=== PATIENT | male | born 1960 | race Caucasian/White ===

== ENCOUNTER → 2023-10-05 07:37 | Outpatient (BNVA) | payer OTHER, SELFPAY | PROVIDERS: Visit Provider Physician Assistant Surgical ==

== ENCOUNTER 2023-12-03 08:12 | Outpatient (AMB) | payer OTHER, SELFPAY ==
--- OUTSIDE RECORDS SUMMARY | 2023-12-03 08:14 | XMS_ITS | Continuity of Care Document ---
Author Organization [facility] em Address Unknown Care Team Providers Care Mental Health Specialist Name Role Phone Adamaris MARIO, Keyannakwadwo Masterson Primary Care Physici an [place] [facility] [place] - 09/28/[address] [address] Attending Physician: Joycelyn Hennessy Admitting Physician: AdmtrJoycelyn Referring Physician: Admtr Ar8 Allergies, Adverse Reactions, Alerts Substance Reaction Severity Status Peanuts TURNS RED,JENSEN,VOMITING Active Zetia PAIN AND WEAKNESS IN JOINTS Active fentaNYL 1 Active statins CPK LEVELS RISE Active 1FLUSHED Immunizations Given and Recorded Vaccine Date Status Refusal Reason pneumococcal 23-valent vaccine 09/06/17 Given influenza virus vaccine, inactivated 09/06/17 Give n Medications Albuterol 2 puffs, By Mouth, Every 6 hours, PRN as needed for wheezing, 0 Refills, 10/07/04 13:18:37 EDT Start Date: 10/07/04 Status: Ordered Albuterol (Eqv-ProAir HFA) 90 mcg/inh inhalation aerosol 2 puffs, Inhalation, Every 6 hours, PRN Wheezing/Shortness of Breath, # 6.7 Gm, 11 Refills, Maintenance, 06/13/22 14:10:00 uControl, [facility] #[id number], Partial fill upon patient request if the prescription is for a schedule II opioid drug., 2 puf... Start Date: 06/13/22 Status: Ordered albuterol 0.083% inhalation solution 3 mL = 2.5 mg, Inhalation, Every 6 hours, PRN for wheezing/shortness of breath, # 360 mL, 11 Refills, Maintenance, 06/13/22 14:09:00 EST, Solution, [facility] #[id number], Partial fill upon patient request if the prescription is for a schedule II... Start Date: 06/13/22 Status: Ordered amLODIPine 5 mg oral tablet 1 tablet = 5 mg, By Mouth, Daily, # 90 tablet, 3 Refills, Maintenance, 09/07/23 8:50:00 EDT, Tablet, [facility]/pharmacy #[id number], Partial fill upon patient request if the prescription is for a schedule II opioid drug., 180.34, cm, 09/07/23 8:40:00 EDT, Height,... Start Date: 09/07/23 Stop Date: 09/01/24 Status: Ordered aspirin 81 mg oral tablet 1 tablet = 81 mg, By Mouth, Daily, # 90 tablet, 11 Refills, Maintenance, 12/06/18 13:47:08 EDT, Tablet Start Date: 12/06/18 Stop Date: 11/20/21 Status: Ordered Augmentin 500 mg-125 mg oral tablet By Mouth, Every 8 hours, 0 Refills, Maintenance, 07/12/23 15:54:00 EST, Partial fill upon patient request if the prescription is for a schedule II opioid drug. Start Date: 07/12/23 Status: Ordered Fax to [facility] Fax to [facility], See Instructions, # 1 each, Refills 11, Tot. Refills 11, Maintenance, CPAP CPAP 8 cm H2O with heated humidification, mask, heated tubing, filters, headgear, chin strap, andwater chamber. Vincenzo provider access to wireless... Start Date: 09/28/20 Status: Ordered fenofibrate 160 mg oral tablet 0.5 tablet = 80 mg, By Mouth, Daily, # 15 tablet, 0 Refills, Maintenance, 12/16/21 9:13:00 EDT, Tablet, [facility] #[id number], Partial fill upon patient request if the prescription is for a schedule II opioid drug., 180, cm, 12/16/21 8:55:00 EDT... Start Date: 12/16/21 Status: Ordered Fish Oil 1000 mg oral capsule 1 capsule = 1,000 mg, By Mouth, 2 times a day, # 90 capsule, 0 Refills, Maintenance, 06/11/15 13:42:25, Capsule Start Date: 06/11/15 Status: Ordered fluoxetine 20 mg oral tablet 1 tablet = 20 mg, By Mouth, Daily, 0 Refills, Maintenance Start Date: 06/08/11 Status: Ordered fluticasone 50 mcg/inh nasal spray 1 sprays, Nares, Both, 2 times a day, # 1 each, 5 Refills, Maintenance, 04/05/23 11:45:00 EDT, [facility]/pharmacy #[id number], Partial fill upon patient request if the prescription is for a schedule II opioid drug., 1 sprays Nares, Both 2 times a day, 180.34, cm,... Start Date: 04/05/23 Status: Ordered Golytely - oral powder for reconstitution 240 mL, By Mouth, Every 15 minutes, Start prep at 5 pm the night before the procedure. Take 1/2 of the prep Take the othe 1/2 6 hours before the procedure, # 1 each, 0 Refills, Maintenance, 11/08/22 16:40:00 EDT, REC Powder, [facility]/pharmacy #[id number], Ok to... Start Date: 11/08/22 Status: Ordered Lasix 20 mg oral tablet 20 mg, 1, tablet, By Mouth, Daily, # 30 tablet, Refills 11, Tot. Refills 11, Maintenance, 02/24/22 16:00:00 EDT, [id number], Partial fill upon patient request if the prescription is for a schedule II... Start Date: 02/24/22 Status: Ordered Levothyroxine = 300 mcg, By Mouth, Daily, 0 Refills, Maintenance Start Date: 06/29/11 Status: Ordered loratadine 10 mg oral tablet 10 mg, 1, tablet, By Mouth, Daily, # 30 tablet, Refills 11, Tot. Refills 11, Maintenance, 05/10/23 10:46:00 EST, Route to Pharmacy Electronically, [facility]/pharmacy #[id number], Partial fill upon patient request if the prescription is for a schedule II opioid dr... Start Date: 05/10/23 Status: Ordered metoprolol 50 mg oral tablet, extended release 50 mg, 1, tablet, By Mouth, Daily, # 90 tablet, Refills 3, Tot. Refills 3, Maintenance, 10/31/22 9:28:00 EDT, Route to Pharmacy Electronically, [facility]/pharmacy #[id number], 178, cm, 10/18/22 9:47:00 EDT, Height, 121, kg, 01/23/22 7:29:00 EDT, Dry Weight Start Date: 10/31/22 Status: Ordered Nebulizer/Compressor See Instructions, # 1 each, Refills 11, Tot. Refills 11, Maintenance, E0570 Nebulizer A7003 Neb Disp Set [id number] Neb non-Disp Filter A7005 Neb Non-Disp set [id number] Aerosol Mask A7013 Neb Disp Filter length of need lifetime 99 months for home use, 06/04... Start Date: 06/13/22 Status: Ordered nitroglycerin 0.4 mg sublingual tablet 1 tablet = 0.4 mg, Sublingual, Every 5 minutes, PRN for chest pain, # 100 tablet, 1 Refills, Maintenance, 04/06/16 8:55:53, Tablet Start Date: 04/06/16 Status: Ordered prasugrel 10 mg oral tablet 1 tablet = 10 mg, By Mouth, Daily, # 90 tablet, 3 Refills, Maintenance, 02/06/23 8:36:00 EDT, Tablet, [facility]/pharmacy #[id number], 180.34, cm, 11/22/22 7:21:00 EDT, Height, 124.1, kg, 11/22/22 7:21:00 EDT, Dry Weight Start Date: 02/06/23 Status: Ordered PredniSONE By Mouth, Daily, 0 Refills, Maintenance, 07/12/23 15:54:00 EST, Partial fill upon patient request if the prescription is for a schedule II opioid drug. Start Date: 07/12/23 Status: Ordered ranolazine 500 mg oral tablet, extended release 1 tablet = 500 mg, By Mouth, 2 times a day, # 180 tablet, 3 Refills, Maintenance, 03/13/23 9:33:00 EDT, ER Tablet, [facility]/pharmacy #[id number], Partial fill upon patient request if the prescription is for a schedule II opioid drug., 180.34, cm, 11/22/22 7:21:0... Start Date: 03/13/23 Status: Ordered Repatha SureClick 140 mg/mL subcutaneous solution = 140 mg, Subcutaneous Infusion, Every 14 days, # 2 each, 11 Refills, Maintenance, 06/12/23 12:51:00 EST, [facility] #[id number], Partial fill upon patient request if the prescription is for a schedule II opioid drug., 180.34, cm, 11/22/22 7:21:00 EDT, He... Start Date: 06/12/23 Status: Ordered Trelegy Ellipta 200 mcg-62.5 mcg-25 mcg/inh inhalation powder 1 puffs, Inhalation, Daily, at the same time every day, # 1 each, 11 Refills, Maintenance, 06/19/2412:13:00 EST, Powder, [facility] #[id number], Partial fill upon patient request if the prescription is for a schedule II opioid drug., 1 puffs Inhalation D... Start Date: 06/19/23 Status: Ordered Vitamin B Complex oral tablet, extended release By Mouth, Daily, 0 Refills, Maintenance, 07/23/19 13:22:00 EST Start Date: 07/23/19 Status: Ordered Problem List Condition Confirmation Course Effective Dates Status Health St atus Informant Ascending aorta dilation Confirmed Active Benign essential hypertension Confirmed Active CAD (coronary artery disease) Confirmed Active Dyslipidemia Confirmed Active Severe obesity (BMI 35.0-39.9) with comorbidity Confirmed Active Social History Social History Type Response Smoking Status Former smoker; Other : quit 1990; entered on: 06/14/17 Sex Patient Care team information Care Team Personnel Name: Rhoda Ansari RN Position: CARYN MUNOZ RN Member Role: Primary Care Nurse Name: Keyanna Bailon NP Position: Reference Physician Member Role: PCP Address: Address: [address] [place] [address]- Name: Adam Gutiérrez RN Position: CARYN RESTREPO Supv Member Role: Primary Care Nurse Care Team Related Persons Name: SHERLY HOLTA Address: home [address] [place] [address]
--- OUTSIDE RECORDS SUMMARY | 2023-12-03 08:14 | XMS_ITS | Continuity of Care Document ---
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 Name Role Phone Sheyla BARRAGAN, Willie Rogers Primary Care Physician [place] [facility] [place] 02/25/20 [facility] [address] [place] [address]- [facility] Attending Physician: Payam Genao MD Admitting Physician: Payam Genao MD Allergies, Adverse Reactions, Alerts Substance Reaction Severity Status Peanuts TURNS RED,JENSEN,VOMITING Active Zetia PAIN AND WEAKNESS IN JOINTS Active statins CPK LEVELS RISE Active fentaNYL 1 Active 1FLUSHED Immunizations Given and Recorded Vaccine Date Status Refusal Reason pneumococcal 23-valent vaccine 09/06/17 Given influenza virus vaccine, inactivated 09/06/17 Give n Medications Albuterol 2 puffs, By Mouth, Every 6 hours, PRN as needed for wheezing, 0 Refills, 10/07/04 13:18:37 EDT Start Date: 10/07/04 Status: Ordered amLODIPine 2.5 mg oral tablet 1 tablet, By Mouth, Daily, # 30 tablet, 11 Refills, Maintenance, 02/11/20 10:45:00 EDT, [facility] #[id number], 180, cm, 01/27/20 7:17:00 EDT, Height, 122.3, kg, 12/05/18 4:00:00 EDT, Dry Weight Start Date: 02/11/20 Status: Ordered aspirin 81 mg oral tablet 1 tablet = 81 mg, By Mouth, Daily, # 90 tablet, 11 Refills, Maintenance, 12/06/18 13:47:08 EDT, Tablet Start Date: 12/06/18 Stop Date: 11/20/21 Status: Ordered fenofibrate 160 mg oral tablet 0.5 tablet = 80 mg, By Mouth, Daily, 0 Refills, Maintenance, 12/06/18 13:42:44 EDT, Tablet Start Date: 12/06/18 Status: Ordered Fish Oil 1000 mg oral capsule 1 capsule = 1,000 mg, By Mouth, 2 times a day, # 90 capsule, 0 Refills, Maintenance, 06/11/15 13:42:25, Capsule Start Date: 06/11/15 Status: Ordered fluoxetine 20 mg oral tablet 1 tablet = 20 mg, By Mouth, Daily, 0 Refills, Maintenance Start Date: 06/08/11 Status: Ordered Levothyroxine = 300 mcg, By Mouth, Daily, 0 Refills, Maintenance Start Date: 06/29/11 Status: Ordered nitroglycerin 0.4 mg sublingual tablet 1 tablet = 0.4 mg, Sublingual, Every 5 minutes, PRN for chest pain, # 100 tablet, 1 Refills, Maintenance, 04/06/16 8:55:53, Tablet Start Date: 04/06/16 Status: Ordered prasugrel 10 mg oral tablet 1 tablet = 10 mg, By Mouth, Daily, # 90 tablet, 3 Refills, Maintenance, 01/27/20 8:43:00 EDT, Tablet, [facility], 180, cm, 01/27/20 7:17:00 EDT, Height, 122.3, kg, 12/05/18 4:00:00 EDT,Dry Weight Start Date: 01/27/20 Status: Ordered Symbicort 160mcg/4.5mcg Inhaler 2, puffs, Inhalation, 2 times a day, Refills 0, Maintenance, 09/04/17 15:12:55 EDT Start Date: 09/04/17 Status: Ordered Problem List Condition Effective Dates Status Health Status Inform ant Benign essential hypertension(Confirmed) Active CAD (coronary artery disease)(Confirmed) Active Dyslipidemia(Confirmed) Active Social History Social History Type Response Smoking Status Former smoker; Other : quit 1990; entered on: 06/14/17 Sex
--- OUTSIDE RECORDS SUMMARY | 2023-12-03 08:14 | XMS_ITS | Continuity of Care Document ---
Author Organization [facility] em Address Unknown Care Team Providers Care Support Services Specialist Name Role Phone Willie Carrion MD Primary Care Physician [place] [facility] [place](s): 11/05/20 - 11/12/20 [facility] Attending Physician: Payam Genao MD Admitting Physician: Payam Genao MD Referring Physician: Willie Carrion MD Allergies, Adverse Reactions, Alerts Substance Reaction [...] EDT Start Date: 10/07/04 Status: Ordered amLODIPine 5 mg oral tablet 5 mg, 1, tablet, By Mouth, Daily, # 90 tablet, Refills 6, Tot. Refills 6, Maintenance, 03/26/20 11:01:00 EDT, Route to Pharmacy Electronically, [facility] #[id number], 180, cm, 03/26/20 10:34:00EDT, Height, 122.3, kg, 12/05/18 4:00:00 EDT, Dry W... Start Date: 03/26/20 Stop Date: 12/16/21 Status: Ordered aspirin 81 mg oral tablet 1 tablet = 81 mg, By Mouth, Daily, # 90 tablet, 11 Refills, Maintenance, 12/06/18 13:47:08 EDT, Tablet Start Date: 12/06/18 Stop Date: 11/20/21 Status: Ordered Fax to [facility] Fax to [facility], See Instructions, # 1 each, [...] Refills, Maintenance Start Date: 06/29/11 Status: Ordered metoprolol 50 mg oral tablet, extended release 50 mg, 1, tablet, By Mouth, Daily, # 90 tablet, Refills 3, Tot. Refills 3, Maintenance, 09/01/20 16:55:00 EDT, [id number], 180, cm, 08/31/20 14:02:00 EDT, Height, 122.3, kg, 12/05/18 4:00:00 EDT, Dry... Start Date: 09/01/20 Status: Ordered Nitric Oxide 0 Refills, Maintenance, 08/31/20 14:02:00 EDT, Partial fill upon patient request if the prescription is for a schedule II opioid drug. Start Date: 08/31/20 Status: Ordered nitroglycerin 0.4 mg sublingual tablet 1 tablet = 0.4 mg, Sublingual, Every 5 minutes, PRN for chest pain, # 100 tablet, 1 Refills, Maintenance, 04/06/16 8:55:53, Tablet Start Date: 04/06/16 Status: Ordered prasugrel 10 mg oral tablet 1 tablet = 10 mg, By Mouth, Daily, # 90 tablet, 3 Refills, Maintenance, 01/27/20 8:43:00 EDT, Tablet, [facility] 3, 180, cm, 01/27/20 7:17:00 EDT, Height, 122.3, kg, 12/05/18 4:00:00 EDT,Dry Weight Start Date: 01/27/20 Status: Ordered Spiriva Respimat 1.25 mcg/inh inhalation aerosol 2 puffs, Inhalation, Daily, # 4 Gm, 11 Refills, Maintenance, 03/08/20 14:55:00 EDT, Aerosol, [facility] #[id number], 180, cm, 03/08/20 14:38:00 EDT, Height, 122.3, kg, 12/05/18 4:00:00 EDT, Dry Weight Start Date: 03/08/20 Status: Ordered Symbicort 160mcg/4.5mcg Inhaler 2, puffs, Inhalation, 2 times a day, Refills 0, Maintenance, 09/04/17 15:12:55 EDT Start Date: 09/04/17 Status: Ordered Problem List Condition Effective Dates Status Health Status Inform ant Benign essential hypertension(Confirmed) Active CAD (coronary artery disease)(Confirmed) Active Dyslipidemia(Confirmed) Active Vital Signs Most recent to oldest [Reference Range]: 1 Height 180 cm (10/18/20 2:48 PM) Weight 119 kg (10/18/20 2:48 PM) Social History Social History Type Response Smoking Status Former smoker; Other : quit 1990; entered on: 06/14/17 Sex
--- OUTSIDE RECORDS SUMMARY | 2023-12-03 08:14 | XMS_ITS | Continuity of Care Document ---
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 [place] Date(s): 07/23/19 - 07/30/19 [place] [address]- [place] Attending Physician: Jaswant Elizabeth MD Admitting Physician: Jaswant Elizabeth MD Referring Physician: Willie Carrion MD Allergies, [...] Status: Ordered amLODIPine 2.5 mg oral tablet 2.5 mg, 1, tablet, By Mouth, Daily, # 30 tablet, Refills 11, Tot. Refills 11, Maintenance, 02/13/1916:14:19 EDT, Route to Pharmacy Electronically, [id number], [facility] #[id number] Start Date: 02/12/19 Status: Ordered aspirin 81 mg oral tablet [...] tablet, Refills 3, Tot. Refills 3, Maintenance, 08/13/18 11:06:52 EDT, Route to Pharmacy Electronically, [id number], [id number] Start Date: 08/13/18 Status: Ordered nitroglycerin 0.4 mg sublingual tablet 1 tablet = 0.4 mg, Sublingual, Every 5 minutes, PRN for chest pain, # 100 tablet, 1 Refills, Maintenance, 04/06/16 8:55:53, Tablet Start Date: 04/06/16 Status: Ordered Symbicort 160mcg/4.5mcg Inhaler 2, puffs, Inhalation, 2 times a day, Refills 0, Maintenance, 09/04/17 15:12:55 EDT Start Date: 09/04/17 Status: Ordered ticagrelor 90 mg oral tablet 1 tablet = 90 mg, By Mouth, 2 times a day, # 180 tablet, 4 Refills, Maintenance, 12/09/18 15:26:27 EDT, Tablet Start Date: 12/09/18 Stop Date: 03/03/20 Status: Ordered Vital Signs Most recent to oldest [Reference Range]: 1 Height 180 cm (07/23/19 1:20 PM) Weight 115 kg (07/23/19 1:20 PM) Oxygen Saturation [94-100 %] 97 % (07/23/19 1:20 PM) Pulse Rate [55-90 bpm] 69 bpm (07/23/19 1:20 PM) Body Mass Index [18.5-24.99] 35.49 *>HHI* (07/23/19 1:20 PM) Blood Pressure [90-138/55-84 mm Hg] 112/ 80mm Hg (07/23/19 1:20 PM) Mode of Delivery (Oxygen) Room air (07/23/19 1:20 PM) Blood pressure sites Arm, left (07/23/19 1:20 PM) Weight Obtained Via Standing scale (07/23/19 1:20 PM) Social History Social History Type Response Smoking Status Former smoker; Other : quit 1990; entered on: 06/14/17 Sex
--- OUTSIDE RECORDS SUMMARY | 2023-12-03 08:14 | XMS_ITS | Continuity of Care Document ---
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 Name Role Phone Adamaris MARIO, Keyanna Masterson Primary Care Physici an En[place] [facility] [place] Date(s): 07/13/22 - 08/25/22 [facility] [address] [place] [address]- [place] Encounter Diagnosis CAD in [place] artery(Discharge Diagnosis) - 07/26/22 Dyslipidemia(Discharge Diagnosis) - 07/26/22 Attending Physician: Jaswant Elizabeth MD Admitting Physician: Jaswant Elizabeth MD Referring Physician: Keyanna Bailon NP Allergies, Adverse Reactions, Alerts Substance Reaction Severity [...] 6.7 Gm, 11 Refills, Maintenance, 06/13/22 14:10:00 [facility] #[id number], Partial fill upon patient request if the prescription is for a schedule II opioid drug., 2 puf... Start Date: 06/13/22 Status: Ordered albuterol 0.083% inhalation solution 3 mL = 2.5 mg, Inhalation, Every 6 hours, PRN for wheezing/shortness of breath, # 360 mL, 11 Refills, Maintenance, 06/13/22 14:09:00 EST, Solution, [facility] #[id number], Partial fill upon patient request if the prescription is for a schedule II... Start Date: 06/13/22 Status: Ordered amLODIPine 2.5 mg oral tablet 1 tablet = 2.5 mg, By Mouth, Daily, # 90 tablet, 3 Refills, Maintenance, 03/20/22 9:25:00 EDT, Tablet, [facility] #[id number], Partial fill upon patient request if the prescription is for a schedule II opioid drug., 178, cm, 02/24/22 15:32:00 EDT... Start Date: 03/20/22 Stop Date: 03/15/23 Status: Ordered aspirin 81 mg oral tablet 1 tablet = 81 mg, By Mouth, Daily, # 90 tablet, 11 Refills, Maintenance, 12/06/18 13:47:08 EDT, Tablet Start Date: 12/06/18 Stop Date: 11/20/21 Status: Ordered Fax to [facility] Fax to [facility], See Instructions, # 1 each, Refills 11, Tot. Refills 11, Maintenance, CPAP CPAP 8 cm H2O with heated humidification, mask, heated tubing, filters, headgear, chin strap, andwater chamber. Vincenzo provider access to wireless... Start Date: 09/28/20 Status: Ordered fenofibrate 160 mg oral tablet 0.5 tablet = 80 mg, By Mouth, Daily, # 15 tablet, 0 Refills, Maintenance, 12/16/21 9:13:00 EDT, Tablet, [facility] #[id number], Partial fill upon patient request if the prescription is for a schedule II opioid drug., 180, cm, 12/16/21 8:55:00 EDT... Start Date: 12/16/21 Status: Ordered Fish Oil 1000 mg oral capsule 1 capsule = 1,000 mg, By Mouth, 2 times a day, # 90 capsule, 0 Refills, Maintenance, 06/11/15 13:42:25, Capsule Start Date: 06/11/15 Status: Ordered Flonase 50 mcg/inh nasal spray 1 sprays, Nares, Both, 2 times a day, # 16 Gm, 11 Refills, Maintenance, 06/13/22 14:09:00 EST, [place], [facility] #[id number], Partial fill upon patient request if the prescription is for a schedule II opioid drug., 1 sprays Nares, Both 2 times a... Start Date: 06/13/22 Status: Ordered fluoxetine 20 mg oral tablet 1 tablet = 20 mg, By Mouth, Daily, 0 Refills, Maintenance Start Date: 06/08/11 Status: Ordered Lasix 20 mg oral tablet 20 mg, 1, tablet, By Mouth, Daily, # 30 tablet, Refills 11, Tot. Refills 11, Maintenance, 02/24/22 16:00:00 EDT, Route to Pharmacy Electronically, [facility] #[id number], Partial fill upon patient request if the prescription is for a schedule II... Start Date: 02/24/22 Status: Ordered Levothyroxine = 300 mcg, By Mouth, Daily, 0 Refills, Maintenance Start Date: 06/29/11 Status: Ordered loratadine 10 mg oral tablet 10 mg, 1, tablet, By Mouth, Daily, # 30 tablet, Refills 11, Tot. Refills 11, Maintenance, 06/13/22 14:09:00 EST, Route to Pharmacy Electronically, [facility] #[id number], Partial fill upon patient request if the prescription is for a schedule II... Start Date: 06/13/22 Status: Ordered metoprolol 50 mg oral tablet, extended release 50 mg, 1, tablet, By Mouth, Daily, # 90 tablet, Refills 3, Tot. Refills 3, Maintenance, 12/16/21 14:24:00 EDT, Route to Pharmacy Electronically, [facility] #[id number], 180, cm, 12/16/21 8:55:00EDT, Height, 117.8, kg, 04/04/21 7:21:00 EDT, Dry W... Start Date: 12/16/21 Status: Ordered Nebulizer/Compressor See Instructions, # 1 [...] Daily, # 90 tablet, 3 Refills, Maintenance, 01/02/22 16:07:00 EDT, Tablet, [facility] #[id number], 180, cm, 12/16/21 8:55:00 EDT, Height, 117.8, kg, 04/04/21 7:21:00 EDT, Dry Weight Start Date: 01/02/22 Status: Ordered ranolazine 500 mg oral tablet, extended release 1 tablet = 500 mg, By Mouth, 2 times a day, # 180 tablet, 3 Refills, Maintenance, 08/14/22 9:08:00 EDT, ER Tablet, [facility] #[id number], Partial fill upon patient request if the prescription is for a schedule II opioid drug., 178, cm, 08/11/22... Start Date: 08/14/22 Status: Ordered Repatha SureClick 140 mg/mL subcutaneous solution = 140 mg, Subcutaneous Infusion, Every 14 days, # 2 each, 11 Refills, Maintenance, 05/03/22 11:32:00 EST, [facility] #[id number], Partial fill upon patient request if the prescription is for a schedule II opioid drug., 178, cm, 03/30/22 16:02:00... Start Date: 05/03/22 Status: Ordered Trelegy Ellipta 200 mcg-62.5 mcg-25 mcg/inh inhalation powder 1 puffs, Inhalation, Daily, at the same time every day, # 1 each, 11 Refills, Maintenance, 06/13/2313:09:00 EST, Powder, [facility] #[id number], Partial fill upon patient request if the prescription is for a schedule II opioid drug., 1 puffs Inh... Start Date: 06/13/22 Status: Ordered Vitamin B Complex oral tablet, extended release By Mouth, Daily, 0 Refills, Maintenance, 07/23/19 13:22:00 EST Start Date: 07/23/19 Status: Ordered Problem List Condition Confirmation Course Effective Dates Status Health St atus Informant Benign essential hypertension Confirmed Active CAD (coronary artery disease) Confirmed Active Dyslipidemia Confirmed Active Severe obesity Confirmed Active Diagnosis Diagnosis Type Effective Dates Health Status Clinical Service Informant CAD in [place] artery Discharge Diagnosis 07/26/22 Dyslipidemia Discharge Diagnosis 07/26/22 Social History Social History Type Response Smoking Status Former smoker; Other : quit 1990; entered on: 06/14/17 Sex Patient Care team information Care Team Personnel Name: Rhoda Ansari RN Position: Benja MUNOZ RN Member Role: Primary Care Nurse Name: Keyanna Bailon NP Position: Reference Physician Member Role: PCP Address: Address: [address] [place] [address] Name: Adam Gutiérrez RN Position: Benja RN Supv Member Role: Primary Care Nurse Care Team Related Persons Name: IBIS HOLT Address: home [address] [place] [address]
--- OUTSIDE RECORDS SUMMARY | 2023-12-03 08:14 | XMS_ITS | Continuity of Care Document ---
Author Organization [facility] Address [address] [place] [address]- Care Team Providers Care Insurance Processor Name Role Phone Adamaris MARIO, Keyanna Masterson Primary Care Physici an Encounter [facility] [place] Date(s): 06/13/22 - 07/13/22 [facility] [address] [place] [address]- Attending Physician: Joycelyn Hennessy Admitting Physician: AdmJoycelyn georges Referring Physician: AdmtrJoycelyn Allergies, Adverse Reactions, Alerts Substance Reaction Severity [...] 6.7 Gm, 11 Refills, Maintenance, 06/13/22 14:10:00 [facility][id number], Partial fill upon patient request if the prescription is for a schedule II opioid drug., 2 puf... Start Date: 06/13/22 Status: Ordered albuterol 0.083% inhalation solution 3 mL = 2.5 mg, Inhalation, Every 6 hours, PRN for wheezing/shortness of breath, # 360 mL, 11 Refills, Maintenance, 06/13/22 14:09:00 EST, Solution, [facility] #[id number], Partial fill upon patient request if the prescription is for a schedule II... Start Date: 06/13/22 Status: Ordered amLODIPine 2.5 mg oral tablet 1 tablet = 2.5 mg, By Mouth, Daily, # 90 tablet, 3 Refills, Maintenance, 03/20/22 9:25:00 EDT, Tablet, [facility] #[id number], Partial fill upon patient request if the prescription is for a schedule II opioid drug., 178, cm, 02/24/22 15:32:00 EDT... Start Date: 03/20/22 Stop Date: 03/15/23 Status: Ordered aspirin 81 mg oral tablet 1 tablet = 81 mg, By Mouth, Daily, # 90 tablet, 11 Refills, Maintenance, 12/06/18 13:47:08 EDT, Tablet Start Date: 12/06/18 Stop Date: 11/20/21 Status: Ordered Fax to [facility] Fax to [facility], See Instructions, # 1 each, Refills 11, Tot. Refills 11, Maintenance, CPAP CPAP 8 cm H2O with heated humidification, mask, heated tubing, filters, headgear, chin strap, andwater chamber. [facility]en[facility] provider access to wireless... Start Date: 09/28/20 Status: Ordered fenofibrate 160 mg oral tablet 0.5 tablet = 80 mg, By Mouth, Daily, # 15 tablet, 0 Refills, Maintenance, 12/16/21 9:13:00 EDT, Tablet, [facility] #[id number], Partial fill upon patient request if the [...] Gm, 11 Refills, Maintenance, 06/13/22 14:09:00 EST, House, [facility] #[id number], Partial fill upon patient request if the [...] 02/24/22 16:00:00 EDT, Route to Pharmacy Electronically, [facility] #[id number], Partial fill upon patient request if the prescription is for a schedule II... Start Date: 02/24/22 Status: Ordered Levothyroxine = 300 mcg, By Mouth, Daily, 0 Refills, Maintenance Start Date: 06/29/11 Status: Ordered loratadine 10 mg oral tablet 10 mg, 1, tablet, By Mouth, Daily, # 30 tablet, Refills 11, Tot. Refills 11, Maintenance, 06/13/22 14:09:00 EST, Route to Pharmacy Electronically, [facility] #[id number], Partial fill upon patient request if the prescription is for a schedule II... Start Date: 06/13/22 Status: Ordered metoprolol 50 mg oral tablet, extended release 50 mg, 1, tablet, By Mouth, Daily, # 90 tablet, Refills 3, Tot. Refills 3, Maintenance, 12/16/21 14:24:00 EDT, Route to Pharmacy Electronically, [facility] #[id number], 180, cm, 12/16/21 8:55:00EDT, Height, 117.8, kg, [...] 3 Refills, Maintenance, 01/02/22 16:07:00 EDT, Tablet, [facility] #[id number], 180, cm, 12/16/21 8:55:00 EDT, Height, 117.8, kg, 04/04/21 7:21:00 EDT, Dry Weight Start Date: 01/02/22 Status: Ordered ranolazine 500 mg oral tablet, extended release 1 tablet = 500 mg, By Mouth, 2 times a day, # 120 tablet, 3 Refills, Maintenance, 07/04/22 9:01:00 EST, ER Tablet, [facility] #[id number], Partial fill upon patient request if the prescription is for a schedule II opioid drug., 178, cm, 06/13/22... Start Date: 07/04/22 Status: Ordered Repatha SureClick 140 mg/mL subcutaneous solution = 140 mg, Subcutaneous Infusion, Every 14 days, # 2 each, 11 Refills, Maintenance, 05/03/22 11:32:00 EST, [facility] #[id number], Partial fill upon patient request if the prescription is for a schedule II opioid drug., 178, cm, 03/30/22 16:02:00... Start Date: 05/03/22 Status: Ordered Trelegy Ellipta 200 mcg-62.5 mcg-25 mcg/inh inhalation powder 1 puffs, Inhalation, Daily, at the same time every day, # 1 each, 11 Refills, Maintenance, 06/13/2313:09:00 EST, Powder, [facility] #[id number], Partial fill upon patient request if the [...] Team Personnel Name: Rhoda Ansari RN Position: [facility] SN RN Member Role: Primary Care Nurse Name: Keyanna Bailon NP Position: Reference Physician Member Role: PCP Address: Address: [address] [place] [address]- Name: Adam Gutiérrez RN Position: S RN Supv Member Role: Primary Care Nurse Care Team Related Persons Name: IBIS HOLT Address: home [address] [place] [address]
--- OUTSIDE RECORDS SUMMARY | 2023-12-03 08:14 | XMS_ITS | Continuity of Care Document ---
Author Organization [facility] Address [address] [place] [address]- Care Team Providers Care Water Commissioner Name Role Phone Willie Carrion MD Primary Care Physician Encounter [facility] [place] Date(s): 01/26/20 - 01/27/[address] [address]- [facility] Discharge Disposition: A-D/C Home Attending Physician: Steve Cedeno MD Admitting Physician: Steve Cedeno MD Referring Physician: Steve Cedeno MD Allergies, Adverse Reactions, Alerts Substance Reaction [...] Maintenance, 02/13/1916:14:19 EDT, Route to Pharmacy Electronically, [id number], [facility] #[id number] Start Date: 02/12/19 Status: Ordered aspirin 81 [...] 3 Refills, Maintenance, 01/27/20 8:43:00 EDT, Tablet, [facility] 3, 180, cm, 01/27/20 7:17:00 EDT, Height, 122.3, kg, 12/05/18 4:00:00 EDT,Dry Weight Start Date: 01/27/20 Status: Ordered Symbicort 160mcg/4.5mcg Inhaler 2, puffs, Inhalation, 2 times a day, Refills 0, Maintenance, 09/04/17 15:12:55 EDT Start Date: 09/04/17 Status: Ordered Problem List Condition Effective Dates Status Health Status Inform ant Benign essential hypertension(Confirmed) Active CAD (coronary artery disease)(Confirmed) Active Dyslipidemia(Confirmed) Active Procedures Procedure Date Related Diagnosis Body Site Status PCI - Percutaneous coronary intervention 01/26/20 Completed Vital Signs Most recent to oldest [Reference Range]: 1 2 3 Height 180 cm (01/27/20 7:17 AM) 180 cm (01/27/20 3:15 AM) 180 cm (01/26/20 11:21 PM) Weight 114.3 kg (01/26/20 1:10 PM) 114.2 kg (01/26/20 7:41 AM) 114.2 kg (01/26/20 7:30 AM) Oxygen Saturation [94-100 %] 100 % (01/27/20 7:17 AM) 96 % (01/27/20 3:15 AM) 97 % (01/26/20 11:21 PM) Pulse Rate [55-90 bpm] 56 bpm (01/27/20 9:00 AM) 102 bpm *H* (01/27/20 7:17 AM) 59 bpm (01/27/20 3:15 AM) Body Mass Index [18.5-24.99] 35.28 *>HHI* (01/26/20 1:10 PM) 35.25 *>HHI* (01/26/20 7:30 AM) Blood Pressure [90-138/55-84 mm Hg] 112/76mm Hg (01/27/20 9:27 AM) 112/76mm Hg (01/27/20 9:00 AM) 112/76mm Hg (01/27/20 7:17 AM) Respiratory Rate [16-30 br/min] 18 br/min (01/27/20 7:17 AM) 18 br/min (01/27/20 3:15 AM) 18 br/min (01/26/20 11: PM) Temperature [96.8-100.4 DegF] 97.9 DegF (01/27/20 7:17 AM) 97.8 DegF (01/27/20 3:15 AM) 97.6 DegF (01/26/20 11:21 PM) Mode of Delivery (Oxygen) Room air (01/27/20 7:17 AM) Room air (01/27/20 3:15 AM) Room air (01/26/20 11:21 PM) Blood pressure sites Arm, left (01/27/20 7:17 AM) Arm, left (01/27/20 3:15 AM) Arm, left (01/26/20 11:21 PM) Temperature Route Oral (01/27/20 7:17 AM) Oral (01/27/20 3:15 AM) Oral (01/26/20 11:21 PM) Weight Obtained Via Bed scale (01/26/20 1:10 PM) Standing scale (01/26/20 7:41 AM) Standing scale (01/26/20 7:30 AM) Social History Social History Type Response Smoking Status Former smoker; Other : quit 1990; entered on: 06/14/17 Sex
--- OUTSIDE RECORDS SUMMARY | 2023-12-03 08:14 | XMS_ITS | Continuity of Care Document ---
Author Organization [facility] Address [address] [place] [address]- Care Team Providers Care Integration Director Name Role Phone Willie Carrion MD Primary Care Physician [phone] Encounter [facility] [place] Date(s): 12/16/21 - 01/15/22 [facility] [address] [place] [address]- Attending Physician: Joycelyn Hennessy Admitting Physician: AdmtrJoycelyn [...] Daily, # 90 tablet, 3 Refills, Maintenance, 09/02/21 8:52:00 EDT, Tablet, [facility] #[id number], Partial fill upon patient request if the prescription is for a schedule II opioid drug., 180, cm, 09/02/21 8:46:00 EDT,... Start Date: 09/02/21 Stop Date: 08/28/22 Status: Ordered aspirin 81 mg oral tablet 1 tablet = 81 mg, By Mouth, Daily, # 90 tablet, 11 Refills, Maintenance, 12/06/18 13:47:08 EDT, Tablet Start Date: 12/06/18 Stop Date: 11/20/21 Status: Ordered Fax to [facility] Fax to [facility], See Instructions, # 1 each, Refills 11, Tot. Refills 11, Maintenance, CPAP CPAP 8 cm H2O with heated humidification, mask, heated tubing, filters, headgear, chin strap, andwater chamber. [facility]en[facility] provider access to wireless... Start Date: 09/28/20 Status: Ordered fenofibrate 160 mg oral tablet 0.5 tablet = 80 mg, By Mouth, Daily, # 15 tablet, 0 Refills, Maintenance, 12/16/21 9:13:00 EDT, Tablet, [facility] #[id number], Partial fill upon patient request if the [...] 12/16/21 14:24:00 EDT, Route to Pharmacy Electronically, [facility] #[id number], 180, cm, 12/16/21 8:55:00EDT, Height, 117.8, kg, 04/04/21 7:21:00 EDT, Dry W... Start Date: 12/16/21 Status: Ordered nitroglycerin 0.4 mg sublingual tablet 1 tablet = 0.4 mg, Sublingual, Every 5 minutes, PRN for chest pain, # 100 tablet, 1 Refills, Maintenance, 04/06/16 8:55:53, Tablet Start Date: 04/06/16 Status: Ordered prasugrel 10 mg oral tablet 1 tablet = 10 mg, By Mouth, Daily, # 90 tablet, 3 Refills, Maintenance, 01/02/22 16:07:00 EDT, Tablet, [facility] #[id number], 180, cm, 12/16/21 8:55:00 EDT, Height, 117.8, kg, 04/04/21 7:21:00 EDT, Dry Weight Start Date: 01/02/22 Status: Ordered ranolazine 500 mg oral tablet, extended release 1 tablet = 500 mg, By Mouth, 2 times a day, # 120 tablet, 3 Refills, Maintenance, 12/08/21 16:50:00EDT, ER Tablet, [facility] #[id number], Partial fill upon patient request if the prescription is for a schedule II opioid drug., 180, cm, 09/05/21... Start Date: 12/08/21 Status: Ordered Repatha SureClick 140 mg/mL subcutaneous solution = 140 mg, Subcutaneous Infusion, Every 14 days, # 2 each, 11 Refills, Maintenance, 06/16/21 16:33:00 EST, Active [facility] #[id number], Partial fill upon patient request if the prescription is for a schedule II opioid drug., 180, cm, 04/06/21 16:24:00... Start Date: 06/16/21 Status: Ordered Symbicort 160mcg/4.5mcg Inhaler 2, puffs, Inhalation, 2 times a day, No substitutions, # 1 each, Refills 5, Tot. Refills 5, Maintenance, 12/13/21 12:33:00 EDT, Inhaler, Route to Pharmacy Electronically, [id number], [facility] #[id number], 180, cm, 0... Start Date: 12/13/21 Status: Ordered Problem List Condition Effective Dates Status Health Status Inform ant Benign essential hypertension(Confirmed) Active CAD (coronary artery disease)(Confirmed) Active Dyslipidemia(Confirmed) Active Obese class II(Confirmed) Active Social History Social History Type Response Smoking Status Former smoker; Other : quit 1990; entered on: 06/14/17 Sex
--- OUTSIDE RECORDS SUMMARY | 2023-12-03 08:14 | XMS_ITS | Continuity of Care Document ---
Author Organization [facility] Address [address] [facility] [place] [address]- Care Team Providers Care Client Care Manager Name Role Phone Sheyla BARRAGAN, Willie Rogers Primary Care Physician En[place] [facility] [place] Date(s): 08/17/20 - 09/16/20 [facility] [address] [facility] [address] [place] [address]- Allergies, Adverse Reactions, Alerts Substance Reaction Severity [...] 03/26/20 11:01:00 EDT, Route to Pharmacy Electronically, [facility] #[id number], 180, cm, 03/26/20 10:34:00EDT, Height, 122.3, kg, [...] 09/01/20 16:55:00 EDT, Route to Pharmacy Electronically, [facility] #[id number], 180, cm, 08/31/20 14:02:00 EDT, Height, 122.3, [...] 3 Refills, Maintenance, 01/27/20 8:43:00 EDT, Tablet, [facility] 3, 180, cm, 01/27/20 7:17:00 EDT, Height, 122.3, kg, 12/05/18 4:00:00 EDT,Dry Weight Start Date: 01/27/20 Status: Ordered Spiriva Respimat 1.25 mcg/inh inhalation aerosol 2 puffs, Inhalation, Daily, # 4 Gm, 11 Refills, Maintenance, 03/08/20 14:55:00 EDT, [facility]erosol, [facility][id number], 180, cm, 03/08/20 14:38:00 EDT, Height, 122.3, [...]
--- OUTSIDE RECORDS SUMMARY | 2023-12-03 08:14 | XMS_ITS | Continuity of Care Document ---
Author Organization [facility] Address [address] [place] [address]- Care Team Providers Care Senior Game Advisor Name Role Phone Sheyla BARRAGAN, Willie Rogers Primary Care Physician Encounter [facility] [place] Date(s): 01/10/21 - 02/09/21 [facility] [address] [place] [address]- [place] Allergies, Adverse Reactions, Alerts Substance Reaction Severity [...] 03/26/20 11:01:00 EDT, Route to Pharmacy Electronically, [facility] #[id number], 180, cm, 03/26/20 10:34:00EDT, Height, 122.3, kg, 12/05/18 4:00:00 EDT, Dry W... Start Date: 03/26/20 Stop Date: 12/16/21 Status: Ordered aspirin 81 mg oral tablet 1 tablet = 81 mg, By Mouth, Daily, # 90 tablet, 11 Refills, Maintenance, 12/06/18 13:47:08 EDT, Tablet Start Date: 12/06/18 Stop Date: 11/20/21 Status: Ordered Fax to [facility] Fax to [facility], See Instructions, # 1 each, [...] 09/01/20 16:55:00 EDT, [id number], 180, cm, 08/31/20 14:02:00 EDT, Height, 122.3, [...] Daily, # 90 tablet, 3 Refills, Maintenance, 01/10/21 15:32:00 EDT, Tablet, [facility] #[id number], 180, cm, 12/02/20 8:05:00 EDT, Height Start Date: 01/10/21 Status: Ordered Spiriva Respimat 1.25 mcg/inh inhalation aerosol 2 puffs, Inhalation, Daily, # 4 Gm, 11 Refills, Maintenance, 03/08/20 14:55:00 EDT, Aerosol, [facility] #[id number], 180, cm, 03/08/20 14:38:00 EDT, Height, 122.3, [...]
--- OUTSIDE RECORDS SUMMARY | 2023-12-03 08:14 | XMS_ITS | Continuity of Care Document ---
Author Organization [facility] Address [address] [address]- Care Team Providers Care Excellence Specialist Name Role Phone Adamaris MARIO, Keyanna Aleja Primary Care Physici an Encounter [facility] [place] Date(s): 07/28/22 - 08/27/22 [facility] [address] [address]- [place] Allergies, Adverse Reactions, Alerts Substance Reaction [...] 6.7 Gm, 11 Refills, Maintenance, 06/13/22 14[facility]10:[id number], Partial fill upon patient request if the prescription is for a schedule II opioid drug., 2 puf... Start Date: 06/13/22 Status: Ordered albuterol 0.083% inhalation solution 3 mL = 2.5 mg, Inhalation, Every 6 hours, PRN for wheezing/shortness of breath, # 360 mL, 11 Refills, Maintenance, 06/13/22 14:09:00 EST, [facility] #[id number], Partial fill upon patient request if the prescription is for a schedule II... Start Date: 06/13/22 Status: Ordered amLODIPine 2.5 mg oral tablet 1 tablet = 2.5 mg, By Mouth, Daily, # 90 tablet, 3 Refills, Maintenance, 03/20/22 9:25:00 EDT, Tablet, [facility] #[id number], Partial fill upon patient [...] Stop Date: 11/20/21 Status: Ordered Fax to [facility] Fax to [facility], See Instructions, # 1 each, Refills 11, Tot. Refills 11, Maintenance, CPAP CPAP 8 cm H2O with heated humidification, mask, heated tubing, filters, headgear, chin strap, andwater chamber. Vincenzo provider access to wireless... Start Date: 09/28/20 Status: Ordered fenofibrate 160 mg oral tablet 0.5 tablet = 80 mg, By Mouth, Daily, # 15 tablet, 0 Refills, Maintenance, 12/16/21 9:13:00 EDT, Tablet, [facility] #[id number], Partial fill upon patient request if the [...] Gm, 11 Refills, Maintenance, 06/13/22 14:09:00 EST, [place], [facility] #[id number], Partial fill upon patient request if the [...] 02/24/22 16:00:00 EDT, Route to Pharmacy Electronically, [facility] #[id number], Partial fill upon patient request if the prescription is for a schedule II... Start Date: 02/24/22 Status: Ordered Levothyroxine = 300 mcg, By Mouth, Daily, 0 Refills, Maintenance Start Date: 06/29/11 Status: Ordered loratadine 10 mg oral tablet 10 mg, 1, tablet, By Mouth, Daily, # 30 tablet, Refills 11, Tot. Refills 11, Maintenance, 06/13/22 14:09:00 EST, Route to Pharmacy Electronically, [facility] #[id number], Partial fill upon patient request if the prescription is for a schedule II... Start Date: 06/13/22 Status: Ordered metoprolol 50 mg oral tablet, extended release 50 mg, 1, tablet, By Mouth, Daily, # 90 tablet, Refills 3, Tot. Refills 3, Maintenance, 12/16/21 14:24:00 EDT, Route to Pharmacy Electronically, [facility] #[id number], 180, cm, 12/16/21 8:55:00EDT, Height, 117.8, kg, [...] 3 Refills, Maintenance, 01/02/22 16:07:00 EDT, Tablet, [facility] #[id number], 180, cm, 12/16/21 8:55:00 EDT, Height, 117.8, kg, 04/04/21 7:21:00 EDT, Dry Weight Start Date: 01/02/22 Status: Ordered ranolazine 500 mg oral tablet, extended release 1 tablet = 500 mg, By Mouth, 2 times a day, # 180 tablet, 3 Refills, Maintenance, 08/14/22 9:08:00 EDT, ER Tablet, [facility] #[id number], Partial fill upon patient request if the prescription is for a schedule II opioid drug., 178, cm, 08/11/22... Start Date: 08/14/22 Status: Ordered Repatha SureClick 140 mg/mL subcutaneous solution = 140 mg, Subcutaneous Infusion, Every 14 days, # 2 each, 11 Refills, Maintenance, 05/03/22 11:32:00 EST, [facility] #[id number], Partial fill upon patient request if the prescription is for a schedule II opioid drug., 178, cm, 03/30/22 16:02:00... Start Date: 05/03/22 Status: Ordered Trelegy Ellipta 200 mcg-62.5 mcg-25 mcg/inh inhalation powder 1 puffs, Inhalation, Daily, at the same time every day, # 1 each, 11 Refills, Maintenance, 06/13/2313:09:00 EST, Powder, [facility] #[id number], Partial fill upon patient request if the [...] Dyslipidemia Confirmed Active Severe obesity Confirmed Active Social History Social History Type Response Smoking Status Former smoker; Other : quit 1990; entered on: 06/14/17 Sex Patient Care team information Care Team Personnel Name: Rhoda Ansari RN Position: [facility]UNO[facility] RN Member Role: Primary Care Nurse Name: Keyanna Bailon NP Position: Reference Physician Member Role: PCP Address: Address: [address] [place] [address] Name: Adam Gutiérrez RN Position: S RN Supv Member Role: Primary Care Nurse Care Team Related Persons Name: IBIS HOLT Address: [address] [place] [address]
--- OUTSIDE RECORDS SUMMARY | 2023-12-03 08:14 | XMS_ITS | Continuity of Care Document ---
Author Organization [facility] Address [address] [place] [address]- Care Team Providers Care Bonderizer Name Role Phone Adamaris MARIO, Keyanna Aleja Primary Care Physici an Encounter [facility] [place] Date(s): 03/15/23 - 04/14/23 [facility] [place] [address] [place] [address]- [place] Allergies, Adverse Reactions, Alerts Substance Reaction [...] 6.7 Gm, 11 Refills, Maintenance, 06/13/22 14:10:00 [facility] #[id number], Partial fill upon patient request if the prescription is for a schedule II opioid drug., 2 puf... Start Date: 06/13/22 Status: Ordered albuterol 0.083% inhalation solution 3 mL = 2.5 mg, Inhalation, Every 6 hours, PRN for wheezing/shortness of breath, # 360 mL, 11 Refills, Maintenance, 06/13/22 14:09:00 EST, [facility] #[id number], Partial fill upon patient request if the prescription is for a schedule II... Start Date: 06/13/22 Status: Ordered amLODIPine 2.5 mg oral tablet 1 tablet = 2.5 mg, By Mouth, Daily, # 90 tablet, 3 Refills, Maintenance, 03/20/22 9:25:00 EDT, Tablet, [facility] #[id number], Partial fill upon patient request if the prescription is for a schedule II opioid drug., 178, cm, 02/24/22 15:32:00 EDT... Start Date: 03/20/22 Stop Date: 03/15/23 Status: Ordered aspirin 81 mg oral tablet 1 tablet = 81 mg, By Mouth, Daily, # 90 tablet, 11 Refills, Maintenance, 12/06/18 13:47:08 EDT, Tablet Start Date: 12/06/18 Stop Date: 11/20/21 Status: Ordered Fax to [facility] Fax to [facility], See Instructions, # 1 each, Refills 11, Tot. Refills 11, Maintenance, CPAP CPAP 8 cm H2O with heated humidification, mask, heated tubing, filters, headgear, chin strap, andwater chamber. Vincenzo provider access to wireless... Start Date: 09/28/20 Status: Ordered fenofibrate 160 mg oral tablet 0.5 tablet = 80 mg, By Mouth, Daily, # 15 tablet, 0 Refills, Maintenance, 12/16/21 9:13:00 EDT, Tablet, [facility] #[id number], Partial fill upon patient request if the [...] each, 5 Refills, Maintenance, 04/05/23 11:45:00 EDT, [facility]/pharmacy #[id number], Partial fill upon patient request if [...] Refills, Maintenance, 11/08/22 16:40:00 EDT, REC Powder, [facility]/pharmacy #[id number], Ok to... Start Date: 11/08/22 Status: Ordered Lasix 20 mg oral tablet 20 mg, 1, tablet, By Mouth, Daily, # 30 tablet, Refills 11, Tot. Refills 11, Maintenance, 02/24/22 16:00:00 EDT, Route to Pharmacy Electronically, [facility] #[id number], Partial fill upon patient request if the prescription is for a schedule II... Start Date: 02/24/22 Status: Ordered Levothyroxine = 300 mcg, By Mouth, Daily, 0 Refills, Maintenance Start Date: 06/29/11 Status: Ordered loratadine 10 mg oral tablet 10 mg, 1, tablet, By Mouth, Daily, # 30 tablet, Refills 11, Tot. Refills 11, Maintenance, 06/13/22 14:09:00 EST, Route to Pharmacy Electronically, [facility] #[id number], Partial fill upon patient request if the prescription is for a schedule II... Start Date: 06/13/22 Status: Ordered metoprolol 50 mg oral tablet, extended release 50 mg, 1, tablet, By Mouth, Daily, # 90 tablet, Refills 3, Tot. Refills 3, Maintenance, 10/31/22 9:28:00 EDT, Route to Pharmacy Electronically, [facility]/pharmacy #[id number], 178, cm, 10/18/22 9:47:00 EDT, Height, [...] 3 Refills, Maintenance, 02/06/23 8:36:00 EDT, Tablet, [facility]/pharmacy #[id number], 180.34, cm, 11/22/22 7:21:00 EDT, Height, 124.1, kg, 11/22/22 7:21:00 EDT, Dry Weight Start Date: 02/06/23 Status: Ordered ranolazine 500 mg oral tablet, extended release 1 tablet = 500 mg, By Mouth, 2 times a day, # 180 tablet, 3 Refills, Maintenance, 03/13/23 9:33:00 EDT, ER Tablet, [facility]/pharmacy #[id number], Partial fill upon patient request if the prescription is for a schedule II opioid drug., 180.34, cm, 11/22/22 7:21:0... Start Date: 03/13/23 Status: Ordered Repatha SureClick 140 mg/mL subcutaneous solution = 140 mg, Subcutaneous Infusion, Every 14 days, # 2 each, 11 Refills, Maintenance, 05/03/22 11:32:00 EST, [facility] #[id number], Partial fill upon patient request if the prescription is for a schedule II opioid drug., 178, cm, 03/30/22 16:02:00... Start Date: 05/03/22 Status: Ordered Trelegy Ellipta 200 mcg-62.5 mcg-25 mcg/inh inhalation powder 1 puffs, Inhalation, Daily, at the same time every day, # 1 each, 11 Refills, Maintenance, 06/13/2313:09:00 EST, Powder, [facility] #[id number], Partial fill upon patient request if the [...] Reference Physician Member Role: PCP Address: Address: [address] [place] [address] Name: Adam Gutiérrez RN Position: Benja RESTREPO Supv Member Role: Primary Care Nurse Care Team Related Persons Name: IBIS HOLT Address: home [address] [place] [address]
--- OUTSIDE RECORDS SUMMARY | 2023-12-03 08:14 | XMS_ITS | Continuity of Care Document ---
Author Organization [facility] Address [address] [place] [address]- Care Team Providers Care Manager Internet Name Role Phone Adamaris MARIO, Keyanna Aleja Primary Care Physici an Encounter [facility] [place] Date(s): 02/19/23 - 03/24/[address] [address] Attending Physician: Maya Orozco Admitting Physician: Maya Orozco Referring Physician: Maya Orozco Allergies, Adverse Reactions, Alerts Substance Reaction Severity [...] 6.7 Gm, 11 Refills, Maintenance, 06/13/22 14:10:00 [id number], Partial fill upon patient request if the prescription is for a schedule II opioid drug., 2 puf... Start Date: 06/13/22 Status: Ordered albuterol 0.083% inhalation solution 3 mL = 2.5 mg, Inhalation, Every 6 hours, PRN for wheezing/shortness of breath, # 360 mL, 11 Refills, Maintenance, 06/13/22 14:09:00 EST, Solution, [facility] #[id number], Partial fill upon patient request if the prescription is for a schedule II... Start Date: 06/13/22 Status: Ordered amLODIPine 2.5 mg oral tablet 1 tablet = 2.5 mg, By Mouth, Daily, # 90 tablet, 3 Refills, Maintenance, 03/20/22 9:25:00 EDT, Tablet, [facility] #[id number], Partial fill upon patient request if the prescription is for a schedule II opioid drug., 178, cm, 02/24/22 15:32:00 EDT... Start Date: 03/20/22 Stop Date: 03/15/23 Status: Ordered aspirin 81 mg oral tablet 1 tablet = 81 mg, By Mouth, Daily, # 90 tablet, 11 Refills, Maintenance, 12/06/18 13:47:08 EDT, Tablet Start Date: 12/06/18 Stop Date: 11/20/21 Status: Ordered Fax to [facility] Fax to [facility], See Instructions, # 1 each, Refills 11, Tot. Refills 11, Maintenance, CPAP CPAP 8 cm H2O with heated humidification, mask, heated tubing, filters, headgear, chin strap, andwater chamber. Vincenzo provider access to wireless... Start Date: 09/28/20 Status: Ordered fenofibrate 160 mg oral tablet 0.5 tablet = 80 mg, By Mouth, Daily, # 15 tablet, 0 Refills, Maintenance, 12/16/21 9:13:00 EDT, Tablet, [facility] #[id number], Partial fill upon patient request if the [...] Gm, 11 Refills, Maintenance, 06/13/22 14:09:00 EST, [place], [facility] #[id number], Partial fill upon patient request if the prescription is for a schedule II opioid drug., 1 sprays Nares, Both 2 times a... Start Date: 06/13/22 Status: Ordered fluoxetine 20 mg oral tablet 1 tablet = 20 mg, By Mouth, Daily, 0 Refills, Maintenance Start Date: 06/08/11 Status: Ordered Golytely - oral powder for reconstitution 240 mL, By Mouth, Every 15 minutes, Start prep at 5 pm the night before the procedure. Take 1/2 of the prep Take the othe 1/2 6 hours before the procedure, # 1 each, 0 Refills, Maintenance, 11/08/22 16:40:00 EDT, REC Powder, [facility]/pharmacy #[id number], Ok to... Start Date: 11/08/22 Status: Ordered Lasix 20 mg oral tablet 20 mg, 1, tablet, By Mouth, Daily, # 30 tablet, Refills 11, Tot. Refills 11, Maintenance, 02/24/22 16:00:00 EDT, Route to Pharmacy Electronically, [facility] #[id number], Partial fill upon patient request if the prescription is for a schedule II... Start Date: 02/24/22 Status: Ordered Levothyroxine = 300 mcg, By Mouth, Daily, 0 Refills, Maintenance Start Date: 06/29/11 Status: Ordered loratadine 10 mg oral tablet 10 mg, 1, tablet, By Mouth, Daily, # 30 tablet, Refills 11, Tot. Refills 11, Maintenance, 06/13/22 14:09:00 EST, Route to Pharmacy Electronically, [facility] #[id number], Partial fill upon patient request if the prescription is for a schedule II... Start Date: 06/13/22 Status: Ordered metoprolol 50 mg oral tablet, extended release 50 mg, 1, tablet, By Mouth, Daily, # 90 tablet, Refills 3, Tot. Refills 3, Maintenance, 10/31/22 9:28:00 EDT, Route to Pharmacy Electronically, [facility]/pharmacy #[id number], 178, cm, 10/18/22 9:47:00 EDT, Height, 121, [...] 3 Refills, Maintenance, 02/06/23 8:36:00 EDT, Tablet, [facility]/pharmacy #1094, 180.34, cm, 11/22/22 7:21:00 EDT, Height, 124.1, kg, 11/22/22 7:21:00 EDT, Dry Weight Start Date: 02/06/23 Status: Ordered ranolazine 500 mg oral tablet, extended release 1 tablet = 500 mg, By Mouth, 2 times a day, # 180 tablet, 3 Refills, Maintenance, 03/13/23 9:33:00 EDT, ER Tablet, [facility]/pharmacy #[id number], Partial fill upon patient request if the prescription is for a schedule II opioid drug., 180.34, cm, 11/22/22 7:21:0... Start Date: 03/13/23 Status: Ordered Repatha SureClick 140 mg/mL subcutaneous solution = 140 mg, Subcutaneous Infusion, Every 14 days, # 2 each, 11 Refills, Maintenance, 05/03/22 11:32:00 [facility], [facility] #[id number], Partial fill upon patient request if the prescription is for a schedule II opioid drug., 178, cm, 03/30/22 16:02:00... Start Date: 05/03/22 Status: Ordered Trelegy Ellipta 200 mcg-62.5 mcg-25 mcg/inh inhalation powder 1 puffs, Inhalation, Daily, at the same time every day, # 1 each, 11 Refills, Maintenance, 06/13/2313:09:00 EST, Powder, [facility] #[id number], Partial fill upon patient request if the [...] Reference Physician Member Role: PCP Address: Address: [address] [place] [id number] Name: Adam Gutiérrez RN Position: CARYN RESTREPO Supv Member Role: Primary Care Nurse Care Team Related Persons Name: IBIS HOLT Address: home [address] [place] [address]
--- OUTSIDE RECORDS SUMMARY | 2023-12-03 08:14 | XMS_ITS | Continuity of Care Document ---
Author Organization [facility] em Address Unknown Care Team Providers Care Reroller Hand Name Role Phone Willie Carrion MD Primary Care Physician [phone] [place] [facility] [place] 04/06/21 - 04/13/21 [facility] Attending Physician: Payam Genao MD Admitting [...] mg oral tablet 1 tablet, By Mouth, 2 times a day, # 90 tablet, 3 Refills, Maintenance, 03/01/21 11:07:00 EDT, [facility] #[id number], 182, cm, 02/23/21 19:12:00 EDT, Height, 117, kg, 02/23/21 19:12:00 EDT, DryWeight Start Date: 03/01/21 Status: Ordered aspirin 81 mg oral tablet 1 tablet = 81 mg, By Mouth, Daily, # 90 tablet, 11 Refills, Maintenance, 12/06/18 13:47:08 EDT, Tablet Start Date: 12/06/18 Stop Date: 11/20/21 Status: Ordered Fax to [facility] Fax to [facility], See Instructions, # 1 each, [...] Refills, Maintenance Start Date: 06/08/11 Status: Ordered fluticasone/umeclidinium/vilanterol 100 mcg-62.5 mcg-25 mcg/inh inhalation powder 1 puffs, Inhalation, Daily, at the same time every day, # 60 each, 11 Refills, Maintenance, 04/06/21 17:28:00 EDT, Powder, [facility] #[id number], Partial fill upon patient request if the prescription is for a schedule II opioid drug., 180, cm, 1... Start Date: 04/06/21 Status: Ordered Levothyroxine = 300 mcg, By Mouth, Daily, 0 Refills, Maintenance Start Date: 06/29/11 Status: Ordered metoprolol 50 mg oral tablet, extended release 50 mg, 1, tablet, By Mouth, Daily, # 90 tablet, Refills 3, Tot. Refills 3, Maintenance, 09/01/20 16:55:00 EDT, Route to Pharmacy Electronically, [facility] #[id number], 180, cm, 08/31/20 14:02:00 EDT, Height, 122.3, [...] 3 Refills, Maintenance, 01/10/21 15:32:00 EDT, Tablet, [facility] #[id number], 180, cm, 12/02/20 8:05:00 EDT, Height Start Date: 01/10/21 Status: Ordered ranolazine 500 mg oral tablet, extended release 2 tablet = 1,000 mg, By Mouth, 2 times a day, # 120 tablet, 3 Refills, Maintenance, 04/04/21 10:46:00 EDT, ER Tablet, Partial fill upon patient request if the prescription is for a schedule II opioiddrug., 180, cm, 04/04/21 7:24:00 EDT, Height, 117.8... Start Date: 04/04/21 Status: Ordered Spiriva Respimat 1.25 mcg/inh inhalation aerosol 2 puffs, Inhalation, Daily, # 4 Gm, 11 Refills, Maintenance, 03/08/20 14:55:00 EDT, Aerosol, [facility] #[id number], 180, cm, 03/08/20 14:38:00 EDT, Height, 122.3, kg, 12/05/18 4:00:00 EDT, Dry Weight Start Date: 03/08/20 Status: Ordered Problem List Condition Effective Dates Status Health Status Inform ant Benign essential hypertension(Confirmed) Active CAD (coronary artery disease)(Confirmed) Active Dyslipidemia(Confirmed) Active Vital Signs Most recent to oldest [Reference Range]: 1 Height 180 cm (04/06/21 4:24 PM) Weight 117.6 kg (04/06/21 4:24 PM) Oxygen Saturation [94-100 %] 99 % (04/06/21 4:24 PM) Pulse Rate [55-90 bpm] 56 bpm (04/06/21 4:24 PM) Body Mass Index [18.5-24.99] 36.3 *>HHI* (04/06/21 4:24 PM) Blood Pressure [90-138/55-84 mm Hg] 123/ 77mm Hg (04/06/21 4:24 PM) Mode of Delivery (Oxygen) Room air (04/06/21 4:24 PM) Blood pressure sites Arm, left (04/06/21 4:24 PM) Weight Obtained Via Standing scale (04/06/21 4:24 PM) Social History Social History Type Response Smoking Status Former smoker; Other : quit 1990; entered on: 06/14/17 Sex
--- OUTSIDE RECORDS SUMMARY | 2023-12-03 08:14 | XMS_ITS | Continuity of Care Document ---
Author Organization [facility] Address [address] [place] [address]- Care Team Providers Care Fire Crew Specialist Name Role Phone Willie Carrion MD Primary Care Physician Encounter [facility] [place] Date(s): 09/02/21 - 09/09/21 [facility] [place] [address] [place] [address]- Attending Physician: Jaswant Elizabeth MD Admitting Physician: [...] 3 Refills, Maintenance, 09/02/21 8:52:00 EDT, Tablet, [facility] #[id number], Partial fill upon patient request if the prescription is for a schedule II opioid drug., 180, cm, 09/02/21 8:46:00 EDT,... Start Date: 09/02/21 Stop Date: 08/28/22 Status: Ordered aspirin 81 mg oral tablet 1 tablet = 81 mg, By Mouth, Daily, # 90 tablet, 11 Refills, Maintenance, 12/06/18 13:47:08 EDT, Tablet Start Date: 12/06/18 Stop Date: 11/20/21 Status: Ordered Augmentin 875 mg-125 mg oral tablet 1 tablet, By Mouth, Every 12 hours, for 7 days, # 14 tablet, 0 Refills, Acute 09/12/21 16:23:00 EDT, 09/05/21 16:23:00 EDT, Tablet, [facility] #[id number], Partial fill upon patient request if the prescription is for a schedule II opioid drug., 1... Start Date: 09/05/21 Stop Date: 09/12/21 Status: Ordered [facility]ax [facility] Fax to [facility], See Instructions, # 1 each, Refills [...] 09/01/20 16:55:00 EDT, Route to Pharmacy Electronically, [facility] #[id number], 180, cm, 08/31/20 14:02:00 EDT, Height, 122.3, [...] 3 Refills, Maintenance, 01/10/21 15:32:00 EDT, Tablet, [facility] #[id number], 180, cm, 12/02/20 8:05:00 EDT, Height Start Date: 01/10/21 Status: Ordered ranolazine 500 mg oral tablet, extended release 1 tablet = 500 mg, By Mouth, 2 times a day, # 120 tablet, 3 Refills, Maintenance, 04/04/21 10:46:00EDT, ER Tablet, Partial fill upon patient request if the prescription is for a schedule II opioid drug., 180, cm, 04/04/21 7:24:00 EDT, Height, 117.8,... Start Date: 04/04/21 Status: Ordered Repatha SureClick 140 mg/mL subcutaneous solution = 140 mg, Subcutaneous Infusion, Every 14 days, # 2 each, 11 Refills, Maintenance, 06/16/21 16:33:00 EST, [facility] #[id number], Partial fill upon patient request if the prescription is for a schedule II opioid drug., 180, cm, 04/06/21 16:24:00... Start Date: 06/16/21 Status: Ordered Symbicort 160mcg/4.5mcg Inhaler 2, puffs, Inhalation, 2 times a day, # 1 each, Refills 5, Tot. Refills 5, Maintenance, 06/27/21 11:23:00 EST, Inhaler, Route to Pharmacy Electronically, [id number], [facility] #[id number], 180, cm, 04/06/21 16:24:00 EDT,... Start Date: 06/27/21 Status: Ordered Problem List Condition Effective Dates Status Health Status Inform ant Benign essential hypertension(Confirmed) Active CAD (coronary artery disease)(Confirmed) Active Dyslipidemia(Confirmed) Active Obese class II(Confirmed) Active Vital Signs Most recent to oldest [Reference Range]: 1 Height 180 cm (09/02/21 8:46 AM) Weight 120.2 kg (09/02/21 8:46 AM) Oxygen Saturation [94-100 %] 95 % (09/02/21 8:46 AM) Pulse Rate [55-90 bpm] 60 bpm (09/02/21 8:46 AM) Body Mass Index [18.5-24.99] 37.1 *>HHI* (09/02/21 8:46 AM) Blood Pressure [90-138/55-84 mm Hg] 120/ 71mm Hg (09/02/21 8:46 AM) Mode of Delivery (Oxygen) Room air (09/02/21 8:46 AM) Blood pressure sites Arm, left (09/02/21 8:46 AM) Weight Obtained Via Standing scale (09/02/21 8:46 AM) Social History Social History Type Response Smoking Status Former smoker; Other : quit 1990; entered on: 06/14/17 Sex
--- OUTSIDE RECORDS SUMMARY | 2023-12-03 08:14 | XMS_ITS | Continuity of Care Document ---
Author Organization [facility] Address [address] [place] [address]- Care Team Providers Care Certified Registered Locksmith Name Role Phone Willie Carrion MD Primary Care Physician [phone] [place] [facility] [place](s): 03/26/20 - 04/02/20 [facility] [address] [place] [address]- [place] Attending Physician: Jaswant Elizabeth MD Admitting [...] 03/26/20 11:01:00 EDT, Route to Pharmacy Electronically, [facility] #[id number], 180, cm, 03/26/20 10:34:00EDT, Height, 122.3, kg, [...] 3 Refills, Maintenance, 01/27/20 8:43:00 EDT, Tablet, [facility] 3, 180, cm, 01/27/20 7:17:00 EDT, Height, 122.3, kg, 12/05/18 4:00:00 EDT,Dry Weight Start Date: 01/27/20 Status: Ordered Spiriva Respimat 1.25 mcg/inh inhalation aerosol 2 puffs, Inhalation, Daily, # 4 Gm, 11 Refills, Maintenance, 03/08/20 14:55:00 EDT, Aerosol, [facility] #[id number], 180, cm, 03/08/20 14:38:00 EDT, Height, 122.3, [...] oldest [Reference Range]: 1 Height 180 cm (03/26/20 10:34 AM) Weight 117.5 kg (03/26/20 10:34 AM) Oxygen Saturation [94-100 %] 97 % (03/26/20 10:34 AM) Pulse Rate [55-90 bpm] 63 bpm (03/26/20 10:34 AM) Body Mass Index [18.5-24.99] 36.27 *>HHI* (03/26/20 10:34 AM) Blood Pressure [90-138/55-84 mm Hg] 128/ 74mm Hg (03/26/20 10:34 AM) Blood pressure sites Arm, left (03/26/20 10:34 AM) Weight Obtained Via Standing scale (03/26/20 10:34 AM) Social History Social History Type Response Smoking Status Former smoker; Other : quit 1990; entered on: 06/14/17 Sex
--- OUTSIDE RECORDS SUMMARY | 2023-12-03 08:14 | XMS_ITS | Continuity of Care Document ---
Author Organization [facility] Address [address] [address]- Care Team Providers Care Accountant Cost Name Role Phone Willie Carrion MD Primary Care Physician [place] [facility] [id number] Date(s): 02/26/20 - 04/08/20 [facility] [address] [address]- Attending Physician: Jaswant Elizabeth MD Admitting Physician: [...] 03/26/20 11:01:00 EDT, Route to Pharmacy Electronically, [facility] #[id number], 180, cm, 03/26/20 10:34:00EDT, Height, 122.3, kg, [...] 3 Refills, Maintenance, 01/27/20 8:43:00 EDT, Tablet, [facility] 3, 180, cm, 01/27/20 7:17:00 EDT, Height, 122.3, kg, 12/05/18 4:00:00 EDT,Dry Weight Start Date: 01/27/20 Status: Ordered Spiriva Respimat 1.25 mcg/inh inhalation aerosol 2 puffs, Inhalation, Daily, # 4 Gm, 11 Refills, Maintenance, 03/08/20 14:55:00 EDT, Aerosol, [facility] #[id number], 180, cm, 03/08/20 14:38:00 EDT, Height, 122.3, [...]
--- OUTSIDE RECORDS SUMMARY | 2023-12-03 08:14 | XMS_ITS | Continuity of Care Document ---
Author Organization [facility] Address [address] [place] [address]- Care Team Providers Care Computer Engineering Technician Name Role Phone Sheyla BARRAGAN, Willie Rogers Primary Care Physician En[place] [facility] [place] Date(s): 05/21/19 - 08/10/19 [facility] [place] [address] [place] [address]- [place] Attending Physician: Jaswant Elizabeth MD Admitting Physician: Jaswant Elizabeth MD Referring Physician: Jaswant Elizabeth MD Allergies, Adverse Reactions, Alerts Substance Reaction [...] Maintenance, 02/13/1916:14:19 EDT, Route to Pharmacy Electronically, [id number], [facility] #[id number] Start Date: 02/12/19 Status: Ordered aspirin 81 [...] 08/13/18 11:06:52 EDT, Route to Pharmacy Electronically, [id number], [facility] [id number] Start Date: 08/13/18 Status: Ordered nitroglycerin 0.4 [...] Date: 12/09/18 Stop Date: 03/03/20 Status: Ordered Social History Social History Type Response Smoking Status Former smoker; Other : quit 1990; entered on: 06/14/17 Sex
--- OUTSIDE RECORDS SUMMARY | 2023-12-03 08:14 | XMS_ITS | Continuity of Care Document ---
Author Organization [facility] Address [address] [place] [address]- Care Team Providers Care Fuse Assembler Name Role Phone Willie Carrion MD Primary Care Physician [place] [facility] [place] 05/30/19 [facility] [address] [place] [address]- [facility] Attending Physician: Leena Warner Admitting Physician: Leena Warner Referring Physician: Leena Warner Allergies, Adverse Reactions, Alerts Substance Reaction Severity [...] Maintenance, 02/13/1916:14:19 EDT, Route to Pharmacy Electronically, [id number], [facility] #[id number] Start Date: 02/12/19 Status: Ordered aspirin 81 mg oral tablet 1 tablet = 81 mg, By Mouth, Daily, # 90 tablet, 11 Refills, Maintenance, 12/06/18 13:47:08 EDT, Tablet Start Date: 12/06/18 Stop Date: 11/20/21 Status: Ordered fenofibrate 160 mg oral tablet 1 tablet = 160 mg, By Mouth, Daily, # 30 tablet, 0 Refills, Maintenance, 12/06/18 13:42:44 EDT, Tablet [...] 08/13/18 11:06:52 EDT, Route to Pharmacy Electronically, [id number], [facility] Start Date: 08/13/18 Status: Ordered nitroglycerin 0.4 [...]
--- OUTSIDE RECORDS SUMMARY | 2023-12-03 08:14 | XMS_ITS | Continuity of Care Document ---
Author Organization [facility] Address [address] [address]- Care Team Providers Care Jd Edwards Developer Name Role Phone Adamaris MARIO, Keyanna Aleja Primary Care Physici an Encounter [facility] Date(s): 08/28/23 - 09/27/23 [place] [address] [address]- [place] Allergies, Adverse Reactions, Alerts Substance Reaction [...] 6.7 Gm, 11 Refills, Maintenance, 06/13/22 14:10:[id number] Partial fill upon patient request if the prescription is for a schedule II opioid drug., 2 puf... Start Date: 06/13/22 Status: Ordered albuterol 0.083% inhalation solution 3 mL = 2.5 mg, Inhalation, Every 6 hours, PRN for wheezing/shortness of breath, # 360 mL, 11 Refills, Maintenance, 06/13/22 14:09:00 EST, [facility][id number], Partial fill upon patient request if the prescription is for a schedule II... Start Date: 06/13/22 Status: Ordered amLODIPine 5 mg oral tablet 1 tablet = 5 mg, By Mouth, Daily, # 90 tablet, 3 Refills, Maintenance, 09/07/23 8:50:00 EDT, Tablet, [facility]/pharmacy #[id number], Partial fill upon patient request [...] Start Date: 07/12/23 Status: [facility] to [facility], See Instructions, # 1 each, Refills 11, Tot. Refills 11, Maintenance, CPAP CPAP 8 cm H2O with heated humidification, mask, heated tubing, filters, headgear, chin strap, andwater chamber. Vincenzo provider access to wireless... Start Date: 09/28/20 Status: Ordered fenofibrate 160 mg oral tablet 0.5 tablet = 80 mg, By Mouth, Daily, # 15 tablet, 0 Refills, Maintenance, 12/16/21 9:13:00 EDT, Tablet, [facility] #[id number], Partial fill upon patient request if the [...] each, 5 Refills, Maintenance, 04/05/23 11:45:00 EDT, [facility]/pharmacy #[id number], Partial fill upon patient request [...] Refills, Maintenance, 11/08/22 16:40:00 EDT, REC Powder, [facility]/pharmacy #[id number], Ok to... Start Date: 11/08/22 Status: Ordered Lasix 20 mg oral tablet 20 mg, 1, tablet, By Mouth, Daily, # 30 tablet, Refills 11, Tot. Refills 11, Maintenance, 02/24/22 16:00:00 EDT, Route to Pharmacy Electronically, [facility] #[id number], Partial fill upon patient request if the prescription is for a schedule II... Start Date: 02/24/22 Status: Ordered Levothyroxine = 300 mcg, By Mouth, Daily, 0 Refills, Maintenance Start Date: 06/29/11 Status: Ordered loratadine 10 mg oral tablet 10 mg, 1, tablet, By Mouth, Daily, # 30 tablet, Refills 11, Tot. Refills 11, Maintenance, 05/10/23 10:46:00 EST, Route to Pharmacy Electronically, [facility]/pharmacy #[id number], Partial fill upon patient request if the prescription is for a schedule II opioid dr... Start Date: 05/10/23 Status: Ordered metoprolol 50 mg oral tablet, extended release 50 mg, 1, tablet, By Mouth, Daily, # 90 tablet, Refills 3, Tot. Refills 3, Maintenance, 10/31/22 9:28:00 EDT, Route to Pharmacy Electronically, [facility]/pharmacy #[id number], 178, cm, 10/18/22 9:47:00 EDT, [...] 3 Refills, Maintenance, 02/06/23 8:36:00 EDT, Tablet, [facility]/pharmacy #[id number], 180.34, cm, 11/22/22 7:21:00 EDT, [...] Refills, Maintenance, 03/13/23 9:33:00 EDT, ER Tablet, [facility]/pharmacy #[id number], Partial fill upon patient request [...] Reference Physician Member Role: PCP Address: Address: [address] [place] [address] Name: Adam Gutiérrez RN Position: CARYN RESTREPO Supv Member Role: Primary Care Nurse Care Team Related Persons Name: SHERLY HOLTA Address: home [address] [place] [address]
--- OUTSIDE RECORDS SUMMARY | 2023-12-03 08:14 | XMS_ITS | Continuity of Care Document ---
Author Organization [facility] Address [address] [place] [address]- Care Team Providers Care Anatomy Professor Name Role Phone Willie Carrion MD Primary Care Physician Encounter [facility] [place] Date(s): 01/23/22 - 01/23/[address] [address]- Discharge Disposition: A-D/C Home Attending Physician: Steve Cedeno MD Admitting Physician: Steve Cedeno MD Referring Physician: Jaswant Elizabeth MD Allergies, [...] 3 Refills, Maintenance, 09/02/21 8:52:00 EDT, Tablet, [facility] #[id number], Partial fill upon patient request if the prescription is for a schedule II opioid drug., 180, cm, 09/02/21 8:46:00 EDT,... Start Date: 09/02/21 Stop Date: 08/28/22 Status: Ordered aspirin 81 mg oral tablet 1 tablet = 81 mg, By Mouth, Daily, # 90 tablet, 11 Refills, Maintenance, 12/06/18 13:47:08 EDT, Tablet Start Date: 12/06/18 Stop Date: 11/20/21 Status: Ordered Fax to [facility] Fax to [facility], See Instructions, # 1 each, Refills 11, Tot. Refills 11, Maintenance, CPAP CPAP 8 cm H2O with heated humidification, mask, heated tubing, filters, headgear, chin strap, andwater chamber. Vincenzo provider access to wireless... Start Date: 09/28/20 Status: Ordered fenofibrate 160 mg oral tablet 0.5 tablet = 80 mg, By Mouth, Daily, # 15 tablet, 0 Refills, Maintenance, 12/16/21 9:13:00 EDT, Tablet, [facility] #[id number], Partial fill upon patient request if the [...] 12/16/21 14:24:00 EDT, Route to Pharmacy Electronically, [facility] #[id number], 180, cm, 12/16/21 8:55:00EDT, Height, 117.8, kg, [...] 3 Refills, Maintenance, 01/02/22 16:07:00 EDT, Tablet, [facility] #[id number], 180, cm, 12/16/21 8:55:00 EDT, Height, 117.8, kg, 04/04/21 7:21:00 EDT, Dry Weight Start Date: 01/02/22 Status: Ordered ranolazine 500 mg oral tablet, extended release 1 tablet = 500 mg, By Mouth, 2 times a day, # 120 tablet, 3 Refills, Maintenance, 12/08/21 16:50:00EDT, ER Tablet, [facility] #[id number], Partial fill upon patient request if the prescription is for a schedule II opioid drug., 180, cm, 09/05/21... Start Date: 12/08/21 Status: Ordered Repatha SureClick 140 mg/mL subcutaneous solution = 140 mg, Subcutaneous Infusion, Every 14 days, # 2 each, 11 Refills, Maintenance, 06/16/21 16:33:00 EST, [facility] #[id number], Partial fill upon patient request if the prescription is for a schedule II opioid drug., 180, cm, 04/06/21 16:24:00... Start Date: 06/16/21 Status: Ordered Symbicort 160mcg/4.5mcg Inhaler 2, puffs, Inhalation, 2 times a day, No substitutions, # 1 each, Refills 5, Tot. Refills 5, Maintenance, 12/13/21 12:33:00 EDT, Inhaler, Route to Pharmacy Electronically, [id number], [facility] #[id number], 180, cm, 040... Start Date: 12/13/21 Status: Ordered Problem List Condition Effective Dates Status Health Status Inform ant Benign essential hypertension(Confirmed) Active CAD (coronary artery disease)(Confirmed) Active Dyslipidemia(Confirmed) Active Obese class II(Confirmed) Active Vital Signs Most recent to oldest [Reference Range]: 1 2 3 Height 178 cm (01/23/22 7:00 AM) 178 cm (01/23/22 7:00 AM) Weight 121 kg (01/23/22 7:00 AM) 121 kg (01/23/22 7:00 AM) Oxygen Saturation [94-100 %] 94 % (01/23/22 1:30 PM) 94 % (01/23/22 1:00 PM) 95 % (01/23/22 12:30 PM) Pulse Rate [55-90 bpm] 61 bpm (01/23/22 7:00 AM) Body Mass Index [18.5-24.99] 38.19 *>HHI* (01/23/22 7:00 AM) Blood Pressure [90-138/55-84 mm Hg] 118/77mm Hg (01/23/22 1:30 PM) 116/74mm Hg (01/23/22 1:00 PM) 123/71mm Hg (01/23/22 12:30 PM) Respiratory Rate [16-30 br/min] 21 br/min (01/23/22 1:30 PM) 22 br/min (01/23/22 1:00 PM) 20 br/min (01/23/22 12:30 PM) Temperature [96.8-100.4 DegF] 97.2 DegF (01/23/22 7:00 AM) Mode of Delivery (Oxygen) Room air (01/23/22 1:30 PM) Room air (01/23/22 1:00 PM) Room air (01/23/22 12:30 PM) Blood pressure sites Arm, left (01/23/22 1:30 PM) Arm, left (01/23/22 1:00 PM) Arm, left (01/23/22 12:30 PM) Temperature Route Temporal (01/23/22 7:00 AM) Dry Weight 121 kg (01/23/22 7:00 AM) Weight Obtained Via Standing scale (01/23/22 7:00 AM) Standing scale (01/23/22 7:00 AM) Dry Weight Obtained Via Standing scale (01/23/22 7:00 AM) Social History Social History Type Response Smoking Status Former smoker; Other : quit 1990; entered on: 06/14/17 Sex
--- OUTSIDE RECORDS SUMMARY | 2023-12-03 08:15 | XMS_ITS | Continuity of Care Document ---
Author Organization [facility] Address [address] [place] [address]- Care Team Providers Care Occupational Health Coordinator Name Role Phone Adamaris MARIO, Keyannakwadwo Masterson Primary Care Physici an Encounter [facility] [place](s): 07/28/22 - 08/27/22 [facility] [address] [place] [address]- Allergies, Adverse Reactions, Alerts Substance Reaction Severity [...] 6.7 Gm, 11 Refills, Maintenance, 06/13/22 14:10:00 [id number], Partial fill upon patient request if the prescription is for a schedule II opioid drug., 2 puf... Start Date: 06/13/22 Status: Ordered albuterol 0.083% inhalation solution 3 mL = 2.5 mg, Inhalation, Every 6 hours, PRN for wheezing/shortness of breath, # 360 mL, 11 Refills, Maintenance, 06/13/22 14:09:00 EST, [facility] #[id number], Partial fill upon patient request if the prescription is for a schedule II... Start Date: 06/13/22 Status: Ordered amLODIPine 2.5 mg oral tablet 1 tablet = 2.5 mg, By Mouth, Daily, # 90 tablet, 3 Refills, Maintenance, 03/20/22 9:25:00 EDT, Tablet, [facility] #[id number], Partial fill upon patient request if the prescription is for a schedule II opioid drug., 178, cm, 02/24/22 15:32:00 EDT... Start Date: 03/20/22 Stop Date: 03/15/23 Status: Ordered aspirin 81 mg oral tablet 1 tablet = 81 mg, By Mouth, Daily, # 90 tablet, 11 Refills, Maintenance, 12/06/18 13:47:08 EDT, Tablet Start Date: 12/06/18 Stop Date: 11/20/21 Status: Ordered Fax to [facility] Fax to [facility], See Instructions, # 1 each, Refills 11, Tot. Refills 11, Maintenance, CPAP CPAP 8 cm H2O with heated humidification, mask, heated tubing, filters, headgear, chin strap, andwater chamber. Vincenzo provider access to wireless... Start Date: 09/28/20 Status: Ordered fenofibrate 160 mg oral tablet 0.5 tablet = 80 mg, By Mouth, Daily, # 15 tablet, 0 Refills, Maintenance, 12/16/21 9:13:00 EDT, Tablet, [facility] #[id number], Partial fill upon patient request if the [...] Gm, 11 Refills, Maintenance, 06/13/22 14:09:00 EST, [place], [facility] #[id number], Partial fill upon patient request if the [...] 02/24/22 16:00:00 EDT, Route to Pharmacy Electronically, [facility] #[id number], Partial fill upon patient request if the prescription is for a schedule II... Start Date: 02/24/22 Status: Ordered Levothyroxine = 300 mcg, By Mouth, Daily, 0 Refills, Maintenance Start Date: 06/29/11 Status: Ordered loratadine 10 mg oral tablet 10 mg, 1, tablet, By Mouth, Daily, # 30 tablet, Refills 11, Tot. Refills 11, Maintenance, 06/13/22 14:09:00 EST, Route to Pharmacy Electronically, [facility] #[id number], Partial fill upon patient request if the prescription is for a schedule II... Start Date: 06/13/22 Status: Ordered metoprolol 50 mg oral tablet, extended release 50 mg, 1, tablet, By Mouth, Daily, # 90 tablet, Refills 3, Tot. Refills 3, Maintenance, 12/16/21 14:24:00 EDT, Route to Pharmacy Electronically, [facility] #[id number], 180, cm, 12/16/21 8:55:00EDT, Height, 117.8, kg, [...] 3 Refills, Maintenance, 01/02/22 16:07:00 EDT, Tablet, [facility] #[id number], 180, cm, 12/16/21 8:55:00 EDT, Height, 117.8, kg, 04/04/21 7:21:00 EDT, Dry Weight Start Date: 01/02/22 Status: Ordered ranolazine 500 mg oral tablet, extended release 1 tablet = 500 mg, By Mouth, 2 times a day, # 180 tablet, 3 Refills, Maintenance, 08/14/22 9:08:00 EDT, ER Tablet, [facility] #[id number], Partial fill upon patient request if the prescription is for a schedule II opioid drug., 178, cm, 08/11/22... Start Date: 08/14/22 Status: Ordered Repatha SureClick 140 mg/mL subcutaneous solution = 140 mg, Subcutaneous Infusion, Every 14 days, # 2 each, 11 Refills, Maintenance, 05/03/22 11:32:00 EST, [facility] #[id number], Partial fill upon patient request if the prescription is for a schedule II opioid drug., 178, cm, 03/30/22 16:02:00... Start Date: 05/03/22 Status: Ordered Trelegy Ellipta 200 mcg-62.5 mcg-25 mcg/inh inhalation powder 1 puffs, Inhalation, Daily, at the same time every day, # 1 each, 11 Refills, Maintenance, 06/13/2313:09:00 EST, Powder, [facility] #[id number], Partial fill upon patient request if the [...] Team Personnel Name: Rhoda Ansari RN Position: S SN RN Member Role: Primary Care Nurse Name: Keyanna Bailon NP Position: Reference Physician Member Role: PCP Address: Address: [address] [place] [address]- Name: Adam Gutiérrez RN Position: S RN Supv Member Role: Primary Care Nurse Care Team Related Persons Name: IBIS HOLT Address: home [address] [place] [address]
--- OUTSIDE RECORDS SUMMARY | 2023-12-03 08:15 | XMS_ITS | Continuity of Care Document ---
Author Organization [facility] Address [address] [place] [address]- Care Team Providers Care Automotive Parts Specialist Name Role Phone Adamaris MARIO, Keyannakwadwo Masterson Primary Care Physici an [place] [facility] [place] 09/01/22 - 10/01/22 [facility] [address] [place] [address]- Allergies, Adverse Reactions, Alerts Substance Reaction Severity [...] 6.7 Gm, 11 Refills, Maintenance, 06/13/22 14:10:[id number], Partial fill upon patient request if the prescription is for a schedule II opioid drug., 2 puf... Start Date: 06/13/22 Status: Ordered albuterol 0.083% inhalation solution 3 mL = 2.5 mg, Inhalation, Every 6 hours, PRN for wheezing/shortness of breath, # 360 mL, 11 Refills, Maintenance, 06/13/22 14:09:00 EST, [facility] #[id number], Partial fill upon patient request if the prescription is for a schedule II... Start Date: 06/13/22 Status: Ordered amLODIPine 2.5 mg oral tablet 1 tablet = 2.5 mg, By Mouth, Daily, # 90 tablet, 3 Refills, Maintenance, 03/20/22 9:25:00 EDT, Tablet, [facility] #[id number], Partial fill upon patient request if the prescription is for a schedule II opioid drug., 178, cm, 02/24/22 15:32:00 EDT... Start Date: 03/20/22 Stop Date: 03/15/23 Status: Ordered aspirin 81 mg oral tablet 1 tablet = 81 mg, By Mouth, Daily, # 90 tablet, 11 Refills, Maintenance, 12/06/18 13:47:08 EDT, Tablet Start Date: 12/06/18 Stop Date: 11/20/21 Status: Ordered Fax to [facility]ax to [facility], See Instructions, # 1 each, Refills 11, Tot. Refills 11, Maintenance, CPAP CPAP 8 cm H2O with heated humidification, mask, heated tubing, filters, headgear, chin strap, andwater chamber. Vincenzo provider access to wireless... Start Date: 09/28/20 Status: Ordered fenofibrate 160 mg oral tablet 0.5 tablet = 80 mg, By Mouth, Daily, # 15 tablet, 0 Refills, Maintenance, 12/16/21 9:13:00 EDT, Tablet, [facility] #[id number], Partial fill upon patient request if the [...] Gm, 11 Refills, Maintenance, 06/13/22 14:09:00 EST, [place], [facility] #[id number], Partial fill upon patient request if the [...] 02/24/22 16:00:00 EDT, Route to Pharmacy Electronically, [facility] #[id number], Partial fill upon patient request if the prescription is for a schedule II... Start Date: 02/24/22 Status: Ordered Levothyroxine = 300 mcg, By Mouth, Daily, 0 Refills, Maintenance Start Date: 06/29/11 Status: Ordered loratadine 10 mg oral tablet 10 mg, 1, tablet, By Mouth, Daily, # 30 tablet, Refills 11, Tot. Refills 11, Maintenance, 06/13/22 14:09:00 EST, Route to Pharmacy Electronically, [facility] #[id number], Partial fill upon patient request if the prescription is for a schedule II... Start Date: 06/13/22 Status: Ordered metoprolol 50 mg oral tablet, extended release 50 mg, 1, tablet, By Mouth, Daily, # 90 tablet, Refills 3, Tot. Refills 3, Maintenance, 12/16/21 14:24:00 EDT, Route to Pharmacy Electronically, [facility] #[id number], 180, cm, 12/16/21 8:55:00EDT, Height, 117.8, kg, [...] 3 Refills, Maintenance, 01/02/22 16:07:00 EDT, Tablet, [facility] #[id number], 180, cm, 12/16/21 8:55:00 EDT, Height, 117.8, kg, 04/04/21 7:21:00 EDT, Dry Weight Start Date: 01/02/22 Status: Ordered ranolazine 500 mg oral tablet, extended release 1 tablet = 500 mg, By Mouth, 2 times a day, # 180 tablet, 3 Refills, Maintenance, 08/14/22 9:08:00 EDT, ER Tablet, [facility] #[id number], Partial fill upon patient request if the prescription is for a schedule II opioid drug., 178, cm, 08/11/22... Start Date: 08/14/22 Status: Ordered Repatha SureClick 140 mg/mL subcutaneous solution = 140 mg, Subcutaneous Infusion, Every 14 days, # 2 each, 11 Refills, Maintenance, 05/03/22 11:32:00 EST, [facility] #[id number], Partial fill upon patient request if the prescription is for a schedule II opioid drug., 178, cm, 03/30/22 16:02:00... Start Date: 05/03/22 Status: Ordered Trelegy Ellipta 200 mcg-62.5 mcg-25 mcg/inh inhalation powder 1 puffs, Inhalation, Daily, at the same time every day, # 1 each, 11 Refills, Maintenance, 06/13/2313:09:00 EST, Powder, [facility] #[id number], Partial fill upon patient request if the [...] Reference Physician Member Role: PCP Address: Address: [address] [place] [address]- Name: Adam Gutiérrez RN Position: S RN Supv Member Role: Primary Care Nurse Care Team Related Persons Name: IBIS HOLT Address: home [address] [place] [address]
--- OUTSIDE RECORDS SUMMARY | 2023-12-03 08:15 | XMS_ITS | Continuity of Care Document ---
Author Organization [facility] Address [address] [place] [address]- Care Team Providers Care Hospital Unit Coordinator Name Role Phone Adamaris MARIO, Keyanna Masterson Primary Care Physici an Encounter [facility] Date(s): 01/25/22 - 02/24/22 [facility] [address] [place] [address]- [place] Allergies, Adverse Reactions, Alerts Substance Reaction [...] 3 Refills, Maintenance, 09/02/21 8:52:00 EDT, [id number], Partial fill upon patient request if the prescription is for a schedule II opioid drug., 180, cm, 09/02/21 8:46:00 EDT,... Start Date: 09/02/21 Stop Date: 08/28/22 Status: Ordered aspirin 81 mg oral tablet 1 tablet = 81 mg, By Mouth, Daily, # 90 tablet, 11 Refills, Maintenance, 12/06/18 13:47:08 EDT, Tablet Start Date: 12/06/18 Stop Date: 11/20/21 Status: Ordered [facility]ax to [facility] Fax to [facility], See Instructions, # 1 each, Refills 11, Tot. Refills 11, Maintenance, CPAP CPAP 8 cm H2O with heated humidification, mask, heated tubing, filters, headgear, chin strap, andwater chamber. Vincenzo provider access to wireless... Start Date: 09/28/20 Status: Ordered fenofibrate 160 mg oral tablet 0.5 tablet = 80 mg, By Mouth, Daily, # 15 tablet, 0 Refills, Maintenance, 12/16/21 9:13:00 EDT, Tablet, [facility] #[id number], Partial fill upon patient request if the [...] 02/24/22 16:00:00 EDT, Route to Pharmacy Electronically, [facility] #[id number], Partial fill upon patient request if the prescription is for a schedule II... Start Date: 02/24/22 Status: Ordered Levothyroxine = 300 mcg, By Mouth, Daily, 0 Refills, Maintenance Start Date: 06/29/11 Status: Ordered metoprolol 50 mg oral tablet, extended release 50 mg, 1, tablet, By Mouth, Daily, # 90 tablet, Refills 3, Tot. Refills 3, Maintenance, 12/16/21 14:24:00 EDT, Route to Pharmacy Electronically, [facility] #[id number], 180, cm, 12/16/21 8:55:00EDT, Height, 117.8, kg, [...] 3 Refills, Maintenance, 01/02/22 16:07:00 EDT, Tablet, [facility] #[id number], 180, cm, 12/16/21 8:55:00 EDT, Height, 117.8, kg, 04/04/21 7:21:00 EDT, Dry Weight Start Date: 01/02/22 Status: Ordered ranolazine 500 mg oral tablet, extended release 1 tablet = 500 mg, By Mouth, 2 times a day, # 120 tablet, 3 Refills, Maintenance, 12/08/21 16:50:00EDT, ER Tablet, [facility] #[id number], Partial fill upon patient request if the prescription is for a schedule II opioid drug., 180, cm, 09/05/21... Start Date: 12/08/21 Status: Ordered Repatha SureClick 140 mg/mL subcutaneous solution = 140 mg, Subcutaneous Infusion, Every 14 days, # 2 each, 11 Refills, Maintenance, 06/16/21 16:33:00 EST, [facility] #[id number], Partial fill upon patient request if the prescription is for a schedule II opioid drug., 180, cm, 04/06/21 16:24:00... Start Date: 06/16/21 Status: Ordered Symbicort 160mcg/4.5mcg Inhaler 2, puffs, Inhalation, 2 times a day, No substitutions, # 1 each, Refills 5, Tot. Refills 5, Maintenance, 12/13/21 12:33:00 EDT, Inhaler, Route to Pharmacy Electronically, [id number], [facility] #[id number], 180, cm, 04/... Start Date: 12/13/21 Status: Ordered Vitamin B Complex oral tablet, extended release By Mouth, Daily, 0 Refills, Maintenance, 07/23/19 13:22:00 EST Start Date: 07/23/19 Status: Ordered Problem List Condition Effective Dates Status Health Status Inform ant Benign essential hypertension(Confirmed) Active CAD (coronary artery disease)(Confirmed) Active Dyslipidemia(Confirmed) Active Obese class II(Confirmed) Active Social History Social History Type Response Smoking Status Former smoker; Other : quit 1990; entered on: 06/14/17 Sex Care Team Personnel Name: Keyanna Bailon NP Address: [address] [place] [address]
--- OUTSIDE RECORDS SUMMARY | 2023-12-03 08:15 | XMS_ITS | Continuity of Care Document ---
Author Organization [facility] Address [address] [address]- Care Team Providers Care Old Testament Professor Name Role Phone Adamaris MARIO, Keyanna Aleja Primary Care Physici an [place] [facility] [place]23 [place] 12/01/23 [facility] [address] [address]- [place] Allergies, Adverse Reactions, Alerts Substance Reaction [...] 6.7 Gm, 11 Refills, Maintenance, 06/13/22 14:10:[id number], Partial fill upon patient request if the prescription is for a schedule II opioid drug., 2 puf... Start Date: 06/13/22 Status: Ordered albuterol 0.083% inhalation solution 3 mL = 2.5 mg, Inhalation, Every 6 hours, PRN for wheezing/shortness of breath, # 360 mL, 11 Refills, Maintenance, 06/13/22 14:09:00 EST, [facility] #[id number], Partial fill upon patient request if the prescription is for a schedule II... Start Date: 06/13/22 Status: Ordered amLODIPine 2.5 mg oral tablet 2.5 mg, 1, tablet, By Mouth, Daily, # 90 tablet, Refills 3, Tot. Refills 3, Maintenance, 11/22/23 8:19:00 EDT, Route to Pharmacy Electronically, [facility]/pharmacy #[id number], Partial fill upon patient request if the prescription is for a schedule II opioid drug... Start Date: 11/22/23 Stop Date: 11/16/24 Status: Ordered aspirin 81 mg oral tablet [...] Start Date: 07/12/23 Status: Ordered [facility], See Instructions, # 1 each, Refills 11, Tot. Refills 11, Maintenance, CPAP CPAP 8 cm H2O with heated humidification, mask, heated tubing, filters, headgear, chin strap, andwater chamber. Vincenzo provider access to wireless... Start Date: 09/28/20 Status: Ordered fenofibrate 160 mg oral tablet 0.5 tablet = 80 mg, By Mouth, Daily, # 15 tablet, 0 Refills, Maintenance, 12/16/21 9:13:00 EDT, Tablet, [facility] #[id number], Partial fill upon patient request if the [...] each, 5 Refills, Maintenance, 04/05/23 11:45:00 EDT, [facility]/pharmacy #[id number], Partial fill upon patient request if [...] Refills, Maintenance, 11/08/22 16:40:00 EDT, REC Powder, [facility]/pharmacy #[id number], Ok to... Start Date: 11/08/22 Status: Ordered Lasix 20 mg oral tablet 20 mg, 1, tablet, By Mouth, Daily, # 30 tablet, Refills 11, Tot. Refills 11, Maintenance, 11/01/23 9:26:00 EDT, Route to Pharmacy Electronically, [facility]/pharmacy #[id number], Partial fill upon patient requestif the prescription is for a schedule II opioid ricardo... Start Date: 11/01/23 Status: Ordered Levothyroxine = 300 mcg, By Mouth, Daily, 0 Refills, Maintenance Start Date: 06/29/11 Status: Ordered loratadine 10 mg oral tablet 10 mg, 1, tablet, By Mouth, Daily, # 30 tablet, Refills 11, Tot. Refills 11, Maintenance, 05/10/23 10:46:00 EST, Route to Pharmacy Electronically, [id number], Partial fill upon patient request if the prescription is for a schedule II opioid dr... Start Date: 05/10/23 Status: Ordered metoprolol 50 mg oral tablet, extended release 50 mg, 1, tablet, By Mouth, Daily, # 90 tablet, Refills 3, Tot. Refills 3, Maintenance, 10/30/23 9:53:00 EDT, Route to Pharmacy Electronically, [id number], 180.34, cm, 09/07/23 8:40:00 EDT, Height, 124.1, kg, 11/22/22 7:21:00 EDT, Dry Weight Start Date: 10/30/23 Status: Ordered Nebulizer/Compressor See Instructions, # 1 [...] 3 Refills, Maintenance, 02/06/23 8:36:00 EDT, Tablet, [facility]/pharmacy #[id number], 180.34, cm, 11/22/22 7:21:00 EDT, Height, 124.1, kg, 11/22/22 7:21:00 EDT, Dry Weight Start Date: 02/06/23 Status: Ordered PredniSONE By Mouth, Daily, 0 Refills, Maintenance, 07/12/23 15:54:00 EST, Partial fill upon patient request if the prescription is for a schedule II opioid drug. Start Date: 07/12/23 Status: Ordered ranolazine 1000 mg oral tablet, extended release 1 tablet = 1,000 mg, By Mouth, 2 times a day, # 180 tablet, 3 Refills, Maintenance, 11/22/23 8:19:00 EDT, [facility]/pharmacy #[id number], Partial fill upon patient request if the prescription is for a schedule II opioid drug., 180.34, cm, 11/22/23 8:04:00 EDT, He... Start Date: 11/22/23 Stop Date: 11/16/24 Status: Ordered Repatha SureClick 140 mg/mL subcutaneous [...] Care Nurse Name: Keyanna Bailon NP Position: [facility] Outreach Member Role: PCP Address: Address: [address] [place] [address] Name: Adam Gutiérrez RN Position: [facility] Supv Member Role: Primary Care Nurse Care Team Related Persons Name: IBIS HOLT Address: home [address] [place] [address]
--- OUTSIDE RECORDS SUMMARY | 2023-12-03 08:15 | XMS_ITS | Continuity of Care Document ---
Author Organization [facility] Address 164 [facility] [address] [place] [address]- Care Team Providers Care Roof Technician Name Role Phone Adamaris MARIO, Keyanna Aleja Primary Care Physici an Encounter [facility] [place] Date(s): 08/23/23 - 09/22/23 [facility] [address] [place] [address]- Allergies, Adverse Reactions, Alerts Substance Reaction Severity [...] 6.7 Gm, 11 Refills, Maintenance, 06/13/22 14:10:00 [id number], Partial fill upon patient request if the prescription is for a schedule II opioid drug., 2 puf... Start Date: 06/13/22 Status: Ordered albuterol 0.083% inhalation solution 3 mL = 2.5 mg, Inhalation, Every 6 hours, PRN for wheezing/shortness of breath, # 360 mL, 11 Refills, Maintenance, 06/13/22 14:09:00 EST, Solution, [facility] #[id number], Partial fill upon patient request if the prescription is for a schedule II... Start Date: 06/13/22 Status: Ordered amLODIPine 5 mg oral tablet 1 tablet = 5 mg, By Mouth, Daily, # 90 tablet, 3 Refills, Maintenance, 09/07/23 8:50:00 EDT, Tablet, [facility]/pharmacy #[id number], Partial fill upon patient [...] Start Date: 07/12/23 Status: Ordered Fax to [facility] Fax to [facility], See Instructions, # 1 [...] 0 Refills, Maintenance, 12/16/21 9:13:00 EDT, Tablet, [facility] #[id number], Partial fill upon patient request if the [...] each, 5 Refills, Maintenance, 04/05/23 11:45:00 EDT, [facility]/pharmacy #[id number], Partial fill upon patient [...] Refills, Maintenance, 11/08/22 16:40:00 EDT, REC Powder, [facility]/pharmacy #[id number], Ok to... Start Date: 11/08/22 Status: Ordered Lasix 20 mg oral tablet 20 mg, 1, tablet, By Mouth, Daily, # 30 tablet, Refills 11, Tot. Refills 11, Maintenance, 02/24/22 16:00:00 EDT, [id number], Partial fill upon patient request if the prescription is for a schedule II... Start Date: 02/24/22 Status: Ordered Levothyroxine = 300 mcg, By Mouth, Daily, 0 Refills, Maintenance Start Date: 06/29/11 Status: Ordered loratadine 10 mg oral tablet 10 mg, 1, tablet, By Mouth, Daily, # 30 tablet, Refills 11, Tot. Refills 11, Maintenance, 05/10/23 10:46:00 EST, Route to Pharmacy Electronically, [facility]/pharmacy #[id number], Partial fill upon patient request if the prescription is for a schedule II opioid dr... Start Date: 05/10/23 Status: Ordered metoprolol 50 mg oral tablet, extended release 50 mg, 1, tablet, By Mouth, Daily, # 90 tablet, Refills 3, Tot. Refills 3, Maintenance, 10/31/22 9:28:00 EDT, Route to Pharmacy Electronically, [facility]/pharmacy #[id number], 178, cm, 10/18/22 9:47:00 [...] 3 Refills, Maintenance, 02/06/23 8:36:00 EDT, Tablet, [facility]/pharmacy #1094, 180.34, cm, 11/22/22 7:21:00 [...] Refills, Maintenance, 03/13/23 9:33:00 EDT, ER Tablet, [facility]/pharmacy #[id number], Partial fill upon patient [...] Reference Physician Member Role: PCP Address: Address: [address] [place] [address]- Name: Adam Gutiérrez RN Position: [facility] Supv Member Role: Primary Care Nurse Care Team Related Persons Name: SHERLY HOLTA Address: home [address] [place] [address]
--- OUTSIDE RECORDS SUMMARY | 2023-12-03 08:15 | XMS_ITS | Continuity of Care Document ---
Author Organization [facility] Address [address] [place] [address]- Care Team Providers Care Probation Worker Name Role Phone Willie Carrion MD Primary Care Physician [phone] Encounter [facility] [place] Date(s): 02/23/21 - 03/25/21 [facility] [place] [address] [place] [address]- [place] Allergies, Adverse Reactions, Alerts Substance Reaction [...] tablet, 3 Refills, Maintenance, 03/01/21 11:07:00 EDT, [facility] #[id number], 182, cm, 02/23/21 19:12:00 EDT, Height, 117, kg, 02/23/21 19:12:00 EDT, DryWeight Start Date: 03/01/21 Status: Ordered aspirin 81 mg oral tablet 1 tablet = 81 mg, By Mouth, Daily, # 90 tablet, 11 Refills, Maintenance, 12/06/18 13:47:08 EDT, Tablet Start Date: 12/06/18 Stop Date: 11/20/21 Status: Ordered [facility]ax to [facility] Fax to [facility], See Instructions, # 1 each, Refills 11, [...] 09/01/20 16:55:00 EDT, Route to Pharmacy Electronically, [facility] #[id number], 180, cm, 08/31/20 14:02:00 EDT, Height, 122.3, [...] 3 Refills, Maintenance, 01/10/21 15:32:00 EDT, Tablet, [facility] #[id number], 180, cm, 12/02/20 8:05:00 EDT, Height Start Date: 01/10/21 Status: Ordered Spiriva Respimat 1.25 mcg/inh inhalation aerosol 2 puffs, Inhalation, Daily, # 4 Gm, 11 Refills, Maintenance, 03/08/20 14:55:00 EDT, Aerosol, [facility] #[id number], 180, cm, 03/08/20 14:38:00 EDT, Height, 122.3, [...]
--- OUTSIDE RECORDS SUMMARY | 2023-12-03 08:15 | XMS_ITS | Continuity of Care Document ---
Author Organization [facility] Address 164 [facility] 2nd Floor [address] [place] [address]- Care Team Providers Care Roof Plumber Name Role Phone Adamaris MARIO, Keyanna Aleja Primary Care Physici an Encounter [facility] [place] Date(s): 08/29/23 - 09/28/23 [facility] [place] [address] [place] [address]- Allergies, Adverse Reactions, Alerts Substance Reaction Severity [...] 6.7 Gm, 11 Refills, Maintenance, 06/13/22 14:10:00 [id number], Partial fill upon patient request if the prescription is for a schedule II opioid drug., 2 puf... Start Date: 06/13/22 Status: Ordered albuterol 0.083% inhalation solution 3 mL = 2.5 mg, Inhalation, Every 6 hours, PRN for wheezing/shortness of breath, # 360 mL, 11 Refills, Maintenance, 06/13/22 14:09:00 EST, [facility] #[id number], Partial fill upon patient request if the prescription is for a schedule II... Start Date: 06/13/22 Status: Ordered amLODIPine 5 mg oral tablet 1 tablet = 5 mg, By Mouth, Daily, # 90 tablet, 3 Refills, Maintenance, 09/07/23 8:50:00 EDT, Tablet, [facility]/pharmacy #[id number], Partial fill upon patient request if [...] [facility], See Instructions, # 1 [...] 0 Refills, Maintenance, 12/16/21 9:13:00 EDT, Tablet, [facility] #[id number], Partial fill upon patient request if the [...] each, 5 Refills, Maintenance, 04/05/23 11:45:00 EDT, [facility]/pharmacy #[id number], Partial fill upon patient request if [...] Refills, Maintenance, 11/08/22 16:40:00 EDT, REC Powder, [facility]/pharmacy #1094, Ok to... Start Date: 11/08/22 Status: Ordered Lasix 20 mg oral tablet 20 mg, 1, tablet, By Mouth, Daily, # 30 tablet, Refills 11, Tot. Refills 11, Maintenance, 02/24/22 16:00:00 EDT, Route to Pharmacy Electronically, [facility] #[id number], Partial fill upon patient request if the prescription is for a schedule II... Start Date: 02/24/22 Status: Ordered Levothyroxine = 300 mcg, By Mouth, Daily, 0 Refills, Maintenance Start Date: 06/29/11 Status: Ordered loratadine 10 mg oral tablet 10 mg, 1, tablet, By Mouth, Daily, # 30 tablet, Refills 11, Tot. Refills 11, Maintenance, 05/10/23 10:46:00 EST, Route to Pharmacy Electronically, [facility]/pharmacy #[id number], Partial fill upon patient request if the prescription is for a schedule II opioid dr... Start Date: 05/10/23 Status: Ordered metoprolol 50 mg oral tablet, extended release 50 mg, 1, tablet, By Mouth, Daily, # 90 tablet, Refills 3, Tot. Refills 3, Maintenance, 10/31/22 9:28:00 EDT, Route to Pharmacy Electronically, [facility]/pharmacy #[id number], 178, cm, 10/18/22 9:47:00 EDT, Height, [...] 3 Refills, Maintenance, 02/06/23 8:36:00 EDT, Tablet, [facility]/pharmacy #[id number], 180.34, cm, 11/22/22 7:21:00 EDT, Height, [...] Refills, Maintenance, 03/13/23 9:33:00 EDT, ER Tablet, [facility]/pharmacy #1094, Partial fill upon patient request if [...] Reference Physician Member Role: PCP Address: Address: [address] [place] [address] Name: Adam Gutiérrez RN Position: [facility] Supv Member Role: Primary Care Nurse Care Team Related Persons Name: IBIS HOLT Address: home [address] [place] [address]
--- OUTSIDE RECORDS SUMMARY | 2023-12-03 08:15 | XMS_ITS | Continuity of Care Document ---
Author Organization [facility] Address Unknown Care Team Providers Care Manager Book Name Role Phone Willie Carrion MD Primary Care Physician Encounter [facility] [place] Date(s): 04/06/21 - 05/06/21 [facility] Allergies, Adverse Reactions, Alerts Substance Reaction Severity [...] tablet, 3 Refills, Maintenance, 03/01/21 11:07:00 EDT, [facility] #[id number], 182, cm, 02/23/21 19:12:00 EDT, Height, 117, kg, 02/23/21 19:12:00 EDT, DryWeight Start Date: 03/01/21 Status: Ordered aspirin 81 mg oral tablet 1 tablet = 81 mg, By Mouth, Daily, # 90 tablet, 11 Refills, Maintenance, 12/06/18 13:47:08 EDT, Tablet Start Date: 12/06/18 Stop Date: 11/20/21 Status: Ordered Fax to [facility] Fax to [facility], See Instructions, # 1 each, [...] 11 Refills, Maintenance, 04/06/21 17:28:00 EDT, Powder, [facility] #[id number], Partial fill upon patient request if the [...] 09/01/20 16:55:00 EDT, Route to Pharmacy Electronically, [facility] #[id number], 180, cm, 08/31/20 14:02:00 EDT, Height, 122.3, [...] 3 Refills, Maintenance, 01/10/21 15:32:00 EDT, Tablet, [facility] #[id number], 180, cm, 12/02/20 8:05:00 EDT, Height Start [...] 11 Refills, Maintenance, 03/08/20 14:55:00 EDT, Aerosol, [facility] #[id number], 180, cm, 03/08/20 14:38:00 EDT, Height, 122.3, [...]
--- OUTSIDE RECORDS SUMMARY | 2023-12-03 08:15 | XMS_ITS | Continuity of Care Document ---
Author Organization [facility] Address [address] [place] [address]- Care Team Providers Care Criminal Investigative Agent Name Role Phone Willie Carrion MD Primary Care Physician [phone] Encounter [facility] [place] Date(s): 09/02/21 - 10/02/21 [facility] [place] [address] [place] [address]- Attending Physician: Admtr, Joycelyn Admitting Physician: Admtr, Ar8 Referring Physician: Admtr, Ar8 Allergies, Adverse Reactions, Alerts Substance Reaction [...] 3 Refills, Maintenance, 09/02/21 8:52:00 EDT, Tablet, [facility] #[id number], Partial fill upon patient request if the prescription is for a schedule II opioid drug., 180, cm, 09/02/21 8:46:00 EDT,... Start Date: 09/02/21 Stop Date: 08/28/22 Status: Ordered aspirin 81 mg oral tablet 1 tablet = 81 mg, By Mouth, Daily, # 90 tablet, 11 Refills, Maintenance, 12/06/18 13:47:08 EDT, Tablet Start Date: 12/06/18 Stop Date: 11/20/21 Status: Ordered Fax to [facility] Fax to [facility], See Instructions, # [...] 09/01/20 16:55:00 EDT, [id number], 180, cm, 08/31/20 14:02:00 EDT, Height, 122.3, [...] 3 Refills, Maintenance, 01/10/21 15:32:00 EDT, Tablet, [facility] #[id number], 180, cm, 12/02/20 8:05:00 EDT, Height Start [...] each, 11 Refills, Maintenance, 06/16/21 16:33:00 EST, [facility] #[id number], Partial fill upon patient request if the prescription is for a schedule II opioid drug., 180, cm, 04/06/21 16:24:00... Start Date: 06/16/21 Status: Ordered Symbicort 160mcg/4.5mcg Inhaler 2, puffs, Inhalation, 2 times a day, # 1 each, Refills 5, Tot. Refills 5, Maintenance, 06/27/21 11:23:00 EST, Inhaler, Route to Pharmacy Electronically, [id number], [facility] #[id number], 180, cm, 04/06/21 16:24:00 EDT,... Start Date: 06/27/21 Status: Ordered Problem List Condition Effective Dates Status Health Status Inform ant Benign essential hypertension(Confirmed) Active CAD (coronary artery disease)(Confirmed) Active Dyslipidemia(Confirmed) Active Obese class II(Confirmed) Active Social History Social History Type Response Smoking Status Former smoker; Other : quit 1990; entered on: 06/14/17 Sex
--- OUTSIDE RECORDS SUMMARY | 2023-12-03 08:15 | XMS_ITS | Continuity of Care Document ---
Author Organization [facility] Address Unknown Care Team Providers Care Producer Arborist Manager Name Role Phone Willie Carrion MD Primary Care Physician [phone] Encounter [facility] [place] Date(s): 12/13/21 - 01/12/22 [facility] Allergies, Adverse Reactions, Alerts Substance [...] 3 Refills, Maintenance, 09/02/21 8:52:00 EDT, Tablet, [facility][id number], Partial fill upon patient request if the [...] Ordered Fax to [facility] Fax to [facility], See Instructions, # 1 each, Refills 11, Tot. Refills 11, Maintenance, CPAP CPAP 8 cm H2O with heated humidification, mask, heated tubing, filters, headgear, chin strap, andwater chamber. Vincenzo provider access to wireless... Start Date: 09/28/20 Status: Ordered fenofibrate 160 mg oral tablet 0.5 tablet = 80 mg, By Mouth, Daily, # 15 tablet, 0 Refills, Maintenance, 12/16/21 9:13:00 EDT, Tablet, [facility] #[id number], Partial fill upon patient request if the [...] 12/16/21 14:24:00 EDT, Route to Pharmacy Electronically, [facility] #[id number], 180, cm, 12/16/21 8:55:00EDT, Height, 117.8, kg, [...] 3 Refills, Maintenance, 01/02/22 16:07:00 EDT, Tablet, [facility] #[id number], 180, cm, 12/16/21 8:55:00 EDT, Height, 117.8, kg, 04/04/21 7:21:00 EDT, Dry Weight Start Date: 01/02/22 Status: Ordered ranolazine 500 mg oral tablet, extended release 1 tablet = 500 mg, By Mouth, 2 times a day, # 120 tablet, 3 Refills, Maintenance, 12/08/21 16:50:00EDT, ER Tablet, [facility] #[id number], Partial fill upon patient request if the prescription is for a schedule II opioid drug., 180, cm, 09/05/21... Start Date: 12/08/21 Status: Ordered Repatha SureClick 140 mg/mL subcutaneous solution = 140 mg, Subcutaneous Infusion, Every 14 days, # 2 each, 11 Refills, Maintenance, 06/16/21 16:33:00 EST, [facility] #[id number], Partial fill upon patient request if the prescription is for a schedule II opioid drug., 180, cm, 04/06/21 16:24:00... Start Date: 06/16/21 Status: Ordered Symbicort 160mcg/4.5mcg Inhaler 2, puffs, Inhalation, 2 times a day, No substitutions, # 1 each, Refills 5, Tot. Refills 5, Maintenance, 12/13/21 12:33:00 EDT, Inhaler, Route to Pharmacy Electronically, [id number], [facility] #[id number], 180, cm, 0... Start Date: 12/13/21 Status: Ordered Problem List Condition Effective Dates Status Health Status Inform ant Benign essential hypertension(Confirmed) Active CAD (coronary artery disease)(Confirmed) Active Dyslipidemia(Confirmed) Active Obese class II(Confirmed) Active Social History Social History Type Response Smoking Status Former smoker; Other : quit 1990; entered on: 06/14/17 Sex
--- OUTSIDE RECORDS SUMMARY | 2023-12-03 08:15 | XMS_ITS | Continuity of Care Document ---
Author Organization [facility] Address [address] [address]- Care Team Providers Care Microsoft Bi Consultant Name Role Phone Willie Carrion MD Primary Care Physician [id number] Date(s): 04/19/21 - 05/19/21 [facility] [address] [address]- Attending Physician: Admjosé manuel, Joycelyn Admitting Physician: Admtr, Ar8 Referring Physician: [...] tablet, 3 Refills, Maintenance, 03/01/21 11:07:00 EDT, [facility] #[id number], 182, cm, 02/23/21 19:12:00 EDT, Height, 117, kg, 02/23/21 19:12:00 EDT, DryWeight Start Date: 03/01/21 Status: Ordered aspirin 81 mg oral tablet 1 tablet = 81 mg, By Mouth, Daily, # 90 tablet, 11 Refills, Maintenance, 12/06/18 13:47:08 EDT, Tablet Start Date: 12/06/18 Stop Date: 11/20/21 Status: Ordered Fax to [facility] Fax to [facility], See Instructions, # 1 [...] 11 Refills, Maintenance, 04/06/21 17:28:00 EDT, Powder, [facility] #[id number], Partial fill upon patient request if the [...] 09/01/20 16:55:00 EDT, Route to Pharmacy Electronically, [facility] #[id number], 180, cm, 08/31/20 14:02:00 EDT, Height, 122.3, [...] 3 Refills, Maintenance, 01/10/21 15:32:00 EDT, Tablet, [facility] #[id number], 180, cm, 12/02/20 8:05:00 EDT, Height Start [...] 11 Refills, Maintenance, 03/08/20 14:55:00 EDT, Aerosol, [facility] #[id number], 180, cm, 03/08/20 14:38:00 EDT, Height, 122.3, [...]
--- OUTSIDE RECORDS SUMMARY | 2023-12-03 08:15 | XMS_ITS | Continuity of Care Document ---
Author Organization [facility] Address [address] [place] [address]- Care Team Providers Care Tax Adjuster Name Role Phone Sheyla BARRAGAN, Willie Rogers Primary Care Physician [place] [facility] [place] 07[place]21/19 [facility] [place] [address] [place] [address]- [place] Attending Physician: Joycelyn Hennessy Admitting Physician: Joycelyn Hennessy Referring Physician: AdmtrJoycelyn Allergies, Adverse Reactions, Alerts [...] Maintenance, 02/13/1916:14:19 EDT, Route to Pharmacy Electronically, [id number], [facility] #[id number] Start Date: 02/12/19 Status: Ordered aspirin 81 [...] 08/13/18 11:06:52 EDT, Route to Pharmacy Electronically, [id number], [facility] [address] Start Date: 08/13/18 Status: Ordered nitroglycerin 0.4 [...]
--- OUTSIDE RECORDS SUMMARY | 2023-12-03 08:15 | XMS_ITS | Continuity of Care Document ---
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 #[id number], Partial fill upon patient request if the prescription is for a schedule II opioid drug., 2 puf... Start Date: 06/13/22 Status: Ordered albuterol 0.083% inhalation solution 3 mL = 2.5 mg, Inhalation, Every 6 hours, PRN for wheezing/shortness of breath, # 360 mL, 11 Refills, Maintenance, 06/13/22 14:09:00 EST, Solution, [facility] #[id number], Partial fill upon patient request if the prescription is for a schedule II... Start Date: 06/13/22 Status: Ordered amLODIPine 2.5 mg oral tablet 2.5 mg, 1, tablet, By Mouth, Daily, # 90 tablet, Refills 3, Tot. Refills 3, Maintenance, 11/22/23 8:19:00 EDT, Route to Pharmacy Electronically, [facility]/pharmacy #[id number], Partial fill upon patient request if the [...] Start Date: 07/12/23 Status: Ordered Fax to [facility] Fax to [facility], See Instructions, # 1 [...] 0 Refills, Maintenance, 12/16/21 9:13:00 EDT, Tablet, [facility] #[id number], Partial fill upon patient request if the [...] each, 5 Refills, Maintenance, 04/05/23 11:45:00 EDT, [facility]/pharmacy #[id number], Partial fill upon patient request [...] Refills, Maintenance, 11/08/22 16:40:00 EDT, REC Powder, [facility]/pharmacy #[id number], Ok to... Start Date: 11/08/22 Status: Ordered Lasix 20 mg oral tablet 20 mg, 1, tablet, By Mouth, Daily, # 30 tablet, Refills 11, Tot. Refills 11, Maintenance, 11/01/23 9:26:00 EDT, Route to Pharmacy Electronically, [facility]/pharmacy #[id number], Partial fill upon patient requestif [...] 05/10/23 10:46:00 EST, Route to Pharmacy Electronically, [facility]/pharmacy #[id number], Partial fill upon patient request if the prescription is for a schedule II opioid dr... Start Date: 05/10/23 Status: Ordered metoprolol 50 mg oral tablet, extended release 50 mg, 1, tablet, By Mouth, Daily, # 90 tablet, Refills 3, Tot. Refills 3, Maintenance, 10/30/23 9:53:00 EDT, Route to Pharmacy Electronically, [facility]/pharmacy #[id number], 180.34, cm, 09/07/23 8:40:00 EDT, Height, [...] 3 Refills, Maintenance, 02/06/23 8:36:00 EDT, Tablet, [facility]/pharmacy #[id number], 180.34, cm, 11/22/22 7:21:00 EDT, [...] tablet, 3 Refills, Maintenance, 11/22/23 8:19:00 EDT, [facility]/pharmacy #[id number], Partial fill upon patient request if the prescription is for a schedule II opioid drug., 180.34, cm, 11/22/23 8:04:00 EDT, He... Start Date: 11/22/23 Stop Date: 11/16/24 Status: Ordered Repatha SureClick 140 mg/mL subcutaneous solution = 140 mg, Subcutaneous Infusion, Every 14 days, # 2 each, 11 Refills, Maintenance, 06/12/23 12:51:00 EST, [facility]/pharmacy #[id number], Partial fill upon patient request if the prescription is for a schedule II opioid drug., 180.34, cm, 11/22/22 7:21:00 EDT, He... Start Date: 06/12/23 Status: Ordered Trelegy Ellipta 200 mcg-62.5 mcg-25 mcg/inh inhalation powder 1 puffs, Inhalation, Daily, at the same time every day, # 1 each, 11 Refills, Maintenance, 06/19/2412:13:00 EST, Powder, [facility]/pharmacy #[id number], Partial fill upon patient request [...] obesity (BMI 35.0-39.9) with comorbidity Confirmed Active Diagnosis Diagnosis Type Effective Dates Health Status Clinical Service Informant CAD (coronary artery disease) Discharge Diagnosis 11/22/23 Dyslipidemia Discharge Diagnosis 11/22/23 Vital Signs Most recent to oldest [Reference Range]: 1 Height 180.34 cm (11/22/23 8:04 AM) Weight 125.2 kg (11/22/23 8:04 AM) Oxygen Saturation [94-100 %] 97 % (11/22/23 8:04 AM) Pulse Rate [55-90 bpm] 76 bpm (11/22/23 8:04 AM) Body Mass Index [18.5-24.99 kg/m2] 38.5 kg/m2 *>HHI* (11/22/23 8:04 AM) Blood Pressure [90-138/55-84 mm Hg] 147/ 85mm Hg *H* (11/22/23 8:04 AM) Blood pressure sites Arm, left (11/22/23 8:04 AM) Weight Obtained Via Standing scale (11/22/23 8:04 AM) Social History Social History Type Response Smoking Status Former smoker; Other : quit 1990; entered on: 06/14/17 Sex Cardiology Outpatient Note * Jaswant Elizabeth MD: PERFORM Event Display: Cardiology Note Office Authored Date: [id number] Patient: ??NICK VALADEZ ? Age:??63 Years?Sex:??Male?:??1960?? Patient Hx Cardiology Shared Clinical Summary 1. CAD. Status post PCI to the RCA June 2015, MARLINE to mLAD September 2017, and MARLINE to dRCA December 05, 2018 and again in December 2019 for ISR. ?? -Coronary angiogram in?17: hemodynamically significant disease in his obtuse marginal-2 branch for which he received a MARLINE. There was a 75% lesion in his RPLV-1 branch which was not intervened upon because of table-intolerance issues. ??The disease in his LAD was FFR negative. I uptitrated anti-anginals but he kept having recurrent angina, CCS III, so referred him back for cath and he got a MARLINE to the mLAD (FFR+ was 0.75) September 2017. -Re-presented with chest pain on December 04, 2018. ??Found to have non-ST elevation TN and had another cardiac catheterization on December 05, she received another MARLINE to his distal RCA. -Cath???d again in December 2019 - found to have in stent restenosis of distal RCA, s/p stent and switched to prasugrel -Cath???d again April 2021 - iFR negative lesions in RCA territory -Cath???d again 01/23/22 - no significant changes from prior cath. 2.??Significant hypertriglyceridemia, difficult to treat due to gemfibrozil sensitivities. ?? 3.??Hypercholesterolemia, with intolerance to multiple statins and Zetia, but better controlled on Repatha.??Previously seen by Dr. Smiley in [place] regarding his hypertriglyceridemia.?He is on Lovaza 2 grams BID, fenofibrate (Tricor) 145 mg once daily. A oral glucose tolerance test does notshow evidence of DM.? 4.?? Ascending aorta dilatation Provider Clinical Summary IE/S: Chronic angina is stable since last visit.? Still having predictable angina??with exertion. Developed??lower extremity edema??on??amlodipine dose is higher than 2.5 mg daily Wegovy??denied; appeal pending?I/P: 1. ??CAD status post PCI to RCA in June 2015, OM2 in May 2017, mLAD September 2017, and distal RCA December 2018 and December 2019 for ISR. Chronic stable angina, worse during last few visits. Tolerating Prasugrel. LVEF 50-60% with inferior WMA.? -Increase??Ranexa??to 1000 mg BID -Lower??Norvasc??to 2.5 mg daily. -Toprol XL 50. Higher doses caused lethargy/low BP?? -Imdur causes JENSEN???s -DAPT, with Prasugrel -Will defer on heart catheterization at this time and focus on??medical therapy for??chronic stableangina.? 2. ??Hypertriglyceridemia and HL. ??Appreciate input from Dr. Willie Smiley in [place] (see scanned note) -Ongoing treatment with fenofibrate, Repatha and Lovaza ?4.?Aortic root 4.2 cm. ??Ascending aorta 4.4 cm as of June 2023 echo.?? Needs long-term monitoring, plan on repeat echo??in 2024. Indication for Consult 2 MONTHS FOLLOW UP VISIT, CAD Physical Exam Vitals & Measurements HR:??76??(Peripheral)?? BP:??147/85?? SpO2:??97%?? HT:??180.34??cm?? WT:??125.2??kg?? BMI:??38.5?? Weight lb/oz: 276 lb 0 oz GENERAL: ??Alert and oriented x3, no acute distress. HEENT: Mucous membranes pink and moist. ?? NECK: ??No JVD?? LUNGS: Clear to auscultation bilaterally. ??No crackles, wheezing, rhonchi. ?? HEART: ??Regular rate and rhythm, normal S1, S2. ??No murmurs, rubs, or gallops.?? ABDOMEN: Soft, nontender, nondistended.??Obese EXTREMITIES: ??No pitting edema, cyanosis, clubbing. ?? PULSES: 2+ radials SKIN: Warm and well perfused. ?? NEURO: ??Oriented to person, time, and place, following commands, and moving all extremities.?? MUSCULOSKELETAL: ??Negative.?? Assessment/Plan 1.??CAD (coronary artery disease) Ordered: Amlodipine, 2.5 mg, 1, tablet, By Mouth, Daily, # 90 tablet, Refills 3, Tot. Refills 3, Maintenance, 11/22/23 8:19:00 EDT, Route to Pharmacy Electronically, [facility]/pharmacy #[id number], Partial fill upon patient request if the prescription is for a schedule II opioid drug... ranolazine, 1 tablet = 1,000 mg, By Mouth, 2 times a day, # 180 tablet, 3 Refills, Maintenance, 11/22/23 8:19:00 EDT, [facility]/pharmacy #[id number], Partial fill upon patient request if the prescription is for a schedule II opioid drug., 180.34, cm, 11/22/23 8:04:00 EDT, He... Follow up Appointment ?? 2.??Dyslipidemia Ordered: Follow up Appointment ?? Medical Decision Making MODERATE - chronic illness w/ exac, progression, or AE of Tx, 2+ stable chronic illnesses, 1 new prob w/ ? prognosis, 1 acute w/ systemic Sx or comp injury; 2 of (note / test / order / indep historian = 3), interpretation / discussion; MOD risk +SDOH Allergies Peanuts??(TURNS RED,JENSEN,VOMITING) Zetia??(PAIN AND WEAKNESS IN JOINTS) fentaNYL statins??(CPK LEVELS RISE) Home Medications Albuterol, 2 puffs, By Mouth, Every 6 hours, PRN Albuterol (Eqv-ProAir HFA) 90 mcg/inh inhalation aerosol, 2 puffs, Inhalation, Every 6 hours, PRN, 11 refills albuterol 0.083% inhalation solution, 2.5 mg= 3 mL, Inhalation, Every 6 hours, PRN, 11 refills amLODIPine 2.5 mg oral tablet, 2.5 mg= 1 tablet, By Mouth, Daily, 3 refills aspirin 81 mg oral tablet, 81 mg= 1 tablet, By Mouth, Daily, 11 refills Augmentin 500 mg-125 mg oral tablet, By Mouth, Every 8 hours Fax to [facility], See Instructions, 11 refills fenofibrate 160 mg oral tablet, 80 mg= 0.5 tablet, By Mouth, Daily Fish Oil 1000 mg oral capsule, 1000 mg= 1 capsule, By Mouth, 2 times a day fluoxetine 20 mg oral tablet, 20 mg= 1 tablet, By Mouth, Daily fluticasone 50 mcg/inh nasal spray, 1 sprays, Nares, Both, 2 times a day, 5 refills Golytely - oral powder for reconstitution, 240 mL, By Mouth, Every 15 minutes Lasix 20 mg oral tablet, 20 mg= 1 tablet, By Mouth, Daily, 11 refills Levothyroxine, 300 mcg, By Mouth, Daily loratadine 10 mg oral tablet, 10 mg= 1 tablet, By Mouth, Daily, 11 refills metoprolol 50 mg oral tablet, extended release, 50 mg= 1 tablet, By Mouth, Daily, 3 refills Nebulizer/Compressor, See Instructions, 11 refills nitroglycerin 0.4 mg sublingual tablet, 0.4 mg= 1 tablet, Sublingual, Every 5 minutes, PRN, 1 refills prasugrel 10 mg oral tablet, 10 mg= 1 tablet, By Mouth, Daily, 3 refills PredniSONE, By Mouth, Daily ranolazine 1000 mg oral tablet, extended release, 1000 mg= 1 tablet, By Mouth, 2 times a day, 3 refills Repatha SureClick 140 mg/mL subcutaneous solution, 140 mg, Subcutaneous Infusion, Every 14 days, 11refills Trelegy Ellipta 200 mcg-62.5 mcg-25 mcg/inh inhalation powder, 1 puffs, Inhalation, Daily, 11 refills Vitamin B Complex oral tablet, extended release, By Mouth, Daily Lab Results Cardiology Labs WBC: 6.6 (08/31/23) RBC: 5.53 (08/31/23) Hgb: 16.9 (08/31/23) Hct:??50.8 %??High (08/31/23) MCV: 91.9 (08/31/23) MCH: 30.6 (08/31/23) MCHC: 33.3 g/dL (08/31/23) Platelet Count: 338 (08/31/23) Nucleated RBC (Automated): 0 (08/31/23) Abs. Neut: 3.9 (08/31/23) Abs. Lymph: 1.8 (08/31/23) Abs. [place]: 0.6 (08/31/23) Abs. Eo: 0.3 (08/31/23) Abs. Baso: 0.1 (08/31/23) Neut %: 58.2 % (08/31/23) [place] %: 9.5 % (08/31/23) Eos %: 3.8 % (08/31/23) Baso %: 0.9 % (08/31/23) Imm Gran: 0.9 % (08/31/23) Abs. Imm Gran: 0.1 (08/31/23) INR: 1 (08/31/23) Protime (PT): 10.7 (08/31/23) APTT: 26.5 (08/31/23) Sodium: 143 (08/31/23) Potassium: 4.9 (08/31/23) Chloride: 103 (08/31/23) Bicarbonate Level: 27 (08/31/23) Glucose Level: 87 (08/31/23) BUN: 16 (08/31/23) Creatinine-Blood:??1.3??High (08/31/23) Calcium: 9.5 (08/31/23) Diagnostic Impression CT CT Angio Abdomen and Pelvis ?? 17:53:02 IMPRESSION: ?? Normal CT angiogram of the chest, abdomen, and pelvis. ? WSN: [id number] ?? Signed By: Leonardo BARRAGAN, Jesús Alba ECG ECG 12-Lead ?? 08:28:44 Ventricular Rate: 68 BPM Atrial Rate: 68 BPM P-R Interval: 216 ms QRS Duration: 94 ms Q-T Interval: 428 ms QTC Calculation(Bazett): 455 ms P [place]: 3 degrees R [place]: 76 degrees T [place]: 65 degrees Sinus rhythm with 1st degree A-V block with Premature atrial complexes Possible Lateral infarct , age undetermined Abnormal ECG When compared with ECG of 23-JAN-2022 07:06, Premature atrial complexes are now Present MO interval has increased Minimal criteria for Inferior infarct are no longer Present T wave inversion no longer evident in Inferior leads Confirmed by JASWANT ELIZABETH ([id number]) on 09/07/2023 2:15:44 PM ?? [place]: JASWANT ELIZABETH ?? Signed By: Jaswant Elizabeth MD ?? ECG 12-Lead ?? 08:28:44 Please click on pdf link to open report ?? Signed By: Jaswant Elizabeth MD Echo Echocardiogram - Complete ?? 09:52:53 Summary 1. There is moderate concentric left ventricular hypertrophy and the apical segments lack usual apical thinning. Left ventricular size and function appear grossly normal, with a visually estimated left ventricular ejection fraction of 55-60 %. The apical ventricular views are foreshortened. No obvious wall motion abnormalities seen on limited views. Abnormal mitral annular TDI velocities suggest impaired LV relaxation. 2. The right ventricle is suboptimally visualized but appears normal in size and function. 3. The atria are normal in size. 4. No significant valvular abnormalities. 5. The inferior vena cava is poorly visualized. 6. There is no significant pericardial effusion. 7. The aortic root measures 4.2 cm and the ascending aorta measures 4.4 cm in diameter, which are normal when indexed to BSA. ?? Comparison Comparison is made to the study of March 21, 2022. There is no significant change, however comparison is limited due to study quality limitations. ?? Signature ?? Signed By: Rogelio Abdalla MD Cardiac Cath Procedure Cardiac Cath Procedure ?? 09:31:00 Conclusions ?? Diagnostic Summary ?? Normal left ventricular filling pressures. LVEDP 12-15 mmHg. Normal systemic pressures. No evidence of any gradient across aortic valve by catheter pullback from LV to aorta. Normal left ventricular systolic function by prior echo. ?? Coronary angiogram showed patent distal RCA and proximal PDA stents. The distal subsegment of distal RCA stent had mild 30% in-stent restenosis. Angiographically this is slightly worse compared to before. In addition there was chronic 65% stenosis in the mid segment and 40-45% stenosis of proximal subsegment of the RPL1 branch. The lesions were unchanged compared to prior angiogram on Jan 26, 2020. Widely patent OM 2 and mid LAD stents. Minimal luminal irregularity of left main. Mild luminal irregularity of left circumflex and LAD. Mild diffuse disease of proximal to mid RCA. Second diagonal branch is a small in caliber and has diffuse 60 to 65% narrowing in the proximal to mid segment. Angiographically this is unchanged. First diagonal branch is large and had mild 30% stenosis in the proximal to mid segment. This is unchanged compared to prior angiogram. ?? No evidence of significant coronary artery disease progression by angiography. Because of slightly worse in-stent restenosis in distal RCA as well as chronic intermediate disease in the RPL 1 branch, we decided to perform IFR across these lesions. iFR was 0.97 beyond the stenosis in the mid segment of RPL branch. Pullback showed gradual increase in IFR back to 0.99 in the proximal segment of RCA. Therefore the combination of mid to distal RCA and RPL disease were felt to be hemodynamically insignificant. ?? Etiology of patient???s exertional anginal symptoms remains unclear. We cannot rule out an element of concomitant coronary microvascular dysfunction in this patient. ?? Diagnostic Recommendations ?? We should continue to optimize antianginal therapy. He did not tolerate long-acting nitroglycerin and statins in the past. Should continue beta and calcium channel coco as before. Consider adding ranolazine 500 mg p.o. twice daily and uptitrate to 1000 mg p.o. twice daily if tolerated. He is being considered for PCSK-9 inhibitor therapy. He should follow-up with Dr. Elizabeth as an outpatient. ?? ACC Diagnostic Recommendations: Medical therapy and/or counseling. ?? Signatures ?? Signed By: Rhett Lopes MD Problem List/Past Medical History Ongoing Ascending aorta dilation Benign essential hypertension CAD (coronary artery disease) Dyslipidemia Severe obesity (BMI 35.0-39.9) with comorbidity Procedure/Surgical History PCI - Percutaneous coronary intervention: 01/26/20 Social History Alcohol Use: Current. Frequency: 3-5 times per week. Type: Liquor. Employment/School Status: Employed. Highest education level: 2 year degree. Exercise Self assessment: Fair condition. Regular exercise: No. Home/Environment Living situation: Home/Independent. Lives with: Significant other. Feels unsafe at home: No. Nutrition/Health Diet: Low sodium. Other: low fat. Feels highly stressed: Yes. Sexual Sexual orientation: Heterosexual. Gender identity: Male. Substance Abuse Use: Never. Tobacco Former smoker, Other: quit 1990. Family History No family history recorded. Note * Lauryn Lugo: PERFORM Event Display: Patient Education/Instruction Authored Date: [id number] Ambulatory Adult Visit Summary [facility] [address] [address] Name: NICK VALADEZ : 1960?? Visit: 11/22/2023 07:47?? Ambulatory Visit Instructions ?? Your Care Team Primary Care Provider Adamaris MARIO, Keyanna Masterson? This Visit Provider Jaswant Elizabeth MD Your Diagnosis CAD (coronary artery disease) Dyslipidemia Vitals Signs Pulse Rate: 76 bpm Height: 180.34 cm Systolic Blood Pressure:??147 mm Hg??High Weight: 125.2 kg Diastolic Blood Pressure:??85 mm Hg??High Body Mass Index:??38.5 kg/m2??Critical Oxygen Saturation: 97 % Body surface area: 2.5 What to do next Future Orders CBC - Routine, Once, 08/30/23 15:13:00 EDT, Single or Recurring Future Order, [facility], Blood?? PTT - Routine, Once, 08/30/23 15:13:00 EDT, Single or Recurring Future Order, [facility], Blood?? Basic Metabolic Panel - Routine, Once, 08/30/23 15:13:00 EDT, Single or Recurring Future Order, [facility], Blood?? Medications The list below reflects the information in our records and provided by you today along with any changes made during this visit. Please continue your medications until treatment is completed or stopped by your provider. If this is different from the information you have or there are other questions,please contact the prescribing provider. What How Much When Why Instructions Changed Amlodipine (amLODIPine 2.5 mg oral tablet) 1 tab(s) Oral Daily CAD (coronary artery disease) Duration: 90 Days Pickup at [facility]/pharmacy #[id number] Changed ranolazine (ranolazine 1000 mg oral tablet, extended release) 1 tab(s) Oral Twice a day CAD (coronary artery disease) Duration: 90 Days Pickup at [facility]/pharmacy #[id number] Unchanged Albuterol 2 puff(s) Oral Every 6 hours as needed for as needed for wheezing Unchanged Albuterol (Albuterol (Eqv-ProAir HFA) 90 mcg/ inh inhalation aerosol) 2 puff(s) Inhalation Every 6 hours as needed for Wheezing/Shortness of Breath Unchanged Albuterol (albuterol 0.083% inhalation solution) 3 Milliliter Inhalation Every 6 hours as needed for for wheezing/shortness of breath Unchanged Amoxicillin-Clavulanate (Augmentin 500 mg-125 mg oral tablet) Oral Every 8 hours Unchanged Aspirin (aspirin 81 mg oral tablet) 1 tab(s) Oral Daily Duration: 90 Days Unchanged Durable Medical Equipment (Fax to [facility]) See instructions CPAP CPAP 8 cm H2O with heated humidification, mask, heated tubing, filters, headgear, chin strap, and water chamber. Vincenzo provider access to wireless compliance data Length of need: Lifetime 99 months Diagnosis: RADHA ?? Unchanged Durable Medical Equipment (Nebulizer/ Compressor) See instructions E0570 Nebulizer A7003 Neb Disp Set ??A7014 Neb non-Disp Filter ??A7005 Neb Non- Disp set A7015 Aerosol Mask A7013 Neb Disp Filter ??length of need lifetime 99 months ??for home use ?? Unchanged evolocumab (Repatha SureClick 140 mg/ mL subcutaneous solution) 140 Milligram Subcutaneous Infusion Every 14 days Unchanged Fenofibrate (fenofibrate 160 mg oral tablet) 0.5 tab(s) Oral Daily Unchanged Fluoxetine (fluoxetine 20 mg oral tablet) 1 tab(s) Oral Daily Unchanged Fluticasone Nasal (fluticasone 50 mcg/ inh nasal spray) 1 spray(s) Nares, Both Twice a day Unchanged fluticasone/ umeclidinium/ vilanterol (Trelegy Ellipta 200 mcg-62.5 mcg-25 mcg/ inh inhalation powder) 1 puff(s) Inhalation Daily at the same time every day ?? Unchanged Furosemide (Lasix 20 mg oral tablet) 1 tab(s) Oral Daily Lower extremity edema Unchanged Levothyroxine 300 Microgram Oral Daily Unchanged Loratadine (loratadine 10 mg oral tablet) 1 tab(s) Oral Daily Unchanged Metoprolol (metoprolol 50 mg oral tablet, extended release) 1 tab(s) Oral Daily Unchanged Multivitamin (Vitamin B Complex oral tablet, extended release) Oral Daily Unchanged Nitroglycerin (nitroglycerin 0.4 mg sublingual tablet) 1 tab(s) Sublingual Every 5 minutes as needed for for chest pain Duration: 3 doses/times Unchanged Ceres-3 Polyunsaturated Fatty Acids (Fish Oil 1000 mg oral capsule) 1 capsule Oral Twice a day Unchanged PEG Electrolyte Solution (Golytely - oral powder for reconstitution) 240 Milliliter Oral Every 15 minutes Start prep at 5 pm the night before the procedure. Take 1/ 2 of the prep Take the othe 1/ 2 6 hours before the procedure ?? Unchanged prasugrel (prasugrel 10 mg oral tablet) 1 tab(s) Oral Daily Unchanged PredniSONE Oral Daily Pharmacy Information [facility]/pharmacy #[id number]: [address], [place] [id number] [phone] Medications and Immunizations Administered Medications Given During Visit No medications given during this visit.?? Allergies (NKA means No Known Allergies) Peanuts??(TURNS RED,JENSEN,VOMITING) Zetia??(PAIN AND WEAKNESS IN JOINTS) fentaNYL statins??(CPK LEVELS RISE) Common Emergency Awareness Tips IS IT A STROKE? Act FAST and Check for these signs: FACE Does the face look uneven? ARM Does one arm drift down? SPEECH Does their speech sound strange? TIME Call at any sign of stroke ?? Heart Attack Signs Chest discomfort: Most heart attacks involve discomfort in the center of the chest and lasts more than a few minutes, or goes away and comes back. It can feel like uncomfortable pressure, squeezing, fullness or pain. Discomfort in upper body: Symptoms can include pain or discomfort in one or both arms, back, neck, jaw or stomach. Shortness of breath: With or without discomfort. Other signs: Breaking out in a cold sweat, nausea, or lightheaded. Remember, MINUTES DO MATTER. If you experience any of these heart attack warning signs, call to get immediate medical attention! ?? Smoking can increase your chances of developing chronic health problems and can cause harmful effects to other family members in your house. If you smoke, you are strongly encouraged to quit. Please call [facility] [employer] at [phone] or [phone] ([phone]) or log in to [email or web address] for referrals to smoking cessation programs. ?? The National Suicide Prevention Hotline is available 25/12 if you or someone you know needs to find a reason to keep living. By calling 7-706-813-[employer] (1930) you'll be connected to a skilled, trained counselor at a crisis center in your area. [facility] [employer] Portal You can view and manage your care through the patient portal or by using a health care dima of your choosing. [employer] is a website that allows you to securely view your medical information including your hospital discharge summary, office visit summaries, medications and follow-up visits. You can also request appointments, renew medications, and request access to your medical information using a health care dima of your choosing, or just ask a question. You can enroll at [email or web address] or register during your next office visit. [facility], in keeping with [facility] guidance, no longer requires face masks for staff, patientsor visitors in most situations. Similiar to time spent indoors at other locations, there is the chance that you were exposed to repiratory viruses during your time with us (such as flu or COVID-19). If you develop symptoms concerning for a viral respiratory infection, please seek testing (and treatment if indicated) from your medical provider or home test kit. ?? Disclaimer: The information provided is of a general nature and is intended to be used in conjunction with the recommendations and advice of your health care practitioner. Every effort has been made to ensure that the information provided is accurate and complete at the time it is provided to you however, as your needs change, or, as new information becomes available, different or additional instructions may be required. ?? If you have questions, please consult with your primary care provider or pharmacist, as appropriate. This information is not intended to serve as substitution for assessment and evaluation by a qualified health care provider. If you do not have a primary care provider, you may find a [facility] provider by calling [facility] at [phone]. Patient Care team information Care Team Personnel Name: Rhoda Ansari RN Position: [facility] SN RN Member Role: Primary Care Nurse Name: Keyanna Bailon NP Position: [facility] Outreach Member Role: PCP Address: Address: [address] [place] [id number]- [place] Name: Adam Gutiérrez RN Position: S RN Supv Member Role: Primary Care Nurse Care Team Related Persons Name: IBIS HOLT Address: home [address] [place] [address]
--- OUTSIDE RECORDS SUMMARY | 2023-12-03 08:15 | XMS_ITS | Continuity of Care Document ---
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 Start Date: 06/13/22 Status: Ordered albuterol 0.083% inhalation solution 3 mL = 2.5 mg, Inhalation, Every 6 hours, PRN for wheezing/shortness of breath, # 360 mL, 11 Refills, Maintenance, 06/13/22 14:09:00 EST, [facility] #[id number], Partial fill upon patient request if the prescription is for a schedule II... Start Date: 06/13/22 Status: Ordered amLODIPine 2.5 mg oral tablet 1 tablet = 2.5 mg, By Mouth, Daily, # 90 tablet, 3 Refills, Maintenance, 03/20/22 9:25:00 EDT, Tablet, [facility] #[id number], Partial fill upon patient request if the prescription is for a schedule II opioid drug., 178, cm, 02/24/22 15:32:00 EDT... Start Date: 03/20/22 Stop Date: 03/15/23 Status: Ordered aspirin 81 mg oral tablet 1 tablet = 81 mg, By Mouth, Daily, # 90 tablet, 11 Refills, Maintenance, 12/06/18 13:47:08 EDT, Tablet Start Date: 12/06/18 Stop Date: 11/20/21 Status: Ordered Fax to [facility] Fax to [facility], See Instructions, # 1 each, Refills 11, Tot. Refills 11, Maintenance, CPAP CPAP 8 cm H2O with heated humidification, mask, heated tubing, filters, headgear, chin strap, andwater chamber. [facility] provider access to wireless... Start Date: 09/28/20 Status: Ordered fenofibrate 160 mg oral tablet 0.5 tablet = 80 mg, By Mouth, Daily, # 15 tablet, 0 Refills, Maintenance, 12/16/21 9:13:00 EDT, Tablet, [facility] #[id number], Partial fill upon patient request if the [...] Gm, 11 Refills, Maintenance, 06/13/22 14:09:00 EST, [place], [facility] #[id number], Partial fill upon patient request if the [...] 02/24/22 16:00:00 EDT, Route to Pharmacy Electronically, [facility] #[id number], Partial fill upon patient request if the prescription is for a schedule II... Start Date: 02/24/22 Status: Ordered Levothyroxine = 300 mcg, By Mouth, Daily, 0 Refills, Maintenance Start Date: 06/29/11 Status: Ordered loratadine 10 mg oral tablet 10 mg, 1, tablet, By Mouth, Daily, # 30 tablet, Refills 11, Tot. Refills 11, Maintenance, 06/13/22 14:09:00 EST, Route to Pharmacy Electronically, [facility] #[id number], Partial fill upon patient request if the prescription is for a schedule II... Start Date: 06/13/22 Status: Ordered metoprolol 50 mg oral tablet, extended release 50 mg, 1, tablet, By Mouth, Daily, # 90 tablet, Refills 3, Tot. Refills 3, Maintenance, 12/16/21 14:24:00 EDT, Route to Pharmacy Electronically, [facility] #[id number], 180, cm, 12/16/21 8:55:00EDT, Height, 117.8, kg, [...] 3 Refills, Maintenance, 01/02/22 16:07:00 EDT, Tablet, [facility] #[id number], 180, cm, 12/16/21 8:55:00 EDT, Height, 117.8, kg, 04/04/21 7:21:00 EDT, Dry Weight Start Date: 01/02/22 Status: Ordered ranolazine 500 mg oral tablet, extended release 1 tablet = 500 mg, By Mouth, 2 times a day, # 120 tablet, 3 Refills, Maintenance, 07/04/22 9:01:00 EST, ER Tablet, [facility] #[id number], Partial fill upon patient request if the prescription is for a schedule II opioid drug., 178, cm, 06/13/22... Start Date: 07/04/22 Status: Ordered Repatha SureClick 140 mg/mL subcutaneous solution = 140 mg, Subcutaneous Infusion, Every 14 days, # 2 each, 11 Refills, Maintenance, 05/03/22 11:32:00 EST, [facility] #[id number], Partial fill upon patient request if the prescription is for a schedule II opioid drug., 178, cm, 03/30/22 16:02:00... Start Date: 05/03/22 Status: Ordered Trelegy Ellipta 200 mcg-62.5 mcg-25 mcg/inh inhalation powder 1 puffs, Inhalation, Daily, at the same time every day, # 1 each, 11 Refills, Maintenance, 06/13/2313:09:00 EST, Powder, [facility] #[id number], Partial fill upon patient request if the prescription is for a schedule II opioid drug., 1 puffs Inh... Start Date: 06/13/22 Status: Ordered Vitamin B Complex oral tablet, extended release By Mouth, Daily, 0 Refills, Maintenance, 07/23/19 13:22:00 EST Start Date: 2/19/20 Status: Ordered Problem List Condition Confirmation Course [...] Physician Member Role: PCP Address: Address: [address] [place] [address]- Name: Adam Gutiérrez RN Position: S RN Supv Member Role: Primary Care Nurse Care Team Related Persons Name: IBIS HOLT Address: home [address] [place] [address]
--- OUTSIDE RECORDS SUMMARY | 2023-12-03 08:16 | XMS_ITS | Continuity of Care Document ---
Author Organization [facility] Address [address] [place] [address]- Care Team Providers Care Degreaser Operator Name Role Phone Adamaris MARIO, Keyanna Masterson Primary Care Physici an [place] [facility] [place] 05/[place]/22 [facility] [address] [place] [address]- Allergies, Adverse Reactions, Alerts Substance Reaction Severity [...] 3 Refills, Maintenance, 03/20/22 9:25:00 EDT, Tablet, [facility][id number], Partial fill upon patient request if the prescription is for a schedule II opioid drug., 178, cm, 02/24/22 15:32:00 EDT... Start Date: 03/20/22 Stop Date: 03/15/23 Status: Ordered aspirin 81 mg oral tablet 1 tablet = 81 mg, By Mouth, Daily, # 90 tablet, 11 Refills, Maintenance, 12/06/18 13:47:08 EDT, Tablet Start Date: 12/06/18 Stop Date: 11/20/21 Status: Ordered Fax to [facility] Fax to [facility], See Instructions, # 1 each, Refills 11, Tot. Refills 11, Maintenance, CPAP CPAP 8 cm H2O with heated humidification, mask, heated tubing, filters, headgear, chin strap, andwater chamber. [facility] provider access to wireless... Start Date: 09/28/20 Status: Ordered fenofibrate 160 mg oral tablet 0.5 tablet = 80 mg, By Mouth, Daily, # 15 tablet, 0 Refills, Maintenance, 12/16/21 9:13:00 EDT, Tablet, [facility] #[id number], Partial fill upon patient request if the [...] 02/24/22 16:00:00 EDT, Route to Pharmacy Electronically, [facility] #[id number], Partial fill upon patient request if the prescription is for a schedule II... Start Date: 02/24/22 Status: Ordered Levothyroxine = 300 mcg, By Mouth, Daily, 0 Refills, Maintenance Start Date: 06/29/11 Status: Ordered metoprolol 50 mg oral tablet, extended release 50 mg, 1, tablet, By Mouth, Daily, # 90 tablet, Refills 3, Tot. Refills 3, Maintenance, 12/16/21 14:24:00 EDT, Route to Pharmacy Electronically, [facility] #[id number], 180, cm, 12/16/21 8:55:00EDT, Height, 117.8, kg, [...] 3 Refills, Maintenance, 01/02/22 16:07:00 EDT, Tablet, [facility] #[id number], 180, cm, 12/16/21 8:55:00 EDT, Height, 117.8, kg, 04/04/21 7:21:00 EDT, Dry Weight Start Date: 01/02/22 Status: Ordered ranolazine 500 mg oral tablet, extended release 1 tablet = 500 mg, By Mouth, 2 times a day, # 120 tablet, 3 Refills, Maintenance, 12/08/21 16:50:00EDT, ER Tablet, [facility] #[id number], Partial fill upon patient request if the prescription is for a schedule II opioid drug., 180, cm, 09/05/21... Start Date: 12/08/21 Status: Ordered Repatha SureClick 140 mg/mL subcutaneous solution = 140 mg, Subcutaneous Infusion, Every 14 days, # 2 each, 11 Refills, Maintenance, 05/03/22 11:32:00 EST, [facility] #[id number], Partial fill upon patient request if the prescription is for a schedule II opioid drug., 178, cm, 03/30/22 16:02:00... Start Date: 05/03/22 Status: Ordered Symbicort 160mcg/4.5mcg Inhaler 2, puffs, Inhalation, 2 times a day, No substitutions, # 1 each, Refills 5, Tot. Refills 5, Maintenance, 12/13/21 12:33:00 EDT, Inhaler, Route to Pharmacy Electronically, [id number], [facility] #[id number], 180, cm, ... Start Date: 12/13/21 Status: Ordered Vitamin B Complex oral tablet, extended release By Mouth, Daily, 0 Refills, Maintenance, 07/23/19 13:22:00 EST Start Date: 07/23/19 Status: Ordered Problem List Condition Confirmation Course Effective Dates Status Health St [facility] Informant Benign essential hypertension Confirmed Active CAD (coronary artery disease) Confirmed Active Dyslipidemia Confirmed Active Obese class II Confirmed Active Social History Social History Type Response Smoking Status Former smoker; Other : quit 1990; entered on: 06/14/17 Sex Patient Care team information Care Team Personnel Name: Rhoda Ansari RN Position: S SN RN Member Role: Primary Care Nurse Name: Keyanna Bailon NP Position: Reference Physician Member Role: PCP Address: Address: [address] [place] [address]- Name: Adam Gutiérrez RN Position: S RN Supv Member Role: Primary Care Nurse Care Team Related Persons Name: IBIS HOLT Address: home [address] [place] [address]
--- OUTSIDE RECORDS SUMMARY | 2023-12-03 08:16 | XMS_ITS | Continuity of Care Document ---
Author Organization [facility] Address [address] [place] [address]- Care Team Providers Care Program Clinician Name Role Phone Adamaris MARIO, Keyanna Aleja Primary Care Physici an [place] [facility] [place]23 [place] 09/29/23 [facility] [address] [place] [address]- Allergies, Adverse Reactions, Alerts Substance Reaction Severity Status Peanuts TURNS RED,EJNSEN,VOMITING Active Zetia PAIN AND WEAKNESS IN JOINTS [...] 6.7 Gm, 11 Refills, Maintenance, 06/13/22 14:10:[id number], Partial fill upon patient request if the prescription is for a schedule II opioid drug., 2 puf... Start Date: 06/13/22 Status: Ordered albuterol 0.083% inhalation solution 3 mL = 2.5 mg, Inhalation, Every 6 hours, PRN for wheezing/shortness of breath, # 360 mL, 11 Refills, Maintenance, 06/13/22 14:09:00 EST, [facility] #[id number], Partial fill upon patient request if the prescription is for a schedule II... Start Date: 06/13/22 Status: Ordered amLODIPine 5 mg oral tablet 1 tablet = 5 mg, By Mouth, Daily, # 90 tablet, 3 Refills, Maintenance, 09/07/23 8:50:00 EDT, Tablet, [facility]/pharmacy #[id number], Partial fill upon patient request [...] [facility], See Instructions, # 1 [...] 0 Refills, Maintenance, 12/16/21 9:13:00 EDT, Tablet, [facility] #[id number], Partial fill upon patient request if the [...] each, 5 Refills, Maintenance, 04/05/23 11:45:00 EDT, [facility]/pharmacy #[id number], Partial fill upon patient request [...] Maintenance, 11/08/22 16:40:00 EDT, REC Powder, [facility]/pharmacy #[id number], Ok to... Start Date: 11/08/22 Status: Ordered Lasix 20 mg oral tablet 20 mg, 1, tablet, By Mouth, Daily, # 30 tablet, Refills 11, Tot. Refills 11, Maintenance, 02/24/22 16:00:00 EDT, Route to Pharmacy Electronically, [facility] #[id number], Partial fill upon patient request if the prescription is for a schedule II... Start Date: 02/24/22 Status: Ordered Levothyroxine = 300 mcg, By Mouth, Daily, 0 Refills, Maintenance Start Date: 06/29/11 Status: Ordered loratadine 10 mg oral tablet 10 mg, 1, tablet, By Mouth, Daily, # 30 tablet, Refills 11, Tot. Refills 11, Maintenance, 05/10/23 10:46:00 EST, Route to Pharmacy Electronically, [facility]/pharmacy #[id number], Partial fill upon patient request if the prescription is for a schedule II opioid dr... Start Date: 05/10/23 Status: Ordered metoprolol 50 mg oral tablet, extended release 50 mg, 1, tablet, By Mouth, Daily, # 90 tablet, Refills 3, Tot. Refills 3, Maintenance, 10/31/22 9:28:00 EDT, Route to Pharmacy Electronically, [facility]/pharmacy #[id number], 178, cm, 10/18/22 9:47:00 EDT, Height, [...] Refills, Maintenance, 02/06/23 8:36:00 EDT, Tablet, [facility]/pharmacy #[id number], 180.34, cm, 11/22/22 7:21:00 EDT, [...] Maintenance, 03/13/23 9:33:00 EDT, ER Tablet, [facility]/pharmacy #[id number], Partial fill upon patient request [...] Reference Physician Member Role: PCP Address: Address: [address] [place] [address] Name: Adam Gutiérrez RN Position: CARYN RESTREPO Supv Member Role: Primary Care Nurse Care Team Related Persons Name: IBIS HOLT Address: home [address] [place] [address]
--- OUTSIDE RECORDS SUMMARY | 2023-12-03 08:16 | XMS_ITS | Continuity of Care Document ---
Author Organization [facility] Address [address] [address]- Care Team Providers Care Crew Car Driver Name Role Phone Adamaris MARIO, Keyanna Aleja Primary Care Physici an [facility]counter [facility] Date(s): 07/12/23 - 08/11/23 [place] [id number] [address]- [place] Allergies, Adverse Reactions, Alerts Substance Reaction [...] 6.7 Gm, 11 Refills, Maintenance, 06/13/22 14[facility]10:[id number], Partial fill upon patient request if the prescription is for a schedule II opioid drug., 2 puf... Start Date: 06/13/22 Status: Ordered albuterol 0.083% inhalation solution 3 mL = 2.5 mg, Inhalation, Every 6 hours, PRN for wheezing/shortness of breath, # 360 mL, 11 Refills, Maintenance, 06/13/22 14:09:00 EST, [facility] #[id number], Partial fill upon patient request if the prescription is for a schedule II... Start Date: 06/13/22 Status: Ordered aspirin 81 mg oral tablet [...] Start Date: 07/12/23 Status: Ordered Fax to [facility] Fax to [facility], See Instructions, # 1 each, Refills 11, Tot. Refills 11, Maintenance, CPAP CPAP 8 cm H2O with heated humidification, mask, heated tubing, filters, headgear, chin strap, andwater chamber. [facility]en[facility] provider access to wireless... Start Date: 09/28/20 Status: Ordered fenofibrate 160 mg oral tablet 0.5 tablet = 80 mg, By Mouth, Daily, # 15 tablet, 0 Refills, Maintenance, 12/16/21 9:13:00 EDT, Tablet, [facility] #[id number], Partial fill upon patient request if the [...] each, 5 Refills, Maintenance, 04/05/23 11:45:00 EDT, [facility]/pharmacy #[id number], Partial fill upon patient [...] Refills, Maintenance, 11/08/22 16:40:00 EDT, REC Powder, [facility]/pharmacy #[id number], Ok to... Start Date: 11/08/22 Status: Ordered Lasix 20 mg oral tablet 20 mg, 1, tablet, By Mouth, Daily, # 30 tablet, Refills 11, Tot. Refills 11, Maintenance, 02/24/22 16:00:00 EDT, Route to Pharmacy Electronically, [facility] #[id number], Partial fill upon patient request if the prescription is for a schedule II... Start Date: 02/24/22 Status: Ordered Levothyroxine = 300 mcg, By Mouth, Daily, 0 Refills, Maintenance Start Date: 06/29/11 Status: Ordered loratadine 10 mg oral tablet 10 mg, 1, tablet, By Mouth, Daily, # 30 tablet, Refills 11, Tot. Refills 11, Maintenance, 05/10/23 10:46:00 EST, [id number], Partial fill upon patient request if the prescription is for a schedule II opioid dr... Start Date: 05/10/23 Status: Ordered metoprolol 50 mg oral tablet, extended release 50 mg, 1, tablet, By Mouth, Daily, # 90 tablet, Refills 3, Tot. Refills 3, Maintenance, 10/31/22 9:28:00 EDT, Route to Pharmacy Electronically, [facility]/pharmacy #[id number], 178, cm, 10/18/22 9:47:00 [...] 3 Refills, Maintenance, 02/06/23 8:36:00 EDT, Tablet, [facility]/pharmacy #[id number], 180.34, cm, 11/22/22 7:21:00 [...] Refills, Maintenance, 03/13/23 9:33:00 EDT, ER Tablet, [facility]/pharmacy #[id number], Partial fill upon patient request if the prescription is for a schedule II opioid drug., 180.34, cm, 11/22/22 7:21:0... Start Date: 03/13/23 Status: Ordered Repatha SureClick 140 mg/mL subcutaneous solution = 140 mg, Subcutaneous Infusion, Every 14 days, # 2 each, 11 Refills, Maintenance, 06/12/23 12:51:00 EST, [facility]/pharmacy #[id number], Partial fill upon patient [...] Reference Physician Member Role: PCP Address: Address: [address] [place] [address] Name: Adam Gutiérrez RN Position: CARYN RN Supv Member Role: Primary Care Nurse Care Team Related Persons Name: IBIS HOLT Address: home [address] [place] [address]
--- OUTSIDE RECORDS SUMMARY | 2023-12-03 08:16 | XMS_ITS | Continuity of Care Document ---
Author Organization [facility] Address [address] [place] [address]- Care Team Providers Care Puddler Helper Name Role Phone Willie Carrion MD Primary Care Physician [phone] [place] [facility] [place]): 02[place]23[place]21 - 02/23/[address] [address]- Encounter Diagnosis Headache(Final) - 02/23/21 Burning chest pain(Final) - 02/23/21 Discharge Disposition: A-D/C Home Attending Physician: Gaurav Contreras MD Admitting Physician: Gaurav Contreras MD Referring Physician: Not on Staff, Referring MD Allergies, Adverse Reactions, Alerts Substance Reaction [...] 03/26/20 11:01:00 EDT, Route to Pharmacy Electronically, [facility] #[id number], 180, cm, 03/26/20 10:34:00EDT, Height, 122.3, kg, 12/05/18 4:00:00 EDT, Dry W... Start Date: 03/26/20 Stop Date: 12/16/21 Status: Ordered aspirin 81 mg oral tablet 1 tablet = 81 mg, By Mouth, Daily, # 90 tablet, 11 Refills, Maintenance, 12/06/18 13:47:08 EDT, Tablet Start Date: 12/06/18 Stop Date: 11/20/21 Status: Ordered [facility]ax to [facility] Fax to [facility], See Instructions, # 1 each, Refills [...] 09/01/20 16:55:00 EDT, Route to Pharmacy Electronically, [facility] #[id number], 180, cm, 08/31/20 14:02:00 EDT, Height, 122.3, [...] 3 Refills, Maintenance, 01/10/21 15:32:00 EDT, Tablet, [facility] #[id number], 180, cm, 12/02/20 8:05:00 EDT, Height Start Date: 01/10/21 Status: Ordered Spiriva Respimat 1.25 mcg/inh inhalation aerosol 2 puffs, Inhalation, Daily, # 4 Gm, 11 Refills, Maintenance, 03/08/20 14:55:00 EDT, Aerosol, [facility] #[id number], 180, cm, 03/08/20 14:38:00 EDT, Height, 122.3, [...] recent to oldest [Reference Range]: 1 2 Height 182 cm (02/23/21 7:12 PM) 182 cm (02/23/21 4:24 PM) Weight 117 kg (02/23/21 7:12 PM) 117 kg (02/23/21 4:24 PM) Oxygen Saturation [94-100 %] 95 % (02/23/21 4:24 PM) Pulse Rate [55-90 bpm] 61 bpm (02/23/21 7:12 PM) 103 bpm *H* (02/23/21 4:24 PM) Body Mass Index [18.5-24.99] 35.32 *>HHI* (02/23/21 7:12 PM) Blood Pressure [90-138/55-84 mm Hg] 123/ 89mm Hg (02/23/21 7:12 PM) 131/94mm Hg (02/23/21 4:24 PM) Respiratory Rate [16-30 br/min] 16 br/mi n (02/23/21 7:12 PM) 18 br/min (02/23/21 4:24 PM) Mode of Delivery (Oxygen) Room air (02/23/21 4:24 PM) Temperature Route Oral (02/23/21 4:24 PM) Dry Weight 117 kg (02/23/21 7:12 PM) 117 kg (02/23/21 4:24 PM) Social History Social History Type Response Smoking Status Former smoker; Other : quit 1990; entered on: 06/14/17 Sex
--- OUTSIDE RECORDS SUMMARY | 2023-12-03 08:16 | XMS_ITS | Continuity of Care Document ---
Author Organization [facility] Address Unknown Care Team Providers Care Ultrasound Tech Name Role Phone Willie Carrion MD Primary Care Physician En[place] [facility] [place] Date(s): 11/18/21 - 12/18/21 [facility] Allergies, Adverse Reactions, Alerts Substance [...] 3 Refills, Maintenance, 09/02/21 8:52:00 EDT, Tablet, [facility] #[id number], Partial fill upon patient request if the prescription is for a schedule II opioid drug., 180, cm, 09/02/21 8:46:00 EDT,... Start Date: 09/02/21 Stop Date: 08/28/22 Status: Ordered aspirin 81 mg oral tablet 1 tablet = 81 mg, By Mouth, Daily, # 90 tablet, 11 Refills, Maintenance, 12/06/18 13:47:08 EDT, Tablet Start Date: 12/06/18 Stop Date: 11/20/21 Status: Ordered Fax to [facility] Fax to [facility], See Instructions, # 1 each, Refills 11, Tot. Refills 11, Maintenance, CPAP CPAP 8 cm H2O with heated humidification, mask, heated tubing, filters, headgear, chin strap, andwater chamber. Vincenzo provider access to wireless... Start Date: 09/28/20 Status: Ordered fenofibrate 160 mg oral tablet 0.5 tablet = 80 mg, By Mouth, Daily, # 15 tablet, 0 Refills, Maintenance, 12/16/21 9:13:00 EDT, Tablet, [facility] #[id number], Partial fill upon patient request if the [...] 12/16/21 14:24:00 EDT, Route to Pharmacy Electronically, [facility] #[id number], 180, cm, 12/16/21 8:55:00EDT, Height, 117.8, kg, [...] 3 Refills, Maintenance, 01/10/21 15:32:00 EDT, Tablet, [facility] #[id number], 180, cm, 12/02/20 8:05:00 EDT, Height Start Date: 01/10/21 Status: Ordered ranolazine 500 mg oral tablet, extended release 1 tablet = 500 mg, By Mouth, 2 times a day, # 120 tablet, 3 Refills, Maintenance, 12/08/21 16:50:00EDT, ER Tablet, [facility] #[id number], Partial fill upon patient request if the prescription is for a schedule II opioid drug., 180, cm, 09/05/21... Start Date: 12/08/21 Status: Ordered Repatha SureClick 140 mg/mL subcutaneous solution = 140 mg, Subcutaneous Infusion, Every 14 days, # 2 each, 11 Refills, Maintenance, 06/16/21 16:33:00 EST, [facility] #[id number], Partial fill upon patient request if the prescription is for a schedule II opioid drug., 180, cm, 04/06/21 16:24:00... Start Date: 06/16/21 Status: Ordered Symbicort 160mcg/4.5mcg Inhaler 2, puffs, Inhalation, 2 times a day, No substitutions, # 1 each, Refills 5, Tot. Refills 5, Maintenance, 12/13/21 12:33:00 EDT, Inhaler, Route to Pharmacy Electronically, [id number], [facility] #[id number], 180, cm, 040... Start Date: 12/13/21 Status: Ordered Problem List Condition Effective Dates Status Health Status Inform ant Benign essential hypertension(Confirmed) Active CAD (coronary artery disease)(Confirmed) Active Dyslipidemia(Confirmed) Active Obese class II(Confirmed) Active Social History Social History Type Response Smoking Status Former smoker; Other : quit 1990; entered on: 06/14/17 Sex
--- OUTSIDE RECORDS SUMMARY | 2023-12-03 08:16 | XMS_ITS | Continuity of Care Document ---
Author Organization [facility] em Address Unknown Care Team Providers Care Instructional Services Specialist Name Role Phone Sheyla BARRAGAN, Willie Rogers Primary Care Physician [phone] Encounter [facility] [place] Date(s): 01/25/22 - 02/01/22 [facility] Attending Physician: Christy Israel MD, Perfecto Ojeda Admitting Physician: Perfecto Murphy MD Referring Physician: Birgit BARRAGAN, Payam Allergies, Adverse Reactions, Alerts Substance Reaction Severity [...] 3 Refills, Maintenance, 09/02/21 8:52:00 EDT, Tablet, [email or web address] #[id number], Partial fill upon patient request if the prescription is for a schedule II opioid drug., 180, cm, 09/02/21 8:46:00 EDT,... Start Date: 09/02/21 Stop Date: 08/28/22 Status: Ordered aspirin 81 mg oral tablet 1 tablet = 81 mg, By Mouth, Daily, # 90 tablet, 11 Refills, Maintenance, 12/06/18 13:47:08 EDT, Tablet Start Date: 12/06/18 Stop Date: 11/20/21 Status: Ordered [facility]ax to [facility] Fax to [facility], See Instructions, # 1 [...] 0 Refills, Maintenance, 12/16/21 9:13:00 EDT, Tablet, [facility] #[id number], Partial fill upon patient request if the [...] 12/16/21 14:24:00 EDT, Route to Pharmacy Electronically, [facility] #[id number], 180, cm, 12/16/21 8:55:00EDT, Height, 117.8, kg, [...] 3 Refills, Maintenance, 01/02/22 16:07:00 EDT, Tablet, [facility] #[id number], 180, cm, 12/16/21 8:55:00 EDT, Height, 117.8, kg, 04/04/21 7:21:00 EDT, Dry Weight Start Date: 01/02/22 Status: Ordered ranolazine 500 mg oral tablet, extended release 1 tablet = 500 mg, By Mouth, 2 times a day, # 120 tablet, 3 Refills, Maintenance, 12/08/21 16:50:00EDT, ER Tablet, [facility] #[id number], Partial fill upon patient request if the prescription is for a schedule II opioid drug., 180, cm, 09/05/21... Start Date: 12/08/21 Status: Ordered Repatha SureClick 140 mg/mL subcutaneous solution = 140 mg, Subcutaneous Infusion, Every 14 days, # 2 each, 11 Refills, Maintenance, 06/16/21 16:33:00 EST, [facility] #[id number], Partial fill upon patient request if the prescription is for a schedule II opioid drug., 180, cm, 04/06/21 16:24:00... Start Date: 06/16/21 Status: Ordered Symbicort 160mcg/4.5mcg Inhaler 2, puffs, Inhalation, 2 times a day, No substitutions, # 1 each, Refills 5, Tot. Refills 5, Maintenance, 12/13/21 12:33:00 EDT, Inhaler, Route to Pharmacy Electronically, [id number], [facility] #[id number], 180, cm, 040... Start Date: 12/13/21 Status: Ordered Vitamin B [...] on: 06/14/17 Sex Care Team Personnel Name: Sheyla BARRAGAN, Willie Rogers Address: [address] [place] [address]
--- OUTSIDE RECORDS SUMMARY | 2023-12-03 08:16 | XMS_ITS | Continuity of Care Document ---
Author Organization [facility] ter Address [address] [place] [address]- Care Team Providers Care Gericare Aide Teacher Name Role Phone Willie Carrion MD Primary Care Physician En[place] [facility] [place](s): 04/04/21 - 04/04/[address] [address] Discharge Disposition: A-D/C Home Attending Physician: Rhett Lopes MD Admitting Physician: Rhett Lopes MD Referring Physician: Jaswant Elizabeth MD Allergies, [...] tablet, 3 Refills, Maintenance, 03/01/21 11:07:00 EDT, [facility] #[id number], 182, cm, 02/23/21 19:12:00 EDT, Height, 117, kg, 02/23/21 19:12:00 EDT, DryWeight Start Date: 03/01/21 Status: Ordered aspirin 81 mg oral tablet 1 tablet = 81 mg, By Mouth, Daily, # 90 tablet, 11 Refills, Maintenance, 12/06/18 13:47:08 EDT, Tablet Start Date: 12/06/18 Stop Date: 11/20/21 Status: Ordered [facility]ax to [facility] Fax to [facility], See Instructions, # 1 each, [...] 09/01/20 16:55:00 EDT, [id number], 180, cm, 08/31/20 14:02:00 EDT, Height, 122.3, [...] 3 Refills, Maintenance, 01/10/21 15:32:00 EDT, Tablet, [facility] #[id number], 180, cm, 12/02/20 8:05:00 EDT, Height Start Date: 01/10/21 Status: Ordered ranolazine 500 mg oral tablet, extended release 2 tablet = 1,000 mg, By Mouth, 2 times a day, # 120 tablet, 3 Refills, Maintenance, 04/04/21 10:46:00 EDT, ER Tablet, [facility] #[id number], Partial fill upon patient request if the prescription is for a schedule II opioid drug., 180, cm, ... Start Date: 04/04/21 Status: Ordered Spiriva Respimat 1.25 mcg/inh inhalation aerosol 2 puffs, Inhalation, Daily, # 4 Gm, 11 Refills, Maintenance, 03/08/20 14:55:00 EDT, Aerosol, [facility] #[id number], 180, cm, 03/08/20 14:38:00 EDT, Height, 122.3, [...] Range]: 1 2 3 Height 180 cm (04/04/21 7:24 AM) 180 cm (04/04/21 7:21 AM) 180 cm (04/04/21 7:13 AM) Weight 117.8 kg (04/04/21 7:21 AM) 117.8 kg (04/04/21 7:13 AM) Oxygen Saturation [94-100 %] 95 % (04/04/21 1:30 PM) 98 % (04/04/21 1:00 PM) 94 % (04/04/21 12:45 PM) Pulse Rate [55-90 bpm] 59 bpm (04/04/21 7:21 AM) Body Mass Index [18.5-24.99] 36.36 *>HHI* (04/04/21 7:21 AM) Blood Pressure [90-138/55-84 mm Hg] 122/86mm Hg (04/04/21 1:30 PM) 135/78mm Hg (04/04/21 1:00 PM) 136/81mm Hg (04/04/21 12:30 PM) Respiratory Rate [16-30 br/min] 15 br/min *L* (04/04/21 1:30 PM) 19 br/min (04/04/21 1:00 PM) 20 br/min (04/04/21 12:45 PM) Temperature [96.8-100.4 DegF] 96.9 DegF (04/04/21 7:21 AM) Mode of Delivery (Oxygen) Room air (04/04/21 1:30 PM) Room air (04/04/21 1:00 PM) Room air (04/04/21 7:21 AM) Blood pressure sites Arm, left (04/04/21 7:24 AM) Arm, right (04/04/21 7:21 AM) Temperature Route Temporal (04/04/21 7:21 AM) Dry Weight 117.8 kg (04/04/21 7:21 AM) 117.8 kg (04/04/21 7:13 AM) Social History Social History Type Response Smoking Status Former smoker; Other : quit 1990; entered on: 06/14/17 Sex
--- OUTSIDE RECORDS SUMMARY | 2023-12-03 08:16 | XMS_ITS | Continuity of Care Document ---
Author Organization [facility] Address [address] [place] [address]- Care Team Providers Care Block Cutter Name Role Phone Adamaris MARIO, Keyanna Aleja Primary Care Physici an Encounter [facility] [place] Date(s): 08/16/22 - 09/15/22 [facility] [place] [address] [place] [address]- [place] Allergies, Adverse Reactions, Alerts Substance Reaction [...] 6.7 Gm, 11 Refills, Maintenance, 06/13/22 14:10:00 [facility] #[id number], Partial fill upon patient request if the prescription is for a schedule II opioid drug., 2 puf... Start Date: 06/13/22 Status: Ordered albuterol 0.083% inhalation solution 3 mL = 2.5 mg, Inhalation, Every 6 hours, PRN for wheezing/shortness of breath, # 360 mL, 11 Refills, Maintenance, 06/13/22 14:09:00 EST, [facility] #[id number], Partial fill upon patient request if the prescription is for a schedule II... Start Date: 06/13/22 Status: Ordered amLODIPine 2.5 mg oral tablet 1 tablet = 2.5 mg, By Mouth, Daily, # 90 tablet, 3 Refills, Maintenance, 03/20/22 9:25:00 EDT, Tablet, [facility] #[id number], Partial fill upon patient request if the prescription is for a schedule II opioid drug., 178, cm, 02/24/22 15:32:00 EDT... Start Date: 03/20/22 Stop Date: 03/15/23 Status: Ordered aspirin 81 mg oral tablet 1 tablet = 81 mg, By Mouth, Daily, # 90 tablet, 11 Refills, Maintenance, 12/06/18 13:47:08 EDT, Tablet Start Date: 12/06/18 Stop Date: 11/20/21 Status: Ordered Fax to [facility] Fax to [facility], See Instructions, # 1 each, Refills 11, Tot. Refills 11, Maintenance, CPAP CPAP 8 cm H2O with heated humidification, mask, heated tubing, filters, headgear, chin strap, andwater chamber. Vincenzo provider access to wireless... Start Date: 09/28/20 Status: Ordered fenofibrate 160 mg oral tablet 0.5 tablet = 80 mg, By Mouth, Daily, # 15 tablet, 0 Refills, Maintenance, 12/16/21 9:13:00 EDT, [facility] #[id number], Partial fill upon patient request if the [...] Gm, 11 Refills, Maintenance, 06/13/22 14:09:00 EST, [place], [facility] #[id number], Partial fill upon patient request if the [...] 02/24/22 16:00:00 EDT, Route to Pharmacy Electronically, [facility] #[id number], Partial fill upon patient request if the prescription is for a schedule II... Start Date: 02/24/22 Status: Ordered Levothyroxine = 300 mcg, By Mouth, Daily, 0 Refills, Maintenance Start Date: 06/29/11 Status: Ordered loratadine 10 mg oral tablet 10 mg, 1, tablet, By Mouth, Daily, # 30 tablet, Refills 11, Tot. Refills 11, Maintenance, 06/13/22 14:09:00 EST, Route to Pharmacy Electronically, [facility] #[id number], Partial fill upon patient request if the prescription is for a schedule II... Start Date: 06/13/22 Status: Ordered metoprolol 50 mg oral tablet, extended release 50 mg, 1, tablet, By Mouth, Daily, # 90 tablet, Refills 3, Tot. Refills 3, Maintenance, 12/16/21 14:24:00 EDT, Route to Pharmacy Electronically, [facility] #[id number], 180, cm, 12/16/21 8:55:00EDT, Height, 117.8, kg, [...] 3 Refills, Maintenance, 01/02/22 16:07:00 EDT, Tablet, [facility] #[id number], 180, cm, 12/16/21 8:55:00 EDT, Height, 117.8, kg, 04/04/21 7:21:00 EDT, Dry Weight Start Date: 01/02/22 Status: Ordered ranolazine 500 mg oral tablet, extended release 1 tablet = 500 mg, By Mouth, 2 times a day, # 180 tablet, 3 Refills, Maintenance, 08/14/22 9:08:00 EDT, ER Tablet, [facility] #[id number], Partial fill upon patient request if the prescription is for a schedule II opioid drug., 178, cm, 08/11/22... Start Date: 08/14/22 Status: Ordered Repatha SureClick 140 mg/mL subcutaneous solution = 140 mg, Subcutaneous Infusion, Every 14 days, # 2 each, 11 Refills, Maintenance, 05/03/22 11:32:00 EST, [facility] #[id number], Partial fill upon patient request if the prescription is for a schedule II opioid drug., 178, cm, 03/30/22 16:02:00... Start Date: 05/03/22 Status: Ordered Trelegy Ellipta 200 mcg-62.5 mcg-25 mcg/inh inhalation powder 1 puffs, Inhalation, Daily, at the same time every day, # 1 each, 11 Refills, Maintenance, 06/13/2313:09:00 EST, Powder, [facility] #[id number], Partial fill upon patient request if the [...] Reference Physician Member Role: PCP Address: Address: [address] [place] [address] Name: Adam Gutiérrez RN Position: Benja RN Supv Member Role: Primary Care Nurse Care Team Related Persons Name: IBIS HOLT Address: home [address] [place] [address]
--- OUTSIDE RECORDS SUMMARY | 2023-12-03 08:16 | XMS_ITS | Continuity of Care Document ---
Author Organization [facility] Address [address] [facility] 2nd Floor [address] [place] [address]- Care Team Providers Care Manager Shop Name Role Phone Adamaris MARIO, Keyanna Aleja Primary Care Physici an Encounter [facility] [place] Date(s): 09/10/23 - 10/10/23 [facility] [place] [address] [place] [address]- Allergies, Adverse Reactions, Alerts Substance Reaction Severity [...] 6.7 Gm, 11 Refills, Maintenance, 06/13/22 14:10:[id number], Partial fill upon patient request if the prescription is for a schedule II opioid drug., 2 puf... Start Date: 06/13/22 Status: Ordered albuterol 0.083% inhalation solution 3 mL = 2.5 mg, Inhalation, Every 6 hours, PRN for wheezing/shortness of breath, # 360 mL, 11 Refills, Maintenance, 06/13/22 14:09:00 EST, [facility] #[id number], Partial fill upon patient request if the prescription is for a schedule II... Start Date: 06/13/22 Status: Ordered amLODIPine 5 mg oral tablet 1 tablet = 5 mg, By Mouth, Daily, # 90 tablet, 3 Refills, Maintenance, 09/07/23 8:50:00 EDT, Tablet, [facility] #1094, Partial fill upon patient request if [...] [facility], See Instructions, # 1 [...] 0 Refills, Maintenance, 12/16/21 9:13:00 EDT, Tablet, [facility] #[id number], Partial fill upon patient request if the [...] each, 5 Refills, Maintenance, 04/05/23 11:45:00 EDT, [facility]/pharmacy #1094, Partial fill upon patient request if [...] Refills, Maintenance, 11/08/22 16:40:00 EDT, REC Powder, [facility]/pharmacy #1094, Ok to... Start Date: 11/08/22 Status: Ordered Lasix 20 mg oral tablet 20 mg, 1, tablet, By Mouth, Daily, # 30 tablet, Refills 11, Tot. Refills 11, Maintenance, 02/24/22 16:00:00 EDT, Route to Pharmacy Electronically, [facility] #[id number], Partial fill upon patient request if the prescription is for a schedule II... Start Date: 02/24/22 Status: Ordered Levothyroxine = 300 mcg, By Mouth, Daily, 0 Refills, Maintenance Start Date: 06/29/11 Status: Ordered loratadine 10 mg oral tablet 10 mg, 1, tablet, By Mouth, Daily, # 30 tablet, Refills 11, Tot. Refills 11, Maintenance, 05/10/23 10:46:00 EST, Route to Pharmacy Electronically, [facility]/pharmacy #1094, Partial fill upon patient request if the prescription is for a schedule II opioid dr... Start Date: 05/10/23 Status: Ordered metoprolol 50 mg oral tablet, extended release 50 mg, 1, tablet, By Mouth, Daily, # 90 tablet, Refills 3, Tot. Refills 3, Maintenance, 10/31/22 9:28:00 EDT, Route to Pharmacy Electronically, [facility]/pharmacy #[id number], 178, cm, 10/18/22 9:47:00 EDT, Height, [...] 3 Refills, Maintenance, 02/06/23 8:36:00 EDT, Tablet, [facility]/pharmacy #1094, 180.34, cm, 11/22/22 7:21:00 EDT, Height, [...] Refills, Maintenance, 03/13/23 9:33:00 EDT, ER Tablet, [facility]/pharmacy #1094, Partial fill upon patient request if [...] Reference Physician Member Role: PCP Address: Address: [address] [place] [address] Name: Adam Gutiérrez RN Position: CARYN RESTREPO Supv Member Role: Primary Care Nurse Care Team Related Persons Name: IBIS HOLT Address: home [address] [place] [address]
--- OUTSIDE RECORDS SUMMARY | 2023-12-03 08:16 | XMS_ITS | Continuity of Care Document ---
Author Organization [facility] Address [address] [place] [address]- Care Team Providers Care Erp Technical Lead Name Role Phone Adamaris MARIO, Keyanna Aleja Primary Care Physici an Encounter [id number] Date(s): 08/31/23 - 08/31/23 [facility] [place] [address] [place] [address]- [place] Allergies, Adverse Reactions, Alerts Substance Reaction [...] 6.7 Gm, 11 Refills, Maintenance, 06/13/22 14:10:00 [id number], Partial fill upon patient request if the prescription is for a schedule II opioid drug., 2 puf... Start Date: 06/13/22 Status: Ordered albuterol 0.083% inhalation solution 3 mL = 2.5 mg, Inhalation, Every 6 hours, PRN for wheezing/shortness of breath, # 360 mL, 11 Refills, Maintenance, 06/13/22 14:09:00 EST, Solution, [facility] #[id number], Partial fill upon patient request if the [...] Start Date: 07/12/23 Status: Ordered Fax to [facility] Fax to [facility], See Instructions, # 1 each, Refills 11, Tot. Refills 11, Maintenance, CPAP CPAP 8 cm H2O with heated humidification, mask, heated tubing, filters, headgear, chin strap, andwater chamber. Vincenzo provider access to wireless... Start Date: 09/28/20 Status: Ordered fenofibrate 160 mg oral tablet 0.5 tablet = 80 mg, By Mouth, Daily, # 15 tablet, 0 Refills, Maintenance, 12/16/21 9:13:00 EDT, Tablet, [facility] #[id number], Partial fill upon patient request if the [...] each, 5 Refills, Maintenance, 04/05/23 11:45:00 EDT, [facility]/pharmacy #1094, Partial fill upon patient [...] Refills, Maintenance, 11/08/22 16:40:00 EDT, REC Powder, [facility]/pharmacy #1094, Ok to... Start Date: 11/08/22 Status: Ordered Lasix 20 mg oral tablet 20 mg, 1, tablet, By Mouth, Daily, # 30 tablet, Refills 11, Tot. Refills 11, Maintenance, 02/24/22 16:00:00 EDT, Route to Pharmacy Electronically, [facility] #[id number], Partial fill upon patient request if the [...] [id number] Partial fill upon patient request if the prescription is for a schedule II opioid dr... Start Date: 05/10/23 Status: Ordered metoprolol 50 mg oral tablet, extended release 50 mg, 1, tablet, By Mouth, Daily, # 90 tablet, Refills 3, Tot. Refills 3, Maintenance, 10/31/22 9:28:00 EDT, Route to Pharmacy Electronically, [facility]/pharmacy #1094, 178, cm, 10/18/22 9:47:00 EDT, [...] 3 Refills, Maintenance, 02/06/23 8:36:00 EDT, Tablet, [facility]/pharmacy #1094, 180.34, cm, 11/22/22 7:21:00 [...] Refills, Maintenance, 03/13/23 9:33:00 EDT, ER Tablet, [facility]/pharmacy #1094, Partial fill upon patient request if the prescription is for a schedule II opioid drug., 180.34, cm, 11/22/22 7:21:0... Start Date: 03/13/23 Status: Ordered Repatha SureClick 140 mg/mL subcutaneous solution = 140 mg, Subcutaneous Infusion, Every 14 days, # 2 each, 11 Refills, Maintenance, 06/12/23 12:51:00 EST, [facility]/pharmacy #1094, Partial fill upon patient [...] Reference Physician Member Role: PCP Address: Address: [address] [place] [address] Name: Adam Gutiérrez RN Position: CARYN RESTREPO Supv Member Role: Primary Care Nurse Care Team Related Persons Name: IIBS HOLT Address: home [address] [place] [address]
--- OUTSIDE RECORDS SUMMARY | 2023-12-03 08:16 | XMS_ITS | Continuity of Care Document ---
Author Organization [facility] em Address Unknown Care Team Providers Care Investment Banker Name Role Phone Willie Carrion MD Primary Care Physician [phone] [place] [facility] [place]20 [place] 10/05/20 [facility] Attending Physician: Payam Genao MD Admitting [...] 03/26/20 11:01:00 EDT, Route to Pharmacy Electronically, [facility] #[id number], 180, cm, 03/26/20 10:34:00EDT, Height, 122.3, kg, 12/05/18 4:00:00 EDT, Dry W... Start Date: 03/26/20 Stop Date: 12/16/21 Status: Ordered aspirin 81 mg oral tablet 1 tablet = 81 mg, By Mouth, Daily, # 90 tablet, 11 Refills, Maintenance, 12/06/18 13:47:08 EDT, Tablet Start Date: 12/06/18 Stop Date: 11/20/21 Status: Ordered Fax to [facility] Fax to [facility], See Instructions, # 1 each, [...] 09/01/20 16:55:00 EDT, [id number], 180, cm, 08/31/20 14:02:00 EDT, Height, 122.3, [...] 3 Refills, Maintenance, 01/27/20 8:43:00 EDT, Tablet, [facility], 180, cm, 01/27/20 7:17:00 EDT, Height, 122.3, kg, 12/05/18 4:00:00 EDT,Dry Weight Start Date: 01/27/20 Status: Ordered Spiriva Respimat 1.25 mcg/inh inhalation aerosol 2 puffs, Inhalation, Daily, # 4 Gm, 11 Refills, Maintenance, 03/08/20 14:55:00 EDT, Aerosol, [facility] #[id number], 180, cm, 03/08/20 14:38:00 EDT, Height, 122.3, [...]
--- OUTSIDE RECORDS SUMMARY | 2023-12-03 08:16 | XMS_ITS | Continuity of Care Document ---
Author Organization [facility] Address [address] [place] [address]- Care Team Providers Care Local Delivery Truck Driver Name Role Phone Adamaris MARIO, Keyanna Aleja Primary Care Physici an Encounter [facility] [place] Date(s): 07/28/22 - 08/27/22 [facility] [place] [address] [place] [address]- [place] Allergies, Adverse Reactions, Alerts Substance Reaction [...] 6.7 Gm, 11 Refills, Maintenance, 06/13/22 14:10:00 [facility] #[id number], Partial fill upon patient request if the prescription is for a schedule II opioid drug., 2 puf... Start Date: 06/13/22 Status: Ordered albuterol 0.083% inhalation solution 3 mL = 2.5 mg, Inhalation, Every 6 hours, PRN for wheezing/shortness of breath, # 360 mL, 11 Refills, Maintenance, 06/13/22 14:09:00 EST, [facility] #[id number], Partial fill upon patient request if the prescription is for a schedule II... Start Date: 06/13/22 Status: Ordered amLODIPine 2.5 mg oral tablet 1 tablet = 2.5 mg, By Mouth, Daily, # 90 tablet, 3 Refills, Maintenance, 03/20/22 9:25:00 EDT, Tablet, [facility] #[id number], Partial fill upon patient request if the prescription is for a schedule II opioid drug., 178, cm, 02/24/22 15:32:00 EDT... Start Date: 03/20/22 Stop Date: 03/15/23 Status: Ordered aspirin 81 mg oral tablet 1 tablet = 81 mg, By Mouth, Daily, # 90 tablet, 11 Refills, Maintenance, 12/06/18 13:47:08 EDT, Tablet Start Date: 12/06/18 Stop Date: 11/20/21 Status: Ordered Fax to [facility] Fax to [facility], See Instructions, # 1 each, Refills 11, Tot. Refills 11, Maintenance, CPAP CPAP 8 cm H2O with heated humidification, mask, heated tubing, filters, headgear, chin strap, andwater chamber. [facility] provider access to wireless... Start Date: 09/28/20 Status: Ordered fenofibrate 160 mg oral tablet 0.5 tablet = 80 mg, By Mouth, Daily, # 15 tablet, 0 Refills, Maintenance, 12/16/21 9:13:00 EDT, [facility] #[id number], Partial fill upon patient request if the [...] Gm, 11 Refills, Maintenance, 06/13/22 14:09:00 EST, [place], [facility] #[id number], Partial fill upon patient request if the [...] 02/24/22 16:00:00 EDT, Route to Pharmacy Electronically, [facility] #[id number], Partial fill upon patient request if the prescription is for a schedule II... Start Date: 02/24/22 Status: Ordered Levothyroxine = 300 mcg, By Mouth, Daily, 0 Refills, Maintenance Start Date: 06/29/11 Status: Ordered loratadine 10 mg oral tablet 10 mg, 1, tablet, By Mouth, Daily, # 30 tablet, Refills 11, Tot. Refills 11, Maintenance, 06/13/22 14:09:00 EST, Route to Pharmacy Electronically, [facility] #[id number], Partial fill upon patient request if the prescription is for a schedule II... Start Date: 06/13/22 Status: Ordered metoprolol 50 mg oral tablet, extended release 50 mg, 1, tablet, By Mouth, Daily, # 90 tablet, Refills 3, Tot. Refills 3, Maintenance, 12/16/21 14:24:00 EDT, Route to Pharmacy Electronically, [facility] #[id number], 180, cm, 12/16/21 8:55:00EDT, Height, 117.8, kg, [...] 3 Refills, Maintenance, 01/02/22 16:07:00 EDT, Tablet, [facility] #[id number], 180, cm, 12/16/21 8:55:00 EDT, Height, 117.8, kg, 04/04/21 7:21:00 EDT, Dry Weight Start Date: 01/02/22 Status: Ordered ranolazine 500 mg oral tablet, extended release 1 tablet = 500 mg, By Mouth, 2 times a day, # 180 tablet, 3 Refills, Maintenance, 08/14/22 9:08:00 EDT, ER Tablet, [facility] #[id number], Partial fill upon patient request if the prescription is for a schedule II opioid drug., 178, cm, 08/11/22... Start Date: 08/14/22 Status: Ordered Repatha SureClick 140 mg/mL subcutaneous solution = 140 mg, Subcutaneous Infusion, Every 14 days, # 2 each, 11 Refills, Maintenance, 05/03/22 11:32:00 EST, [facility] #[id number], Partial fill upon patient request if the prescription is for a schedule II opioid drug., 178, cm, 03/30/22 16:02:00... Start Date: 05/03/22 Status: Ordered Trelegy Ellipta 200 mcg-62.5 mcg-25 mcg/inh inhalation powder 1 puffs, Inhalation, Daily, at the same time every day, # 1 each, 11 Refills, Maintenance, 06/13/2313:09:00 EST, Powder, [facility] #[id number], Partial fill upon patient request if the [...] Reference Physician Member Role: PCP Address: Address: [address] [place] [address] Name: Adam Gutiérrez RN Position: Benja RN Supv Member Role: Primary Care Nurse Care Team Related Persons Name: IBIS HOLT Address: home [address] [place] [address]
--- OUTSIDE RECORDS SUMMARY | 2023-12-03 08:16 | XMS_ITS | Continuity of Care Document ---
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 Start Date: 09/02/21 Stop Date: 08/28/22 Status: Ordered aspirin 81 mg oral tablet 1 tablet = 81 mg, By Mouth, Daily, # 90 tablet, 11 Refills, Maintenance, 12/06/18 13:47:08 EDT, Tablet Start Date: 12/06/18 Stop Date: 11/20/21 Status: Ordered Fax to [facility] Fax to [facility], See Instructions, # 1 each, Refills 11, Tot. Refills 11, Maintenance, CPAP CPAP 8 cm H2O with heated humidification, mask, heated tubing, filters, headgear, chin strap, andwater chamber. [facility]en[facility] provider access to wireless... Start Date: 09/28/20 Status: Ordered fenofibrate 160 mg oral tablet 0.5 tablet = 80 mg, By Mouth, Daily, # 15 tablet, 0 Refills, Maintenance, 12/16/21 9:13:00 EDT, Tablet, [facility] #[id number], Partial fill upon patient request if the [...] 02/24/22 16:00:00 EDT, Route to Pharmacy Electronically, [facility] #[id number], Partial fill upon patient request if the prescription is for a schedule II... Start Date: 02/24/22 Status: Ordered Levothyroxine = 300 mcg, By Mouth, Daily, 0 Refills, Maintenance Start Date: 06/29/11 Status: Ordered metoprolol 50 mg oral tablet, extended release 50 mg, 1, tablet, By Mouth, Daily, # 90 tablet, Refills 3, Tot. Refills 3, Maintenance, 12/16/21 14:24:00 EDT, Route to Pharmacy Electronically, [facility] #[id number], 180, cm, 12/16/21 8:55:00EDT, Height, 117.8, kg, [...] 3 Refills, Maintenance, 01/02/22 16:07:00 EDT, Tablet, [facility] #[id number], 180, cm, 12/16/21 8:55:00 EDT, Height, 117.8, kg, 04/04/21 7:21:00 EDT, Dry Weight Start Date: 01/02/22 Status: Ordered ranolazine 500 mg oral tablet, extended release 1 tablet = 500 mg, By Mouth, 2 times a day, # 120 tablet, 3 Refills, Maintenance, 12/08/21 16:50:00EDT, ER Tablet, [facility] #[id number], Partial fill upon patient request if the prescription is for a schedule II opioid drug., 180, cm, 09/05/21... Start Date: 12/08/21 Status: Ordered Repatha SureClick 140 mg/mL subcutaneous solution = 140 mg, Subcutaneous Infusion, Every 14 days, # 2 each, 11 Refills, Maintenance, 06/16/21 16:33:00 EST, [facility] #[id number], Partial fill upon patient request if the prescription is for a schedule II opioid drug., 180, cm, 04/06/21 16:24:00... Start Date: 06/16/21 Status: Ordered Symbicort 160mcg/4.5mcg Inhaler 2, puffs, Inhalation, 2 times a day, No substitutions, # 1 each, Refills 5, Tot. Refills 5, Maintenance, 12/13/21 12:33:00 EDT, Inhaler, Route to Pharmacy Electronically, [id number], [facility] #[id number], 180, cm, 04/... Start Date: 12/13/21 Status: [...] on: 06/14/17 Sex Patient Care team information Personnel Name: Keyanna Bailon NP Address: Address: [address] [place] [id number]
--- OUTSIDE RECORDS SUMMARY | 2023-12-03 08:16 | XMS_ITS | Continuity of Care Document ---
Author Organization [facility] Address [address] [place] [address]- Care Team Providers Care Cross Roller Name Role Phone Adamaris MARIO, Keyanna Aleja Primary Care Physici an Encounter [facility] [place] Date(s): 09/13/22 - 10/13/22 [facility] [address] [place] [address]- Allergies, Adverse Reactions, Alerts Substance Reaction Severity [...] 6.7 Gm, 11 Refills, Maintenance, 06/13/22 14:10:00 [facility] #[id number], Partial fill upon patient request if the prescription is for a schedule II opioid drug., 2 puf... Start Date: 06/13/22 Status: Ordered albuterol 0.083% inhalation solution 3 mL = 2.5 mg, Inhalation, Every 6 hours, PRN for wheezing/shortness of breath, # 360 mL, 11 Refills, Maintenance, 06/13/22 14:09:00 EST, [facility] #[id number], Partial fill upon patient request if the prescription is for a schedule II... Start Date: 06/13/22 Status: Ordered amLODIPine 2.5 mg oral tablet 1 tablet = 2.5 mg, By Mouth, Daily, # 90 tablet, 3 Refills, Maintenance, 03/20/22 9:25:00 EDT, Tablet, [facility] #[id number], Partial fill upon patient request if the prescription is for a schedule II opioid drug., 178, cm, 02/24/22 15:32:00 EDT... Start Date: 03/20/22 Stop Date: 03/15/23 Status: Ordered aspirin 81 mg oral tablet 1 tablet = 81 mg, By Mouth, Daily, # 90 tablet, 11 Refills, Maintenance, 12/06/18 13:47:08 EDT, Tablet Start Date: 12/06/18 Stop Date: 11/20/21 Status: Ordered Fax to [facility] Fax to [facility], See Instructions, # 1 each, Refills 11, Tot. Refills 11, Maintenance, CPAP CPAP 8 cm H2O with heated humidification, mask, heated tubing, filters, headgear, chin strap, andwater chamber. Vincenzo provider access to wireless... Start Date: 09/28/20 Status: Ordered fenofibrate 160 mg oral tablet 0.5 tablet = 80 mg, By Mouth, Daily, # 15 tablet, 0 Refills, Maintenance, 12/16/21 9:13:00 EDT, Tablet, [facility] #[id number], Partial fill upon patient request if the [...] Gm, 11 Refills, Maintenance, 06/13/22 14:09:00 EST, [place], [facility] #[id number], Partial fill upon patient request if the [...] 02/24/22 16:00:00 EDT, [id number], Partial fill upon patient request if the prescription is for a schedule II... Start Date: 02/24/22 Status: Ordered Levothyroxine = 300 mcg, By Mouth, Daily, 0 Refills, Maintenance Start Date: 06/29/11 Status: Ordered loratadine 10 mg oral tablet 10 mg, 1, tablet, By Mouth, Daily, # 30 tablet, Refills 11, Tot. Refills 11, Maintenance, 06/13/22 14:09:00 EST, Route to Pharmacy Electronically, [facility] #[id number], Partial fill upon patient request if the prescription is for a schedule II... Start Date: 06/13/22 Status: Ordered metoprolol 50 mg oral tablet, extended release 50 mg, 1, tablet, By Mouth, Daily, # 90 tablet, Refills 3, Tot. Refills 3, Maintenance, 10/09/22 22:08:00 EDT, Route to Pharmacy Electronically, [facility]/pharmacy #[id number], 178, cm, 08/28/22 8:04:00 EDT, Height, 121, kg, 01/23/22 7:29:00 EDT, Dry Weight Start Date: 10/09/22 Status: Ordered Nebulizer/Compressor See Instructions, # 1 [...] 3 Refills, Maintenance, 01/02/22 16:07:00 EDT, Tablet, [facility] #[id number], 180, cm, 12/16/21 8:55:00 EDT, Height, 117.8, kg, 04/04/21 7:21:00 EDT, Dry Weight Start Date: 01/02/22 Status: Ordered ranolazine 500 mg oral tablet, extended release 1 tablet = 500 mg, By Mouth, 2 times a day, # 180 tablet, 3 Refills, Maintenance, 08/14/22 9:08:00 EDT, ER Tablet, [facility] #[id number], Partial fill upon patient request if the prescription is for a schedule II opioid drug., 178, cm, 08/11/22... Start Date: 08/14/22 Status: Ordered Repatha SureClick 140 mg/mL subcutaneous solution = 140 mg, Subcutaneous Infusion, Every 14 days, # 2 each, 11 Refills, Maintenance, 05/03/22 11:32:00 EST, [facility] #[id number], Partial fill upon patient request if the prescription is for a schedule II opioid drug., 178, cm, 03/30/22 16:02:00... Start Date: 05/03/22 Status: Ordered Trelegy Ellipta 200 mcg-62.5 mcg-25 mcg/inh inhalation powder 1 puffs, Inhalation, Daily, at the same time every day, # 1 each, 11 Refills, Maintenance, 06/13/2313:09:00 EST, Powder, [facility] #[id number], Partial fill upon patient request if the [...] Physician Member Role: PCP Address: Address: [address] [place] [address]- Name: Adam Gutiérrez RN Position: S RN Supv Member Role: Primary Care Nurse Care Team Related Persons Name: IBIS HOLT Address: home [address] [place] [address]
--- OUTSIDE RECORDS SUMMARY | 2023-12-03 08:16 | XMS_ITS | Continuity of Care Document ---
Author Organization 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 Start Date: 09/02/21 Stop Date: 08/28/22 Status: Ordered aspirin 81 mg oral tablet 1 tablet = 81 mg, By Mouth, Daily, # 90 tablet, 11 Refills, Maintenance, 12/06/18 13:47:08 EDT, Tablet Start Date: 12/06/18 Stop Date: 11/20/21 Status: [facility], See Instructions, # [...] 0 Refills, Maintenance, 12/16/21 9:13:00 EDT, Tablet, [facility] #[id number], Partial fill upon patient request if the [...] 02/24/22 16:00:00 EDT, Route to Pharmacy Electronically, [facility] #[id number], Partial fill upon patient request if the prescription is for a schedule II... Start Date: 02/24/22 Status: Ordered Levothyroxine = 300 mcg, By Mouth, Daily, 0 Refills, Maintenance Start Date: 06/29/11 Status: Ordered metoprolol 50 mg oral tablet, extended release 50 mg, 1, tablet, By Mouth, Daily, # 90 tablet, Refills 3, Tot. Refills 3, Maintenance, 12/16/21 14:24:00 EDT, Route to Pharmacy Electronically, [facility] #[id number], 180, cm, 12/16/21 8:55:00EDT, Height, 117.8, kg, [...] 3 Refills, Maintenance, 01/02/22 16:07:00 EDT, Tablet, [facility] #[id number], 180, cm, 12/16/21 8:55:00 EDT, Height, 117.8, kg, 04/04/21 7:21:00 EDT, Dry Weight Start Date: 01/02/22 Status: Ordered ranolazine 500 mg oral tablet, extended release 1 tablet = 500 mg, By Mouth, 2 times a day, # 120 tablet, 3 Refills, Maintenance, 12/08/21 16:50:00EDT, ER Tablet, [facility] #[id number], Partial fill upon patient request if the prescription is for a schedule II opioid drug., 180, cm, 09/05/21... Start Date: 12/08/21 Status: Ordered Repatha SureClick 140 mg/mL subcutaneous solution = 140 mg, Subcutaneous Infusion, Every 14 days, # 2 each, 11 Refills, Maintenance, 06/16/21 16:33:00 EST, [facility] #[id number], Partial fill upon patient request if the prescription is for a schedule II opioid drug., 180, cm, 04/06/21 16:24:00... Start Date: 06/16/21 Status: Ordered Symbicort 160mcg/4.5mcg Inhaler 2, puffs, Inhalation, 2 times a day, No substitutions, # 1 each, Refills 5, Tot. Refills 5, Maintenance, 12/13/21 12:33:00 EDT, Inhaler, Route to Pharmacy Electronically, [id number], [facility] #[id number], 180, cm, 04/0... Start Date: 12/13/21 Status: Ordered Vitamin B Complex oral tablet, extended release By Mouth, Daily, 0 Refills, Maintenance, 07/23/19 13:22:00 EST Start Date: 07/23/19 Status: Ordered Problem List Condition Confirmation Course Effective Dates Status Health St atus Informant Benign essential hypertension Confirmed Active CAD (coronary artery disease) Confirmed Active Dyslipidemia Confirmed Active Obese class II Confirmed Active Vital Signs Most recent to oldest [Reference Range]: 1 Height 178 cm (02/24/22 3:32 PM) Weight 125.1 kg (02/24/22 3:32 PM) Oxygen Saturation [94-100 %] 98 % (02/24/22 3:32 PM) Pulse Rate [55-90 bpm] 64 bpm (02/24/22 3:32 PM) Body Mass Index [18.5-24.99 kg/m2] 39.48 kg/m2 *>HHI* (02/24/22 3:32 PM) Blood Pressure [90-138/55-84 mm Hg] 131/ 78mm Hg (02/24/22 3:32 PM) Mode of Delivery (Oxygen) Room air (02/24/22 3:32 PM) Blood pressure sites Arm, left (02/24/22 3:32 PM) Weight Obtained Via Standing scale (02/24/22 3:32 PM) Social History Social History Type Response Smoking Status Former smoker; Other : quit 1990; entered on: 06/14/17 Sex Patient Care team information Personnel Name: Adamaris MARIO, Keyanna Masterson Address: Address: [address] [place] [id number]
--- OUTSIDE RECORDS SUMMARY | 2023-12-03 08:16 | XMS_ITS | Continuity of Care Document ---
Author Organization [facility] Address [address] [place] [address]- Care Team Providers Care City Administrator Name Role Phone Adamaris MARIO, Keyanna Aleja Primary Care Physici an [place] [facility] [place](s): 10/02/22 - 11/01/22 [facility] [address] [place] [address]- Allergies, Adverse Reactions, Alerts Substance Reaction Severity [...] 6.7 Gm, 11 Refills, Maintenance, 06/13/22 14:10:00 EST, [facility] #[id number], Partial fill upon patient request if the prescription is for a schedule II opioid drug., 2 puf... Start Date: 06/13/22 Status: Ordered albuterol 0.083% inhalation solution 3 mL = 2.5 mg, Inhalation, Every 6 hours, PRN for wheezing/shortness of breath, # 360 mL, 11 Refills, Maintenance, 06/13/22 14:09:00 EST, Solution, [facility] #[id number], Partial fill upon patient request if the prescription is for a schedule II... Start Date: 06/13/22 Status: Ordered amLODIPine 2.5 mg oral tablet 1 tablet = 2.5 mg, By Mouth, Daily, # 90 tablet, 3 Refills, Maintenance, 03/20/22 9:25:00 EDT, Tablet, [facility] #[id number], Partial fill upon patient request if the prescription is for a schedule II opioid drug., 178, cm, 02/24/22 15:32:00 EDT... Start Date: 03/20/22 Stop Date: 03/15/23 Status: Ordered aspirin 81 mg oral tablet 1 tablet = 81 mg, By Mouth, Daily, # 90 tablet, 11 Refills, Maintenance, 12/06/18 13:47:08 EDT, Tablet Start Date: 12/06/18 Stop Date: 11/20/21 Status: Ordered Fax to [facility] Fax to [facility], See Instructions, # 1 each, Refills 11, Tot. Refills 11, Maintenance, CPAP CPAP 8 cm H2O with heated humidification, mask, heated tubing, filters, headgear, chin strap, andwater chamber. Vincenzo provider access to wireless... Start Date: 09/28/20 Status: Ordered fenofibrate 160 mg oral tablet 0.5 tablet = 80 mg, By Mouth, Daily, # 15 tablet, 0 Refills, Maintenance, 12/16/21 9:13:00 EDT, Tablet, [facility] #[id number], Partial fill upon patient request if the [...] Gm, 11 Refills, Maintenance, 06/13/22 14:09:00 EST, [place], [facility] #[id number], Partial fill upon patient request if the [...] 02/24/22 16:00:00 EDT, Route to Pharmacy Electronically, [facility] #[id number], Partial fill upon patient request if the prescription is for a schedule II... Start Date: 02/24/22 Status: Ordered Levothyroxine = 300 mcg, By Mouth, Daily, 0 Refills, Maintenance Start Date: 06/29/11 Status: Ordered loratadine 10 mg oral tablet 10 mg, 1, tablet, By Mouth, Daily, # 30 tablet, Refills 11, Tot. Refills 11, Maintenance, 06/13/22 14:09:00 EST, Route to Pharmacy Electronically, [facility] #[id number], Partial fill upon patient request if the prescription is for a schedule II... Start Date: 06/13/22 Status: Ordered metoprolol 50 mg oral tablet, extended release 50 mg, 1, tablet, By Mouth, Daily, # 90 tablet, Refills 3, Tot. Refills 3, Maintenance, 10/31/22 9:28:00 EDT, Route to Pharmacy Electronically, [facility]/pharmacy #[id number], 178, cm, 10/18/22 9:47:00 EDT, [...] 3 Refills, Maintenance, 01/02/22 16:07:00 EDT, Tablet, [facility] #[id number], 180, cm, 12/16/21 8:55:00 EDT, Height, 117.8, kg, 04/04/21 7:21:00 EDT, Dry Weight Start Date: 01/02/22 Status: Ordered ranolazine 500 mg oral tablet, extended release 1 tablet = 500 mg, By Mouth, 2 times a day, # 180 tablet, 3 Refills, Maintenance, 08/14/22 9:08:00 EDT, ER Tablet, [facility] #[id number], Partial fill upon patient request if the prescription is for a schedule II opioid drug., 178, cm, 08/11/22... Start Date: 08/14/22 Status: Ordered Repatha SureClick 140 mg/mL subcutaneous solution = 140 mg, Subcutaneous Infusion, Every 14 days, # 2 each, 11 Refills, Maintenance, 05/03/22 11:32:00 EST, [facility] #[id number], Partial fill upon patient request if the prescription is for a schedule II opioid drug., 178, cm, 03/30/22 16:02:00... Start Date: 05/03/22 Status: Ordered Trelegy Ellipta 200 mcg-62.5 mcg-25 mcg/inh inhalation powder 1 puffs, Inhalation, Daily, at the same time every day, # 1 each, 11 Refills, Maintenance, 06/13/2313:09:00 EST, Powder, [facility] #[id number], Partial fill upon patient request if the [...] Team Personnel Name: Rhoda Ansari RN Position: [facility] RN Member Role: Primary Care Nurse Name: Keyanna Bailon NP Position: Reference Physician Member Role: PCP Address: Address: [address] [place] [address]- Name: Adam Gutiérrez RN Position: S RN Supv Member Role: Primary Care Nurse Care Team Related Persons Name: IBIS HOLT Address: home [address] [place] [address]
--- OUTSIDE RECORDS SUMMARY | 2023-12-03 08:16 | XMS_ITS | Continuity of Care Document ---
Author Organization [facility] Address [address] [place] [address]- Care Team Providers Care Transcription Coordinator Name Role Phone Adamaris MARIO, Keyannakwadwo Masterson Primary Care Physici an [place] [facility] [place] 05/12/22 [facility] [place] [address] [place] [address]- [place] Allergies, Adverse Reactions, Alerts Substance Reaction [...] 3 Refills, Maintenance, 03/20/22 9:25:00 EDT, Tablet, [facility] #[id number], Partial fill upon patient request if the prescription is for a schedule II opioid drug., 178, cm, 02/24/22 15:32:00 EDT... Start Date: 03/20/22 Stop Date: 03/15/23 Status: Ordered aspirin 81 mg oral tablet 1 tablet = 81 mg, By Mouth, Daily, # 90 tablet, 11 Refills, Maintenance, 12/06/18 13:47:08 EDT, Tablet Start Date: 12/06/18 Stop Date: 11/20/21 Status: Ordered [facility]ax to [facility] Fax to [facility], See [...] 0 Refills, Maintenance, 12/16/21 9:13:00 EDT, Tablet, [facility] #[id number], Partial fill upon patient request if the [...] 02/24/22 16:00:00 EDT, Route to Pharmacy Electronically, [facility] #[id number], Partial fill upon patient request if the prescription is for a schedule II... Start Date: 02/24/22 Status: Ordered Levothyroxine = 300 mcg, By Mouth, Daily, 0 Refills, Maintenance Start Date: 06/29/11 Status: Ordered metoprolol 50 mg oral tablet, extended release 50 mg, 1, tablet, By Mouth, Daily, # 90 tablet, Refills 3, Tot. Refills 3, Maintenance, 12/16/21 14:24:00 EDT, Route to Pharmacy Electronically, [facility] #[id number], 180, cm, 12/16/21 8:55:00EDT, Height, 117.8, kg, [...] 3 Refills, Maintenance, 01/02/22 16:07:00 EDT, Tablet, [facility] #[id number], 180, cm, 12/16/21 8:55:00 EDT, Height, 117.8, kg, 04/04/21 7:21:00 EDT, Dry Weight Start Date: 01/02/22 Status: Ordered ranolazine 500 mg oral tablet, extended release 1 tablet = 500 mg, By Mouth, 2 times a day, # 120 tablet, 3 Refills, Maintenance, 12/08/21 16:50:00EDT, ER Tablet, [facility] #[id number], Partial fill upon patient request if the prescription is for a schedule II opioid drug., 180, cm, 09/05/21... Start Date: 12/08/21 Status: Ordered Repatha SureClick 140 mg/mL subcutaneous solution = 140 mg, Subcutaneous Infusion, Every 14 days, # 2 each, 11 Refills, Maintenance, 05/03/22 11:32:00 EST, [facility] #[id number], Partial fill upon patient request if the prescription is for a schedule II opioid drug., 178, cm, 03/30/22 16:02:00... Start Date: 05/03/22 Status: Ordered Symbicort 160mcg/4.5mcg Inhaler 2, puffs, Inhalation, 2 times a day, No substitutions, # 1 each, Refills 5, Tot. Refills 5, Maintenance, 12/13/21 12:33:00 EDT, Inhaler, Route to Pharmacy Electronically, [id number], [facility] #[id number], 180, cm, ... Start Date: 12/13/21 Status: [...] Reference Physician Member Role: PCP Address: Address: [address] [place] [address]- Name: Adam Gutiérrez RN Position: Benja RN Supv Member Role: Primary Care Nurse Care Team Related Persons Name: IBIS HOLT Address: home [address] [place] [address]
--- OUTSIDE RECORDS SUMMARY | 2023-12-03 08:16 | XMS_ITS | Continuity of Care Document ---
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 Start Date: 06/13/22 Status: Ordered albuterol 0.083% inhalation solution 3 mL = 2.5 mg, Inhalation, Every 6 hours, PRN for wheezing/shortness of breath, # 360 mL, 11 Refills, Maintenance, 06/13/22 14:09:00 EST, [facility] #[id number], Partial fill upon patient request if the prescription is for a schedule II... Start Date: 06/13/22 Status: Ordered amLODIPine 2.5 mg oral tablet 1 tablet = 2.5 mg, By Mouth, Daily, # 90 tablet, 3 Refills, Maintenance, 03/20/22 9:25:00 EDT, Tablet, [facility] #[id number], Partial fill upon patient request if the prescription is for a schedule II opioid drug., 178, cm, 02/24/22 15:32:00 EDT... Start Date: 03/20/22 Stop Date: 03/15/23 Status: Ordered aspirin 81 mg oral tablet 1 tablet = 81 mg, By Mouth, Daily, # 90 tablet, 11 Refills, Maintenance, 12/06/18 13:47:08 EDT, Tablet Start Date: 12/06/18 Stop Date: 11/20/21 Status: Ordered Fax to [facility] Fax to [facility], See Instructions, # 1 each, Refills 11, Tot. Refills 11, Maintenance, CPAP CPAP 8 cm H2O with heated humidification, mask, heated tubing, filters, headgear, chin strap, andwater chamber. [facility] provider access to wireless... Start Date: 09/28/20 Status: Ordered fenofibrate 160 mg oral tablet 0.5 tablet = 80 mg, By Mouth, Daily, # 15 tablet, 0 Refills, Maintenance, 12/16/21 9:13:00 EDT, Tablet, [facility] #[id number], Partial fill upon patient request if the [...] Gm, 11 Refills, Maintenance, 06/13/22 14:09:00 EST, [place], [facility] #[id number], Partial fill upon patient request if the [...] 02/24/22 16:00:00 EDT, Route to Pharmacy Electronically, [facility] #[id number], Partial fill upon patient request if the prescription is for a schedule II... Start Date: 02/24/22 Status: Ordered Levothyroxine = 300 mcg, By Mouth, Daily, 0 Refills, Maintenance Start Date: 06/29/11 Status: Ordered loratadine 10 mg oral tablet 10 mg, 1, tablet, By Mouth, Daily, # 30 tablet, Refills 11, Tot. Refills 11, Maintenance, 06/13/22 14:09:00 EST, Route to Pharmacy Electronically, [facility] #[id number], Partial fill upon patient request if the prescription is for a schedule II... Start Date: 06/13/22 Status: Ordered metoprolol 50 mg oral tablet, extended release 50 mg, 1, tablet, By Mouth, Daily, # 90 tablet, Refills 3, Tot. Refills 3, Maintenance, 12/16/21 14:24:00 EDT, Route to Pharmacy Electronically, [facility] #[id number], 180, cm, 12/16/21 8:55:00EDT, Height, 117.8, kg, [...] 3 Refills, Maintenance, 01/02/22 16:07:00 EDT, Tablet, [facility] #[id number], 180, cm, 12/16/21 8:55:00 EDT, Height, 117.8, kg, 04/04/21 7:21:00 EDT, Dry Weight Start Date: 01/02/22 Status: Ordered ranolazine 500 mg oral tablet, extended release 1 tablet = 500 mg, By Mouth, 2 times a day, # 120 tablet, 3 Refills, Maintenance, 07/04/22 9:01:00 EST, ER Tablet, [facility] #[id number], Partial fill upon patient request if the prescription is for a schedule II opioid drug., 178, cm, 06/13/22... Start Date: 07/04/22 Status: Ordered Repatha SureClick 140 mg/mL subcutaneous solution = 140 mg, Subcutaneous Infusion, Every 14 days, # 2 each, 11 Refills, Maintenance, 05/03/22 11:32:00 EST, [facility] #[id number], Partial fill upon patient request if the prescription is for a schedule II opioid drug., 178, cm, 03/30/22 16:02:00... Start Date: 05/03/22 Status: Ordered Trelegy Ellipta 200 mcg-62.5 mcg-25 mcg/inh inhalation powder 1 puffs, Inhalation, Daily, at the same time every day, # 1 each, 11 Refills, Maintenance, 06/13/2313:09:00 EST, Powder, [facility] #[id number], Partial fill upon patient request if the [...] Reference Physician Member Role: PCP Address: Address: [address] [place] [address]- Name: Adam Gutiérrez RN Position: S RN Supv Member Role: Primary Care Nurse Care Team Related Persons Name: IBIS HOLT Address: home [address] [place] [address]
--- OUTSIDE RECORDS SUMMARY | 2023-12-03 08:16 | XMS_ITS | Continuity of Care Document ---
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 Name Role Phone Sheyla BARRAGAN, Willie Rogers Primary Care Physician [phone] Encounter [facility] [place] Date(s): 12/02/20 - 12/09/20 [facility] [place] [address] [place] [address]- Attending Physician: Jaswant Elizabeth MD Admitting Physician: Jaswant Elizabeth MD Referring Physician: Jada HIDE WASHER, Phuong Allergies, Adverse Reactions, Alerts Substance Reaction Severity [...] 03/26/20 11:01:00 EDT, Route to Pharmacy Electronically, [facility] #[id number], 180, cm, 03/26/20 10:34:00EDT, Height, 122.3, kg, 12/05/18 4:00:00 EDT, Dry W... Start Date: 03/26/20 Stop Date: 12/16/21 Status: Ordered aspirin 81 mg oral tablet 1 tablet = 81 mg, By Mouth, Daily, # 90 tablet, 11 Refills, Maintenance, 12/06/18 13:47:08 EDT, Tablet Start Date: 12/06/18 Stop Date: 11/20/21 Status: Ordered Fax to [facility] Fax to [facility], See Instructions, # 1 [...] 09/01/20 16:55:00 EDT, Route to Pharmacy Electronically, [facility] #[id number], 180, cm, 08/31/20 14:02:00 EDT, Height, 122.3, [...] 3 Refills, Maintenance, 01/27/20 8:43:00 EDT, Tablet, [facility], 180, cm, 01/27/20 7:17:00 EDT, Height, 122.3, kg, 12/05/18 4:00:00 EDT,Dry Weight Start Date: 01/27/20 Status: Ordered Spiriva Respimat 1.25 mcg/inh inhalation aerosol 2 puffs, Inhalation, Daily, # 4 Gm, 11 Refills, Maintenance, 03/08/20 14:55:00 EDT, Aerosol, [facility] #[id number], 180, cm, 03/08/20 14:38:00 EDT, Height, 122.3, [...] oldest [Reference Range]: 1 Height 180 cm (12/02/20 8:05 AM) Weight 114.7 kg (12/02/20 8:05 AM) Oxygen Saturation [94-100 %] 98 % (12/02/20 8:05 AM) Pulse Rate [55-90 bpm] 62 bpm (12/02/20 8:05 AM) Body Mass Index [18.5-24.99] 35.4 *>HHI* (12/02/20 8:05 AM) Blood Pressure [90-138/55-84 mm Hg] 123/ 70mm Hg (12/02/20 8:05 AM) Blood pressure sites Arm, left (12/02/20 8:05 AM) Weight Obtained Via Standing scale (12/02/20 8:05 AM) Social History Social History Type Response Smoking Status Former smoker; Other : quit 1990; entered on: 06/14/17 Sex
--- OUTSIDE RECORDS SUMMARY | 2023-12-03 08:16 | XMS_ITS | Continuity of Care Document ---
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 Start Date: 09/02/21 Stop Date: 08/28/22 Status: Ordered aspirin 81 mg oral tablet 1 tablet = 81 mg, By Mouth, Daily, # 90 tablet, 11 Refills, Maintenance, 12/06/18 13:47:08 EDT, Tablet Start Date: 12/06/18 Stop Date: 11/20/21 Status: Ordered [facility]ax to [facility] Fax to [facility], See Instructions, # 1 each, Refills 11, Tot. Refills 11, Maintenance, CPAP CPAP 8 cm H2O with heated humidification, mask, heated tubing, filters, headgear, chin strap, andwater chamber. Vincenzo provider access to wireless... Start Date: 09/28/20 Status: Ordered fenofibrate 160 mg oral tablet 0.5 tablet = 80 mg, By Mouth, Daily, # 15 tablet, 0 Refills, Maintenance, 12/16/21 9:13:00 EDT, Tablet, [facility] #[id number], Partial fill upon patient request if the [...] 12/16/21 14:24:00 EDT, Route to Pharmacy Electronically, [facility] #[id number], 180, cm, 12/16/21 8:55:00EDT, Height, 117.8, kg, [...] 3 Refills, Maintenance, 01/10/21 15:32:00 EDT, Tablet, [facility] #[id number], 180, cm, 12/02/20 8:05:00 EDT, Height Start Date: 01/10/21 Status: Ordered ranolazine 500 mg oral tablet, extended release 1 tablet = 500 mg, By Mouth, 2 times a day, # 120 tablet, 3 Refills, Maintenance, 12/08/21 16:50:00EDT, ER Tablet, [facility] #[id number], Partial fill upon patient request if the prescription is for a schedule II opioid drug., 180, cm, 09/05/21... Start Date: 12/08/21 Status: Ordered Repatha SureClick 140 mg/mL subcutaneous solution = 140 mg, Subcutaneous Infusion, Every 14 days, # 2 each, 11 Refills, Maintenance, 06/16/21 16:33:00 EST, [facility] #[id number], Partial fill upon patient request if the prescription is for a schedule II opioid drug., 180, cm, 04/06/21 16:24:00... Start Date: 06/16/21 Status: Ordered Symbicort 160mcg/4.5mcg Inhaler 2, puffs, Inhalation, 2 times a day, No substitutions, # 1 each, Refills 5, Tot. Refills 5, Maintenance, 12/13/21 12:33:00 EDT, Inhaler, Route to Pharmacy Electronically, [id number], [facility] #[id number], 180, cm, 040... Start Date: 12/13/21 Status: Ordered Problem List Condition Effective Dates Status Health Status Inform ant Benign essential hypertension(Confirmed) Active CAD (coronary artery disease)(Confirmed) Active Dyslipidemia(Confirmed) Active Obese class II(Confirmed) Active Social History Social History Type Response Smoking Status Former smoker; Other : quit 1990; entered on: 06/14/17 Sex
--- OUTSIDE RECORDS SUMMARY | 2023-12-03 08:16 | XMS_ITS | Continuity of Care Document ---
Author Organization [facility] Address [address] [facility] [place] [address]- Care Team Providers Care Senior Managing Director Name Role Phone Adamaris MARIO, Keyanna Aleja Primary Care Physici an Encounter [facility] [place] Date(s): 01/30/22 - 03/01/22 [facility] [address] [facility] [address] [place] [address]- Allergies, Adverse Reactions, Alerts Substance Reaction Severity [...] 3 Refills, Maintenance, 09/02/21 8:52:00 EDT, Tablet, [facility] #[id number], Partial fill upon patient request if the prescription is for a schedule II opioid drug., 180, cm, 09/02/21 8:46:00 EDT,... Start Date: 09/02/21 Stop Date: 08/28/22 Status: Ordered aspirin 81 mg oral tablet 1 tablet = 81 mg, By Mouth, Daily, # 90 tablet, 11 Refills, Maintenance, 12/06/18 13:47:08 EDT, Tablet Start Date: 12/06/18 Stop Date: 11/20/21 Status: Ordered [facility]ax to [facility] Fax to [facility], See Instructions, # 1 [...] 0 Refills, Maintenance, 12/16/21 9:13:00 EDT, Tablet, [facility] #[id number], Partial fill upon patient request if the [...] 02/24/22 16:00:00 EDT, Route to Pharmacy Electronically, [facility] #[id number], Partial fill upon patient request if the prescription is for a schedule II... Start Date: 02/24/22 Status: Ordered Levothyroxine = 300 mcg, By Mouth, Daily, 0 Refills, Maintenance Start Date: 06/29/11 Status: Ordered metoprolol 50 mg oral tablet, extended release 50 mg, 1, tablet, By Mouth, Daily, # 90 tablet, Refills 3, Tot. Refills 3, Maintenance, 12/16/21 14:24:00 EDT, Route to Pharmacy Electronically, [facility] #[id number], 180, cm, 12/16/21 8:55:00EDT, Height, 117.8, kg, [...] 3 Refills, Maintenance, 01/02/22 16:07:00 EDT, Tablet, [facility] #[id number], 180, cm, 12/16/21 8:55:00 EDT, Height, 117.8, kg, 04/04/21 7:21:00 EDT, Dry Weight Start Date: 01/02/22 Status: Ordered ranolazine 500 mg oral tablet, extended release 1 tablet = 500 mg, By Mouth, 2 times a day, # 120 tablet, 3 Refills, Maintenance, 12/08/21 16:50:00EDT, ER Tablet, [facility] #[id number], Partial fill upon patient request if the prescription is for a schedule II opioid drug., 180, cm, 09/05/21... Start Date: 12/08/21 Status: Ordered Repatha SureClick 140 mg/mL subcutaneous solution = 140 mg, Subcutaneous Infusion, Every 14 days, # 2 each, 11 Refills, Maintenance, 06/16/21 16:33:00 EST, [facility] #[id number], Partial fill upon patient request if the prescription is for a schedule II opioid drug., 180, cm, 04/06/21 16:24:00... Start Date: 06/16/21 Status: Ordered Symbicort 160mcg/4.5mcg Inhaler 2, puffs, Inhalation, 2 times a day, No substitutions, # 1 each, Refills 5, Tot. Refills 5, Maintenance, 12/13/21 12:33:00 EDT, Inhaler, Route to Pharmacy Electronically, [id number], [facility] #[id number], 180, cm, 0... Start Date: 12/13/21 Status: Ordered Vitamin B [...] Personnel Name: Keyanna Bailon NP Address: Address: [address] [place] [address]
--- OUTSIDE RECORDS SUMMARY | 2023-12-03 08:16 | XMS_ITS | Continuity of Care Document ---
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 Name Role Phone Willie Carrion MD Primary Care Physician [phone] Encounter [facility] Date(s): 08/31/20 - 09/07/20 [facility] [place] [address] [place] [address]- [place] Encounter Diagnosis CAD (coronary artery disease)(Discharge Diagnosis) - 09/02/20 Attending Physician: Phuong Elias NP Admitting Physician: Phuong Elias NP Referring Physician: Willie Carrion MD Allergies, Adverse [...] 03/26/20 11:01:00 EDT, Route to Pharmacy Electronically, [facility] #[id number], 180, cm, 03/26/20 10:34:00EDT, Height, 122.3, kg, [...] 09/01/20 16:55:00 EDT, Route to Pharmacy Electronically, [facility] #[id number], 180, cm, 08/31/20 14:02:00 EDT, Height, 122.3, [...] 3 Refills, Maintenance, 01/27/20 8:43:00 EDT, Tablet, [facility], 180, cm, 01/27/20 7:17:00 EDT, Height, 122.3, kg, 12/05/18 4:00:00 EDT,Dry Weight Start Date: 01/27/20 Status: Ordered Spiriva Respimat 1.25 mcg/inh inhalation aerosol 2 puffs, Inhalation, Daily, # 4 Gm, 11 Refills, Maintenance, 03/08/20 14:55:00 EDT, Aerosol, [facility] #[id number], 180, cm, 03/08/20 14:38:00 EDT, Height, 122.3, kg, 12/05/18 4:00:00 EDT, Dry Weight Start Date: 03/08/20 Status: Ordered Symbicort 160mcg/4.5mcg Inhaler 2, puffs, Inhalation, 2 times a day, Refills 0, Maintenance, 09/04/17 15:12:55 EDT Start Date: 09/04/17 Status: Ordered Problem List Condition Effective Dates Status Health Status Inform ant Benign essential hypertension(Confirmed) Active CAD (coronary artery disease)(Confirmed) Active Dyslipidemia(Confirmed) Active Diagnosis Diagnosis Type Effective Dates Health Status Cl inical Service Informant CAD (coronary artery disease) Discharge Diagnosis 09/02/20 Vital Signs Most recent to oldest [Reference Range]: 1 Height 180 cm (08/31/20 2:02 PM) Weight 119 kg (08/31/20 2:02 PM) Oxygen Saturation [94-100 %] 93 % *L* (08/31/20 2:02 PM) Pulse Rate [55-90 bpm] 71 bpm (08/31/20 2:02 PM) Body Mass Index [18.5-24.99] 36.73 *>HHI* (08/31/20 2:02 PM) Blood Pressure [90-138/55-84 mm Hg] 108/ 70mm Hg (08/31/20 2:02 PM) Blood pressure sites Arm, right (08/31/20 2:02 PM) Weight Obtained Via Standing scale (08/31/20 2:02 PM) Social History Social History Type Response Smoking Status Former smoker; Other : quit 1990; entered on: 06/14/17 Sex
--- OUTSIDE RECORDS SUMMARY | 2023-12-03 08:16 | XMS_ITS | Continuity of Care Document ---
Author Organization [facility] Address [address] [place] [address]- Care Team Providers Care Data Entry Processor Name Role Phone Adamaris MARIO, Keyanna Masterson Primary Care Physici an Encounter [facility] [place] Date(s): 09/20/22 - 10/20/22 [facility] [address] [place] [address]- Allergies, Adverse Reactions, Alerts Substance Reaction Severity [...] 6.7 Gm, 11 Refills, Maintenance, 06/13/22 14:10:00 [facility] #[id number], Partial fill upon patient request if the prescription is for a schedule II opioid drug., 2 puf... Start Date: 06/13/22 Status: Ordered albuterol 0.083% inhalation solution 3 mL = 2.5 mg, Inhalation, Every 6 hours, PRN for wheezing/shortness of breath, # 360 mL, 11 Refills, Maintenance, 06/13/22 14:09:00 EST, [facility] #[id number], Partial fill upon patient request if the prescription is for a schedule II... Start Date: 06/13/22 Status: Ordered amLODIPine 2.5 mg oral tablet 1 tablet = 2.5 mg, By Mouth, Daily, # 90 tablet, 3 Refills, Maintenance, 03/20/22 9:25:00 EDT, Tablet, [facility] #[id number], Partial fill upon patient request if the prescription is for a schedule II opioid drug., 178, cm, 02/24/22 15:32:00 EDT... Start Date: 03/20/22 Stop Date: 03/15/23 Status: Ordered aspirin 81 mg oral tablet 1 tablet = 81 mg, By Mouth, Daily, # 90 tablet, 11 Refills, Maintenance, 12/06/18 13:47:08 EDT, Tablet Start Date: 12/06/18 Stop Date: 11/20/21 Status: Ordered Fax to [facility] Fax to [facility], See Instructions, # 1 each, Refills 11, Tot. Refills 11, Maintenance, CPAP CPAP 8 cm H2O with heated humidification, mask, heated tubing, filters, headgear, chin strap, andwater chamber. Vincenzo provider access to wireless... Start Date: 09/28/20 Status: Ordered fenofibrate 160 mg oral tablet 0.5 tablet = 80 mg, By Mouth, Daily, # 15 tablet, 0 Refills, Maintenance, 12/16/21 9:13:00 EDT, Tablet, [facility] #[id number], Partial fill upon patient request if the [...] Gm, 11 Refills, Maintenance, 06/13/22 14:09:00 EST, [place], [facility] #[id number], Partial fill upon patient request if the [...] 02/24/22 16:00:00 EDT, Route to Pharmacy [facility]ically, [id number], Partial fill upon patient request if the prescription is for a schedule II... Start Date: 02/24/22 Status: Ordered Levothyroxine = 300 mcg, By Mouth, Daily, 0 Refills, Maintenance Start Date: 06/29/11 Status: Ordered loratadine 10 mg oral tablet 10 mg, 1, tablet, By Mouth, Daily, # 30 tablet, Refills 11, Tot. Refills 11, Maintenance, 06/13/22 14:09:00 EST, Route to Pharmacy Electronically, [facility][id number], Partial fill upon patient request if the prescription is for a schedule II... Start Date: 06/13/22 Status: Ordered metoprolol 50 mg oral tablet, extended release 50 mg, 1, tablet, By Mouth, Daily, # 90 tablet, Refills 3, Tot. Refills 3, Maintenance, 10/09/22 22:08:00 EDT, Route to Pharmacy Electronically, [facility] #[id number], 178, cm, 08/28/22 8:04:00 EDT, Height, [...] 3 Refills, Maintenance, 01/02/22 16:07:00 EDT, Tablet, [facility] #[id number], 180, cm, 12/16/21 8:55:00 EDT, Height, 117.8, kg, 04/04/21 7:21:00 EDT, Dry Weight Start Date: 01/02/22 Status: Ordered ranolazine 500 mg oral tablet, extended release 1 tablet = 500 mg, By Mouth, 2 times a day, # 180 tablet, 3 Refills, Maintenance, 08/14/22 9:08:00 EDT, ER Tablet, [facility] #[id number], Partial fill upon patient request if the prescription is for a schedule II opioid drug., 178, cm, 08/11/22... Start Date: 08/14/22 Status: Ordered Repatha SureClick 140 mg/mL subcutaneous solution = 140 mg, Subcutaneous Infusion, Every 14 days, # 2 each, 11 Refills, Maintenance, 05/03/22 11:32:00 EST, [facility] #[id number], Partial fill upon patient request if the prescription is for a schedule II opioid drug., 178, cm, 03/30/22 16:02:00... Start Date: 05/03/22 Status: Ordered Trelegy Ellipta 200 mcg-62.5 mcg-25 mcg/inh inhalation powder 1 puffs, Inhalation, Daily, at the same time every day, # 1 each, 11 Refills, Maintenance, 06/13/2313:09:00 EST, Powder, [facility] #81321, Partial fill upon patient request if the [...] Reference Physician Member Role: PCP Address: Address: [address] [place] [address] Name: Adam Gutiérrez RN Position: S RN Supv Member Role: Primary Care Nurse Care Team Related Persons Name: IBIS HOLT Address: home [address] [place] [address]
--- OUTSIDE RECORDS SUMMARY | 2023-12-03 08:16 | XMS_ITS | Continuity of Care Document ---
Author Organization [facility] Address [address] [address]- Care Team Providers Care Therapist Occupational Name Role Phone Willie Carrion MD Primary Care Physician Encounter [facility] [place] Date(s): 03/30/21 - 04/29/21 [facility] [address] [address]- [place] Allergies, Adverse Reactions, Alerts Substance Reaction [...] tablet, 3 Refills, Maintenance, 03/01/21 11:07:00 EDT, [facility] #[id number], 182, cm, 02/23/21 19:12:00 EDT, Height, 117, kg, 02/23/21 19:12:00 EDT, DryWeight Start Date: 03/01/21 Status: Ordered aspirin 81 mg oral tablet 1 tablet = 81 mg, By Mouth, Daily, # 90 tablet, 11 Refills, Maintenance, 12/06/18 13:47:08 EDT, Tablet Start Date: 12/06/18 Stop Date: 11/20/21 Status: Ordered Fax to [facility] Fax to [facility], See Instructions, # 1 each, Refills 11, [...] 11 Refills, Maintenance, 04/06/21 17:28:00 EDT, Powder, [facility] #[id number], Partial fill upon patient request if the [...] 09/01/20 16:55:00 EDT, Route to Pharmacy Electronically, [facility] #[id number], 180, cm, 08/31/20 14:02:00 EDT, Height, 122.3, [...] 3 Refills, Maintenance, 01/10/21 15:32:00 EDT, Tablet, [facility] #[id number], 180, cm, 12/02/20 8:05:00 EDT, Height Start [...] 11 Refills, Maintenance, 03/08/20 14:55:00 EDT, Aerosol, [facility] #[id number], 180, cm, 03/08/20 14:38:00 EDT, Height, 122.3, [...]
--- OUTSIDE RECORDS SUMMARY | 2023-12-03 08:16 | XMS_ITS | Continuity of Care Document ---
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 Role Phone Sheyla BARRAGAN, Willie Rogers Primary Care Physician [phone] [place] [facility] [place] 03/08/20 - 04/07/20 [facility] [address] [address]- [facility] Attending Physician: Joycelyn Hennessy Admitting Physician: AdmJoycelyn [...] 03/26/20 11:01:00 EDT, Route to Pharmacy Electronically, [facility] #[id number], 180, cm, 03/26/20 10:34:00EDT, Height, 122.3, kg, [...] 3 Refills, Maintenance, 01/27/20 8:43:00 EDT, Tablet, [facility], 180, cm, 01/27/20 7:17:00 EDT, Height, 122.3, kg, 12/05/18 4:00:00 EDT,Dry Weight Start Date: 01/27/20 Status: Ordered Spiriva Respimat 1.25 mcg/inh inhalation aerosol 2 puffs, Inhalation, Daily, # 4 Gm, 11 Refills, Maintenance, 03/08/20 14:55:00 EDT, Aerosol, [facility] #[id number], 180, cm, 03/08/20 14:38:00 EDT, Height, 122.3, [...]
--- OUTSIDE RECORDS SUMMARY | 2023-12-03 08:16 | XMS_ITS | Continuity of Care Document ---
Author Organization [facility] Address Unknown Care Team Providers Care Geriatric Physician Name Role Phone Willie Carrion MD Primary Care Physician Encounter [place] Date(s): 11/17/21 - 12/17/21 [facility] Allergies, Adverse Reactions, Alerts Substance [...] 3 Refills, Maintenance, 09/02/21 8:52:00 EDT, Tablet, [facility] #[id number], Partial fill upon patient request if the prescription is for a schedule II opioid drug., 180, cm, 09/02/21 8:46:00 EDT,... Start Date: 09/02/21 Stop Date: 08/28/22 Status: Ordered aspirin 81 mg oral tablet 1 tablet = 81 mg, By Mouth, Daily, # 90 tablet, 11 Refills, Maintenance, 12/06/18 13:47:08 EDT, Tablet Start Date: 12/06/18 Stop Date: 11/20/21 Status: Ordered [facility] to [facility] Fax to [facility], See Instructions, # 1 each, Refills 11, Tot. Refills 11, Maintenance, CPAP CPAP 8 cm H2O with heated humidification, mask, heated tubing, filters, headgear, chin strap, andwater chamber. Vincenzo provider access to wireless... Start Date: 09/28/20 Status: Ordered fenofibrate 160 mg oral tablet 0.5 tablet = 80 mg, By Mouth, Daily, # 15 tablet, 0 Refills, Maintenance, 12/16/21 9:13:00 EDT, Tablet, [facility] #[id number], Partial fill upon patient request if the [...] 12/16/21 14:24:00 EDT, Route to Pharmacy Electronically, [facility] #[id number], 180, cm, 12/16/21 8:55:00EDT, Height, 117.8, kg, [...] 3 Refills, Maintenance, 01/10/21 15:32:00 EDT, Tablet, [facility] #[id number], 180, cm, 12/02/20 8:05:00 EDT, Height Start Date: 01/10/21 Status: Ordered ranolazine 500 mg oral tablet, extended release 1 tablet = 500 mg, By Mouth, 2 times a day, # 120 tablet, 3 Refills, Maintenance, 12/08/21 16:50:00EDT, ER Tablet, [facility] #[id number], Partial fill upon patient request if the prescription is for a schedule II opioid drug., 180, cm, 09/05/21... Start Date: 12/08/21 Status: Ordered Repatha SureClick 140 mg/mL subcutaneous solution = 140 mg, Subcutaneous Infusion, Every 14 days, # 2 each, 11 Refills, Maintenance, 06/16/21 16:33:00 EST, [facility] #[id number], Partial fill upon patient request if the prescription is for a schedule II opioid drug., 180, cm, 04/06/21 16:24:00... Start Date: 06/16/21 Status: Ordered Symbicort 160mcg/4.5mcg Inhaler 2, puffs, Inhalation, 2 times a day, No substitutions, # 1 each, Refills 5, Tot. Refills 5, Maintenance, 12/13/21 12:33:00 EDT, Inhaler, Route to Pharmacy Electronically, [id number], [facility] #[id number], 180, cm, 040... Start Date: 12/13/21 Status: Ordered Problem List Condition Effective Dates Status Health Status Inform ant Benign essential hypertension(Confirmed) Active CAD (coronary artery disease)(Confirmed) Active Dyslipidemia(Confirmed) Active Obese class II(Confirmed) Active Social History Social History Type Response Smoking Status Former smoker; Other : quit 1990; entered on: 06/14/17 Sex
--- OUTSIDE RECORDS SUMMARY | 2023-12-03 08:16 | XMS_ITS | Continuity of Care Document ---
Author Organization [facility] Address [address] [address]- Care Team Providers Care Front Desk Team Member Name Role Phone Adamaris MARIO, Keyanna Aleja Primary Care Physici an Encounter [facility] [place] Date(s): 10/31/23 - 11/30/23 [facility] [address] [address]- [place] Allergies, Adverse Reactions, Alerts Substance Reaction [...] 6.7 Gm, 11 Refills, Maintenance, 06/13/22 14:10:00 [id number], Partial fill upon patient request if the prescription is for a schedule II opioid drug., 2 puf... Start Date: 06/13/22 Status: Ordered albuterol 0.083% inhalation solution 3 mL = 2.5 mg, Inhalation, Every 6 hours, PRN for wheezing/shortness of breath, # 360 mL, 11 Refills, Maintenance, 06/13/22 14:09:00 EST, [facility] #[id number], Partial fill upon patient request if the prescription is for a schedule II... Start Date: 06/13/22 Status: Ordered amLODIPine 2.5 mg oral tablet 2.5 mg, 1, tablet, By Mouth, Daily, # 90 tablet, Refills 3, Tot. Refills 3, Maintenance, 11/22/23 8:19:00 EDT, Route to Pharmacy Electronically, [facility]/pharmacy #[id number], Partial fill upon patient request if the [...] Date: 07/12/23 Status: Ordered Fax to [facility] Fax to [facility], See Instructions, # 1 each, Refills 11, Tot. Refills 11, Maintenance, CPAP CPAP 8 cm H2O with heated humidification, mask, heated tubing, filters, headgear, chin strap, andwater chamber. Vincenzo provider access to wireless... Start Date: 09/28/20 Status: Ordered fenofibrate 160 mg oral tablet 0.5 tablet = 80 mg, By Mouth, Daily, # 15 tablet, 0 Refills, Maintenance, 12/16/21 9:13:00 EDT, Tablet, [facility] #[id number], Partial fill upon patient request if the [...] each, 5 Refills, Maintenance, 04/05/23 11:45:00 EDT, [facility]/pharmacy #[id number], Partial fill upon patient request [...] Refills, Maintenance, 11/08/22 16:40:00 EDT, REC Powder, [facility]/pharmacy #[id number], Ok to... Start Date: 11/08/22 Status: Ordered Lasix 20 mg oral tablet 20 mg, 1, tablet, By Mouth, Daily, # 30 tablet, Refills 11, Tot. Refills 11, Maintenance, 11/01/23 9:26:00 EDT, Route to Pharmacy Electronically, [facility]/pharmacy #[id number], Partial fill upon patient requestif [...] 3 Refills, Maintenance, 02/06/23 8:36:00 EDT, Tablet, [facility]/pharmacy #[id number], 180.34, cm, 11/22/22 7:21:00 EDT, [...] tablet, 3 Refills, Maintenance, 11/22/23 8:19:00 EDT, [facility]/pharmacy #[id number], Partial fill upon patient request [...] Care Nurse Name: Keyanna Bailon NP Position: [facility] Outreach Member Role: PCP Address: Address: [address] [place] [address] Name: Adam Gutiérrez RN Position: [facility] RESTREPO Supv Member Role: Primary Care Nurse Care Team Related Persons Name: IBIS HOLT Address: home [address] [place] [address]
--- OUTSIDE RECORDS SUMMARY | 2023-12-03 08:16 | XMS_ITS | Continuity of Care Document ---
Author Organization [facility] Address [address] [place] [address]- Care Team Providers Care Marbleizer Name Role Phone Adamaris MARIO, Keyanna Aleja Primary Care Physici an [place] [facility] [place] Date(s): 08/17/22 - 09/16/22 [facility] [address] [place] [address]- [place] Allergies, Adverse Reactions, Alerts Substance Reaction [...] 6.7 Gm, 11 Refills, Maintenance, 06/13/22 14:10:00 [facility] #[id number], Partial fill upon patient request if the prescription is for a schedule II opioid drug., 2 puf... Start Date: 06/13/22 Status: Ordered albuterol 0.083% inhalation solution 3 mL = 2.5 mg, Inhalation, Every 6 hours, PRN for wheezing/shortness of breath, # 360 mL, 11 Refills, Maintenance, 06/13/22 14:09:00 EST, [facility] #[id number], Partial fill upon patient request if the prescription is for a schedule II... Start Date: 06/13/22 Status: Ordered amLODIPine 2.5 mg oral tablet 1 tablet = 2.5 mg, By Mouth, Daily, # 90 tablet, 3 Refills, Maintenance, 03/20/22 9:25:00 EDT, Tablet, [facility] #[id number], Partial fill upon patient request if the prescription is for a schedule II opioid drug., 178, cm, 02/24/22 15:32:00 EDT... Start Date: 03/20/22 Stop Date: 03/15/23 Status: Ordered aspirin 81 mg oral tablet 1 tablet = 81 mg, By Mouth, Daily, # 90 tablet, 11 Refills, Maintenance, 12/06/18 13:47:08 EDT, Tablet Start Date: 12/06/18 Stop Date: 11/20/21 Status: Ordered [facility]ax to [facility] Fax to [facility], See Instructions, # 1 each, Refills 11, Tot. Refills 11, Maintenance, CPAP CPAP 8 cm H2O with heated humidification, mask, heated tubing, filters, headgear, chin strap, andwater chamber. Vincenzo provider access to wireless... Start Date: 09/28/20 Status: Ordered fenofibrate 160 mg oral tablet 0.5 tablet = 80 mg, By Mouth, Daily, # 15 tablet, 0 Refills, Maintenance, 12/16/21 9:13:00 EDT, [facility] #[id number], Partial fill upon patient request if the [...] Gm, 11 Refills, Maintenance, 06/13/22 14:09:00 EST, [place], [facility] #[id number], Partial fill upon patient request if the [...] 02/24/22 16:00:00 EDT, Route to Pharmacy Electronically, [facility] #[id number], Partial fill upon patient request if the prescription is for a schedule II... Start Date: 02/24/22 Status: Ordered Levothyroxine = 300 mcg, By Mouth, Daily, 0 Refills, Maintenance Start Date: 06/29/11 Status: Ordered loratadine 10 mg oral tablet 10 mg, 1, tablet, By Mouth, Daily, # 30 tablet, Refills 11, Tot. Refills 11, Maintenance, 06/13/22 14:09:00 EST, Route to Pharmacy Electronically, [facility] #[id number], Partial fill upon patient request if the prescription is for a schedule II... Start Date: 06/13/22 Status: Ordered metoprolol 50 mg oral tablet, extended release 50 mg, 1, tablet, By Mouth, Daily, # 90 tablet, Refills 3, Tot. Refills 3, Maintenance, 12/16/21 14:24:00 EDT, Route to Pharmacy Electronically, [facility] #[id number], 180, cm, 12/16/21 8:55:00EDT, Height, 117.8, kg, [...] 3 Refills, Maintenance, 01/02/22 16:07:00 EDT, Tablet, [facility] #[id number], 180, cm, 12/16/21 8:55:00 EDT, Height, 117.8, kg, 04/04/21 7:21:00 EDT, Dry Weight Start Date: 01/02/22 Status: Ordered ranolazine 500 mg oral tablet, extended release 1 tablet = 500 mg, By Mouth, 2 times a day, # 180 tablet, 3 Refills, Maintenance, 08/14/22 9:08:00 EDT, ER Tablet, [facility] #[id number], Partial fill upon patient request if the prescription is for a schedule II opioid drug., 178, cm, 08/11/22... Start Date: 08/14/22 Status: Ordered Repatha SureClick 140 mg/mL subcutaneous solution = 140 mg, Subcutaneous Infusion, Every 14 days, # 2 each, 11 Refills, Maintenance, 05/03/22 11:32:00 EST, [facility] #[id number], Partial fill upon patient request if the prescription is for a schedule II opioid drug., 178, cm, 03/30/22 16:02:00... Start Date: 05/03/22 Status: Ordered Trelegy Ellipta 200 mcg-62.5 mcg-25 mcg/inh inhalation powder 1 puffs, Inhalation, Daily, at the same time every day, # 1 each, 11 Refills, Maintenance, 06/13/2313:09:00 EST, Powder, [facility] #[id number], Partial fill upon patient request if the [...] Physician Member Role: PCP Address: Address: [address] [place] [address] Name: Adam Gutiérrez RN Position: Benja RN Supv Member Role: Primary Care Nurse Care Team Related Persons Name: IBIS HOLT Address: home [address] [place] [address]
--- OUTSIDE RECORDS SUMMARY | 2023-12-03 08:16 | XMS_ITS | Continuity of Care Document ---
Author Organization [facility] Address [address] [place] [address]- Care Team Providers Care Operations Officer Afloat Name Role Phone Adamaris MARIO, Keyannakwadwo Masterson Primary Care Physici an Encounter [facility] [place] Date(s): 04/06/22 - 05/06/22 [facility] [place] [place] [address] [place] [address]- [place] Allergies, Adverse Reactions, Alerts Substance Reaction [...] 3 Refills, Maintenance, 03/20/22 9:25:00 EDT, Tablet, [facility] #[id number], Partial fill upon patient request if the prescription is for a schedule II opioid drug., 178, cm, 02/24/22 15:32:00 EDT... Start Date: 03/20/22 Stop Date: 03/15/23 Status: Ordered aspirin 81 mg oral tablet 1 tablet = 81 mg, By Mouth, Daily, # 90 tablet, 11 Refills, Maintenance, 12/06/18 13:47:08 EDT, Tablet Start Date: 12/06/18 Stop Date: 11/20/21 Status: Ordered Fax to [facility] Fax to [facility], See Instructions, # [...] 0 Refills, Maintenance, 12/16/21 9:13:00 EDT, Tablet, [facility] #[id number], Partial fill upon patient request if the [...] 02/24/22 16:00:00 EDT, Route to Pharmacy Electronically, [facility] #[id number], Partial fill upon patient request if the prescription is for a schedule II... Start Date: 02/24/22 Status: Ordered Levothyroxine = 300 mcg, By Mouth, Daily, 0 Refills, Maintenance Start Date: 06/29/11 Status: Ordered metoprolol 50 mg oral tablet, extended release 50 mg, 1, tablet, By Mouth, Daily, # 90 tablet, Refills 3, Tot. Refills 3, Maintenance, 12/16/21 14:24:00 EDT, Route to Pharmacy Electronically, [facility] #[id number], 180, cm, 12/16/21 8:55:00EDT, Height, 117.8, kg, [...] 3 Refills, Maintenance, 01/02/22 16:07:00 EDT, Tablet, [facility] #07955, 180, cm, 12/16/21 8:55:00 EDT, Height, 117.8, kg, 04/04/21 7:21:00 EDT, Dry Weight Start Date: 01/02/22 Status: Ordered ranolazine 500 mg oral tablet, extended release 1 tablet = 500 mg, By Mouth, 2 times a day, # 120 tablet, 3 Refills, Maintenance, 12/08/21 16:50:00EDT, ER Tablet, [facility] #[id number], Partial fill upon patient request if the prescription is for a schedule II opioid drug., 180, cm, 09/05/21... Start Date: 12/08/21 Status: Ordered Repatha SureClick 140 mg/mL subcutaneous solution = 140 mg, Subcutaneous Infusion, Every 14 days, # 2 each, 11 Refills, Maintenance, 05/03/22 11:32:00 EST, [facility] #[id number], Partial fill upon patient request if the prescription is for a schedule II opioid drug., 178, cm, 03/30/22 16:02:00... Start Date: 05/03/22 Status: Ordered Symbicort 160mcg/4.5mcg Inhaler 2, puffs, Inhalation, 2 times a day, No substitutions, # 1 each, Refills 5, Tot. Refills 5, Maintenance, 12/13/21 12:33:00 EDT, Inhaler, Route to Pharmacy Electronically, [id number], [facility] #[id number], 180, cm, ... Start Date: 12/13/21 Status: [...] Reference Physician Member Role: PCP Address: Address: [address] [place] [address]- Name: Adam Gutiérrez RN Position: S RN Supv Member Role: Primary Care Nurse Care Team Related Persons Name: IBIS HOLT Address: home [address] [place] [address]
--- OUTSIDE RECORDS SUMMARY | 2023-12-03 08:16 | XMS_ITS | Continuity of Care Document ---
Author Organization [facility] Address [address] [place] [address]- Care Team Providers Care Ribbon Lap Machine Tender Name Role Phone Adamaris MARIO, Keyanna Masterson Primary Care Physici an Encounter [facility] [place] Date(s): 11/22/22 - 11/22/[address] [address]- Discharge Disposition: A-D/C Home Attending Physician: Syl Guallpa MD Admitting Physician: Syl Guallpa MD Referring Physician: Syl Guallpa MD Allergies, Adverse Reactions, Alerts Substance Reaction [...] 6.7 Gm, 11 Refills, Maintenance, 06/13/22 14:10:00 [facility] #[id number], Partial fill upon patient request if the prescription is for a schedule II opioid drug., 2 puf... Start Date: 06/13/22 Status: Ordered albuterol 0.083% inhalation solution 3 mL = 2.5 mg, Inhalation, Every 6 hours, PRN for wheezing/shortness of breath, # 360 mL, 11 Refills, Maintenance, 06/13/22 14:09:00 EST, Solution, [facility] #[id number], Partial fill upon patient request if the prescription is for a schedule II... Start Date: 06/13/22 Status: Ordered amLODIPine 2.5 mg oral tablet 1 tablet = 2.5 mg, By Mouth, Daily, # 90 tablet, 3 Refills, Maintenance, 03/20/22 9:25:00 EDT, Tablet, [facility] #[id number], Partial fill upon patient request if the [...] [facility] Fax to [facility], See Instructions, # 1 each, Refills 11, Tot. Refills 11, Maintenance, CPAP CPAP 8 cm H2O with heated humidification, mask, heated tubing, filters, headgear, chin strap, andwater chamber. Vincenzo provider access to wireless... Start Date: 09/28/20 Status: Ordered fenofibrate 160 mg oral tablet 0.5 tablet = 80 mg, By Mouth, Daily, # 15 tablet, 0 Refills, Maintenance, 12/16/21 9:13:00 EDT, Tablet, [facility] #[id number], Partial fill upon patient request if the [...] Gm, 11 Refills, Maintenance, 06/13/22 14:09:00 EST, [place], [facility] #[id number], Partial fill upon patient request if the [...] Refills, Maintenance, 11/08/22 16:40:00 EDT, REC Powder, [facility]/pharmacy #[id number], Ok to... Start Date: 11/08/22 Status: Ordered Lasix 20 mg oral tablet 20 mg, 1, tablet, By Mouth, Daily, # 30 tablet, Refills 11, Tot. Refills 11, Maintenance, 02/24/22 16:00:00 EDT, Route to Pharmacy Electronically, [facility] #[id number], Partial fill upon patient request if the prescription is for a schedule II... Start Date: 02/24/22 Status: Ordered Levothyroxine = 300 mcg, By Mouth, Daily, 0 Refills, Maintenance Start Date: 06/29/11 Status: Ordered loratadine 10 mg oral tablet 10 mg, 1, tablet, By Mouth, Daily, # 30 tablet, Refills 11, Tot. Refills 11, Maintenance, 06/13/22 14:09:00 EST, Route to Pharmacy Electronically, [facility] #[id number], Partial fill upon patient request if the prescription is for a schedule II... Start Date: 06/13/22 Status: Ordered metoprolol 50 mg oral tablet, extended release 50 mg, 1, tablet, By Mouth, Daily, # 90 tablet, Refills 3, Tot. Refills 3, Maintenance, 10/31/22 9:28:00 EDT, Route to Pharmacy Electronically, [facility]/pharmacy #[id number], 178, cm, 10/18/22 9:47:00 EDT, [...] 3 Refills, Maintenance, 01/02/22 16:07:00 EDT, Tablet, [facility] #[id number], 180, cm, 12/16/21 8:55:00 EDT, Height, 117.8, kg, 04/04/21 7:21:00 EDT, Dry Weight Start Date: 01/02/22 Status: Ordered ranolazine 500 mg oral tablet, extended release 1 tablet = 500 mg, By Mouth, 2 times a day, # 180 tablet, 3 Refills, Maintenance, 08/14/22 9:08:00 EDT, ER Tablet, [facility] #[id number], Partial fill upon patient request if the prescription is for a schedule II opioid drug., 178, cm, 08/11/22... Start Date: 08/14/22 Status: Ordered Repatha SureClick 140 mg/mL subcutaneous solution = 140 mg, Subcutaneous Infusion, Every 14 days, # 2 each, 11 Refills, Maintenance, 05/03/22 11:32:00 EST, [facility] #[id number], Partial fill upon patient request if the prescription is for a schedule II opioid drug., 178, cm, 03/30/22 16:02:00... Start Date: 05/03/22 Status: Ordered Trelegy Ellipta 200 mcg-62.5 mcg-25 mcg/inh inhalation powder 1 puffs, Inhalation, Daily, at the same time every day, # 1 each, 11 Refills, Maintenance, 06/13/2313:09:00 EST, Powder, [facility] #[id number], Partial fill upon patient request if the [...] obesity (BMI 35.0-39.9) with comorbidity Confirmed Active Vital Signs Most recent to oldest [Reference Range]: 1 2 3 Height 180.34 cm (11/22/22 7:21 AM) Oxygen Saturation [94-100 %] 96 % (11/22/22 8:35 AM) 96 % (11/22/22 8:30 AM) 95 % (11/22/22 8:25 AM) Pulse Rate [55-90 bpm] 61 bpm (11/22/22 7:21 AM) Blood Pressure [90-138/55-84 mm Hg] 121/80mm Hg (11/22/22 8:35 AM) 110/77mm Hg (11/22/22 8:30 AM) 104/73mm Hg (11/22/22 8:25 AM) Respiratory Rate [16-30 br/min] 13 br/min *L* (11/22/22 8:35 AM) 23 br/min (11/22/22 8:30 AM) 16 br/min (11/22/22 8:25 AM) Temperature [96.8-100.4 DegF] 98.0 DegF (11/22/22 7:21 AM) Mode of Delivery (Oxygen) Room air (11/22/22 8:45 AM) Room air (11/22/22 8:35 AM) Room air (11/22/22 8:30 AM) Blood pressure sites Arm, left (11/22/22 8:35 AM) Arm, left (11/22/22 8:30 AM) Arm, left (11/22/22 8:25 AM) Temperature Route Temporal (11/22/22 7:21 AM) Dry Weight 124.1 kg (11/22/22 7:21 AM) Dry Weight Obtained Via Standing scale (11/22/22 7:21 AM) Social History Social History Type Response Smoking Status Former smoker; Other : quit 1990; entered on: 06/14/17 Sex Patient Care team information Care Team Personnel Name: Rhoda Ansari RN Position: [facility] MUNOZ RN Member Role: Primary Care Nurse Name: Keyanna Bailon NP Position: Reference Physician Member Role: PCP Address: Address: [address] [place] [address]- Name: Adam Gutiérrez RN Position: [facility]ja RN Supv Member Role: Primary Care Nurse Care Team Related Persons Name: SHERLY HOLTA Address: home [address] [place] [address]
--- OUTSIDE RECORDS SUMMARY | 2023-12-03 08:16 | XMS_ITS | Continuity of Care Document ---
Author Organization [facility] Address [address] [place] [address]- Care Team Providers Care Senior Clinical Data Manager Name Role Phone Adamaris MARIO, Keyanna Aleja Primary Care Physici an En[place] [facility] [place] Date(s): 01/25/22 - 03/05/22 [facility] [place] [address] [place] [address]- Attending Physician: Jaswant Elizabeth MD Admitting Physician: [...] 3 Refills, Maintenance, 09/02/21 8:52:00 EDT, Tablet, [facility] #[id number], Partial fill upon patient request if the prescription is for a schedule II opioid drug., 180, cm, 09/02/21 8:46:00 EDT,... Start Date: 09/02/21 Stop Date: 08/28/22 Status: Ordered aspirin 81 mg oral tablet 1 tablet = 81 mg, By Mouth, Daily, # 90 tablet, 11 Refills, Maintenance, 12/06/18 13:47:08 EDT, Tablet Start Date: 12/06/18 Stop Date: 11/20/21 Status: Ordered Fax to [facility] Fax to [facility], See Instructions, # 1 each, Refills 11, Tot. Refills 11, Maintenance, CPAP CPAP 8 cm H2O with heated humidification, mask, heated tubing, filters, headgear, chin strap, andwater chamber. Vincenzo provider access to wireless... Start Date: 09/28/20 Status: Ordered fenofibrate 160 mg oral tablet 0.5 tablet = 80 mg, By Mouth, Daily, # 15 tablet, 0 Refills, Maintenance, 12/16/21 9:13:00 EDT, Tablet, [facility] #[id number], Partial fill upon patient request if the [...] 02/24/22 16:00:00 EDT, Route to Pharmacy Electronically, [facility] #[id number], Partial fill upon patient request if the prescription is for a schedule II... Start Date: 02/24/22 Status: Ordered Levothyroxine = 300 mcg, By Mouth, Daily, 0 Refills, Maintenance Start Date: 06/29/11 Status: Ordered metoprolol 50 mg oral tablet, extended release 50 mg, 1, tablet, By Mouth, Daily, # 90 tablet, Refills 3, Tot. Refills 3, Maintenance, 12/16/21 14:24:00 EDT, Route to Pharmacy Electronically, [facility] #[id number], 180, cm, 12/16/21 8:55:00EDT, Height, 117.8, kg, [...] 3 Refills, Maintenance, 01/02/22 16:07:00 EDT, Tablet, [facility] #[id number], 180, cm, 12/16/21 8:55:00 EDT, Height, 117.8, kg, 04/04/21 7:21:00 EDT, Dry Weight Start Date: 01/02/22 Status: Ordered ranolazine 500 mg oral tablet, extended release 1 tablet = 500 mg, By Mouth, 2 times a day, # 120 tablet, 3 Refills, Maintenance, 12/08/21 16:50:00EDT, ER Tablet, [facility] #[id number], Partial fill upon patient request if the prescription is for a schedule II opioid drug., 180, cm, 09/05/21... Start Date: 12/08/21 Status: Ordered Repatha SureClick 140 mg/mL subcutaneous solution = 140 mg, Subcutaneous Infusion, Every 14 days, # 2 each, 11 Refills, Maintenance, 06/16/21 16:33:00 EST, [facility] #[id number], Partial fill upon patient request if the prescription is for a schedule II opioid drug., 180, cm, 04/06/21 16:24:00... Start Date: 06/16/21 Status: Ordered Symbicort 160mcg/4.5mcg Inhaler 2, puffs, Inhalation, 2 times a day, No substitutions, # 1 each, Refills 5, Tot. Refills 5, Maintenance, 12/13/21 12:33:00 EDT, Inhaler, Route to Pharmacy Electronically, [id number], [facility] #[id number], 180, cm, 0... Start Date: 12/13/21 Status: [...] Personnel Name: Keyanna Bailon NP Address: Address: [address] [place] [address]
--- OUTSIDE RECORDS SUMMARY | 2023-12-03 08:16 | XMS_ITS | Continuity of Care Document ---
Author Organization [facility] Address [address] [place] [address]- Care Team Providers Care Budget Officer Name Role Phone Adamaris MARIO, Keyanna Aleja Primary Care Physici an Encounter [facility] [place] Date(s): 08/11/22 - 09/10/22 [facility] [place] [address] [place] [address]- Attending Physician: AdmJoycelyn georges Admitting Physician: AdmtrJoycelyn Referring Physician: Admtr, Ar8 Allergies, Adverse Reactions, [...] 6.7 Gm, 11 Refills, Maintenance, 06/13/22 14:10:00 [id number], Partial fill upon patient request if the prescription is for a schedule II opioid drug., 2 puf... Start Date: 06/13/22 Status: Ordered albuterol 0.083% inhalation solution 3 mL = 2.5 mg, Inhalation, Every 6 hours, PRN for wheezing/shortness of breath, # 360 mL, 11 Refills, Maintenance, 06/13/22 14:09:00 EST, Solution, [facility] #[id number], Partial fill upon patient request if the prescription is for a schedule II... Start Date: 06/13/22 Status: Ordered amLODIPine 2.5 mg oral tablet 1 tablet = 2.5 mg, By Mouth, Daily, # 90 tablet, 3 Refills, Maintenance, 03/20/22 9:25:00 EDT, Tablet, [facility] #[id number], Partial fill upon patient request if the prescription is for a schedule II opioid drug., 178, cm, 02/24/22 15:32:00 EDT... Start Date: 03/20/22 Stop Date: 03/15/23 Status: Ordered aspirin 81 mg oral tablet 1 tablet = 81 mg, By Mouth, Daily, # 90 tablet, 11 Refills, Maintenance, 12/06/18 13:47:08 EDT, Tablet Start Date: 12/06/18 Stop Date: 11/20/21 Status: Ordered Fax to [facility] Fax to [facility] [...] 0 Refills, Maintenance, 12/16/21 9:13:00 EDT, Tablet, [facility] #[id number], Partial fill upon patient request if the [...] Gm, 11 Refills, Maintenance, 06/13/22 14:09:00 EST, [place], [facility] #[id number], Partial fill upon patient request if the [...] 02/24/22 16:00:00 EDT, Route to Pharmacy Electronically, [facility] #[id number], Partial fill upon patient request if the prescription is for a schedule II... Start Date: 02/24/22 Status: Ordered Levothyroxine = 300 mcg, By Mouth, Daily, 0 Refills, Maintenance Start Date: 06/29/11 Status: Ordered loratadine 10 mg oral tablet 10 mg, 1, tablet, By Mouth, Daily, # 30 tablet, Refills 11, Tot. Refills 11, Maintenance, 06/13/22 14:09:00 EST, Route to Pharmacy Electronically, [facility] #[id number], Partial fill upon patient request if the prescription is for a schedule II... Start Date: 06/13/22 Status: Ordered metoprolol 50 mg oral tablet, extended release 50 mg, 1, tablet, By Mouth, Daily, # 90 tablet, Refills 3, Tot. Refills 3, Maintenance, 12/16/21 14:24:00 EDT, Route to Pharmacy Electronically, [facility] #[id number], 180, cm, 12/16/21 8:55:00EDT, Height, 117.8, kg, 04/04/21 7:21:00 EDT, Dry W... Start Date: 12/16/21 Status: Ordered Nebulizer/Compressor See Instructions, # 1 each, Refills 11, Tot. Refills 11, Maintenance, E0570 Nebulizer A7003 Neb Disp Set A7014 Neb non-Disp Filter A7005 Neb Non-Disp set A7015 Aerosol Mask A7013 Neb Disp Filter length of need lifetime 99 months for home use, 01/1... Start Date: 06/13/22 Status: Ordered nitroglycerin 0.4 mg sublingual tablet 1 tablet = 0.4 mg, Sublingual, Every 5 minutes, PRN for chest pain, # 100 tablet, 1 Refills, Maintenance, 04/06/16 8:55:53, Tablet Start Date: 04/06/16 Status: Ordered prasugrel 10 mg oral tablet 1 tablet = 10 mg, By Mouth, Daily, # 90 tablet, 3 Refills, Maintenance, 01/02/22 16:07:00 EDT, Tablet, [facility] #[id number], 180, cm, 12/16/21 8:55:00 EDT, Height, 117.8, kg, 04/04/21 7:21:00 EDT, Dry Weight Start Date: 01/02/22 Status: Ordered ranolazine 500 mg oral tablet, extended release 1 tablet = 500 mg, By Mouth, 2 times a day, # 180 tablet, 3 Refills, Maintenance, 08/14/22 9:08:00 EDT, ER Tablet, [facility] #[id number], Partial fill upon patient request if the prescription is for a schedule II opioid drug., 178, cm, 08/11/22... Start Date: 08/14/22 Status: Ordered Repatha SureClick 140 mg/mL subcutaneous solution = 140 mg, Subcutaneous Infusion, Every 14 days, # 2 each, 11 Refills, Maintenance, 05/03/22 11:32:00 [facility][id number], Partial fill upon patient request if the prescription is for a schedule II opioid drug., 178, cm, 03/30/22 16:02:00... Start Date: 05/03/22 Status: Ordered Trelegy Ellipta 200 mcg-62.5 mcg-25 mcg/inh inhalation powder 1 puffs, Inhalation, Daily, at the same time every day, # 1 each, 11 Refills, Maintenance, 06/13/2313:09:00 EST, Powder, [facility] #[id number], Partial fill upon patient request if the [...] Personnel Name: Rhoda Ansari RN Position: S RN Member Role: Primary Care Nurse Name: Keyanna Bailon NP Position: Reference Physician Member Role: PCP Address: Address: [address] [place] [address]- Name: Adam Gutiérrez RN Position: S RN Supv Member Role: Primary Care Nurse Care Team Related Persons Name: IBIS HOLT Address: home [address] [place] [address]
--- OUTSIDE RECORDS SUMMARY | 2023-12-03 08:17 | XMS_ITS | Continuity of Care Document ---
Author Organization [facility] Address [address] [place] [address]- Care Team Providers Care Trial Manager Name Role Phone Adamaris MARIO, Keyanna Aleja Primary Care Physici an [place] [facility] [place] 08/11/22 - 09/10/22 [facility] [address] [place] [address]- Attending Physician: Joycelyn Hennessy Admitting Physician: AdmJoycelyn [...] 6.7 Gm, 11 Refills, Maintenance, 06/13/22 14:10:00 [facility] #[id number], Partial fill upon patient request if the prescription is for a schedule II opioid drug., 2 puf... Start Date: 06/13/22 Status: Ordered albuterol 0.083% inhalation solution 3 mL = 2.5 mg, Inhalation, Every 6 hours, PRN for wheezing/shortness of breath, # 360 mL, 11 Refills, Maintenance, 06/13/22 14:09:00 EST, Solution, [facility] #[id number], Partial fill upon patient request if the prescription is for a schedule II... Start Date: 06/13/22 Status: Ordered amLODIPine 2.5 mg oral tablet 1 tablet = 2.5 mg, By Mouth, Daily, # 90 tablet, 3 Refills, Maintenance, 03/20/22 9:25:00 EDT, Tablet, [facility] #[id number], Partial fill upon patient request if the prescription is for a schedule II opioid drug., 178, cm, 02/24/22 15:32:00 EDT... Start Date: 03/20/22 Stop Date: 03/15/23 Status: Ordered aspirin 81 mg oral tablet 1 tablet = 81 mg, By Mouth, Daily, # 90 tablet, 11 Refills, Maintenance, 12/06/18 13:47:08 EDT, Tablet Start Date: 12/06/18 Stop Date: 11/20/21 Status: Ordered Fax to [facility] Fax to [facility], See Instructions, # 1 [...] 0 Refills, Maintenance, 12/16/21 9:13:00 EDT, Tablet, [facility] #[id number], Partial fill upon patient request if the [...] 11 Refills, Maintenance, 06/13/22 14:09:00 EST, [place], [facility] #[id number], Partial fill upon patient request if the [...] 02/24/22 16:00:00 EDT, Route to Pharmacy Electronically, [facility] #[id number], Partial fill upon patient request if the prescription is for a schedule II... Start Date: 02/24/22 Status: Ordered Levothyroxine = 300 mcg, By Mouth, Daily, 0 Refills, Maintenance Start Date: 06/29/11 Status: Ordered loratadine 10 mg oral tablet 10 mg, 1, tablet, By Mouth, Daily, # 30 tablet, Refills 11, Tot. Refills 11, Maintenance, 06/13/22 14:09:00 EST, Route to Pharmacy Electronically, [facility] #[id number], Partial fill upon patient request if the prescription is for a schedule II... Start Date: 06/13/22 Status: Ordered metoprolol 50 mg oral tablet, extended release 50 mg, 1, tablet, By Mouth, Daily, # 90 tablet, Refills 3, Tot. Refills 3, Maintenance, 12/16/21 14:24:00 EDT, Route to Pharmacy Electronically, [facility] #[id number], 180, cm, 12/16/21 8:55:00EDT, Height, 117.8, kg, [...] 3 Refills, Maintenance, 01/02/22 16:07:00 EDT, Tablet, [facility] #[id number], 180, cm, 12/16/21 8:55:00 EDT, Height, 117.8, kg, 04/04/21 7:21:00 EDT, Dry Weight Start Date: 01/02/22 Status: Ordered ranolazine 500 mg oral tablet, extended release 1 tablet = 500 mg, By Mouth, 2 times a day, # 180 tablet, 3 Refills, Maintenance, 08/14/22 9:08:00 EDT, ER Tablet, [facility] #[id number], Partial fill upon patient request if the prescription is for a schedule II opioid drug., 178, cm, 08/11/22... Start Date: 08/14/22 Status: Ordered Repatha SureClick 140 mg/mL subcutaneous solution = 140 mg, Subcutaneous Infusion, Every 14 days, # 2 each, 11 Refills, Maintenance, 05/03/22 11:32:00 EST, [facility] #[id number], Partial fill upon patient request if the prescription is for a schedule II opioid drug., 178, cm, 03/30/22 16:02:00... Start Date: 05/03/22 Status: Ordered Trelegy Ellipta 200 mcg-62.5 mcg-25 mcg/inh inhalation powder 1 puffs, Inhalation, Daily, at the same time every day, # 1 each, 11 Refills, Maintenance, 06/13/2313:09:00 EST, Pow[place], [facility] #[id number], Partial fill upon patient request if the [...] Reference Physician Member Role: PCP Address: Address: [address] [place] [address]- Name: Adam Gutiérrez RN Position: Benja RN Supv Member Role: Primary Care Nurse Care Team Related Persons Name: IBIS HOLT Address: home [address] [place] [address]
--- OUTSIDE RECORDS SUMMARY | 2023-12-03 08:17 | XMS_ITS | Continuity of Care Document ---
Author Organization [facility] Address [address] [address]- Care Team Providers Care Industrial Maintenance Repairer Name Role Phone Willie Carrion MD Primary Care Physician Encounter [facility] [place] Date(s): 12/31/19 - 01/30/20 [facility] [address] [address]- [place] Attending Physician: Admjosé manuel, Joycelyn Admitting Physician: Admtr, Joycelyn Referring Physician: Admtr, Ar8 Allergies, Adverse Reactions, [...] Maintenance, 02/13/1916:14:19 EDT, Route to Pharmacy Electronically, [id number], [facility] #[id number] Start Date: 02/12/19 Status: Ordered aspirin 81 [...] 3 Refills, Maintenance, 01/27/20 8:43:00 EDT, Tablet, [facility] 3, 180, cm, 01/27/20 7:17:00 [...]
--- OUTSIDE RECORDS SUMMARY | 2023-12-03 08:17 | XMS_ITS | Continuity of Care Document ---
Author Organization [facility] Address Unknown Care Team Providers Care Cash Management Associate Name Role Phone Sheyla BARRAGAN, Willie Rogers Primary Care Physician Encounter [facility] [place] Date(s): 06/27/21 - 07/27/21 [facility] Allergies, Adverse Reactions, Alerts Substance [...] 13:18:37 EDT Start Date: 10/07/04 Status: Ordered aspirin 81 mg oral tablet 1 tablet = 81 mg, By Mouth, Daily, # 90 tablet, 11 Refills, Maintenance, 12/06/18 13:47:08 EDT, Tablet Start Date: 12/06/18 Stop Date: 11/20/21 Status: Ordered Fax to [facility] Fax to [facility], See Instructions, # [...] 09/01/20 16:55:00 EDT, Route to Pharmacy Electronically, [facility] #[id number], 180, cm, 08/31/20 14:02:00 EDT, Height, 122.3, [...] 3 Refills, Maintenance, 01/10/21 15:32:00 EDT, Tablet, [facility] #[id number], 180, cm, 12/02/20 8:05:00 EDT, Height Start [...] each, 11 Refills, Maintenance, 06/16/21 16:33:00 EST, [facility] #[id number], Partial fill upon patient request if the prescription is for a schedule II opioid drug., 180, cm, 04/06/21 16:24:00... Start Date: 06/16/21 Status: Ordered Symbicort 160mcg/4.5mcg Inhaler 2, puffs, Inhalation, 2 times a day, # 1 each, Refills 5, Tot. Refills 5, Maintenance, 06/27/21 11:23:00 EST, Inhaler, Route to Pharmacy Electronically, [id number], [facility] #[id number], 180, cm, 04/06/21 16:24:00 EDT,... Start Date: 06/27/21 Status: Ordered Problem List Condition Effective Dates Status Health Status Inform ant Benign essential hypertension(Confirmed) Active CAD (coronary artery disease)(Confirmed) Active Dyslipidemia(Confirmed) Active Social History Social History Type Response Smoking Status Former smoker; Other : quit 1990; entered on: 06/14/17 Sex
--- OUTSIDE RECORDS SUMMARY | 2023-12-03 08:17 | XMS_ITS | Continuity of Care Document ---
Author Organization [facility] Address [address] [address]- Care Team Providers Care Staffing Analyst Name Role Phone Willie Carrion MD Primary Care Physician Encounter [facility] [place] [facility] [id number] Date(s): 04/01/21 - 05/19/21 [facility] [address] [address]- Attending Physician: Jaswant Elizabeth MD Admitting Physician: [...] tablet, 3 Refills, Maintenance, 03/01/21 11:07:00 EDT, [facility] #[id number], 182, cm, 02/23/21 19:12:00 EDT, Height, 117, kg, 02/23/21 19:12:00 EDT, DryWeight Start Date: 03/01/21 Status: Ordered aspirin 81 mg oral tablet 1 tablet = 81 mg, By Mouth, Daily, # 90 tablet, 11 Refills, Maintenance, 12/06/18 13:47:08 EDT, Tablet Start Date: 12/06/18 Stop Date: 11/20/21 Status: [facility], See Instructions, # 1 [...] 11 Refills, Maintenance, 04/06/21 17:28:00 EDT, Powder, [facility] #[id number], Partial fill upon patient request if the [...] 09/01/20 16:55:00 EDT, Route to Pharmacy Electronically, [facility] #[id number], 180, cm, 08/31/20 14:02:00 EDT, Height, 122.3, [...] 3 Refills, Maintenance, 01/10/21 15:32:00 EDT, Tablet, [facility] #[id number], 180, cm, 12/02/20 8:05:00 EDT, Height Start [...] 11 Refills, Maintenance, 03/08/20 14:55:00 EDT, Aerosol, [facility] #[id number], 180, cm, 03/08/20 14:38:00 EDT, Height, 122.3, [...]
--- OUTSIDE RECORDS SUMMARY | 2023-12-03 08:17 | XMS_ITS | Continuity of Care Document ---
Author Organization [facility] Address [address] [facility] [place] [address]- Care Team Providers Care Chemical Sprayer Name Role Phone Sheyla BARRAGAN, Willie Rogers Primary Care Physician En[place] [facility] [place](s): 03/08/20 - 03/15/20 [facility] [address] [facility] [address] [place] [address]- [facility] Attending Physician: Payam Genao MD Admitting [...] tablet, 11 Refills, Maintenance, 02/11/20 10:45:00 EDT, [facility] #[id number], 180, cm, 01/27/20 7:17:00 EDT, Height, 122.3, [...] 3 Refills, Maintenance, 01/27/20 8:43:00 EDT, Tablet, [facility] 3, 180, cm, 01/27/20 7:17:00 EDT, Height, 122.3, kg, 12/05/18 4:00:00 EDT,Dry Weight Start Date: 01/27/20 Status: Ordered Spiriva Respimat 1.25 mcg/inh inhalation aerosol 2 puffs, Inhalation, Daily, # 4 Gm, 11 Refills, Maintenance, 03/08/20 14:55:00 EDT, [facility]erosol, [facility][id number], 180, cm, 03/08/20 14:38:00 EDT, Height, 122.3, [...] to oldest [Reference Range]: 1 2 Height 180 cm (03/08/20 2:57 PM) 180 cm (03/08/20 2:38 PM) Weight 114.9 kg (03/08/20 2:57 PM) 114.9 kg (03/08/20 2:38 PM) Oxygen Saturation [94-100 %] 96 % (03/08/20 2:38 PM) Pulse Rate [55-90 bpm] 68 bpm (03/08/20 2:38 PM) Body Mass Index [18.5-24.99] 35.46 *>HHI* (03/08/20 2:38 PM) Blood Pressure [90-138/55-84 mm Hg] 126/ 76mm Hg (03/08/20 2:38 PM) Blood pressure sites Arm, right (03/08/20 2:38 PM) Social History Social History Type Response Smoking Status Former smoker; Other : quit 1990; entered on: 06/14/17 Sex
--- OUTSIDE RECORDS SUMMARY | 2023-12-03 08:17 | XMS_ITS | Continuity of Care Document ---
Author Organization [facility] em Address Unknown Care Team Providers Care Content Strategist Name Role Phone Sheyla BARRAGAN, Willie Rogers Primary Care Physician [phone] Encounter [facility] [place] Date(s): 09/05/21 - 09/12/21 [facility] Attending Physician: Payam Genao MD Admitting Physician: Payam Genao MD Referring Physician: Payam Genao MD Allergies, Adverse Reactions, [...] 3 Refills, Maintenance, 09/02/21 8:52:00 EDT, Tablet, [facility] #[id number], Partial fill upon patient request if the prescription is for a schedule II opioid drug., 180, cm, 09/02/21 8:46:00 EDT,... Start Date: 09/02/21 Stop Date: 08/28/22 Status: Ordered aspirin 81 mg oral tablet 1 tablet = 81 mg, By Mouth, Daily, # 90 tablet, 11 Refills, Maintenance, 12/06/18 13:47:08 EDT, Tablet Start Date: 12/06/18 Stop Date: 11/20/21 Status: Ordered [facility]ax to [facility] Fax to [facility], See Instructions, # 1 each, [...] 09/01/20 16:55:00 EDT, Route to Pharmacy Electronically, [facility] #[id number], 180, cm, 08/31/20 14:02:00 EDT, Height, 122.3, [...] 3 Refills, Maintenance, 01/10/21 15:32:00 EDT, Tablet, [facility] #[id number], 180, cm, 12/02/20 8:05:00 EDT, Height Start [...] each, 11 Refills, Maintenance, 06/16/21 16:33:00 EST, [facility] #[id number], Partial fill upon patient request if the prescription is for a schedule II opioid drug., 180, cm, 04/06/21 16:24:00... Start Date: 06/16/21 Status: Ordered Symbicort 160mcg/4.5mcg Inhaler 2, puffs, Inhalation, 2 times a day, # 1 each, Refills 5, Tot. Refills 5, Maintenance, 06/27/21 11:23:00 EST, Inhaler, Route to Pharmacy Electronically, [id number], [facility] #[id number], 180, cm, 04/06/21 16:24:00 EDT,... Start Date: 06/27/21 Status: Ordered Problem List Condition Effective Dates Status Health Status Inform ant Benign essential hypertension(Confirmed) Active CAD (coronary artery disease)(Confirmed) Active Dyslipidemia(Confirmed) Active Obese class II(Confirmed) Active Vital Signs Most recent to oldest [Reference Range]: 1 Height 180 cm (09/05/21 4:06 PM) Weight 119 kg (09/05/21 4:06 PM) Oxygen Saturation [94-100 %] 92 % *L* (09/05/21 4:06 PM) Pulse Rate [55-90 bpm] 74 bpm (09/05/21 4:06 PM) Body Mass Index [18.5-24.99] 36.73 *>HHI* (09/05/21 4:06 PM) Blood Pressure [90-138/55-84 mm Hg] 118/ 70mm Hg (09/05/21 4:06 PM) Respiratory Rate [16-30 br/min] 20 br/mi n (09/05/21 4:06 PM) Mode of Delivery (Oxygen) Nasal cannula (09/05/21 4:06 PM) Blood pressure sites Arm, left (09/05/21 4:06 PM) Weight Obtained Via Standing scale (09/05/21 4:06 PM) Social History Social History Type Response Smoking Status Former smoker; Other : quit 1990; entered on: 06/14/17 Sex
--- OUTSIDE RECORDS SUMMARY | 2023-12-03 08:17 | XMS_ITS | Continuity of Care Document ---
Author Organization [facility] Address [address] [place] [id number]- Care Team Providers Care Database Management Specialist Name Role Phone Adamaris MARIO, Keyanna Masterson Primary Care Physici an [place] [facility] [place] 09/27/22 [facility] [address] [place] [address]- Attending Physician: Joycelyn Hennessy Admitting Physician: AdmJoycelyn [...] 6.7 Gm, 11 Refills, Maintenance, 06/13/22 14:10:00 [id number], Partial fill upon patient request if the prescription is for a schedule II opioid drug., 2 puf... Start Date: 06/13/22 Status: Ordered albuterol 0.083% inhalation solution 3 mL = 2.5 mg, Inhalation, Every 6 hours, PRN for wheezing/shortness of breath, # 360 mL, 11 Refills, Maintenance, 06/13/22 14:09:00 EST, Solution, [facility] #[id number], Partial fill upon patient request if the prescription is for a schedule II... Start Date: 06/13/22 Status: Ordered amLODIPine 2.5 mg oral tablet 1 tablet = 2.5 mg, By Mouth, Daily, # 90 tablet, 3 Refills, Maintenance, 03/20/22 9:25:00 EDT, Tablet, [facility] #[id number], Partial fill upon patient request if the [...] to [facility] Fax to [facility] [...] 0 Refills, Maintenance, 12/16/21 9:13:00 EDT, Tablet, [facility] #[id number], Partial fill upon patient request if the [...] Gm, 11 Refills, Maintenance, 06/13/22 14:09:00 EST, [place], [facility] #[id number], Partial fill upon patient request if the [...] 02/24/22 16:00:00 EDT, Route to Pharmacy Electronically, [facility] #[id number], Partial fill upon patient request if the prescription is for a schedule II... Start Date: 02/24/22 Status: Ordered Levothyroxine = 300 mcg, By Mouth, Daily, 0 Refills, Maintenance Start Date: 06/29/11 Status: Ordered loratadine 10 mg oral tablet 10 mg, 1, tablet, By Mouth, Daily, # 30 tablet, Refills 11, Tot. Refills 11, Maintenance, 06/13/22 14:09:00 EST, Route to Pharmacy Electronically, [facility] #[id number], Partial fill upon patient request if the prescription is for a schedule II... Start Date: 06/13/22 Status: Ordered metoprolol 50 mg oral tablet, extended release 50 mg, 1, tablet, By Mouth, Daily, # 90 tablet, Refills 3, Tot. Refills 3, Maintenance, 12/16/21 14:24:00 EDT, Route to Pharmacy Electronically, [facility] #[id number], 180, cm, 12/16/21 8:55:00EDT, Height, 117.8, kg, [...] 3 Refills, Maintenance, 01/02/22 16:07:00 EDT, Tablet, [facility] #[id number], 180, cm, 12/16/21 8:55:00 EDT, Height, 117.8, kg, 04/04/21 7:21:00 EDT, Dry Weight Start Date: 01/02/22 Status: Ordered ranolazine 500 mg oral tablet, extended release 1 tablet = 500 mg, By Mouth, 2 times a day, # 180 tablet, 3 Refills, Maintenance, 08/14/22 9:08:00 EDT, ER Tablet, [email or web address] #[id number], Partial fill upon patient request if the prescription is for a schedule II opioid drug., 178, cm, 08/11/22... Start Date: 08/14/22 Status: Ordered Repatha SureClick 140 mg/mL subcutaneous solution = 140 mg, Subcutaneous Infusion, Every 14 days, # 2 each, 11 Refills, Maintenance, 05/03/22 11:32:00 EST, [facility] #[id number], Partial fill upon patient request if the prescription is for a schedule II opioid drug., 178, cm, 03/30/22 16:02:00... Start Date: 05/03/22 Status: Ordered Trelegy Ellipta 200 mcg-62.5 mcg-25 mcg/inh inhalation powder 1 puffs, Inhalation, Daily, at the same time every day, # 1 each, 11 Refills, Maintenance, 06/13/2313:09:00 EST, Powder, [facility] #[id number], Partial fill upon patient request if the [...] Reference Physician Member Role: PCP Address: Address: [address] [place] [address]- Name: Adam Gutiérrez RN Position: Benja RN Supv Member Role: Primary Care Nurse Care Team Related Persons Name: IBIS HOLT Address: home [address] [place] [address]
--- OUTSIDE RECORDS SUMMARY | 2023-12-03 08:17 | XMS_ITS | Continuity of Care Document ---
Author Organization [facility] Address [address] [place] [address]- Care Team Providers Care Chip Silo Tender Name Role Phone Adamaris MARIO, Keyanna Masterson Primary Care Physici an Encounter [facility] [place] Date(s): 08/11/22 - 08/18/22 [facility] [address] [place] [address]- [place] Encounter Diagnosis CAD (coronary artery disease)(Discharge Diagnosis) - 08/11/22 Dyslipidemia(Discharge Diagnosis) - 08/11/22 Ascending aorta dilation(Discharge Diagnosis) - 08/11/22 Attending Physician: Maverick Conner Admitting Physician: Maverick [...] 6.7 Gm, 11 Refills, Maintenance, 06/13/22 14:10:00 [facility], [facility] #[id number], Partial fill upon patient request if the prescription is for a schedule II opioid drug., 2 puf... Start Date: 06/13/22 Status: Ordered albuterol 0.083% inhalation solution 3 mL = 2.5 mg, Inhalation, Every 6 hours, PRN for wheezing/shortness of breath, # 360 mL, 11 Refills, Maintenance, 06/13/22 14:09:00 EST, Solution, [facility] #[id number], Partial fill upon patient request if the prescription is for a schedule II... Start Date: 06/13/22 Status: Ordered amLODIPine 2.5 mg oral tablet 1 tablet = 2.5 mg, By Mouth, Daily, # 90 tablet, 3 Refills, Maintenance, 03/20/22 9:25:00 EDT, Tablet, [facility] #[id number], Partial fill upon patient request if the prescription is for a schedule II opioid drug., 178, cm, 02/24/22 15:32:00 EDT... Start Date: 03/20/22 Stop Date: 03/15/23 Status: Ordered aspirin 81 mg oral tablet 1 tablet = 81 mg, By Mouth, Daily, # 90 tablet, 11 Refills, Maintenance, 12/06/18 13:47:08 EDT, Tablet Start Date: 12/06/18 Stop Date: 11/20/21 Status: Ordered Fax to [facility] Fax to [facility], See Instructions, # 1 each, Refills 11, Tot. Refills 11, Maintenance, CPAP CPAP 8 cm H2O with heated humidification, mask, heated tubing, filters, headgear, chin strap, andwater chamber. Vincenzo provider access to wireless... Start Date: 09/28/20 Status: Ordered fenofibrate 160 mg oral tablet 0.5 tablet = 80 mg, By Mouth, Daily, # 15 tablet, 0 Refills, Maintenance, 12/16/21 9:13:00 EDT, Tablet, [facility] #[id number], Partial fill upon patient request if the [...] Gm, 11 Refills, Maintenance, 06/13/22 14:09:00 EST, [place], [facility] #[id number], Partial fill upon patient request if the [...] 02/24/22 16:00:00 EDT, Route to Pharmacy Electronically, [facility] #[id number], Partial fill upon patient request if the prescription is for a schedule II... Start Date: 02/24/22 Status: Ordered Levothyroxine = 300 mcg, By Mouth, Daily, 0 Refills, Maintenance Start Date: 06/29/11 Status: Ordered loratadine 10 mg oral tablet 10 mg, 1, tablet, By Mouth, Daily, # 30 tablet, Refills 11, Tot. Refills 11, Maintenance, 06/13/22 14:09:00 EST, Route to Pharmacy Electronically, [facility] #[id number], Partial fill upon patient request if the prescription is for a schedule II... Start Date: 06/13/22 Status: Ordered metoprolol 50 mg oral tablet, extended release 50 mg, 1, tablet, By Mouth, Daily, # 90 tablet, Refills 3, Tot. Refills 3, Maintenance, 12/16/21 14:24:00 EDT, Route to Pharmacy Electronically, [facility] #[id number], 180, cm, 12/16/21 8:55:00EDT, Height, 117.8, kg, [...] 3 Refills, Maintenance, 01/02/22 16:07:00 EDT, Tablet, [facility] #[id number], 180, cm, 12/16/21 8:55:00 EDT, Height, 117.8, kg, 04/04/21 7:21:00 EDT, Dry Weight Start Date: 01/02/22 Status: Ordered ranolazine 500 mg oral tablet, extended release 1 tablet = 500 mg, By Mouth, 2 times a day, # 180 tablet, 3 Refills, Maintenance, 08/14/22 9:08:00 EDT, ER Tablet, [facility] #[id number], Partial fill upon patient request if the prescription is for a schedule II opioid drug., 178, cm, 08/11/22... Start Date: 08/14/22 Status: Ordered Repatha SureClick 140 mg/mL subcutaneous solution = 140 mg, Subcutaneous Infusion, Every 14 days, # 2 each, 11 Refills, Maintenance, 05/03/22 11:32:00 EST, [facility] #[id number], Partial fill upon patient request if the prescription is for a schedule II opioid drug., 178, cm, 03/30/22 16:02:00... Start Date: 05/03/22 Status: Ordered Trelegy Ellipta 200 mcg-62.5 mcg-25 mcg/inh inhalation powder 1 puffs, Inhalation, Daily, at the same time every day, # 1 each, 11 Refills, Maintenance, 06/13/2313:09:00 EST, Powder, [facility] #[id number], Partial fill upon patient request if the [...] Informant CAD (coronary artery disease) Discharge Diagnosis 08/11/22 Dyslipidemia Discharge Diagnosis 08/11/22 Ascending aorta dilation Discharge Diagnosis 08/11/22 Vital Signs Most recent to oldest [Reference Range]: 1 Height 178 cm (08/11/22 1:35 PM) Weight 127 kg (08/11/22 1:35 PM) Oxygen Saturation [94-100 %] 95 % (08/11/22 1:35 PM) Pulse Rate [55-90 bpm] 62 bpm (08/11/22 1:35 PM) Body Mass Index [18.5-24.99 kg/m2] 40.08 kg/m2 *>HHI* (08/11/22 1:35 PM) Blood Pressure [90-138/55-84 mm Hg] 117/ 68mm Hg (08/11/22 1:35 PM) Mode of Delivery (Oxygen) Room air (08/11/22 1:35 PM) Blood pressure sites Arm, left (08/11/22 1:35 PM) Weight Obtained Via Standing scale (08/11/22 1:35 PM) Social History Social History Type Response Smoking Status Former smoker; Other : quit 1990; entered on: 06/14/17 Sex Cardiology Outpatient Note * Maverick Conner: PERFORM Event Display: Cardiology Note Office Authored Date: [id number] Patient: ??NICK VALADEZ ? Age:??61 Years?Sex:??Male?:??1960?? Patient Hx Cardiology Shared Clinical Summary [...] 04, 2018. ??Found to have non-ST elevation UT and had another cardiac catheterization on December [...] on Repatha.??Previously seen by Dr. Smiley in [place] regarding his hypertriglyceridemia.?He is on Lovaza 2 grams BID, fenofibrate (Tricor) 145 mg once daily. A oral glucose tolerance test does notshow evidence of DM.? 4.?? Ascending aorta dilatation History of Present Illness/Interval History Mr. Valadez is returning today for routine follow up.?? He reports feeling??better than the last time??we met 5 months ago.?? He feels that the residual effects of his prior COVID infection are improving. ??He states that his??primary care provider as well as his house player??feel that he is suffer ing from long COVID symptoms.?? He is using??an inhaler??with good improvement of his symptoms. ??He is also starting??pulmonary rehab??very soon which should hopefully make him feel??better as well.?? Since his??last follow-up with us, he has??started regular exercise by using a recumbent bike forhalf hour and??another half hour of weight training a couple times a week. ??He denies any exertional??chest pain, but does have some shortness of breath with exercise which is??improved with his inhaler use.?? He has occasional lightheadedness and dizziness which is attributed to his breathing, but otherwise is not an issue for him. ??He denies palpitations, orthopnea, PND, or lower extremity edema. ?? He is??planning on undergoing endoscopy and colonoscopy for further GI evaluation of??chest painand burning??in the setting of??GERD and dysphagia. ?? Review of Systems General: No generalized fatigue, weight stable, no fever or chills HEENT: No headache, change in vision, sore throat or difficulty swallowing. CV: see HPI Pulmonary: No productive or nonproductive cough. GI: no abdominal pain, constipation or diarrhea, no hematochezia : no urinary frequency, burning on urination or hematuria Physical Exam Vitals & Measurements NJ:??62?? BP:??117/68?? SpO2:??95%?? HT:??178??cm?? WT:??127??kg?? BMI:??40.08?? Weight lb/oz: 279 lb 16 oz Constitutional: Alert, in no distress. HEENT: Sclerae anicteric, mucous membranes moist Respiratory: Clear to auscultation. No wheezing, rales or rhonchi. Cardiovascular: Regular rate and rhythm, S1 S2. No murmurs, rubs, gallops. Skin: No rashes or lesions. No petechiae or purpura.?? Extremities: Warm, no edema. No cyanosis or clubbing. Psychiatric: Normal mood and affect?? Assessment/Plan 1.??CAD (coronary artery disease) -Complex coronary disease as above on DAPT with Prasugrel.?? Last cardiac catheterization from January 2022 did not show any??evidence of obstructive coronary artery disease.?? Echocardiogram was repeated last Fall showing preserved EF, mildly dilated LV, and moderate concentric LVH. He did find some improvement in his dyspnea with the addition of low dose Lasix. -His prior complaints of chest pain have resolved now, which is great to hear today.?? He does continue to have??dyspnea on exertion, but this is??well managed with??rescue inhaler.?He was commended on the recent exercise routine he started.?? He has no exertional chest pain. -Continue DAPT in the form of ASA+prasugrel. Continue metoprolol succinate 50mg daily, ranolazine 500mg BID,??as well as lipid regimen as below. -He has plans for EGD and colonoscopy for dysphagia and GERD coming up in the near future.?? He does not need further cardiac testing prior to these procedures, although he carries an elevated risk for any procedures given his complex CAD. However, he has appropriate functional capacity as described above without chest pain.?? Preserved EF and recent catheterization does not show any obstructive or ischemic coronary pathology. He is ok to hold prasugrel 5-7 days prior to his EGD/colonoscopy andrestarting as soon as it is deemed safe by the classics teacher. Would continue ASA for procedures. Ordered: Echo Complete ?? 2.??Dyslipidemia Particularly high triglycerides maintained on Repatha, fenofibrate and Lovaza 2g BID. Continue as is. Ordered: Echo Complete ?? 3.??Ascending aorta dilation Echocardiogram 03/2022 showing aortic root measuring 4.4cm and ascending aorta measuring 4.1cm. Will repeat echocardiogram in 6 months prior to next follow up for surveillance. Ordered: Echo Complete ?? Orders: ranolazine, 1 tablet = 500 mg, By Mouth, 2 times a day, # 180 tablet, 3 Refills, Maintenance, 08/11/22 13:41:00 EST, ER Tablet, [facility]acy #[id number], Partial fill upon patient request if the prescription is for a schedule II opioid drug., 178, cm, 08/11/22 13:35:00... ?? Follow up in 6 months or sooner with concerns. Problem List/Past Medical History Ongoing Benign essential hypertension CAD (coronary artery disease) Dyslipidemia Severe obesity Historical Obese class II Severe obesity (BMI 35.0-39.9) with comorbidity Procedure/Surgical History PCI - Percutaneous coronary intervention: 01/26/20 Home Medications Albuterol, 2 puffs, By Mouth, [...] 1 tablet, By Mouth, Daily, 11 refills Fax to [facility], See Instructions, 11 refills, CPAP CPAP 8 cm H2O with heated humidification, mask, heated tubing, filters, headgear, chin strap, and water chamber. Vincenzo provider access towireless compliance data Length of need: Lifetime 99 months Diagnosis: RADHA fenofibrate 160 mg oral tablet, 80 mg= 0.5 tablet, By Mouth, Daily Fish Oil 1000 mg oral capsule, 1000 mg= 1 capsule, By Mouth, 2 times a day Flonase 50 mcg/inh nasal spray, 1 sprays, Nares, Both, 2 times a day, 11 refills fluoxetine 20 mg oral tablet, 20 mg= 1 tablet, By Mouth, Daily Lasix 20 mg oral tablet, 20 mg= 1 tablet, By Mouth, Daily, 11 refills,?Still taking, not as prescribed: Takes as needed Levothyroxine, 300 mcg, By Mouth, Daily loratadine 10 mg oral tablet, 10 mg= 1 tablet, By Mouth, Daily, 11 refills metoprolol 50 mg oral tablet, extended release, 50 mg= 1 tablet, By Mouth, Daily, 3 refills Nebulizer/Compressor, See Instructions, 11 refills, E0570 Nebulizer A7003 Neb Disp Set A7014 Neb non-Disp Filter A7005 Neb Non-Disp set A7015 Aerosol Mask A7013 Neb Disp Filter length of need lifetime 99 months for home use nitroglycerin 0.4 mg sublingual tablet, 0.4 mg= 1 tablet, Sublingual, Every 5 minutes, PRN, 1 refills prasugrel 10 mg oral tablet, 10 mg= 1 tablet, By Mouth, Daily, 3 refills ranolazine 500 mg oral tablet, extended release, 500 mg= 1 tablet, By Mouth, 2 times a day, 3 refills Repatha SureClick 140 mg/mL subcutaneous solution, 140 mg, Subcutaneous Infusion, Every 14 days, 11refills Trelegy Ellipta 200 mcg-62.5 mcg-25 mcg/inh inhalation powder, 1 puffs, Inhalation, Daily, 11 refills, at the same time every day Vitamin B Complex oral tablet, extended release, By Mouth, Daily Lab Results Cardiology Labs WBC: 5.6 k/mm3 (01/23/22) RBC: 5.12 m/mm3 (01/23/22) Hgb: 14.9 Gm/dL (01/23/22) Hct: 44.8 % (01/23/22) MCV: 87.5 femtoliters (01/23/22) MCH: 29.1 pg (01/23/22) MCHC: 33.3 g/dL (01/23/22) Platelet Count: 291 k/mm3 (01/23/22) RDW-SD: 40.2 femtoliters (01/23/22) Nucleated RBC (Automated): 0 #/100 WBC'S (01/23/22) Sodium: 142 mmol/L (03/21/22) Potassium: 4.3 mmol/L (03/21/22) Chloride: 104 mmol/L (03/21/22) Bicarbonate Level: 27 mmol/L (03/21/22) Glucose Level: 83 mg/dL (03/21/22) Hemoglobin A1C (Monitoring): 5.2 % (01/23/22) BUN: 22 mg/dL (03/21/22) Creatinine-Blood: 1.2 mg/dL (03/21/22) Calcium: 9.3 mg/dL (03/21/22) Cholesterol: 121 mg/dL (09/15/21) Triglycerides:??246 mg/dL??High (09/15/21) HDL Cholesterol:??38 mg/dL??Low (09/15/21) LDL Cholesterol: 34 mg/dL (09/15/21) Non HDL Cholesterol: 83 mg/dL (09/15/21) Diagnostic Impression CT CT Angio Abdomen and Pelvis ?? 17:53:02 IMPRESSION: ?? Normal CT angiogram of the chest, abdomen, and pelvis. ? WSN: [id number] ?? Signed By: Leonardo BARRAGAN, Jesús Alba ECG ECG 12-Lead ?? 07:06:26 Ventricular Rate: 58 BPM Atrial Rate: 58 BPM P-R Interval: 182 ms QRS Duration: 98 ms Q-T Interval: 472 ms QTC Calculation(Bazett): 463 ms P Kent: 16 degrees R Kent: -13 degrees T Kent: -18 degrees Sinus bradycardia Inferior infarct (cited on or before 04-DEC-2018) Abnormal ECG When compared with ECG of 16-DEC-2021 08:52, NJ interval has decreased Confirmed by JASWANT JACOB ([id number]) on 01/23/2022 10:45:37 AM ?? [place]: JASWANT JACOB ?? Signed By: Jaswant Jacob MD ?? ECG 12-Lead ?? 07:06:26 Please click on pdf link to open report ?? Signed By: Jaswant Jacob MD Stress Test NM Myocard Perf SPECT Multi ?? 07:26:58 Summary 1. Myocardial perfusion imaging following exercise stress testing on Anthony protocol with average functional capacity is probably normal. There is a mild small fixed defect over the distal inferior and apical segments, with normal wall thickening, possibly due to artifact versus small prior infarct. No reversible perfusion defects at the heart rate achieved. 2. LV function is hyperdynamic with an E.F. of >70% at rest and with stress with normal wall motion and thickening. 3. EKG portion of the stress test is reported separately. ?? Signatures _ _ ?? Signed By: Xavier hZong MD Echo Echocardiogram - Complete ?? 13:41:36 Summary Technically difficult study. The left ventricle is mildly dilated. The left ventricular wall thickness is increased. There is mild to moderate concentric left ventricular hypertrophy. The left ventricular ejection fraction is 50-55 %. Cannot assess regional wall motion abnormalities. The left atrium is mildly to moderately dilated. There is mild dilation of the aortic root and ascending aorta . The right atrium is mildly dilated. No significant valvular dysfunction within the limits of the study. ?? Comparison Comparison is made to the study of December 05, 2018. Technically difficult study. There is mild increase in aortic root size from 4.1 cm to 4.4 cm with stable ascending aortic size at 4.1 cm. ?? Signature ?? Signed By: Contributor_systemGreentoe Cardiac Cath Procedure Cardiac Cath Procedure ?? [...] inhibitor therapy. He should follow-up with Dr. Jacob as an outpatient. ?? ACC Diagnostic Recommendations: Medical therapy and/or counseling. ?? Signatures ?? Signed By: Rhett Lopes MD Patient Care team information Care Team Personnel Name: Rhoda Ansari RN Position: CARYN MUNOZ RN Member Role: Primary Care Nurse Name: Keyanna Bailon NP Position: Reference Physician Member Role: PCP Address: Address: [address] [place] [address]- Name: Adam Gutiérrez RN Position: CARYN RESTREPO Supv Member Role: Primary Care Nurse Care Team Related Persons Name: IBIS HOLT Address: home [address] [place] [address]
--- OUTSIDE RECORDS SUMMARY | 2023-12-03 08:17 | XMS_ITS | Continuity of Care Document ---
Author Organization [facility] Address [address] [place] [address]- Care Team Providers Care Poured Wall Foreman Name Role Phone Willie Carrion MD Primary Care Physician [phone] [place]counter [facility] [place](s): 03/31/20 - 07/29/20 [facility] [address] [place] [address]- Attending Physician: Jada MARIO, Phuong Admitting Physician: Jada MARIO, Phuong Referring Physician: Willie Carrion MD Allergies, Adverse [...] 03/26/20 11:01:00 EDT, Route to Pharmacy Electronically, [facility] #[id number], 180, cm, 03/26/20 10:34:00EDT, Height, 122.3, kg, [...] 3 Refills, Maintenance, 01/27/20 8:43:00 EDT, Tablet, [facility], 180, cm, 01/27/20 7:17:00 EDT, Height, 122.3, kg, 12/05/18 4:00:00 EDT,Dry Weight Start Date: 01/27/20 Status: Ordered Spiriva Respimat 1.25 mcg/inh inhalation aerosol 2 puffs, Inhalation, Daily, # 4 Gm, 11 Refills, Maintenance, 03/08/20 14:55:00 EDT, Aerosol, [facility] #[id number], 180, cm, 03/08/20 14:38:00 EDT, Height, 122.3, [...]
--- OUTSIDE RECORDS SUMMARY | 2023-12-03 08:17 | XMS_ITS | Continuity of Care Document ---
Author Organization [facility] Address [address] [address]- Care Team Providers Care Field Technical Assistant Name Role Phone Sheyla BARRAGAN, Willie Rogers Primary Care Physician [place] [facility] [place] - 01/[place]/22 [facility] [address] [address]- [place] Allergies, Adverse Reactions, Alerts Substance Reaction [...] 3 Refills, Maintenance, 09/02/21 8:52:00 EDT, Tablet, [facility] #[id number], Partial fill upon patient request if the prescription is for a schedule II opioid drug., 180, cm, 09/02/21 8:46:00 EDT,... Start Date: 09/02/21 Stop Date: 08/28/22 Status: Ordered aspirin 81 mg oral tablet 1 tablet = 81 mg, By Mouth, Daily, # 90 tablet, 11 Refills, Maintenance, 12/06/18 13:47:08 EDT, Tablet Start Date: 12/06/18 Stop Date: 11/20/21 Status: Ordered Fax to [facility] Fax to [facility], See Instructions, # 1 [...] 0 Refills, Maintenance, 12/16/21 9:13:00 EDT, Tablet, [facility] #[id number], Partial fill upon patient request if the [...] 12/16/21 14:24:00 EDT, Route to Pharmacy Electronically, [facility] #[id number], 180, cm, 12/16/21 8:55:00EDT, Height, 117.8, kg, [...] 3 Refills, Maintenance, 01/02/22 16:07:00 EDT, Tablet, [facility] #[id number], 180, cm, 12/16/21 8:55:00 EDT, Height, 117.8, kg, 04/04/21 7:21:00 EDT, Dry Weight Start Date: 01/02/22 Status: Ordered ranolazine 500 mg oral tablet, extended release 1 tablet = 500 mg, By Mouth, 2 times a day, # 120 tablet, 3 Refills, Maintenance, 12/08/21 16:50:00EDT, ER Tablet, [facility] #[id number], Partial fill upon patient request if the prescription is for a schedule II opioid drug., 180, cm, 09/05/21... Start Date: 12/08/21 Status: Ordered Repatha SureClick 140 mg/mL subcutaneous solution = 140 mg, Subcutaneous Infusion, Every 14 days, # 2 each, 11 Refills, Maintenance, 06/16/21 16:33:00 EST, [facility] #[id number], Partial fill upon patient request if the prescription is for a schedule II opioid drug., 180, cm, 04/06/21 16:24:00... Start Date: 06/16/21 Status: Ordered Symbicort 160mcg/4.5mcg Inhaler 2, puffs, Inhalation, 2 times a day, No substitutions, # 1 each, Refills 5, Tot. Refills 5, Maintenance, 12/13/21 12:33:00 EDT, Inhaler, Route to Pharmacy Electronically, [id number], [facility] #[id number], 180, cm, 0... Start Date: 12/13/21 Status: Ordered Problem List Condition Effective Dates Status Health Status Inform ant Benign essential hypertension(Confirmed) Active CAD (coronary artery disease)(Confirmed) Active Dyslipidemia(Confirmed) Active Obese class II(Confirmed) Active Social History Social History Type Response Smoking Status Former smoker; Other : quit 1990; entered on: 06/14/17 Sex
--- OUTSIDE RECORDS SUMMARY | 2023-12-03 08:17 | XMS_ITS | Continuity of Care Document ---
Author Organization [facility] Address [address] [place] [address]- Care Team Providers Care Livestock Yard Attendant Name Role Phone Adamaris MARIO, Keyanna Aleja Primary Care Physici an Encounter [facility] [place] Date(s): 03/30/22 - 04/29/22 [facility] [place] [address] [place] [address]- Attending Physician: Joycelyn Hennessy Admitting Physician: AdmtrJoycelyn Referring Physician: Admtr ArJl Allergies, Adverse Reactions, Alerts Substance Reaction Severity [...] 3 Refills, Maintenance, 03/20/22 9:25:00 EDT, Tablet, [facility] #[id number], Partial fill upon patient request if the [...] [facility], See Instructions, # 1 [...] 0 Refills, Maintenance, 12/16/21 9:13:00 EDT, Tablet, [facility] #[id number], Partial fill upon patient request if the [...] 02/24/22 16:00:00 EDT, Route to Pharmacy Electronically, [facility] #[id number], Partial fill upon patient request if the prescription is for a schedule II... Start Date: 02/24/22 Status: Ordered Levothyroxine = 300 mcg, By Mouth, Daily, 0 Refills, Maintenance Start Date: 06/29/11 Status: Ordered metoprolol 50 mg oral tablet, extended release 50 mg, 1, tablet, By Mouth, Daily, # 90 tablet, Refills 3, Tot. Refills 3, Maintenance, 12/16/21 14:24:00 EDT, Route to Pharmacy Electronically, [facility] #[id number], 180, cm, 12/16/21 8:55:00EDT, Height, 117.8, kg, [...] 3 Refills, Maintenance, 01/02/22 16:07:00 EDT, Tablet, [facility] #[id number], 180, cm, 12/16/21 8:55:00 EDT, Height, 117.8, kg, 04/04/21 7:21:00 EDT, Dry Weight Start Date: 01/02/22 Status: Ordered ranolazine 500 mg oral tablet, extended release 1 tablet = 500 mg, By Mouth, 2 times a day, # 120 tablet, 3 Refills, Maintenance, 12/08/21 16:50:00EDT, ER Tablet, [facility] #[id number], Partial fill upon patient request if the prescription is for a schedule II opioid drug., 180, cm, 09/05/21... Start Date: 12/08/21 Status: Ordered Repatha SureClick 140 mg/mL subcutaneous solution = 140 mg, Subcutaneous Infusion, Every 14 days, # 2 each, 11 Refills, Maintenance, 06/16/21 16:33:00 EST, [facility] #[id number], Partial fill upon patient request if the prescription is for a schedule II opioid drug., 180, cm, 04/06/21 16:24:00... Start Date: 06/16/21 Status: Ordered Symbicort 160mcg/4.5mcg Inhaler 2, puffs, Inhalation, 2 times a day, No substitutions, # 1 each, Refills 5, Tot. Refills 5, Maintenance, 12/13/21 12:33:00 EDT, Inhaler, Route to Pharmacy Electronically, [id number], [facility] #[id number], 180, cm, 040... Start Date: 12/13/21 Status: [...] Reference Physician Member Role: PCP Address: Address: [address] [place] [address]- Name: Adam Gutiérrez RN Position: S RN Supv Member Role: Primary Care Nurse Care Team Related Persons Name: IBIS HOLT Address: home [address] [place] [address]
--- OUTSIDE RECORDS SUMMARY | 2023-12-03 08:17 | XMS_ITS | Continuity of Care Document ---
Author Organization [facility] Address [address] [address]- Care Team Providers Care Lacing String Cutter Name Role Phone Willie Carrion MD Primary Care Physician [phone] Encounter [facility] [place] [facility] [id number] Date(s): 03/09/20 - 04/08/20 [facility] [address] [address]- Attending Physician: Joycelyn Hennessy Admitting Physician: Admtr, Joycelyn Referring Physician: Admtr, [...] 03/26/20 11:01:00 EDT, Route to Pharmacy Electronically, [facility] #[id number], 180, cm, 03/26/20 10:34:00EDT, Height, 122.3, kg, [...] 3 Refills, Maintenance, 01/27/20 8:43:00 EDT, Tablet, [facility], 180, cm, 01/27/20 7:17:00 EDT, Height, 122.3, kg, 12/05/18 4:00:00 EDT,Dry Weight Start Date: 01/27/20 Status: Ordered Spiriva Respimat 1.25 mcg/inh inhalation aerosol 2 puffs, Inhalation, Daily, # 4 Gm, 11 Refills, Maintenance, 03/08/20 14:55:00 EDT, Aerosol, [facility] #[id number], 180, cm, 03/08/20 14:38:00 EDT, Height, 122.3, kg, 12/05/18 4:00:00 EDT, Dry Weight Start Date: 03/08/20 Status: Ordered Symbicort 160mcg/4.5mcg Inhaler 2, puffs, Inhalation, 2 times a day, Refills 0, Maintenance, 04/03/18 15:12:55 EDT Start Date: 09/04/17 Status: Ordered Problem List Condition Effective Dates Status Health Status Inform ant Benign essential hypertension(Confirmed) Active CAD (coronary artery disease)(Confirmed) Active Dyslipidemia(Confirmed) Active Social History Social History Type Response Smoking Status Former smoker; Other : quit 1990; entered on: 06/14/17 Sex
--- OUTSIDE RECORDS SUMMARY | 2023-12-03 08:17 | XMS_ITS | Continuity of Care Document ---
Author Organization [facility] Address [address] [place] [address]- Care Team Providers Care Straightedge Worker Name Role Phone Willie Carrion MD Primary Care Physician [place] [facility] [place](s): 06/29/20 - 07/29/20 [facility] [place] [address] [place] [address]- Attending Physician: Joycelyn Hennessy Admitting Physician: AdmtrJoycelyn [...] 03/26/20 11:01:00 EDT, Route to Pharmacy Electronically, [facility] #[id number], 180, cm, 03/26/20 10:34:00EDT, Height, 122.3, kg, [...] 3 Refills, Maintenance, 01/27/20 8:43:00 EDT, Tablet, [facility] 3, 180, cm, 01/27/20 7:17:00 EDT, Height, 122.3, kg, 12/05/18 4:00:00 EDT,Dry Weight Start Date: 01/27/20 Status: Ordered Spiriva Respimat 1.25 mcg/inh inhalation aerosol 2 puffs, Inhalation, Daily, # 4 Gm, 11 Refills, Maintenance, 03/08/20 14:55:00 EDT, Aerosol, [facility][id number], 180, cm, 03/08/20 14:38:00 EDT, Height, 122.3, [...]
--- OUTSIDE RECORDS SUMMARY | 2023-12-03 08:17 | XMS_ITS | Continuity of Care Document ---
Author Organization [facility] [place] [address] [address]- Care Team Providers Care General Store Manager Name Role Phone Adamaris MARIO, Keyanna Aleja Primary Care Physici an Encounter [facility] Date(s): 08/14/22 - 09/13/22 [facility] [address] [address]- [place] Allergies, Adverse Reactions, Alerts Substance Reaction [...] 6.7 Gm, 11 Refills, Maintenance, 06/13/22 14:10:[id number], Partial fill upon patient request if the prescription is for a schedule II opioid drug., 2 puf... Start Date: 06/13/22 Status: Ordered albuterol 0.083% inhalation solution 3 mL = 2.5 mg, Inhalation, Every 6 hours, PRN for wheezing/shortness of breath, # 360 mL, 11 Refills, Maintenance, 06/13/22 14:09:00 EST, [facility] #[id number], Partial fill upon patient request if the prescription is for a schedule II... Start Date: 06/13/22 Status: Ordered amLODIPine 2.5 mg oral tablet 1 tablet = 2.5 mg, By Mouth, Daily, # 90 tablet, 3 Refills, Maintenance, 03/20/22 9:25:00 EDT, Tablet, [facility] #[id number], Partial fill upon patient request if the prescription is for a schedule II opioid drug., 178, cm, 02/24/22 15:32:00 EDT... Start Date: 03/20/22 Stop Date: 03/15/23 Status: Ordered aspirin 81 mg oral tablet 1 tablet = 81 mg, By Mouth, Daily, # 90 tablet, 11 Refills, Maintenance, 12/06/18 13:47:08 EDT, Tablet Start Date: 12/06/18 Stop Date: 11/20/21 Status: Ordered Fax to [facility] Fax to [facility], See Instructions, # 1 each, Refills 11, Tot. Refills 11, Maintenance, CPAP CPAP 8 cm H2O with heated humidification, mask, heated tubing, filters, headgear, chin strap, andwater chamber. [facility] provider access to wireless... Start Date: 09/28/20 Status: Ordered fenofibrate 160 mg oral tablet 0.5 tablet = 80 mg, By Mouth, Daily, # 15 tablet, 0 Refills, Maintenance, 12/16/21 9:13:00 EDT, Tablet, [facility] #[id number], Partial fill upon patient request if the [...] Gm, 11 Refills, Maintenance, 06/13/22 14:09:00 EST, [place], [facility] #[id number], Partial fill upon patient request if the [...] 02/24/22 16:00:00 EDT, Route to Pharmacy Electronically, [facility] #[id number], Partial fill upon patient request if the prescription is for a schedule II... Start Date: 02/24/22 Status: Ordered Levothyroxine = 300 mcg, By Mouth, Daily, 0 Refills, Maintenance Start Date: 06/29/11 Status: Ordered loratadine 10 mg oral tablet 10 mg, 1, tablet, By Mouth, Daily, # 30 tablet, Refills 11, Tot. Refills 11, Maintenance, 06/13/22 14:09:00 EST, Route to Pharmacy Electronically, [facility] #[id number], Partial fill upon patient request if the prescription is for a schedule II... Start Date: 06/13/22 Status: Ordered metoprolol 50 mg oral tablet, extended release 50 mg, 1, tablet, By Mouth, Daily, # 90 tablet, Refills 3, Tot. Refills 3, Maintenance, 12/16/21 14:24:00 EDT, Route to Pharmacy Electronically, [facility] #[id number], 180, cm, 12/16/21 8:55:00EDT, Height, 117.8, kg, [...] 3 Refills, Maintenance, 01/02/22 16:07:00 EDT, Tablet, [facility] #[id number], 180, cm, 12/16/21 8:55:00 EDT, Height, 117.8, kg, 04/04/21 7:21:00 EDT, Dry Weight Start Date: 01/02/22 Status: Ordered ranolazine 500 mg oral tablet, extended release 1 tablet = 500 mg, By Mouth, 2 times a day, # 180 tablet, 3 Refills, Maintenance, 08/14/22 9:08:00 EDT, ER Tablet, [facility] #[id number], Partial fill upon patient request if the prescription is for a schedule II opioid drug., 178, cm, 08/11/22... Start Date: 08/14/22 Status: Ordered Repatha SureClick 140 mg/mL subcutaneous solution = 140 mg, Subcutaneous Infusion, Every 14 days, # 2 each, 11 Refills, Maintenance, 05/03/22 11:32:00 EST, [facility] #[id number], Partial fill upon patient request if the prescription is for a schedule II opioid drug., 178, cm, 03/30/22 16:02:00... Start Date: 05/03/22 Status: Ordered Trelegy Ellipta 200 mcg-62.5 mcg-25 mcg/inh inhalation powder 1 puffs, Inhalation, Daily, at the same time every day, # 1 each, 11 Refills, Maintenance, 06/13/2313:09:00 EST, Powder, [facility] #[id number], Partial fill upon patient request if the [...] Physician Member Role: PCP Address: Address: [address] [place] [address] Name: Adam Gutiérrez RN Position: S RN Supv Member Role: Primary Care Nurse Care Team Related Persons Name: IBIS HOLT Address: home [address] [place] [address]
--- OUTSIDE RECORDS SUMMARY | 2023-12-03 08:17 | XMS_ITS | Continuity of Care Document ---
Author Organization [facility] Address [address] [place] [address]- Care Team Providers Care Gettering Operator Name Role Phone Adamaris MARIO, Keyanna Aleja Primary Care Physici an Encounter [facility] Date(s): 07/12/23 - 08/11/23 [facility] [address] [place] [address]- Attending Physician: Admjosé manuel, Joycelyn Admitting Physician: AdmtrJoycelyn Referring Physician: Admtr, Ar8 [...] 6.7 Gm, 11 Refills, Maintenance, 06/13/22 14:10:00 [facility] #[id number], Partial fill upon patient request if the prescription is for a schedule II opioid drug., 2 puf... Start Date: 06/13/22 Status: Ordered albuterol 0.083% inhalation solution 3 mL = 2.5 mg, Inhalation, Every 6 hours, PRN for wheezing/shortness of breath, # 360 mL, 11 Refills, Maintenance, 06/13/22 14:09:00 EST, Solution, [facility] #[id number], Partial fill upon patient request if the [...] Start Date: 07/12/23 Status: Ordered Fax to [facility] Fax to [facility], See Instructions, # 1 each, Refills 11, Tot. Refills 11, Maintenance, CPAP CPAP 8 cm H2O with heated humidification, mask, heated tubing, filters, headgear, chin strap, andwater chamber. [facility] provider access to wireless... Start Date: 09/28/20 Status: Ordered fenofibrate 160 mg oral tablet 0.5 tablet = 80 mg, By Mouth, Daily, # 15 tablet, 0 Refills, Maintenance, 12/16/21 9:13:00 EDT, Tablet, [facility] #[id number], Partial fill upon patient request if the [...] each, 5 Refills, Maintenance, 04/05/23 11:45:00 EDT, [facility]/pharmacy #[id number], Partial fill upon patient request [...] Refills, Maintenance, 11/08/22 16:40:00 EDT, REC Powder, [facility]/pharmacy #[id number], Ok to... Start Date: 11/08/22 Status: Ordered Lasix 20 mg oral tablet 20 mg, 1, tablet, By Mouth, Daily, # 30 tablet, Refills 11, Tot. Refills 11, Maintenance, 02/24/22 16:00:00 EDT, Route to Pharmacy Electronically, [facility] #[id number], Partial fill upon patient request if the prescription is for a schedule II... Start Date: 02/24/22 Status: Ordered Levothyroxine = 300 mcg, By Mouth, Daily, 0 Refills, Maintenance Start Date: 06/29/11 Status: Ordered loratadine 10 mg oral tablet 10 mg, 1, tablet, By Mouth, Daily, # 30 tablet, Refills 11, Tot. Refills 11, Maintenance, 05/10/23 10:46:00 EST, Route to Pharmacy Electronically, [facility]/pharmacy #[id number], Partial fill upon patient request if the prescription is for a schedule II opioid dr... Start Date: 05/10/23 Status: Ordered metoprolol 50 mg oral tablet, extended release 50 mg, 1, tablet, By Mouth, Daily, # 90 tablet, Refills 3, Tot. Refills 3, Maintenance, 10/31/22 9:28:00 EDT, Route to Pharmacy Electronically, [facility]/pharmacy #[id number], 178, cm, 10/18/22 9:47:00 [...] 3 Refills, Maintenance, 02/06/23 8:36:00 EDT, Tablet, [facility]/pharmacy #[id number], 180.34, cm, 11/22/22 7:21:00 EDT, [...] Refills, Maintenance, 03/13/23 9:33:00 EDT, ER Tablet, [facility]/pharmacy #[id number], Partial fill upon patient request if the prescription is for a schedule II opioid drug., 180.34, cm, 11/22/22 7:21:0... Start Date: 03/13/23 Status: Ordered Repatha SureClick 140 mg/mL subcutaneous solution = 140 mg, Subcutaneous Infusion, Every 14 days, # 2 each, 11 Refills, Maintenance, 06/12/23 12:51:00 EST, [facility]/pharmacy #[id number], Partial fill upon patient request [...] Reference Physician Member Role: PCP Address: Address: [address] [place] [address]- Name: Adam Gutiérrez RN Position: Benja RN Supv Member Role: Primary Care Nurse Care Team Related Persons Name: IBIS HOLT Address: home [address] [place] [address]
--- OUTSIDE RECORDS SUMMARY | 2023-12-03 08:17 | XMS_ITS | Continuity of Care Document ---
Author Organization [facility] Address [address] [place] [address]- Care Team Providers Care Polisher Eyeglass Frames Name Role Phone Adamaris MARIO, Keyanna Masterson Primary Care Physici an [place] [facility] [place] - 03/18[place]22 [facility] [place] [address] [place] [address]- [place] Allergies, Adverse Reactions, Alerts Substance Reaction [...] 3 Refills, Maintenance, 09/02/21 8:52:00 EDT, Tablet, [facility] #[id number], Partial fill upon patient request if the prescription is for a schedule II opioid drug., 180, cm, 09/02/21 8:46:00 EDT,... Start Date: 09/02/21 Stop Date: 08/28/22 Status: Ordered aspirin 81 mg oral tablet 1 tablet = 81 mg, By Mouth, Daily, # 90 tablet, 11 Refills, Maintenance, 12/06/18 13:47:08 EDT, Tablet Start Date: 12/06/18 Stop Date: 11/20/21 Status: Ordered [facility]ax to [facility] Fax to [facility], See Instructions, [...] 0 Refills, Maintenance, 12/16/21 9:13:00 EDT, Tablet, [facility] #[id number], Partial fill upon patient request if the [...] 02/24/22 16:00:00 EDT, Route to Pharmacy Electronically, [facility] #[id number], Partial fill upon patient request if the prescription is for a schedule II... Start Date: 02/24/22 Status: Ordered Levothyroxine = 300 mcg, By Mouth, Daily, 0 Refills, Maintenance Start Date: 06/29/11 Status: Ordered metoprolol 50 mg oral tablet, extended release 50 mg, 1, tablet, By Mouth, Daily, # 90 tablet, Refills 3, Tot. Refills 3, Maintenance, 12/16/21 14:24:00 EDT, Route to Pharmacy Electronically, [facility] #[id number], 180, cm, 12/16/21 8:55:00EDT, Height, 117.8, kg, [...] 3 Refills, Maintenance, 01/02/22 16:07:00 EDT, Tablet, [facility] #[id number], 180, cm, 12/16/21 8:55:00 EDT, Height, 117.8, kg, 04/04/21 7:21:00 EDT, Dry Weight Start Date: 01/02/22 Status: Ordered ranolazine 500 mg oral tablet, extended release 1 tablet = 500 mg, By Mouth, 2 times a day, # 120 tablet, 3 Refills, Maintenance, 12/08/21 16:50:00EDT, ER Tablet, [facility] #[id number], Partial fill upon patient request if the prescription is for a schedule II opioid drug., 180, cm, 09/05/21... Start Date: 12/08/21 Status: Ordered Repatha SureClick 140 mg/mL subcutaneous solution = 140 mg, Subcutaneous Infusion, Every 14 days, # 2 each, 11 Refills, Maintenance, 06/16/21 16:33:00 EST, [facility] #[id number], Partial fill upon patient request if the prescription is for a schedule II opioid drug., 180, cm, 04/06/21 16:24:00... Start Date: 06/16/21 Status: Ordered Symbicort 160mcg/4.5mcg Inhaler 2, puffs, Inhalation, 2 times a day, No substitutions, # 1 each, Refills 5, Tot. Refills 5, Maintenance, 12/13/21 12:33:00 EDT, Inhaler, Route to Pharmacy Electronically, [id number], [facility] #[id number], 180, cm, 04/... Start Date: 12/13/21 Status: [...] Personnel Name: Keyanna Bailon NP Address: Address: [address] [place] [address]
--- OUTSIDE RECORDS SUMMARY | 2023-12-03 08:17 | XMS_ITS | Continuity of Care Document ---
Author Organization [facility] Address [address] [facility] 2nd [address] [place] [address]- Care Team Providers Care Senior Staff Accountant Name Role Phone Adamaris MARIO, Keyanna Masterson Primary Care Physici an Encounter [facility] Date(s): 09/07/23 - 09/14/23 [facility] [place] [address] [place] [address]- Attending Physician: Jaswant Jacob MD Admitting Physician: Jaswant Jacob MD Referring Physician: Keyanna Bailon NP Allergies, [...] 6.7 Gm, 11 Refills, Maintenance, 06/13/22 14:10:00 [id number] Partial fill upon patient request if the prescription is for a schedule II opioid drug., 2 puf... Start Date: 06/13/22 Status: Ordered albuterol 0.083% inhalation solution 3 mL = 2.5 mg, Inhalation, Every 6 hours, PRN for wheezing/shortness of breath, # 360 mL, 11 Refills, Maintenance, 06/13/22 14:09:00 EST, Solution, [facility] #[id number], Partial fill upon patient request if the prescription is for a schedule II... Start Date: 06/13/22 Status: Ordered amLODIPine 5 mg oral tablet 1 tablet = 5 mg, By Mouth, Daily, # 90 tablet, 3 Refills, Maintenance, 09/07/23 8:50:00 EDT, Tablet, [facility]/pharmacy #[id number], Partial fill upon patient [...] Start Date: 07/12/23 Status: Ordered [facility] [...] 0 Refills, Maintenance, 12/16/21 9:13:00 EDT, Tablet, [facility] #[id number], Partial fill upon patient request if the [...] each, 5 Refills, Maintenance, 04/05/23 11:45:00 EDT, [facility]/pharmacy #[id number], Partial fill upon patient [...] Refills, Maintenance, 11/08/22 16:40:00 EDT, REC Powder, [facility]/pharmacy #[id number], Ok to... Start Date: 11/08/22 Status: Ordered Lasix 20 mg oral tablet 20 mg, 1, tablet, By Mouth, Daily, # 30 tablet, Refills 11, Tot. Refills 11, Maintenance, 02/24/22 16:00:00 EDT, Route to Pharmacy Electronically, [facility] #[id number], Partial fill upon patient request if the prescription is for a schedule II... Start Date: 02/24/22 Status: Ordered Levothyroxine = 300 mcg, By Mouth, Daily, 0 Refills, Maintenance Start Date: 06/29/11 Status: Ordered loratadine 10 mg oral tablet 10 mg, 1, tablet, By Mouth, Daily, # 30 tablet, Refills 11, Tot. Refills 11, Maintenance, 05/10/23 10:46:00 EST, Route to Pharmacy Electronically, [facility]/pharmacy #[id number], Partial fill upon patient request if the prescription is for a schedule II opioid dr... Start Date: 05/10/23 Status: Ordered metoprolol 50 mg oral tablet, extended release 50 mg, 1, tablet, By Mouth, Daily, # 90 tablet, Refills 3, Tot. Refills 3, Maintenance, 10/31/22 9:28:00 EDT, Route to Pharmacy Electronically, [facility]/pharmacy #[id number], 178, cm, 10/18/22 9:47:00 [...] 3 Refills, Maintenance, 02/06/23 8:36:00 EDT, Tablet, [facility]/pharmacy #[id number], 180.34, cm, 11/22/22 7:21:00 [...] Refills, Maintenance, 03/13/23 9:33:00 EDT, ER Tablet, [facility]/pharmacy #[id number], Partial fill upon patient [...] oldest [Reference Range]: 1 Height 180.34 cm (09/07/23 8:40 AM) Weight 125.3 kg (09/07/23 8:40 AM) Pulse Rate [55-90 bpm] 82 bpm (09/07/23 8:40 AM) Body Mass Index [18.5-24.99 kg/m2] 38.53 kg/m2 *>HHI* (09/07/23 8:40 AM) Blood Pressure [90-138/55-84 mm Hg] 133/ 87mm Hg (09/07/23 8:40 AM) Weight Obtained Via Standing scale (09/07/23 8:40 AM) Social History Social History Type Response Smoking Status Former smoker; Other : quit 1990; entered on: 06/14/17 Sex EKG study * Event Display: ECG 12-Lead Authored Date: [id number] Please click on pdf link to open report * Event Display: ECG 12-Lead Authored Date: Ventricular Rate: 68 BPM Atrial Rate: 68 BPM P-R Interval: 216 ms QRS Duration: 94 ms Q-T Interval: 428 ms QTC Calculation(Bazett): 455 ms P [place]: 3 degrees R [place]: 76 degrees T [place]: 65 degrees Sinus rhythm with 1st degree A-V block with Premature atrial complexes Possible Lateral infarct , age undetermined Abnormal ECG When compared with ECG of 23-JAN-2022 07:06, Premature atrial complexes are now Present ID interval has increased Minimal criteria for Inferior infarct are no longer Present T wave inversion no longer evident in Inferior leads Confirmed by JASWANT JACOB ([id number]) on 09/07/2023 2:15:44 PM [place]: JASWANT JACOB Cardiology Outpatient Note * Jaswant Jacob MD: PERFORM Event Display: Cardiology Note Office Authored Date: Patient: ??NICK VALADEZ ? Age:??62 Years?Sex:??Male?:??1960?? Patient Hx Cardiology Shared Clinical Summary 1. CAD. Status post PCI to the RCA June 2015, AMRLINE to mLAD September 2017, and MARLINE to [...] 04, 2018. ??Found to have non-ST elevation RI and had another cardiac catheterization on December [...] on Repatha.??Previously seen by Dr. Smiley in [place] regarding his hypertriglyceridemia.?He is on Lovaza 2 grams BID, fenofibrate (Tricor)??80 mg once daily. A oral glucose tolerance test did not show evidence of DM.? 4.?? Ascending aorta dilatation, 4.2/4.4 cm Provider Clinical Summary IE/S: Having more breakthrough angina??since last cardiology visit.?? He actually called??about 2 weeks ago requesting a referral for heart catheterization,??declined going to the emergency room for urgent evaluation.?Now feeling better and it turns out he only had to take 1 extra sublingual nitroglycerin during this time.?? And is not actively having any pain.?? Also notes having a very bad COPD flare in June which she is still recovering from and is about to go to pulmonary rehab. ?I/P: 1. ??CAD status post PCI to RCA in June 2015, OM2 in May 2017, mLAD September 2017, and distal RCA December 2018 and December 2019 for ISR. Chronic stable angina, worse during last few visits. Tolerating Prasugrel. LVEF 50-60% with inferior WMA.? -Con???t Ranexa 500??mg BID -Adding back??Norvasc 5 mg daily. -Toprol XL 50. Higher doses caused lethargy/low BP?? -Imdur causes JENSEN???s -DAPT, with Prasugrel -Will defer on heart catheterization at this time and focus on??medical therapy for??chronic stableangina.?There is room to adjust antianginals going forward, such as increasing Ranexa to 1000 twice daily and increasing his Toprol-XL dose.?? Could also retrial??Imdur if needed. ?? 2. ??Hypertriglyceridemia and HL. ??Appreciate input from Dr. Willie Smiley in [place] (see scanned note) -Ongoing treatment with fenofibrate, Repatha and Lovaza ?? 4.?Aortic root 4.2 cm. ??Ascending aorta 4.4 cm as of June 2023 echo.?? Needs long-term monitoring, plan on repeat echo??in 2024. Indication for Consult Discuss Cath Physical Exam Vitals & Measurements HR:??82??(Peripheral)?? BP:??133/87?? HT:??180.34??cm?? WT:??125.3??kg?? BMI:??38.53?? Weight lb/oz: 276 lb 4 oz GENERAL: ??Alert and oriented x3, no acute distress. HEENT: Mucous membranes pink and moist. ?? NECK: ??No JVD?? LUNGS: Clear to auscultation bilaterally. ??No crackles, wheezing, rhonchi. ?? HEART: ??Regular rate and rhythm, normal S1, S2. ??No murmurs, rubs, or gallops.?? ABDOMEN: Soft, nontender, nondistended.?? EXTREMITIES: ??No pitting edema, cyanosis, clubbing. ?? PULSES: 2+ radials SKIN: Warm and well perfused. ?? NEURO: ??Oriented to person, time, and place, following commands, and moving all extremities.?? MUSCULOSKELETAL: ??Negative.?? Assessment/Plan Coronary artery disease Ordered: Amlodipine, 1 tablet = 5 mg, By Mouth, Daily, # 90 tablet, 3 Refills, Maintenance, 09/07/23 8:50:00EDT, Tablet, [facility]/pharmacy #[id number], Partial fill upon patient request if the prescription is for a schedule II opioid drug., 180.34, cm, 09/07/23 8:40:00 EDT, Height,... ECG 12 Lead ?? Allergies Peanuts??(TURNS RED,JENSEN,VOMITING) Zetia??(PAIN AND WEAKNESS IN JOINTS) fentaNYL statins??(CPK LEVELS RISE) Home Medications Albuterol, 2 puffs, By Mouth, Every 6 hours, PRN Albuterol (Eqv-ProAir HFA) 90 mcg/inh inhalation aerosol, 2 puffs, Inhalation, Every 6 hours, PRN, 11 refills albuterol 0.083% inhalation solution, 2.5 mg= 3 mL, Inhalation, Every 6 hours, PRN, 11 refills amLODIPine 5 mg oral tablet, 5 mg= 1 tablet, By Mouth, Daily, 3 refills aspirin 81 mg oral tablet, 81 mg= 1 tablet, By Mouth, Daily, 11 refills Augmentin 500 mg-125 mg oral tablet, By Mouth, Every 8 hours Fax to [facility], See Instructions, 11 refills fenofibrate [...] 3 refills PredniSONE, By Mouth, Daily ranolazine 500 mg oral tablet, extended release, [...] 3.9 (08/31/23) Abs. Lymph: 1.8 (08/31/23) Abs. [place]: 0.6 (08/31/23) Abs. Eo: 0.3 (08/31/23) Abs. Baso: 0.1 (08/31/23) Neut %: 58.2 % (08/31/23) [place] %: 9.5 % (08/31/23) Eos %: 3.8 [...] the chest, abdomen, and pelvis. ? WSN: [id number] ?? Signed By: Jesús Patterson MD Echo Echocardiogram - Complete ?? 09:52:53 [...] and/or counseling. ?? Signatures ?? Signed By: Moses BARRAGAN [facility] Problem List/Past Medical History Ongoing Ascending aorta dilation Benign essential hypertension CAD (coronary artery disease) Dyslipidemia Severe obesity (BMI 35.0-39.9) with comorbidity Procedure/Surgical History PCI - Percutaneous coronary intervention: 01/26/20 Patient Education Titles Educational Instructions (CUSTOM) Follow-Up Appointments Added Follow Up ?Time Frame ?Comments Jaswant Jacob MD?2 ?? Months Social History Alcohol Use: Current. Frequency: 3-5 [...] History No family history recorded. Note * Jackelyn Garcia: PERFORM, SIGN, VERIFY Event Display: Patient Education/Instruction Authored Date: [id number] [facility] *[facility] Clinical Summary Name NICK VALADEZ Age 62 Years 1960 PCP Adamaris MARIO, Keyanna Masterson PCP [facility]# [id number] Visit Date 09/07/2023 08:16:00 Additional Instructions: Scheduled Appointments?? Future Appointments ?*[facility] ?[address],??[address] ?Phone:??[phone]?Fax:??-- ?Appt. Date:??11/22/2023?8:00 AM ?Scheduled Provider:??Jaswant Jacob MD Follow-Up Instructions ?? With: Address: When: Jaswant Jacob MD In 2 months Diagnosis Atherosclerotic heart disease of [place] coronary artery without angina pectoris Medications: Please continue your medications until treatment is completed or stopped by your provider. Discuss any questions related to medications with your provider. New Medications [id number], [address], [place] [id number], [phone] Amlodipine (amLODIPine 5 mg oral tablet) 1 tab(s) Oral Daily for 90 Days. Refills: 3. Next Dose: Medications to Continue with No Changes These medications were not printed or sent to your pharmacy Albuterol 2 puff(s) Oral every 6 hours as needed as needed for wheezing. Next Dose: Albuterol (Albuterol (Eqv-ProAir HFA) 90 mcg/inh inhalation aerosol) 2 puff(s) Inhalation every 6 hours as needed Wheezing/Shortness of Breath. Refills: 11. Next Dose: Albuterol (albuterol 0.083% inhalation solution) 3 Milliliter Inhalation every 6 hours as needed for wheezing/shortness of breath. Refills: 11. Next Dose: Amoxicillin-Clavulanate (Augmentin 500 mg-125 mg oral tablet) Oral every 8 hours. Next Dose: Aspirin (aspirin 81 mg oral tablet) 1 tab(s) Oral Daily for 90 Days. Refills: 11. Next Dose: Durable Medical Equipment (Fax to [facility]) CPAP CPAP 8 cm H2O with heated humidification, mask, heated tubing, filters, headgear, chin strap, and water chamber. Vincenzo provider access to wireless compliance data Length of need: Lifetime 99 months Diagnosis: RADHA. Refills: 11. Next Dose: Durable Medical Equipment (Nebulizer/Compressor) E0570 Nebulizer A7003 Neb Disp Set A7014 Neb non-Disp Filter A7005 Neb Non-Disp set A7015 Aerosol Mask A7013 Neb Disp Filter length of need lifetime 99 months for home use. Refills: 11. Next Dose: evolocumab (Repatha SureClick 140 mg/mL subcutaneous solution) 140 Milligram Subcutaneous Infusion Every 14 days. Refills: 11. Next Dose: Fenofibrate (fenofibrate 160 mg oral tablet) 0.5 tab(s) Oral Daily. Refills: 0. Next Dose: Fluoxetine (fluoxetine 20 mg oral tablet) 1 tab(s) Oral Daily. Next Dose: Fluticasone Nasal (fluticasone 50 mcg/inh nasal spray) 1 spray(s) Nares, Both twice a day. Refills:5. Next Dose: fluticasone/umeclidinium/vilanterol (Trelegy Ellipta 200 mcg-62.5 mcg-25 mcg/inh inhalation powder)1 puff(s) Inhalation Daily. at the same time every day. Refills: 11. Next Dose: Furosemide (Lasix 20 mg oral tablet) 1 tab(s) Oral Daily. Refills: 11. Next Dose: Levothyroxine 300 Microgram Oral Daily. Next Dose: Loratadine (loratadine 10 mg oral tablet) 1 tab(s) Oral Daily. Refills: 11. Next Dose: Metoprolol (metoprolol 50 mg oral tablet, extended release) 1 tab(s) Oral Daily. Refills: 3. Next Dose: Multivitamin (Vitamin B Complex oral tablet, extended release) Oral Daily. Next Dose: Nitroglycerin (nitroglycerin 0.4 mg sublingual tablet) 1 tab(s) Sublingual every 5 minutes as needed for chest pain for 3 doses/times. Refills: 1. Next Dose: [place]-3 Polyunsaturated Fatty Acids (Fish Oil 1000 mg oral capsule) 1 capsule Oral twice a day. Refills: 0. Next Dose: PEG Electrolyte Solution (Golytely - oral powder for reconstitution) 240 Milliliter Oral every 15 minutes. Start prep at 5 pm the night before the procedure. Take 1/2 of the prep Take the othe 1/2 6 hours before the procedure. Refills: 0. Next Dose: prasugrel (prasugrel 10 mg oral tablet) 1 tab(s) Oral Daily. Refills: 3. Next Dose: PredniSONE Oral Daily. Next Dose: ranolazine (ranolazine 500 mg oral tablet, extended release) 1 tab(s) Oral twice a day. Refills: 3. Next Dose: Allergy Info:?? fentaNYL; statins; Zetia; Peanuts Medications Given This Visit Future Orders ?No future orders Future Orders ?No future orders Vital Signs Height 180.34 cm Weight 125.3 kg BMI 38.53 kg/m2 Blood Pressure 133 mm Hg/87 mm Hg Temperature Pulse Rate 82 bpm Respiratory Rate 02 Sat Mode of Delivery / You can now view a summary of your hospital visit from the comfort of your home through a free online portal called [employer]Hat. [employer] is a website that allows you to securely view your medical information including discharge summary, medications and follow-up visits. ??You can alsosend a secure electronic message to your doctor???s office to request appointments, renew medications or just ask a question. You can enroll at [email or web address] or register during your next office visit. Disclaimer:?? The information provided is of a general nature and is intended to be used in conjunction with the recommendations and advice of your health care practitioner. ??Every effort has been made to ensure that the information provided is accurate and complete at the time it is provided to you however, as your needs change, or, as new ??information becomes available, different or additional instructions may be required. If you have questions, please consult with your primary care provider or pharmacist, as appropriate. ??This information is not intended to serve as substitution for assessment and evaluation by a qualified health care provider. If you do not have a primary care provider, you may find a [facility] provider by calling [facility] at [phone]. [facility], in keeping with [facility] guidance, no longer requires face masks for staff, patientsor visitors in most situations. Similar to time spent indoors at other locations, there is the chance that you were exposed to respiratory viruses during your time with us (such as flu or COVID-19).? If you develop symptoms concerning for a viral respiratory infection, please seek testing (and treatment if indicated) from your medical provider or home test kit. For information about the plan of care including goals and instructions for your diagnosis, please see the patient education orders section of this document. Patient Education Materials?? The content of this educational material or handout may have been modified, supplemented, or adapted from its original content and format to support your individualized medical care. Please follow instructions discussed with your provider during this visit as well as any education documents you were given today. Patient Care team information Care Team Personnel Name: Rhoda Ansari RN Position: CARYN MUNOZ RN Member Role: Primary Care Nurse Name: Keyanna Bailon NP Position: Reference Physician Member Role: PCP Address: Address: [address] [place] [id number]- Name: Adam Gutiérrez RN Position: CARYN RESTREPO Supv Member Role: Primary Care Nurse Care Team Related Persons Name: IBIS HOLT Address: [address] [address]
--- OUTSIDE RECORDS SUMMARY | 2023-12-03 08:17 | XMS_ITS | Continuity of Care Document ---
Author Organization [facility] Address [address] [place] [address]- Care Team Providers Care Wide Area Network Systems Administrator Name Role Phone Adamaris MARIO, Keyanna Masterson Primary Care Physici an Encounter [facility] Date(s): 03/30/22 - 04/06/22 [facility] [place] [address] [place] [address]- Attending Physician: Maverick Conner Admitting Physician: Maverick [...] 3 Refills, Maintenance, 03/20/22 9:25:00 EDT, Tablet, [facility] #[id number], Partial fill upon patient request if the [...] 0 Refills, Maintenance, 12/16/21 9:13:00 EDT, Tablet, [facility] #[id number], Partial fill upon patient request if the [...] 02/24/22 16:00:00 EDT, Route to Pharmacy Electronically, [facility] #[id number], Partial fill upon patient request if the prescription is for a schedule II... Start Date: 02/24/22 Status: Ordered Levothyroxine = 300 mcg, By Mouth, Daily, 0 Refills, Maintenance Start Date: 06/29/11 Status: Ordered metoprolol 50 mg oral tablet, extended release 50 mg, 1, tablet, By Mouth, Daily, # 90 tablet, Refills 3, Tot. Refills 3, Maintenance, 12/16/21 14:24:00 EDT, Route to Pharmacy Electronically, [facility] #[id number], 180, cm, 12/16/21 8:55:00EDT, Height, 117.8, kg, [...] 3 Refills, Maintenance, 01/02/22 16:07:00 EDT, Tablet, [facility] #[id number], 180, cm, 12/16/21 8:55:00 EDT, Height, 117.8, kg, 04/04/21 7:21:00 EDT, Dry Weight Start Date: 01/02/22 Status: Ordered ranolazine 500 mg oral tablet, extended release 1 tablet = 500 mg, By Mouth, 2 times a day, # 120 tablet, 3 Refills, Maintenance, 12/08/21 16:50:00EDT, ER Tablet, [facility] #[id number], Partial fill upon patient request if the prescription is for a schedule II opioid drug., 180, cm, 09/05/21... Start Date: 12/08/21 Status: Ordered Repatha SureClick 140 mg/mL subcutaneous solution = 140 mg, Subcutaneous Infusion, Every 14 days, # 2 each, 11 Refills, Maintenance, 06/16/21 16:33:00 EST, [facility] #[id number], Partial fill upon patient request if the prescription is for a schedule II opioid drug., 180, cm, 04/06/21 16:24:00... Start Date: 06/16/21 Status: Ordered Symbicort 160mcg/4.5mcg Inhaler 2, puffs, Inhalation, 2 times a day, No substitutions, # 1 each, Refills 5, Tot. Refills 5, Maintenance, 12/13/21 12:33:00 EDT, Inhaler, Route to Pharmacy Electronically, [id number], [facility] #[id number], 180, cm, 04/0... Start Date: 12/13/21 Status: [...] oldest [Reference Range]: 1 Height 178 cm (03/30/22 4:02 PM) Weight 125.6 kg (03/30/22 4:02 PM) Oxygen Saturation [94-100 %] 97 % (03/30/22 4:02 PM) Pulse Rate [55-90 bpm] 65 bpm (03/30/22 4:02 PM) Body Mass Index [18.5-24.99 kg/m2] 39.64 kg/m2 *>HHI* (03/30/22 4:02 PM) Blood Pressure [90-138/55-84 mm Hg] 141/ 77mm Hg *H* (03/30/22 4:02 PM) Blood pressure sites Arm, left (03/30/22 4:02 PM) Weight Obtained Via Standing scale (03/30/22 4:02 PM) Social History Social History Type Response Smoking Status Former smoker; Other : quit 1990; entered on: 06/14/17 Sex Patient Care team information Personnel Name: Keyanna Bailon NP Address: Address: [address] [place] [address]
--- OUTSIDE RECORDS SUMMARY | 2023-12-03 08:17 | XMS_ITS | Continuity of Care Document ---
Author Organization [facility] Address [address] [place] [address]- Care Team Providers Care Account Group Supervisor Name Role Phone Adamaris MARIO, Keyanna Masterson Primary Care Physici an Encounter [facility] Date(s): 09/28/22 - 10/28/22 [facility] [address] [place] [id number]- Allergies, Adverse Reactions, Alerts Substance Reaction Severity [...] 6.7 Gm, 11 Refills, Maintenance, 06/13/22 14:10:00 [employer] [facility] #[id number], Partial fill upon patient request if the prescription is for a schedule II opioid drug., 2 puf... Start Date: 06/13/22 Status: Ordered albuterol 0.083% inhalation solution 3 mL = 2.5 mg, Inhalation, Every 6 hours, PRN for wheezing/shortness of breath, # 360 mL, 11 Refills, Maintenance, 06/13/22 14:09:00 EST, Solution, [email or web address] #[id number], Partial fill upon patient request if the prescription is for a schedule II... Start Date: 06/13/22 Status: Ordered amLODIPine 2.5 mg oral tablet 1 tablet = 2.5 mg, By Mouth, Daily, # 90 tablet, 3 Refills, Maintenance, 03/20/22 9:25:00 EDT, Tablet, [facility] #[id number], Partial fill upon patient request if the prescription is for a schedule II opioid drug., 178, cm, 02/24/22 15:32:00 EDT... Start Date: 03/20/22 Stop Date: 03/15/23 Status: Ordered aspirin 81 mg oral tablet 1 tablet = 81 mg, By Mouth, Daily, # 90 tablet, 11 Refills, Maintenance, 12/06/18 13:47:08 EDT, Tablet Start Date: 12/06/18 Stop Date: 11/20/21 Status: [facility] Fax to [facility], See Instructions, # 1 each, Refills 11, Tot. Refills 11, Maintenance, CPAP CPAP 8 cm H2O with heated humidification, mask, heated tubing, filters, headgear, chin strap, andwater chamber. [facility] provider access to wireless... Start Date: 09/28/20 Status: Ordered fenofibrate 160 mg oral tablet 0.5 tablet = 80 mg, By Mouth, Daily, # 15 tablet, 0 Refills, Maintenance, 12/16/21 9:13:00 EDT, [facility] #[id number], Partial fill upon patient request if the [...] Gm, 11 Refills, Maintenance, 06/13/22 14:09:00 EST, [place] [facility], [facility] #[id number], Partial fill upon patient request if the [...] 02/24/22 16:00:00 EDT, Route to Pharmacy Electronically, [email or web address] #[id number], Partial fill upon patient request if the prescription is for a schedule II... Start Date: 02/24/22 Status: Ordered Levothyroxine = 300 mcg, By Mouth, Daily, 0 Refills, Maintenance Start Date: 06/29/11 Status: Ordered loratadine 10 mg oral tablet 10 mg, 1, tablet, By Mouth, Daily, # 30 tablet, Refills 11, Tot. Refills 11, Maintenance, 06/13/22 14:09:00 EST, Route to Pharmacy Electronically, [email or web address] #[id number], Partial fill upon patient request if the prescription is for a schedule II... Start Date: 06/13/22 Status: Ordered metoprolol 50 mg oral tablet, extended release 50 mg, 1, tablet, By Mouth, Daily, # 90 tablet, Refills 3, Tot. Refills 3, Maintenance, 10/09/22 22:08:00 EDT, Route to Pharmacy Electronically, [facility]/pharmacy #[id number], 178, cm, 08/28/22 8:04:00 EDT, [...] 3 Refills, Maintenance, 01/02/22 16:07:00 EDT, Tablet, [facility] #[id number], 180, cm, 12/16/21 8:55:00 EDT, Height, 117.8, kg, 04/04/21 7:21:00 EDT, Dry Weight Start Date: 01/02/22 Status: Ordered ranolazine 500 mg oral tablet, extended release 1 tablet = 500 mg, By Mouth, 2 times a day, # 180 tablet, 3 Refills, Maintenance, 08/14/22 9:08:00 EDT, ER Tablet, [facility] #[id number], Partial fill upon patient request if the prescription is for a schedule II opioid drug., 178, cm, 08/11/22... Start Date: 08/14/22 Status: Ordered Repatha SureClick 140 mg/mL subcutaneous solution = 140 mg, Subcutaneous Infusion, Every 14 days, # 2 each, 11 Refills, Maintenance, 05/03/22 11:32:00 EST, [facility] #[id number], Partial fill upon patient request if the prescription is for a schedule II opioid drug., 178, cm, 03/30/22 16:02:00... Start Date: 05/03/22 Status: Ordered Trelegy Ellipta 200 mcg-62.5 mcg-25 mcg/inh inhalation powder 1 puffs, Inhalation, Daily, at the same time every day, # 1 each, 11 Refills, Maintenance, 06/13/2313:09:00 EST, Powder, [facility] #[id number], Partial fill upon patient request if the [...] Reference Physician Member Role: PCP Address: Address: [address] [place] [address]- Name: Adam Gutiérrez RN Position: S RN Supv Member Role: Primary Care Nurse Care Team Related Persons Name: IBIS HOLT Address: home [address] [place] [address]
--- OUTSIDE RECORDS SUMMARY | 2023-12-03 08:17 | XMS_ITS | Continuity of Care Document ---
Author Organization [facility] Address [address] [address]- Care Team Providers Care Code Inspector Name Role Phone Willie Carrion MD Primary Care Physician Encounter [facility] Date(s): 08/29/21 - 09/28/21 [facility] [address] [address]- [place] Allergies, Adverse Reactions, Alerts Substance Reaction [...] 3 Refills, Maintenance, 09/02/21 8:52:00 EDT, Tablet, [facility] #[id number], Partial fill upon patient request if the prescription is for a schedule II opioid drug., 180, cm, 09/02/21 8:46:00 EDT,... Start Date: 09/02/21 Stop Date: 08/28/22 Status: Ordered aspirin 81 mg oral tablet 1 tablet = 81 mg, By Mouth, Daily, # 90 tablet, 11 Refills, Maintenance, 12/06/18 13:47:08 EDT, Tablet Start Date: 12/06/18 Stop Date: 11/20/21 Status: Ordered Fax to [facility] Fax to [facility], [...] 09/01/20 16:55:00 EDT, Route to Pharmacy Electronically, [facility] #[id number], 180, cm, 08/31/20 14:02:00 EDT, Height, 122.3, [...] 3 Refills, Maintenance, 01/10/21 15:32:00 EDT, Tablet, [facility] #[id number], 180, cm, 12/02/20 8:05:00 EDT, Height Start [...] each, 11 Refills, Maintenance, 06/16/21 16:33:00 EST, [facility] #[id number], Partial fill upon patient request if the prescription is for a schedule II opioid drug., 180, cm, 04/06/21 16:24:00... Start Date: 06/16/21 Status: Ordered Symbicort 160mcg/4.5mcg Inhaler 2, puffs, Inhalation, 2 times a day, # 1 each, Refills 5, Tot. Refills 5, Maintenance, 06/27/21 11:23:00 EST, Inhaler, Route to Pharmacy Electronically, [id number], [facility] #[id number], 180, cm, 04/06/21 16:24:00 EDT,... Start Date: 06/27/21 Status: Ordered Problem List Condition Effective Dates Status Health Status Inform ant Benign essential hypertension(Confirmed) Active CAD (coronary artery disease)(Confirmed) Active Dyslipidemia(Confirmed) Active Obese class II(Confirmed) Active Social History Social History Type Response Smoking Status Former smoker; Other : quit 1990; entered on: 06/14/17 Sex
--- OUTSIDE RECORDS SUMMARY | 2023-12-03 08:17 | XMS_ITS | Continuity of Care Document ---
Author Organization [facility] Address [address] [address]- Care Team Providers Care Home Theatre Technician Name Role Phone Adamaris MARIO, Keyanna Aleja Primary Care Physici an Encounter [facility] Date(s): 10/24/23 - 11/23/23 [place] [id number] [address]- [place] Allergies, Adverse Reactions, Alerts Substance Reaction [...] 6.7 Gm, 11 Refills, Maintenance, 06/13/22 14:10:00 [facility] #[id number], Partial fill upon patient request if the prescription is for a schedule II opioid drug., 2 puf... Start Date: 06/13/22 Status: Ordered albuterol 0.083% inhalation solution 3 mL = 2.5 mg, Inhalation, Every 6 hours, PRN for wheezing/shortness of breath, # 360 mL, 11 Refills, Maintenance, 06/13/22 14:09:00 EST, [facility] #[id number], Partial fill upon patient request if the prescription is for a schedule II... Start Date: 06/13/22 Status: Ordered amLODIPine 2.5 mg oral tablet 2.5 mg, 1, tablet, By Mouth, Daily, # 90 tablet, Refills 3, Tot. Refills 3, Maintenance, 11/22/23 8:19:00 EDT, Route to Pharmacy Electronically, [facility]/pharmacy #[id number], Partial fill upon patient request if the [...] [facility], See Instructions, # 1 each, Refills 11, Tot. Refills 11, Maintenance, CPAP CPAP 8 cm H2O with heated humidification, mask, heated tubing, filters, headgear, chin strap, andwater chamber. [facility]en[facility] provider access to wireless... Start Date: 09/28/20 Status: Ordered fenofibrate 160 mg oral tablet 0.5 tablet = 80 mg, By Mouth, Daily, # 15 tablet, 0 Refills, Maintenance, 12/16/21 9:13:00 EDT, Tablet, [facility] #[id number], Partial fill upon patient request if the [...] each, 5 Refills, Maintenance, 04/05/23 11:45:00 EDT, [facility]/pharmacy #[id number], Partial fill upon patient request if [...] Refills, Maintenance, 11/08/22 16:40:00 EDT, REC Powder, [facility]/pharmacy #[id number], Ok to... Start Date: 11/08/22 Status: Ordered Lasix 20 mg oral tablet 20 mg, 1, tablet, By Mouth, Daily, # 30 tablet, Refills 11, Tot. Refills 11, Maintenance, 11/01/23 9:26:00 EDT, Route to Pharmacy Electronically, [facility]/pharmacy #[id number], Partial fill upon patient requestif the prescription is for a schedule II opioid ricardo... Start Date: 11/01/23 Status: Ordered Levothyroxine = 300 mcg, By Mouth, Daily, 0 Refills, Maintenance Start Date: 06/29/11 Status: Ordered loratadine 10 mg oral tablet 10 mg, 1, tablet, By Mouth, Daily, # 30 tablet, Refills 11, Tot. Refills 11, Maintenance, 05/10/23 10:46:00 EST, Route to Pharmacy Electronically, [facility]/pharmacy #[id number], Partial fill upon patient request if the prescription is for a schedule II opioid dr... Start Date: 05/10/23 Status: Ordered metoprolol 50 mg oral tablet, extended release 50 mg, 1, tablet, By Mouth, Daily, # 90 tablet, Refills 3, Tot. Refills 3, Maintenance, 10/30/23 9:53:00 EDT, Route to Pharmacy Electronically, [facility]/pharmacy #[id number], 180.34, cm, 09/07/23 8:40:00 EDT, Height, [...] 3 Refills, Maintenance, 02/06/23 8:36:00 EDT, Tablet, [facility]/pharmacy #[id number], 180.34, cm, 11/22/22 7:21:00 EDT, Height, [...] tablet, 3 Refills, Maintenance, 11/22/23 8:19:00 EDT, [facility]/pharmacy #[id number], Partial fill upon patient request if [...] Care Nurse Name: Keyanna Bailon NP Position: [facility] Outreach Member Role: PCP Address: Address: [address] [place] [id number]- Name: Adam Gutiérrez RN Position: S RN Supv Member Role: Primary Care Nurse Care Team Related Persons Name: NUVIAANASHERLYA Address: home [address] [place] [address]
--- OUTSIDE RECORDS SUMMARY | 2023-12-03 08:17 | XMS_ITS | Continuity of Care Document ---
Author Organization [facility] Address [address] [place] [address]- Care Team Providers Care Military Science Instructor Name Role Phone Willie Carrion MD Primary Care Physician Encounter [facility] Date(s): 06/16/21 - 07/16/21 [facility] [address] [place] [address]- Attending Physician: Joycelyn Hennessy Admitting Physician: AdmtrJoycelyn [...] 11/20/21 Status: Ordered Fax to [facility] Fax to [facility], See Instructions, # 1 each, [...] 09/01/20 16:55:00 EDT, Route to Pharmacy Electronically, [facility] #[id number], 180, cm, 08/31/20 14:02:00 EDT, Height, 122.3, [...] 3 Refills, Maintenance, 01/10/21 15:32:00 EDT, Tablet, [facility] #[id number], 180, cm, 12/02/20 8:05:00 EDT, Height Start [...] each, 11 Refills, Maintenance, 06/16/21 16:33:00 EST, [facility] #[id number], Partial fill upon patient request if the prescription is for a schedule II opioid drug., 180, cm, 04/06/21 16:24:00... Start Date: 06/16/21 Status: Ordered Symbicort 160mcg/4.5mcg Inhaler 2, puffs, Inhalation, 2 times a day, # 1 each, Refills 5, Tot. Refills 5, Maintenance, 06/27/21 11:23:00 EST, Inhaler, Route to Pharmacy Electronically, [id number], [facility] #[id number], 180, cm, 04/06/21 16:24:00 EDT,... Start Date: 06/27/21 Status: Ordered Problem List Condition Effective Dates Status Health Status Inform ant Benign essential hypertension(Confirmed) Active CAD (coronary artery disease)(Confirmed) Active Dyslipidemia(Confirmed) Active Social History Social History Type Response Smoking Status Former smoker; Other : quit 1990; entered on: 06/14/17 Sex
--- OUTSIDE RECORDS SUMMARY | 2023-12-03 08:17 | XMS_ITS | Continuity of Care Document ---
Author Organization [facility] Address [address] [address]- Care Team Providers Care Manufacturing Leader Name Role Phone Willie Carrion MD Primary Care Physician [phone] Encounter [facility] Date(s): 03/09/20 - 04/08/20 [facility] [address] [address]- [place] Allergies, Adverse Reactions, Alerts Substance Reaction [...] 03/26/20 11:01:00 EDT, Route to Pharmacy Electronically, [facility] #[id number], 180, cm, 03/26/20 10:34:00EDT, Height, 122.3, kg, [...] 3 Refills, Maintenance, 01/27/20 8:43:00 EDT, Tablet, [facility] 3, 180, cm, 01/27/20 7:17:00 EDT, Height, 122.3, kg, 12/05/18 4:00:00 EDT,Dry Weight Start Date: 01/27/20 Status: Ordered Spiriva Respimat 1.25 mcg/inh inhalation aerosol 2 puffs, Inhalation, Daily, # 4 Gm, 11 Refills, Maintenance, 03/08/20 14:55:00 EDT, Aerosol, [facility] #[id number], 180, cm, 03/08/20 14:38:00 EDT, Height, 122.3, [...]
--- OUTSIDE RECORDS SUMMARY | 2023-12-03 08:17 | XMS_ITS | Continuity of Care Document ---
Author Organization [facility] Address [address] [place] [address]- Care Team Providers Care School Cook Name Role Phone Adamaris MARIO, Keyanna Masterson Primary Care Physici an Encounter [facility] Date(s): 09/06/22 - 10/13/22 [facility] [address] [place] [address]- Attending Physician: Christy Israel MD, Perfecto Ojeda Referring Physician: Not on Staff, Referring MD [...] 6.7 Gm, 11 Refills, Maintenance, 06/13/22 14:10:00 [email or web address][id number], Partial fill upon patient request if the prescription is for a schedule II opioid drug., 2 puf... Start Date: 06/13/22 Status: Ordered albuterol 0.083% inhalation solution 3 mL = 2.5 mg, Inhalation, Every 6 hours, PRN for wheezing/shortness of breath, # 360 mL, 11 Refills, Maintenance, 06/13/22 14:09:00 EST, Solution, [facility] #[id number], Partial fill upon patient request if the prescription is for a schedule II... Start Date: 06/13/22 Status: Ordered amLODIPine 2.5 mg oral tablet 1 tablet = 2.5 mg, By Mouth, Daily, # 90 tablet, 3 Refills, Maintenance, 03/20/22 9:25:00 EDT, Tablet, [facility] #[id number], Partial fill upon patient request if the [...] [facility] Fax to [facility], See Instructions, # 1 each, Refills 11, Tot. Refills 11, Maintenance, CPAP CPAP 8 cm H2O with heated humidification, mask, heated tubing, filters, headgear, chin strap, andwater chamber. [facility]en[facility] provider access to wireless... Start Date: 09/28/20 Status: Ordered fenofibrate 160 mg oral tablet 0.5 tablet = 80 mg, By Mouth, Daily, # 15 tablet, 0 Refills, Maintenance, 12/16/21 9:13:00 EDT, Tablet, [facility] #[id number], Partial fill upon patient request if the [...] Gm, 11 Refills, Maintenance, 06/13/22 14:09:00 EST, [place], [facility] #[id number], Partial fill upon patient request if the [...] 02/24/22 16:00:00 EDT, Route to Pharmacy Electronically, [facility] #[id number], Partial fill upon patient request if the prescription is for a schedule II... Start Date: 02/24/22 Status: Ordered Levothyroxine = 300 mcg, By Mouth, Daily, 0 Refills, Maintenance Start Date: 06/29/11 Status: Ordered loratadine 10 mg oral tablet 10 mg, 1, tablet, By Mouth, Daily, # 30 tablet, Refills 11, Tot. Refills 11, Maintenance, 06/13/22 14:09:00 EST, Route to Pharmacy Electronically, [facility] #[id number], Partial fill upon patient request if the prescription is for a schedule II... Start Date: 06/13/22 Status: Ordered metoprolol 50 mg oral tablet, extended release 50 mg, 1, tablet, By Mouth, Daily, # 90 tablet, Refills 3, Tot. Refills 3, Maintenance, 10/09/22 22:08:00 EDT, Route to Pharmacy Electronically, [facility]/pharmacy #[id number], 178, cm, 08/28/22 8:04:00 EDT, Height, [...] 3 Refills, Maintenance, 01/02/22 16:07:00 EDT, Tablet, [facility] #[id number], 180, cm, 12/16/21 8:55:00 EDT, Height, 117.8, kg, 04/04/21 7:21:00 EDT, Dry Weight Start Date: 01/02/22 Status: Ordered ranolazine 500 mg oral tablet, extended release 1 tablet = 500 mg, By Mouth, 2 times a day, # 180 tablet, 3 Refills, Maintenance, 08/14/22 9:08:00 EDT, ER Tablet, [facility] #[id number], Partial fill upon patient request if the prescription is for a schedule II opioid drug., 178, cm, 08/11/22... Start Date: 08/14/22 Status: Ordered Repatha SureClick 140 mg/mL subcutaneous solution = 140 mg, Subcutaneous Infusion, Every 14 days, # 2 each, 11 Refills, Maintenance, 05/03/22 11:32:00 EST, [facility] #[id number], Partial fill upon patient request if the prescription is for a schedule II opioid drug., 178, cm, 03/30/22 16:02:00... Start Date: 05/03/22 Status: Ordered Trelegy Ellipta 200 mcg-62.5 mcg-25 mcg/inh inhalation powder 1 puffs, Inhalation, Daily, at the same time every day, # 1 each, 11 Refills, Maintenance, 06/13/2313:09:00 EST, Powder, [facility] #[id number], Partial fill upon patient request if the [...] Reference Physician Member Role: PCP Address: Address: [address] [place] [address] Name: Adam Gutiérrez RN Position: S RN Supv Member Role: Primary Care Nurse Care Team Related Persons Name: IBIS HOLT Address: home [address] [place] [address]
--- OUTSIDE RECORDS SUMMARY | 2023-12-03 08:17 | XMS_ITS | Continuity of Care Document ---
Author Organization [facility] em Address Unknown Care Team Providers Care Cement Mason Helper Name Role Phone Adamaris MARIO, Keyanna Masterson Primary Care Physici an Encounter [facility] Date(s): 08/29/23 - 09/05/23 [facility] [address] [place], [place] [address] Attending Physician: Perfecto Murphy MD Admitting Physician: Perfecto Murphy MD Referring Physician: Keyanna Bailon NP Allergies, [...] 6.7 Gm, 11 Refills, Maintenance, 06/13/22 14:10:00 [facility] #[id number], Partial fill upon patient request if the prescription is for a schedule II opioid drug., 2 puf... Start Date: 06/13/22 Status: Ordered albuterol 0.083% inhalation solution 3 mL = 2.5 mg, Inhalation, Every 6 hours, PRN for wheezing/shortness of breath, # 360 mL, 11 Refills, Maintenance, 06/13/22 14:09:00 EST, Solution, [facility] #[id number], Partial fill upon patient request if the [...] Start Date: 07/12/23 Status: Ordered Fax to [facility] Fax to [facility], See Instructions, [...] tablet, 0 Refills, Maintenance, 12/16/21 9:13:00 EDT, [facility] #[id number], Partial fill upon patient request if the [...] each, 5 Refills, Maintenance, 04/05/23 11:45:00 EDT, [facility]/pharmacy #[id number], Partial fill upon patient request if the [...] Refills, Maintenance, 11/08/22 16:40:00 EDT, REC Powder, [facility]/pharmacy #[id number], Ok to... Start Date: 11/08/22 Status: Ordered Lasix 20 mg oral tablet 20 mg, 1, tablet, By Mouth, Daily, # 30 tablet, Refills 11, Tot. Refills 11, Maintenance, 02/24/22 16:00:00 EDT, Route to Pharmacy Electronically, [facility] #[id number], Partial fill upon patient request if the prescription is for a schedule II... Start Date: 02/24/22 Status: Ordered Levothyroxine = 300 mcg, By Mouth, Daily, 0 Refills, Maintenance Start Date: 06/29/11 Status: Ordered loratadine 10 mg oral tablet 10 mg, 1, tablet, By Mouth, Daily, # 30 tablet, Refills 11, Tot. Refills 11, Maintenance, 05/10/23 10:46:00 EST, [id number] Partial fill upon patient request if the prescription is for a schedule II opioid dr... Start Date: 05/10/23 Status: Ordered metoprolol 50 mg oral tablet, extended release 50 mg, 1, tablet, By Mouth, Daily, # 90 tablet, Refills 3, Tot. Refills 3, Maintenance, 10/31/22 9:28:00 EDT, Route to Pharmacy Electronically, [facility]/pharmacy #[id number], 178, cm, 10/18/22 9:47:00 EDT, [...] 3 Refills, Maintenance, 02/06/23 8:36:00 EDT, Tablet, [facility]/pharmacy #[id number], 180.34, cm, 11/22/22 7:21:00 EDT, [...] Refills, Maintenance, 03/13/23 9:33:00 EDT, ER Tablet, [facility] #[id number], Partial fill upon patient request [...] oldest [Reference Range]: 1 Height 180.34 cm (08/29/23 10:16 AM) Weight 122.2 kg (08/29/23 10:16 AM) Body Mass Index [18.5-24.99 kg/m2] 37.57 kg/m2 *>HHI* (08/29/23 10:16 AM) Social History Social History Type Response Smoking Status Former smoker; Other : quit 1990; entered on: 06/14/17 Sex Patient Care team information Care Team Personnel Name: Rhdoa Ansari RN Position: [facility] MUNOZ RN Member Role: Primary Care Nurse Name: Keyanna Bailon NP Position: Reference Physician Member Role: PCP Address: Address: [address] [place] [address] Name: Adam Gutiérrez RN Position: [facility] RESTREPO Supv Member Role: Primary Care Nurse Care Team Related Persons Name: JONATHONSHERLYA Address: home [address] [place] [address]
--- OUTSIDE RECORDS SUMMARY | 2023-12-03 08:17 | XMS_ITS | Continuity of Care Document ---
Author Organization [facility] Address [address] [place] [address]- Care Team Providers Care Bulk Station Operator Name Role Phone Willie Carrion MD Primary Care Physician [phone] Encounter [place] Date(s): 12/16/21 - 12/23/21 [facility] [address] [place] [address]- [place] Encounter Diagnosis Pre-operative cardiovascular examination, unstable angina(Discharge Diagnosis) - 12/16/21 Hypertriglyceridemia(Discharge Diagnosis) - 12/16/21 Hyperlipidemia(Discharge Diagnosis) - 12/16/21 CAD in [place] artery(Discharge Diagnosis) - 12/16/21 Attending Physician: Jaswant Elizabeth MD Admitting Physician: [...] 3 Refills, Maintenance, 09/02/21 8:52:00 EDT, Tablet, [facility] #[id number], Partial fill upon patient request if the prescription is for a schedule II opioid drug., 180, cm, 09/02/21 8:46:00 EDT,... Start Date: 09/02/21 Stop Date: 08/28/22 Status: Ordered aspirin 81 mg oral tablet 1 tablet = 81 mg, By Mouth, Daily, # 90 tablet, 11 Refills, Maintenance, 12/06/18 13:47:08 EDT, Tablet Start Date: 12/06/18 Stop Date: 11/20/21 Status: Ordered Fax to [facility] to [facility], See Instructions, # 1 each, Refills 11, Tot. Refills 11, Maintenance, CPAP CPAP 8 cm H2O with heated humidification, mask, heated tubing, filters, headgear, chin strap, andwater chamber. Vincenzo provider access to wireless... Start Date: 09/28/20 Status: Ordered fenofibrate 160 mg oral tablet 0.5 tablet = 80 mg, By Mouth, Daily, # 15 tablet, 0 Refills, Maintenance, 12/16/21 9:13:00 EDT, Tablet, [facility] #[id number], Partial fill upon patient request if the [...] 12/16/21 14:24:00 EDT, Route to Pharmacy Electronically, [facility] #[id number], 180, cm, 12/16/21 8:55:00EDT, Height, 117.8, kg, [...] 3 Refills, Maintenance, 01/10/21 15:32:00 EDT, Tablet, [facility] #[id number], 180, cm, 12/02/20 8:05:00 EDT, Height Start Date: 01/10/21 Status: Ordered ranolazine 500 mg oral tablet, extended release 1 tablet = 500 mg, By Mouth, 2 times a day, # 120 tablet, 3 Refills, Maintenance, 12/08/21 16:50:00EDT, ER Tablet, [facility] #60259, Partial fill upon patient request if the prescription is for a schedule II opioid drug., 180, cm, 09/05/21... Start Date: 12/08/21 Status: Ordered Repatha SureClick 140 mg/mL subcutaneous solution = 140 mg, Subcutaneous Infusion, Every 14 days, # 2 each, 11 Refills, Maintenance, 06/16/21 16:33:00 EST, [facility] #[id number], Partial fill upon patient request if the prescription is for a schedule II opioid drug., 180, cm, 04/06/21 16:24:00... Start Date: 06/16/21 Status: Ordered Symbicort 160mcg/4.5mcg Inhaler 2, puffs, Inhalation, 2 times a day, No substitutions, # 1 each, Refills 5, Tot. Refills 5, Maintenance, 12/13/21 12:33:00 EDT, Inhaler, Route to Pharmacy Electronically, [id number], [facility] #[id number], 180, cm, 040... Start Date: 12/13/21 Status: Ordered Problem List Condition Effective Dates Status Health Status Inform ant Benign essential hypertension(Confirmed) Active CAD (coronary artery disease)(Confirmed) Active Dyslipidemia(Confirmed) Active Obese class II(Confirmed) Active Diagnosis Diagnosis Type Effective Dates Health Status Clinical Service Informant CAD in [place] artery Discharge Diagnosis 12/16/21 Hyperlipidemia Discharge Diagnosis 12/16/21 Hypertriglyceridemia Discharge Diagnosis 12/16/21 Pre-operative cardiovascular examination, unstable angina Discharge Diagnosis 12/16/21 Vital Signs Most recent to oldest [Reference Range]: 1 Height 180 cm (12/16/21 8:55 AM) Weight 122.5 kg (12/16/21 8:55 AM) Oxygen Saturation [94-100 %] 97 % (12/16/21 8:55 AM) Pulse Rate [55-90 bpm] 58 bpm (12/16/21 8:55 AM) Body Mass Index [18.5-24.99] 37.81 *>HHI* (12/16/21 8:55 AM) Blood Pressure [90-138/55-84 mm Hg] 133/ 78mm Hg (12/16/21 8:55 AM) Mode of Delivery (Oxygen) Room air (12/16/21 8:55 AM) Blood pressure sites Arm, left (12/16/21 8:55 AM) Weight Obtained Via Standing scale (12/16/21 8:55 AM) Social History Social History Type Response Smoking Status Former smoker; Other : quit 1990; entered on: 06/14/17 Sex
--- OUTSIDE RECORDS SUMMARY | 2023-12-03 08:17 | XMS_ITS | Continuity of Care Document ---
Author Organization [facility] Address [address] [address]- Care Team Providers Care Hand Tacker Name Role Phone Willie Carrion MD Primary Care Physician [place] [facility] [place] [facility] [id number] Date(s): 12/31/19 - 01/07/20 [facility] [address] [address]- [place] Attending Physician: Jaswant Elizabeth MD [...] Maintenance, 02/13/1916:14:19 EDT, Route to Pharmacy Electronically, [id number], [facility] #[id number] Start Date: 02/12/19 Status: Ordered aspirin 81 [...] 2 times a day, # 180 tablet, 1 Refills, Maintenance, 03/03/20 15:26:00 EDT, Tablet, [facility] #[id number], 180, cm, 07/23/19 13:20:00 EST, Height, 122.3, kg, 12/05/18 4:00:00 EDT, Dry Weight Start Date: 03/03/20 Stop Date: 08/30/20 Status: Ordered ticagrelor 90 mg oral tablet 1 tablet = 90 mg, By Mouth, 2 times a day, for 90 days, # 180 tablet, 4 Refills, Hard Stop 03/03/2015:26:27 EDT, 12/09/18 15:26:27 EDT, Tablet, [facility] [id number] Start Date: 12/09/18 Stop Date: 03/03/20 Status: Ordered Vital Signs Most recent to oldest [Reference Range]: 1 Height 180 cm (12/31/19 8:07 AM) Weight 114.5 kg (12/31/19 8:07 AM) Pulse Rate [55-90 bpm] 59 bpm (12/31/19 8:07 AM) Body Mass Index [18.5-24.99] 35.34 *>HHI* (12/31/19 8:07 AM) Blood Pressure [90-138/55-84 mm Hg] 126/ 78mm Hg (12/31/19 8:07 AM) Social History Social History Type Response Smoking Status Former smoker; Other : quit 1990; entered on: 06/14/17 Sex
--- OUTSIDE RECORDS SUMMARY | 2023-12-03 08:17 | XMS_ITS | Continuity of Care Document ---
Author Organization [facility] Address [address] [facility] [place] [address]- Care Team Providers Care Tissue Packer Name Role Phone Adamaris MARIO, Keyanna Aleja Primary Care Physici an [place] [facility] [place] - 08/30/22 [facility] [address] [facility] [address] [place] [address]- Allergies, Adverse Reactions, Alerts Substance Reaction Severity [...] 6.7 Gm, 11 Refills, Maintenance, 06/13/22 14:10:00 [facility] #[id number], Partial fill upon patient request if the prescription is for a schedule II opioid drug., 2 puf... Start Date: 06/13/22 Status: Ordered albuterol 0.083% inhalation solution 3 mL = 2.5 mg, Inhalation, Every 6 hours, PRN for wheezing/shortness of breath, # 360 mL, 11 Refills, Maintenance, 06/13/22 14:09:00 EST, [facility] #[id number], Partial fill upon patient request if the prescription is for a schedule II... Start Date: 06/13/22 Status: Ordered amLODIPine 2.5 mg oral tablet 1 tablet = 2.5 mg, By Mouth, Daily, # 90 tablet, 3 Refills, Maintenance, 03/20/22 9:25:00 EDT, Tablet, [facility] #[id number], Partial fill upon patient request if the [...] [facility] Fax to [facility], See Instructions, # 1 each, Refills 11, Tot. Refills 11, Maintenance, CPAP CPAP 8 cm H2O with heated humidification, mask, heated tubing, filters, headgear, chin strap, andwater chamber. Vincenzo provider access to wireless... Start Date: 09/28/20 Status: Ordered fenofibrate 160 mg oral tablet 0.5 tablet = 80 mg, By Mouth, Daily, # 15 tablet, 0 Refills, Maintenance, 12/16/21 9:13:00 EDT, Tablet, [facility] #[id number], Partial fill upon patient request if the [...] Gm, 11 Refills, Maintenance, 06/13/22 14:09:00 EST, [place], [facility] #[id number], Partial fill upon patient request if the [...] 02/24/22 16:00:00 EDT, Route to Pharmacy Electronically, [facility] #[id number], Partial fill upon patient request if the prescription is for a schedule II... Start Date: 02/24/22 Status: Ordered Levothyroxine = 300 mcg, By Mouth, Daily, 0 Refills, Maintenance Start Date: 06/29/11 Status: Ordered loratadine 10 mg oral tablet 10 mg, 1, tablet, By Mouth, Daily, # 30 tablet, Refills 11, Tot. Refills 11, Maintenance, 06/13/22 14:09:00 EST, Route to Pharmacy Electronically, [facility] #[id number], Partial fill upon patient request if the prescription is for a schedule II... Start Date: 06/13/22 Status: Ordered metoprolol 50 mg oral tablet, extended release 50 mg, 1, tablet, By Mouth, Daily, # 90 tablet, Refills 3, Tot. Refills 3, Maintenance, 12/16/21 14:24:00 EDT, Route to Pharmacy Electronically, [facility] #[id number], 180, cm, 12/16/21 8:55:00EDT, Height, 117.8, kg, [...] 3 Refills, Maintenance, 01/02/22 16:07:00 EDT, Tablet, [facility] #[id number], 180, cm, 12/16/21 8:55:00 EDT, Height, 117.8, kg, 04/04/21 7:21:00 EDT, Dry Weight Start Date: 01/02/22 Status: Ordered ranolazine 500 mg oral tablet, extended release 1 tablet = 500 mg, By Mouth, 2 times a day, # 180 tablet, 3 Refills, Maintenance, 08/14/22 9:08:00 EDT, ER Tablet, [facility] #[id number], Partial fill upon patient request if the prescription is for a schedule II opioid drug., 178, cm, 08/11/22... Start Date: 08/14/22 Status: Ordered Repatha SureClick 140 mg/mL subcutaneous solution = 140 mg, Subcutaneous Infusion, Every 14 days, # 2 each, 11 Refills, Maintenance, 05/03/22 11:32:00 EST, [facility] #[id number], Partial fill upon patient request if the prescription is for a schedule II opioid drug., 178, cm, 03/30/22 16:02:00... Start Date: 05/03/22 Status: Ordered Trelegy Ellipta 200 mcg-62.5 mcg-25 mcg/inh inhalation powder 1 puffs, Inhalation, Daily, at the same time every day, # 1 each, 11 Refills, Maintenance, 06/13/2313:09:00 EST, Powder, [facility] #13928, Partial fill upon patient request if the [...] team information Care Team Personnel Name: Rhoda Ansrai RN Position: S RN Member Role: Primary Care Nurse Name: Keyanna Bailon NP Position: Reference Physician Member Role: PCP Address: Address: [address] [place] [address] Name: Adam Gutiérrez RN Position: S RN Supv Member Role: Primary Care Nurse Care Team Related Persons Name: IBIS HOLT Address: home [address] [place] [address]
--- OUTSIDE RECORDS SUMMARY | 2023-12-03 08:17 | XMS_ITS | Continuity of Care Document ---
Author Organization [facility] Address [address] [address]- Care Team Providers Care Business Job Titles Name Role Phone Sheyla BARRAGAN, Willie Rogers Primary Care Physician Encounter [facility] [place] Date(s): 07/23/19 - 08/02/19 [facility] [address] [address]- [place] Attending Physician: Joycelyn Hennessy Admitting Physician: Joycelyn Hennessy Referring Physician: AdmtrJyocelyn Allergies, Adverse Reactions, Alerts Substance Reaction Severity [...] Maintenance, 02/13/1916:14:19 EDT, Route to Pharmacy Electronically, [id number], [facility] #[id number] Start Date: 02/12/19 Status: Ordered aspirin 81 [...] 08/13/18 11:06:52 EDT, Route to Pharmacy Electronically, [id number], [facility] [address] Start Date: 08/13/18 Status: Ordered nitroglycerin 0.4 [...]
--- OUTSIDE RECORDS SUMMARY | 2023-12-03 08:17 | XMS_ITS | Continuity of Care Document ---
Author Organization [facility] Address [address] [place] [address]- Care Team Providers Care Atmospheric Drier Tender Name Role Phone Willie Carrion MD Primary Care Physician [place] [facility] [place] 12/15/19 - 01/14/20 [facility] [address] [place] [address]- [place] Allergies, Adverse Reactions, Alerts Substance Reaction Severity [...] Maintenance, 02/13/1916:14:19 EDT, Route to Pharmacy Electronically, [id number], [facility] #[id number] Start Date: 02/12/19 Status: Ordered aspirin 81 [...] 1 Refills, Maintenance, 03/03/20 15:26:00 EDT, Tablet, [facility] #[id number], 180, cm, 07/23/19 13:20:00 EST, Height, 122.3, kg, 12/05/18 4:00:00 EDT, Dry Weight Start Date: 03/03/20 Stop Date: 08/30/20 Status: Ordered ticagrelor 90 mg oral tablet 1 tablet = 90 mg, By Mouth, 2 times a day, for 90 days, # 180 tablet, 4 Refills, Hard Stop 03/03/2015:26:27 EDT, 12/09/18 15:26:27 EDT, Tablet, [facility] [id number] Start Date: 12/09/18 Stop Date: 03/03/20 Status: Ordered Social History Social History Type Response Smoking Status Former smoker; Other : quit 1990; entered on: 06/14/17 Sex
--- OUTSIDE RECORDS SUMMARY | 2023-12-03 08:17 | XMS_ITS | Continuity of Care Document ---
Author Organization [facility] em Address Unknown Care Team Providers Care Optometrist President/Practice Owner Name Role Phone Adamaris MARIO, Keyanna Masterson Primary Care Physici an [place] [facility] [place] Date(s): 06/21/22 - 07/21/22 [facility] Attending Physician: Joycelyn Hennessy Admitting Physician: Joycelyn Hennessy Referring Physician: Joycelyn Hennessy Allergies, Adverse Reactions, Alerts Substance Reaction Severity [...] 6.7 Gm, 11 Refills, Maintenance, 06/13/22 14:10:00 [facility][id number], Partial fill upon patient request if the prescription is for a schedule II opioid drug., 2 puf... Start Date: 06/13/22 Status: Ordered albuterol 0.083% inhalation solution 3 mL = 2.5 mg, Inhalation, Every 6 hours, PRN for wheezing/shortness of breath, # 360 mL, 11 Refills, Maintenance, 06/13/22 14:09:00 EST, [facility] #[id number], Partial fill upon patient request if the prescription is for a schedule II... Start Date: 06/13/22 Status: Ordered amLODIPine 2.5 mg oral tablet 1 tablet = 2.5 mg, By Mouth, Daily, # 90 tablet, 3 Refills, Maintenance, 03/20/22 9:25:00 EDT, Tablet, [facility] #[id number], Partial fill upon patient request if the prescription is for a schedule II opioid drug., 178, cm, 02/24/22 15:32:00 EDT... Start Date: 03/20/22 Stop Date: 03/15/23 Status: Ordered aspirin 81 mg oral tablet 1 tablet = 81 mg, By Mouth, Daily, # 90 tablet, 11 Refills, Maintenance, 12/06/18 13:47:08 EDT, Tablet Start Date: 12/06/18 Stop Date: 11/20/21 Status: Ordered Fax to [facility] Fax to [facility], See Instructions, # 1 each, Refills 11, Tot. Refills 11, Maintenance, CPAP CPAP 8 cm H2O with heated humidification, mask, heated tubing, filters, headgear, chin strap, andwater chamber. Vincenzo provider access to wireless... Start Date: 09/28/20 Status: Ordered fenofibrate 160 mg oral tablet 0.5 tablet = 80 mg, By Mouth, Daily, # 15 tablet, 0 Refills, Maintenance, 12/16/21 9:13:00 EDT, [facility] #[id number], Partial fill upon patient request if the [...] Gm, 11 Refills, Maintenance, 06/13/22 14:09:00 EST, [place], [facility] #27112, Partial fill upon patient request if the [...] 02/24/22 16:00:00 EDT, Route to Pharmacy Electronically, [facility] #[id number], Partial fill upon patient request if the prescription is for a schedule II... Start Date: 02/24/22 Status: Ordered Levothyroxine = 300 mcg, By Mouth, Daily, 0 Refills, Maintenance Start Date: 06/29/11 Status: Ordered loratadine 10 mg oral tablet 10 mg, 1, tablet, By Mouth, Daily, # 30 tablet, Refills 11, Tot. Refills 11, Maintenance, 06/13/22 14:09:00 EST, Route to Pharmacy Electronically, [facility] #[id number], Partial fill upon patient request if the prescription is for a schedule II... Start Date: 06/13/22 Status: Ordered metoprolol 50 mg oral tablet, extended release 50 mg, 1, tablet, By Mouth, Daily, # 90 tablet, Refills 3, Tot. Refills 3, Maintenance, 12/16/21 14:24:00 EDT, Route to Pharmacy Electronically, [facility] #[id number], 180, cm, 12/16/21 8:55:00EDT, Height, 117.8, kg, [...] 3 Refills, Maintenance, 01/02/22 16:07:00 EDT, Tablet, [facility] #[id number], 180, cm, 12/16/21 8:55:00 EDT, Height, 117.8, kg, 04/04/21 7:21:00 EDT, Dry Weight Start Date: 01/02/22 Status: Ordered ranolazine 500 mg oral tablet, extended release 1 tablet = 500 mg, By Mouth, 2 times a day, # 120 tablet, 3 Refills, Maintenance, 07/04/22 9:01:00 EST, ER Tablet, [facility] #04335, Partial fill upon patient request if the prescription is for a schedule II opioid drug., 178, cm, 06/13/22... Start Date: 07/04/22 Status: Ordered Repatha SureClick 140 mg/mL subcutaneous solution = 140 mg, Subcutaneous Infusion, Every 14 days, # 2 each, 11 Refills, Maintenance, 05/03/22 11:32:00 EST, [facility] #68228, Partial fill upon patient request if the prescription is for a schedule II opioid drug., 178, cm, 03/30/22 16:02:00... Start Date: 05/03/22 Status: Ordered Trelegy Ellipta 200 mcg-62.5 mcg-25 mcg/inh inhalation powder 1 puffs, Inhalation, Daily, at the same time every day, # 1 each, 11 Refills, Maintenance, 06/13/2313:09:00 EST, [place], [facility] #78687, Partial fill upon patient request if the [...] Reference Physician Member Role: PCP Address: Address: [address] [place] [address]- Name: Adam Gutiérrez RN Position: S RN Supv Member Role: Primary Care Nurse Care Team Related Persons Name: IBIS HOLT Address: home [address] [place] [address]
--- OUTSIDE RECORDS SUMMARY | 2023-12-03 08:18 | XMS_ITS | Continuity of Care Document ---
Author Organization [facility] Address [address] [place] [address]- Care Team Providers Care Roofer Assistant Name Role Phone Adamaris MARIO, Keyanna Masterson Primary Care Physici an [place] [facility] [place]s): 07/03/23 - 08/02/23 [facility] [address] [place] [address]- Allergies, Adverse Reactions, Alerts Substance Reaction Severity [...] 6.7 Gm, 11 Refills, Maintenance, 06/13/22 14:10:00 [id number], Partial fill upon patient request if the prescription is for a schedule II opioid drug., 2 puf... Start Date: 06/13/22 Status: Ordered albuterol 0.083% inhalation solution 3 mL = 2.5 mg, Inhalation, Every 6 hours, PRN for wheezing/shortness of breath, # 360 mL, 11 Refills, Maintenance, 06/13/22 14:09:00 EST, [place], [facility] #[id number], Partial fill upon patient request if the [...] Date: 07/12/23 Status: Ordered [facility]ax to [facility] Fax to [facility], See Instructions, # 1 [...] 0 Refills, Maintenance, 12/16/21 9:13:00 EDT, Tablet, [facility] #[id number], Partial fill upon patient request if the [...] each, 5 Refills, Maintenance, 04/05/23 11:45:00 EDT, [facility]/pharmacy #[id number], Partial fill upon patient [...] Refills, Maintenance, 11/08/22 16:40:00 EDT, REC Powder, [facility]/pharmacy #1094, Ok to... Start Date: 11/08/22 Status: Ordered Lasix 20 mg oral tablet 20 mg, 1, tablet, By Mouth, Daily, # 30 tablet, Refills 11, Tot. Refills 11, Maintenance, 02/24/22 16:00:00 EDT, Route to Pharmacy Electronically, [facility] #[id number], Partial fill upon patient request if the prescription is for a schedule II... Start Date: 02/24/22 Status: Ordered Levothyroxine = 300 mcg, By Mouth, Daily, 0 Refills, Maintenance Start Date: 06/29/11 Status: Ordered loratadine 10 mg oral tablet 10 mg, 1, tablet, By Mouth, Daily, # 30 tablet, Refills 11, Tot. Refills 11, Maintenance, 05/10/23 10:46:00 EST, [id number], Partial fill upon patient request if the prescription is for a schedule II opioid dr... Start Date: 05/10/23 Status: Ordered metoprolol 50 mg oral tablet, extended release 50 mg, 1, tablet, By Mouth, Daily, # 90 tablet, Refills 3, Tot. Refills 3, Maintenance, 10/31/22 9:28:00 EDT, Route to Pharmacy Electronically, [facility]/pharmacy #1094, 178, cm, 10/18/22 9:47:00 [...] 3 Refills, Maintenance, 02/06/23 8:36:00 EDT, Tablet, [facility]/pharmacy #[id number], 180.34, cm, 11/22/22 7:21:00 [...] Refills, Maintenance, 03/13/23 9:33:00 EDT, ER Tablet, [facility]/pharmacy #1094, Partial fill upon patient request if the prescription is for a schedule II opioid drug., 180.34, cm, 11/22/22 7:21:0... Start Date: 03/13/23 Status: Ordered Repatha SureClick 140 mg/mL subcutaneous solution = 140 mg, Subcutaneous Infusion, Every 14 days, # 2 each, 11 Refills, Maintenance, 06/12/23 12:51:00 EST, [facility]/pharmacy #1094, Partial fill upon patient [...] Reference Physician Member Role: PCP Address: Address: [address] [place] [address]- Name: Adam Gutiérrez RN Position: [facility] RESTREPO Supv Member Role: Primary Care Nurse Care Team Related Persons Name: IBIS HOLT Address: home [address] [place] [address]
--- OUTSIDE RECORDS SUMMARY | 2023-12-03 08:18 | XMS_ITS | Continuity of Care Document ---
Author Organization [facility] Address [address] [place] [address]- Care Team Providers Care Cna Name Role Phone Willie Carrion MD Primary Care Physician [place] [facility] [place] - 01/07/22 [facility] [place] [address] [place] [address]- [place] Allergies, Adverse Reactions, Alerts Substance Reaction [...] 3 Refills, Maintenance, 09/02/21 8:52:00 EDT, Tablet, [facility] #[id number], Partial fill upon patient request if the prescription is for a schedule II opioid drug., 180, cm, 09/02/21 8:46:00 EDT,... Start Date: 09/02/21 Stop Date: 08/28/22 Status: Ordered aspirin 81 mg oral tablet 1 tablet = 81 mg, By Mouth, Daily, # 90 tablet, 11 Refills, Maintenance, 12/06/18 13:47:08 EDT, Tablet Start Date: 12/06/18 Stop Date: 11/20/21 Status: Ordered Fax to [facility], See Instructions, # 1 each, Refills 11, Tot. Refills 11, Maintenance, CPAP CPAP 8 cm H2O with heated humidification, mask, heated tubing, filters, headgear, chin strap, andwater chamber. Vincenzo provider access to wireless... Start Date: 09/28/20 Status: Ordered fenofibrate 160 mg oral tablet 0.5 tablet = 80 mg, By Mouth, Daily, # 15 tablet, 0 Refills, Maintenance, 12/16/21 9:13:00 EDT, Tablet, [facility] #40032, Partial fill upon patient request if the [...] 12/16/21 14:24:00 EDT, Route to Pharmacy Electronically, [facility] #[id number], 180, cm, 12/16/21 8:55:00EDT, Height, 117.8, kg, [...] 3 Refills, Maintenance, 01/02/22 16:07:00 EDT, Tablet, [facility] #[id number], 180, cm, 12/16/21 8:55:00 EDT, Height, 117.8, kg, 04/04/21 7:21:00 EDT, Dry Weight Start Date: 01/02/22 Status: Ordered ranolazine 500 mg oral tablet, extended release 1 tablet = 500 mg, By Mouth, 2 times a day, # 120 tablet, 3 Refills, Maintenance, 12/08/21 16:50:00EDT, ER Tablet, [facility] #16463, Partial fill upon patient request if the prescription is for a schedule II opioid drug., 180, cm, 09/05/21... Start Date: 12/08/21 Status: Ordered Repatha SureClick 140 mg/mL subcutaneous solution = 140 mg, Subcutaneous Infusion, Every 14 days, # 2 each, 11 Refills, Maintenance, 06/16/21 16:33:00 EST, [facility] #47531, Partial fill upon patient request if the prescription is for a schedule II opioid drug., 180, cm, 04/06/21 16:24:00... Start Date: 06/16/21 Status: Ordered Symbicort 160mcg/4.5mcg Inhaler 2, puffs, Inhalation, 2 times a day, No substitutions, # 1 each, Refills 5, Tot. Refills 5, Maintenance, 12/13/21 12:33:00 EDT, Inhaler, Route to Pharmacy Electronically, [id number], [facility] #[id number], 180, cm, 0... Start Date: 12/13/21 Status: Ordered Problem List Condition Effective Dates Status Health Status Inform ant Benign essential hypertension(Confirmed) Active CAD (coronary artery disease)(Confirmed) Active Dyslipidemia(Confirmed) Active Obese class II(Confirmed) Active Social History Social History Type Response Smoking Status Former smoker; Other : quit 1990; entered on: 06/14/17 Sex
--- OUTSIDE RECORDS SUMMARY | 2023-12-03 08:18 | XMS_ITS | Continuity of Care Document ---
Author Organization [facility] Address [address] [place] [address]- Care Team Providers Care Twisting Frame Fixer Name Role Phone Willie Carrion MD Primary Care Physician Encounter [facility] [place] Date(s): 06/16/21 - 06/23/21 [facility] [place] [address] [place] [address]- Attending Physician: Jaswant Elizabeth MD Admitting Physician: [...] Stop Date: 11/20/21 Status: Ordered Fax to [facility] Fax to [facility], See Instructions, # [...] 11 Refills, Maintenance, 04/06/21 17:28:00 EDT, Powder, [facility] #[id number], Partial fill upon patient request if the [...] 09/01/20 16:55:00 EDT, Route to Pharmacy Electronically, [facility] #[id number], 180, cm, 08/31/20 14:02:00 EDT, Height, 122.3, [...] 3 Refills, Maintenance, 01/10/21 15:32:00 EDT, Tablet, [facility] #[id number], 180, cm, 12/02/20 8:05:00 EDT, Height Start [...] each, 11 Refills, Maintenance, 06/16/21 16:33:00 EST, [facility] #[id number], Partial fill upon patient request if the prescription is for a schedule II opioid drug., 180, cm, 04/06/21 16:24:00... Start Date: 06/16/21 Status: Ordered Problem List Condition Effective Dates Status Health Status Inform ant Benign essential hypertension(Confirmed) Active CAD (coronary artery disease)(Confirmed) Active Dyslipidemia(Confirmed) Active Social History Social History Type Response Smoking Status Former smoker; Other : quit 1990; entered on: 06/14/17 Sex
--- OUTSIDE RECORDS SUMMARY | 2023-12-03 08:18 | XMS_ITS | Continuity of Care Document ---
Author Organization [facility] Address [address] [place] [address]- Care Team Providers Care Garage Attendant Name Role Phone Willie Carrion MD Primary Care Physician [phone] Encounter [facility] [place] Date(s): 03/10/21 - 03/17/21 [facility] [place] [address] [place] [address]- Attending Physician: Jaswant Elizabeth MD Admitting Physician: [...] tablet, 3 Refills, Maintenance, 03/01/21 11:07:00 EDT, [facility] #[id number], 182, cm, 02/23/21 19:12:00 EDT, Height, 117, kg, 02/23/21 19:12:00 EDT, DryWeight Start Date: 03/01/21 Status: Ordered aspirin 81 mg oral tablet 1 tablet = 81 mg, By Mouth, Daily, # 90 tablet, 11 Refills, Maintenance, 12/06/18 13:47:08 EDT, Tablet Start Date: 12/06/18 Stop Date: 11/20/21 Status: Ordered Fax to [facility] Fax to [facility], See Instructions, # 1 [...] 09/01/20 16:55:00 EDT, Route to Pharmacy Electronically, [facility] #[id number], 180, cm, 08/31/20 14:02:00 EDT, Height, 122.3, [...] 3 Refills, Maintenance, 01/10/21 15:32:00 EDT, Tablet, [facility] #[id number], 180, cm, 12/02/20 8:05:00 EDT, Height Start Date: 01/10/21 Status: Ordered Spiriva Respimat 1.25 mcg/inh inhalation aerosol 2 puffs, Inhalation, Daily, # 4 Gm, 11 Refills, Maintenance, 03/08/20 14:55:00 EDT, Aerosol, [facility] #[id number], 180, cm, 03/08/20 14:38:00 EDT, Height, 122.3, [...] recent to oldest [Reference Range]: 1 Height 182 cm (03/10/21 2:55 PM) Weight 115.2 kg (03/10/21 2:55 PM) Oxygen Saturation [94-100 %] 96 % (03/10/21 2:55 PM) Pulse Rate [55-90 bpm] 65 bpm (03/10/21 2:55 PM) Body Mass Index [18.5-24.99] 34.78 *>HHI* (03/10/21 2:55 PM) Blood Pressure [90-138/55-84 mm Hg] 125/ 72mm Hg (03/10/21 2:55 PM) Blood pressure sites Arm, left (03/10/21 2:55 PM) Weight Obtained Via Standing scale (03/10/21 2:55 PM) Social History Social History Type Response Smoking Status Former smoker; Other : quit 1990; entered on: 06/14/17 Sex
--- OUTSIDE RECORDS SUMMARY | 2023-12-03 08:18 | XMS_ITS | Continuity of Care Document ---
Author Organization [facility] Address 164 [facility] [address] [place] [address]- Care Team Providers Care Metal Numerical Control Programmer Name Role Phone Adamaris MARIO, Keyanna Aleja Primary Care Physici an Encounter [facility] [place] [place] Date(s): 08/23/23 - 09/22/23 [facility] [address] [place] [address]- Allergies, Adverse Reactions, Alerts Substance Reaction Severity [...] 6.7 Gm, 11 Refills, Maintenance, 06/13/22 14:10:00 [facility] #[id number], Partial fill upon patient request if the prescription is for a schedule II opioid drug., 2 puf... Start Date: 06/13/22 Status: Ordered albuterol 0.083% inhalation solution 3 mL = 2.5 mg, Inhalation, Every 6 hours, PRN for wheezing/shortness of breath, # 360 mL, 11 Refills, Maintenance, 06/13/22 14:09:00 EST, Solution, [facility] #[id number], Partial fill upon patient request if the prescription is for a schedule II... Start Date: 06/13/22 Status: Ordered amLODIPine 5 mg oral tablet 1 tablet = 5 mg, By Mouth, Daily, # 90 tablet, 3 Refills, Maintenance, 09/07/23 8:50:00 EDT, Tablet, [facility]/pharmacy #[id number], Partial fill upon patient [...] Start Date: 07/12/23 Status: Ordered [facility]ax to [facility] 0 Refills, Maintenance, 12/16/21 9:13:00 EDT, Tablet, [facility] #[id number], Partial fill upon patient request if the [...] 02/24/22 16:00:00 EDT, [id number], Partial fill upon patient request if the prescription is for a schedule II... Start Date: 02/24/22 Status: Ordered Levothyroxine = 300 mcg, By Mouth, Daily, 0 Refills, Maintenance Start Date: 06/29/11 Status: Ordered loratadine 10 mg oral tablet 10 mg, 1, tablet, By Mouth, Daily, # 30 tablet, Refills 11, Tot. Refills 11, Maintenance, 05/10/23 10:46:00 EST, Route to Pharmacy Electronically, [facility]/pharmacy #[id number], Partial fill upon patient request if the prescription is for a schedule II opioid dr... Start Date: 05/10/23 Status: Ordered metoprolol 50 mg oral tablet, extended release 50 mg, 1, tablet, By Mouth, Daily, # 90 tablet, Refills 3, Tot. Refills 3, Maintenance, 10/31/22 9:28:00 EDT, Route to Pharmacy Electronically, [facility]/pharmacy #[id number], 178, cm, 10/18/22 9:47:00 EDT, [...] Refills, Maintenance, 03/13/23 9:33:00 EDT, ER Tablet, [facility]/pharmacy #[id number], Partial fill upon patient [...] Physician Member Role: PCP Address: Address: [address] [place] [address]- Name: Adam Gutiérrez RN Position: [facility] RESTREPO Supv Member Role: Primary Care Nurse Care Team Related Persons Name: SHERLY HOLTA Address: home [address] [place] [address]
--- OUTSIDE RECORDS SUMMARY | 2023-12-03 08:18 | XMS_ITS | Continuity of Care Document ---
Author Organization [facility] em Address Unknown Care Team Providers Care Executive Services Administrator Name Role Phone Adamaris MARIO, Keyanna Masterson Primary Care Physici an [place] [facility](s[place] 10/18/22 - 10/25/[address] [facility] Attending Physician: Christy Israel MD, Perfecto Ojeda [...] 6.7 Gm, 11 Refills, Maintenance, 06/13/22 14:10:00 [facility] #[id number], Partial fill upon patient request if the prescription is for a schedule II opioid drug., 2 puf... Start Date: 06/13/22 Status: Ordered albuterol 0.083% inhalation solution 3 mL = 2.5 mg, Inhalation, Every 6 hours, PRN for wheezing/shortness of breath, # 360 mL, 11 Refills, Maintenance, 06/13/22 14:09:00 EST, Solution, [facility] #[id number], Partial fill upon patient request if the prescription is for a schedule II... Start Date: 06/13/22 Status: Ordered amLODIPine 2.5 mg oral tablet 1 tablet = 2.5 mg, By Mouth, Daily, # 90 tablet, 3 Refills, Maintenance, 03/20/22 9:25:00 EDT, Tablet, [facility] #[id number], Partial fill upon patient request if the prescription is for a schedule II opioid drug., 178, cm, 02/24/22 15:32:00 EDT... Start Date: 03/20/22 Stop Date: 03/15/23 Status: Ordered aspirin 81 mg oral tablet 1 tablet = 81 mg, By Mouth, Daily, # 90 tablet, 11 Refills, Maintenance, 12/06/18 13:47:08 EDT, Tablet Start Date: 12/06/18 Stop Date: 11/20/21 Status: Ordered Fax to [facility] Fax to [facility] [...] tablet, 0 Refills, Maintenance, 12/16/21 9:13:00 EDT, [facility] #[id number], Partial fill upon patient request if the [...] Gm, 11 Refills, Maintenance, 06/13/22 14:09:00 EST, [place], [facility] #[id number], Partial fill upon patient request if the [...] 02/24/22 16:00:00 EDT, Route to Pharmacy Electronically, [facility] #[id number], Partial fill upon patient request if the prescription is for a schedule II... Start Date: 02/24/22 Status: Ordered Levothyroxine = 300 mcg, By Mouth, Daily, 0 Refills, Maintenance Start Date: 06/29/11 Status: Ordered loratadine 10 mg oral tablet 10 mg, 1, tablet, By Mouth, Daily, # 30 tablet, Refills 11, Tot. Refills 11, Maintenance, 06/13/22 14:09:00 EST, Route to Pharmacy Electronically, [facility] #[id number], Partial fill upon patient request if the prescription is for a schedule II... Start Date: 06/13/22 Status: Ordered metoprolol 50 mg oral tablet, extended release 50 mg, 1, tablet, By Mouth, Daily, # 90 tablet, Refills 3, Tot. Refills 3, Maintenance, 10/09/22 22:08:00 EDT, Route to Pharmacy Electronically, [facility]/pharmacy #[id number], 178, cm, 08/28/22 8:04:00 EDT, Height, [...] 3 Refills, Maintenance, 01/02/22 16:07:00 EDT, Tablet, [facility] #[id number], 180, cm, 12/16/21 8:55:00 EDT, Height, 117.8, kg, 04/04/21 7:21:00 EDT, Dry Weight Start Date: 01/02/22 Status: Ordered ranolazine 500 mg oral tablet, extended release 1 tablet = 500 mg, By Mouth, 2 times a day, # 180 tablet, 3 Refills, Maintenance, 08/14/22 9:08:00 EDT, ER Tablet, [facility] #[id number], Partial fill upon patient request if the prescription is for a schedule II opioid drug., 178, cm, 08/11/22... Start Date: 08/14/22 Status: Ordered Repatha SureClick 140 mg/mL subcutaneous solution = 140 mg, Subcutaneous Infusion, Every 14 days, # 2 each, 11 Refills, Maintenance, 05/03/22 11:32:00 EST, [facility] #[id number], Partial fill upon patient request if the prescription is for a schedule II opioid drug., 178, cm, 03/30/22 16:02:00... Start Date: 05/03/22 Status: Ordered Trelegy Ellipta 200 mcg-62.5 mcg-25 mcg/inh inhalation powder 1 puffs, Inhalation, Daily, at the same time every day, # 1 each, 11 Refills, Maintenance, 06/13/2313:09:00 EST, Powder, [facility] #[id number], Partial fill upon patient request if the [...] oldest [Reference Range]: 1 Height 178 cm (10/18/22 9:47 AM) Weight 125 kg (10/18/22 9:47 AM) Body Mass Index [18.5-24.99 kg/m2] 39.45 kg/m2 *>HHI* (10/18/22 9:47 AM) Blood Pressure [90-138/55-84 mm Hg] 128/ 80mm Hg (10/18/22 9:47 AM) Social History Social History Type Response Smoking Status Former smoker; Other : quit 1990; entered on: 06/14/17 Sex Note * Ibis Wilkins: PERFORM, SIGN, VERIFY Event Display: Patient Education/Instruction Authored Date: [id number] [facility] *[facility] Clinical Summary Name NICK VALADEZ Age 61 Years 1960 PCP Adamaris MARIO, Keyanna Masterson PCP Visit Date 10/18/2022 09:47:00 Additional Instructions: Scheduled Appointments?? Future Appointments ?[facility]??Endoscopy??&??Minor??Procedures ?Phone:??--?Fax:??-- ?Appt. Date:??11/22/2022?7:30 AM ?Scheduled Provider:??Jose Guallpa MD Follow-Up Instructions ?? With: Address: When: Perfecto Murphy [address] [place] [address], [address] [place] [address] In 1 year 10/19/2023 Diagnosis Medications: Please continue your medications until treatment is completed or stopped by your provider. Discuss any questions related to medications with your provider. Medications to Continue with No Changes These [...] wheezing/shortness of breath. Refills: 11. Next Dose: Amlodipine (amLODIPine 2.5 mg oral tablet) 1 tab(s) Oral Daily for 90 Days. Refills: 3. Next Dose: Aspirin (aspirin 81 mg oral tablet) 1 tab(s) Oral Daily for 90 Days. Refills: 11. Next Dose: Durable Medical Equipment (Fax to [facility]) CPAP CPAP 8 cm H2O [...] tab(s) Oral Daily. Next Dose: Fluticasone Nasal (Flonase 50 mcg/inh nasal spray) 1 spray(s) Nares, Both twice a day. Refills: 11. Next Dose: fluticasone/umeclidinium/vilanterol (Trelegy Ellipta 200 mcg-62.5 [...] for 3 doses/times. Refills: 1. Next Dose: Arabi-3 Polyunsaturated Fatty Acids (Fish Oil 1000 mg oral capsule) 1 capsule Oral twice a day. Refills: 0. Next Dose: prasugrel (prasugrel 10 mg oral tablet) 1 tab(s) Oral Daily. Refills: 3. Next Dose: ranolazine (ranolazine 500 mg oral tablet, extended release) 1 tab(s) Oral twice a day. Refills: 3. Next Dose: Allergy Info:?? fentaNYL; statins; Zetia; Peanuts Medications Given This Visit Future Orders ?No future orders Vital Signs Height 178 cm Weight 125 kg BMI 39.45 kg/m2 Blood Pressure 128 mm Hg/80 mm Hg Temperature Pulse Rate Respiratory Rate 02 Sat Mode of Delivery / You can now view a summary of your hospital visit from the comfort of your home through a free online portal called kinkon. kinkon is a website that allows you to securely view your medical information including discharge summary, medications and follow-up visits. ??You can alsosend a secure electronic message to your doctor???s office to request appointments, renew medications or just ask a question. You can enroll at [email or web address] or register during your next office [...] primary care provider, you may find a [facility] provider by calling [facility] at [phone]. For information about the plan of care [...] any education documents you were given today. * Ibis Wilkins: PERFORM Event Display: Patient Education/Instruction Authored Date: [id number] Electronic Record Request Entered On: 10/18/2022 11:32 EDT Performed On: 10/18/2022 11:28 EDT by Ibis Wilkins Electronic Record Request Electronic Request: DC Instructions : Yes Electronic Request: Clinical Summary : Yes Electronic Request: Medical Record : Yes Electronic Copy: DC Instructions : Prepared Electronic Copy: Clinical Summary : Prepared Electronic Copy: Medical Record : Prepared Ibis Wilkins - 10/18/2022 11:28 EDT Patient Care team information Care Team Personnel Name: Rhoda Ansari RN Position: CARYN MUNOZ RN Member Role: Primary Care Nurse Name: Keyanna Bailon NP Position: Reference Physician Member Role: PCP Address: Address: [address] [place] [address]- Name: Adam Gutiérrez RN Position: [facility] RESTREPO Supv Member Role: Primary Care Nurse Care Team Related Persons Name: IBIS HOLT Address: home [address] [place] [address]
--- NOTE | 2023-12-03 13:10 | MHC.OFFVISWM ---
VS Expanded 12/03/23 13:32 Height 5 ft 10 in Weight 272 lb 4 oz BMI 39.1 Body Fat % 33.6 Body Fat Mass 91.4 Fat Free Mass 180.8 Visceral Fat Rating 22 Body Water % 49.5 Body Water Mass 134.8 Basal Metabolic Rate/Score 2,476 Intake Visit Reasons: TV REGISTERED RESPIRATORY THERAPIST SWL BMI 39.1 Allergies fentanyl Allergy (Mild, Verified 12/03/23 13:10) Unknown peanut Allergy (Mild, Verified 12/03/23 13:10) Difficulty Breathing Mvdvfwp-OPN-KyW Reductase Inhibitor Allergy (Mild, Verified 12/03/23 13:10) Unknown zetia Allergy (Mild, Uncoded 12/03/23 13:10) Unknown Medication List - Last Reconciled 12/03/23 by Ross Vicente MD albuterol sulfate 90 mcg/actuation 2 puffs inhalation Q6H PRN albuterol sulfate 5 mg inhalation Q6H PRN amlodipine 2.5 mg PO DAILY aspirin (Adult Aspirin Regimen) 81 mg PO DAILY evolocumab (Repatha Syringe) 140 mg subcut Q2W fenofibrate 80 mg PO DAILY fluoxetine 20 mg PO DAILY edqnmnngclb-optzdbhze-ommfmhen 100-62.5-25 mcg (Trelegy Ellipta) 1 inh inhalation DAILY PRN levothyroxine 300 mcg PO DAILY metoprolol succinate ER 50 mg PO DAILY nitroglycerin 0.3 mg sublingual Q5M PRN prasugrel 10 mg PO DAILY ranolazine ER 500 mg PO BID HPI HPI TV REGISTERED RESPIRATORY THERAPIST SWL BMI 39.1: Details: Start time: 1.05pm, End time: 1.56pm ?I spent 46 minutes speaking with the patient on the phone plus an additional 5 minutes reviewing and updating records for a total of 51 minutes HPI Comments Details: Previous weight loss efforts: RD, keto diet, intermittent fasting, high protein diet Wakes up: 4.30-5am, Sleeps: 10pm Breakfast: 6.30am ([employer] wraps) Lunch: 12pm (Chipotle rice and chicken bowls, tuna panini) Dinner: 6pm (chicken with vegetable, mac&cheese) Snacks: 9am (crackers), 9pm (Ice cream) Exercise: home treadmill, bike and elliptical Fluids: Coffee (2 cups/day with cream, tea: (black), soda: none, juice: rarely, ETOH: 3-4 drinks per week (Vodka with [place]) [facility] Medical History (Updated 12/03/23 @ 13:20 by Ross Vicente MD) Hypothyroidism Anxiety Depression Asthma DJD (degenerative joint disease) Hyperlipidemia GERD (gastroesophageal reflux disease) Sleep apnea treated with continuous positive airway pressure (CPAP) CAD (coronary artery disease) Hypertension Morbid obesity Surgical History (Updated 10/05/23 @ 14:15 by Anne Baxter CMA) Hx of neck surgery Hx of rotator cuff surgery History of right hip replacement Hx of arthroscopic knee surgery History of ankle surgery Telehealth Telehealth Telehealth Platform: Telephone Location of provider rendering services: practice address Location of patient: address on file Patient Identification confirmed using: Name, : Yes Telehealth method: voice only Patient verbally consented to treatment: Yes Patient verbally consented to billing insurance company: Yes Patient informed of any privacy concerns related to visit: Yes Minutes spent on Phone/Video with Pt.: 51 Assessment & Plan Assessment & Plan (1) Morbid obesity: Code(s): E66.01 - Morbid (severe) obesity due to excess calories Category: Medical Plan: 1.? Plan for lap sleeve gastrectomy. If diaphragmatic or ventral hernias are present at time of surgery, these will be repaired laparoscopically as well. Risks and complications include possible conversion to an open procedure, anastomotic leak, bleeding requiring transfusion, small bowel obstruction, , DVT and pulmonary embolism, cardiac, or pulmonary complications, as chcf complications such as anastomotic ulcer, insufficient weight loss and vitamin deficiencies. I emphasized the importance of close follow-up, adherence to instructions and good communication. 2. You will receive a link of our software dima to generate an individualized nutritional and exercise plan specific for you. Please send me a screenshot of the plans you will generate Meal to include lean meat (beef, fish, pork, turkey, chicken), or faroese yogurt, or egg whites, or beans with a salad with olive oil and fruits (berries, pears, apples, kiwi). Avoid salt, breads, potatoes, rice, pasta, desserts. ?3. If you choose shakes, each shake would be drunk slowly, like coffee in a period of 2 hours. ?4. If you choose bars, cut each bar in 4 pieces and eat each piece in 30min ?to make each bar last 2 hours. ?5. I emphasized the importance of measuring accurately the food portion and measure it when serving the food in plate ?6. The meal portions include a specific number of forks of meat and salad. You always eat the meat portion but you can replace up to half of salad/vegetables portion with rice, potatoes or pasta, or a fruit ?if you like. The less you do it the better weight loss will be. ?7. One full-size fork is what it can be scooped on the fork without falling aside and not what can be bit with the fork. Use regular forks like those you find in a typical restaurant. ?8.? Please send me weight measurements as soon as possible and then once a week. Always include your diet and exercise plan. ?9. Goal is to lose at least 1.5-2lbs per week ?10. Goal to lose 10% of your weight before surgery, which is about 27lbs. Ultimate weight goal: 245lbs before surgery 11. Please follow the diet plan exactly without any change. If you don't like something about the plan or you feel hungry you need to communicate with me so I can help you revise the plan. You should not change the plan yourself. 12. To be scheduled for EGD due to history of GERD. The possibility of biopsies was discussed. Patient needs to avoid use of NSAIDs and aspirin for 1 week prior to EGD. Risks of perforation and bleeding was discussed with the patient. This will be an outpatient procedure with IV sedation. Orders: Orders Insulin Today E03.9 - Hypothyroidism, unspecified, E66.01 - Morbid (severe) obesity due to excess calories, E78.5 - Hyperlipidemia, unspecified, G47.30 - Sleep apnea, unspecified, I10 - Essential (primary) hypertension, I25.10 - Atherosclerotic heart disease of [place] coronary artery without angina pectoris, J45.909 - Unspecified asthma, uncomplicated, K21.9 - Gastro-esophageal reflux disease without esophagitis Comprehensive Met. Panel Today E03.9 - Hypothyroidism, unspecified, E66.01 - Morbid (severe) obesity due to excess calories, E78.5 - Hyperlipidemia, unspecified, G47.30 - Sleep apnea, unspecified, I10 - Essential (primary) hypertension, I25.10 - Atherosclerotic heart disease of [place] coronary artery without angina pectoris, J45.909 - Unspecified asthma, uncomplicated, K21.9 - Gastro-esophageal reflux disease without esophagitis Vitamin B12 and Folate Today E03.9 - Hypothyroidism, unspecified, E66.01 - Morbid (severe) obesity due to excess calories, E78.5 - Hyperlipidemia, unspecified, G47.30 - Sleep apnea, unspecified, I10 - Essential (primary) hypertension, I25.10 - Atherosclerotic heart disease of [place] coronary artery without angina pectoris, J45.909 - Unspecified asthma, uncomplicated, K21.9 - Gastro-esophageal reflux disease without esophagitis Zinc Today E03.9 - Hypothyroidism, unspecified, E66.01 - Morbid (severe) obesity due to excess calories, E78.5 - Hyperlipidemia, unspecified, G47.30 - Sleep apnea, unspecified, I10 - Essential (primary) hypertension, I25.10 - Atherosclerotic heart disease of [place] coronary artery without angina pectoris, J45.909 - Unspecified asthma, uncomplicated, K21.9 - Gastro-esophageal reflux disease without esophagitis Vitamin B1 Today E03.9 - Hypothyroidism, unspecified, E66.01 - Morbid (severe) obesity due to excess calories, E78.5 - Hyperlipidemia, unspecified, G47.30 - Sleep apnea, unspecified, I10 - Essential (primary) hypertension, I25.10 - Atherosclerotic heart disease of [place] coronary artery without angina pectoris, J45.909 - Unspecified asthma, uncomplicated, K21.9 - Gastro-esophageal reflux disease without esophagitis Vitamin A Today E03.9 - Hypothyroidism, unspecified, E66.01 - Morbid (severe) obesity due to excess calories, E78.5 - Hyperlipidemia, unspecified, G47.30 - Sleep apnea, unspecified, I10 - Essential (primary) hypertension, I25.10 - Atherosclerotic heart disease of [place] coronary artery without angina pectoris, J45.909 - Unspecified asthma, uncomplicated, K21.9 - Gastro-esophageal reflux disease without esophagitis Ferritin Today E03.9 - Hypothyroidism, unspecified, E66.01 - Morbid (severe) obesity due to excess calories, E78.5 - Hyperlipidemia, unspecified, G47.30 - Sleep apnea, unspecified, I10 - Essential (primary) hypertension, I25.10 - Atherosclerotic heart disease of [place] coronary artery without angina pectoris, J45.909 - Unspecified asthma, uncomplicated, K21.9 - Gastro-esophageal reflux disease without esophagitis Vitamin D 25-OH Total Today E03.9 - Hypothyroidism, unspecified, E66.01 - Morbid (severe) obesity due to excess calories, E78.5 - Hyperlipidemia, unspecified, G47.30 - Sleep apnea, unspecified, I10 - Essential (primary) hypertension, I25.10 - Atherosclerotic heart disease of [place] coronary artery without angina pectoris, J45.909 - Unspecified asthma, uncomplicated, K21.9 - Gastro-esophageal reflux disease without esophagitis US abdomen comp w elastography Today E03.9 - Hypothyroidism, unspecified, E66.01 - Morbid (severe) obesity due to excess calories, E78.5 - Hyperlipidemia, unspecified, G47.30 - Sleep apnea, unspecified, I10 - Essential (primary) hypertension, I25.10 - Atherosclerotic heart disease of [place] coronary artery without angina pectoris, J45.909 - Unspecified asthma, uncomplicated, K21.9 - Gastro-esophageal reflux disease without esophagitis ECG 12 lead EKG Today E03.9 - Hypothyroidism, unspecified, E66.01 - Morbid (severe) obesity due to excess calories, E78.5 - Hyperlipidemia, unspecified, G47.30 - Sleep apnea, unspecified, I10 - Essential (primary) hypertension, I25.10 - Atherosclerotic heart disease of [place] coronary artery without angina pectoris, J45.909 - Unspecified asthma, uncomplicated, K21.9 - Gastro-esophageal reflux disease without esophagitis Hemoglobin A1c Today E03.9 - Hypothyroidism, unspecified, E66.01 - Morbid (severe) obesity due to excess calories, E78.5 - Hyperlipidemia, unspecified, G47.30 - Sleep apnea, unspecified, I10 - Essential (primary) hypertension, I25.10 - Atherosclerotic heart disease of [place] coronary artery without angina pectoris, J45.909 - Unspecified asthma, uncomplicated, K21.9 - Gastro-esophageal reflux disease without esophagitis H Pylori Breath Test Today E03.9 - Hypothyroidism, unspecified, E66.01 - Morbid (severe) obesity due to excess calories, E78.5 - Hyperlipidemia, unspecified, G47.30 - Sleep apnea, unspecified, I10 - Essential (primary) hypertension, I25.10 - Atherosclerotic heart disease of [place] coronary artery without angina pectoris, J45.909 - Unspecified asthma, uncomplicated, K21.9 - Gastro-esophageal reflux disease without esophagitis Complete Blood Count Auto Diff Today E03.9 - Hypothyroidism, unspecified, E66.01 - Morbid (severe) obesity due to excess calories, E78.5 - Hyperlipidemia, unspecified, G47.30 - Sleep apnea, unspecified, I10 - Essential (primary) hypertension, I25.10 - Atherosclerotic heart disease of [place] coronary artery without angina pectoris, J45.909 - Unspecified asthma, uncomplicated, K21.9 - Gastro-esophageal reflux disease without esophagitis Lipid Panel Today E03.9 - Hypothyroidism, unspecified, E66.01 - Morbid (severe) obesity due to excess calories, E78.5 - Hyperlipidemia, unspecified, G47.30 - Sleep apnea, unspecified, I10 - Essential (primary) hypertension, I25.10 - Atherosclerotic heart disease of [place] coronary artery without angina pectoris, J45.909 - Unspecified asthma, uncomplicated, K21.9 - Gastro-esophageal reflux disease without esophagitis IRON PROFILE Today E03.9 - Hypothyroidism, unspecified, E66.01 - Morbid (severe) obesity due to excess calories, E78.5 - Hyperlipidemia, unspecified, G47.30 - Sleep apnea, unspecified, I10 - Essential (primary) hypertension, I25.10 - Atherosclerotic heart disease of [place] coronary artery without angina pectoris, J45.909 - Unspecified asthma, uncomplicated, K21.9 - Gastro-esophageal reflux disease without esophagitis C Reactive Protein Today E03.9 - Hypothyroidism, unspecified, E66.01 - Morbid (severe) obesity due to excess calories, E78.5 - Hyperlipidemia, unspecified, G47.30 - Sleep apnea, unspecified, I10 - Essential (primary) hypertension, I25.10 - Atherosclerotic heart disease of [place] coronary artery without angina pectoris, J45.909 - Unspecified asthma, uncomplicated, K21.9 - Gastro-esophageal reflux disease without esophagitis TSH reflex Free T4 Today E03.9 - Hypothyroidism, unspecified, E66.01 - Morbid (severe) obesity due to excess calories, E78.5 - Hyperlipidemia, unspecified, G47.30 - Sleep apnea, unspecified, I10 - Essential (primary) hypertension, I25.10 - Atherosclerotic heart disease of [place] coronary artery without angina pectoris, J45.909 - Unspecified asthma, uncomplicated, K21.9 - Gastro-esophageal reflux disease without esophagitis XR chest 2V Today E03.9 - Hypothyroidism, unspecified, E66.01 - Morbid (severe) obesity due to excess calories, E78.5 - Hyperlipidemia, unspecified, G47.30 - Sleep apnea, unspecified, I10 - Essential (primary) hypertension, I25.10 - Atherosclerotic heart disease of [place] coronary artery without angina pectoris, J45.909 - Unspecified asthma, uncomplicated, K21.9 - Gastro-esophageal reflux disease without esophagitis FL upper GI w air Today E03.9 - Hypothyroidism, unspecified, E66.01 - Morbid (severe) obesity due to excess calories, E78.5 - Hyperlipidemia, unspecified, G47.30 - Sleep apnea, unspecified, I10 - Essential (primary) hypertension, I25.10 - Atherosclerotic heart disease of [place] coronary artery without angina pectoris, J45.909 - Unspecified asthma, uncomplicated, K21.9 - Gastro-esophageal reflux disease without esophagitis Referrals Behavioral Health Referral E03.9 - Hypothyroidism, unspecified, E66.01 - Morbid (severe) obesity due to excess calories, E78.5 - Hyperlipidemia, unspecified, G47.30 - Sleep apnea, unspecified, I10 - Essential (primary) hypertension, I25.10 - Atherosclerotic heart disease of [place] coronary artery without angina pectoris, J45.909 - Unspecified asthma, uncomplicated, K21.9 - Gastro-esophageal reflux disease without esophagitis Nutrition/Dietitian Referral E03.9 - Hypothyroidism, unspecified, E66.01 - Morbid (severe) obesity due to excess calories, E78.5 - Hyperlipidemia, unspecified, G47.30 - Sleep apnea, unspecified, I10 - Essential (primary) hypertension, I25.10 - Atherosclerotic heart disease of [place] coronary artery without angina pectoris, J45.909 - Unspecified asthma, uncomplicated, K21.9 - Gastro-esophageal reflux disease without esophagitis
[2023-12-03 13:32] VITALS: BMI 39.1
== END 2023-12-03 13:57 | disposition home or self-care (01) ==
LOC: HO.HBS 08:12
PROVIDERS: Visit Provider Surgery
DX: E66.01 Morbid (severe) obesity due to excess calories (principal); Z68.39 Body mass index [BMI] 39.0-39.9, adult
CPT/HCPCS: 99443

== ENCOUNTER → 2023-12-03 08:12 | Outpatient (BNVA) | payer OTHER, SELFPAY | PROVIDERS: Visit Provider Surgery ==